=== PATIENT | female | born 1960 | race African-American/Black ===

== ENCOUNTER 2016-12-17 17:41 | Inpatient (IN) | payer MEDICAID, OTHER ==
[2016-12-17] MEDS ORDERED: Sodium Chloride 0.9% 1,000 ML IV ONE (18:20)
[2016-12-17] MEDS ORDERED: Morphine 2 MG/ML Syringe IVPUSH ONE (18:20)
[2016-12-17] MEDS ORDERED: Ondansetron 4 MG/2 ML SDV IVPUSH ONE (18:21)
--- NOTE | 2016-12-17 18:25 | EDM.PDOC ---
ED HPI GENERAL MEDICAL PROBLEM - General Chief Complaint: Flank Pain Stated Complaint: PAIN IN RIGHT BACK AND ABDOMINAL AREAS Time Seen by Provider: 12/17/16 18:22 Source of Information: Reports: Patient History Limitations: Reports: No Limitations - History of Present Illness INITIAL COMMENTS - FREE TEXT/NARRATIVE: History of present illness: [56-year-old female presenting with right-sided flank pain radiating around to her abdomen. Patient indicates this is new she's never had this pain before and feels that this stabbing. Patient denies nausea vomiting or diarrhea.] Review of systems: As per history of present illness and below otherwise all systems reviewed and negative. Past medical history: As per history of present illness and as reviewed below otherwise noncontributory. Surgical history: As per history of present illness and as reviewed below otherwise noncontributory. Social history: No reported history of drug or alcohol abuse. Family history: As per history of present illness and as reviewed below otherwise noncontributory. Physical exam: HEENT: Atraumatic, normocephalic, pupils reactive, negative for conjunctival pallor or scleral icterus, mucous membranes moist, throat clear, neck supple, nontender, trachea midline. Lungs: Clear to auscultation, breath sounds equal bilaterally, chest nontender. Heart: S1S2, regular, negative for clicks, rubs, or JVD. Abdomen: Soft, nondistended, nontender. Negative for masses or hepatosplenomegaly. Negative for costovertebral tenderness. Pelvis: Stable nontender. Genitourinary: Deferred. Rectal: Deferred. Extremities: Atraumatic, negative for cords or calf pain. Neurovascular unremarkable. Neuro: Awake, alert, oriented. Cranial nerves II through XII unremarkable. Cerebellum unremarkable. Motor and sensory unremarkable throughout. Exam nonfocal. Diagnostics: [CBC, CMP] Therapeutics: [IV fluid, morphine, Zofran] Impression: [] Plan: [] Definitive disposition and diagnosis as appropriate pending reevaluation and review of above. right flank Pain Score (Numeric/FACES): 10 - Related Data Allergies Allergy/AdvReac Type Severity Reaction Status Date / Time chloroquine Allergy Unknown Rash Verified 12/17/16 18:15 Penicillins Allergy Fainting Verified 12/17/16 18:15 Home Meds: Home Meds Lisinopril [Prinivil] 10 mg PO DAILY 02/15/14 [History] metFORMIN [Glucophage] 500 mg PO BID 02/15/14 [History] Aspirin 81 mg PO BRK 09/15/15 [History] Metoprolol Succinate [Toprol XL 50mg] 25 mg PO DAILY 09/15/15 [History] Topiramate [Topamax] 50 mg PO 09/15/15 [History] amLODIPine [Norvasc] 2.5 mg PO DAILY 09/15/15 [History] Past Medical History Cardiovascular History: Reports: Hypertension Endocrine/Metabolic History: Reports: Diabetes, Type II Social & Family History - Family History Family Medical History: Unobtainable - Tobacco Use Smoking Status *Q: Never Smoker Second Hand Smoke Exposure: No - Alcohol Use Days Per Week of Alcohol Use: 0 - Recreational Drug Use Recreational Drug Use: No ED ROS GENERAL - Review of Systems Review Of Systems: See Below (See history of present illness) ED EXAM, GENERAL - Physical Exam Exam: See Below (See history of present illness) Course - Vital Signs Last Recorded V/S: Last Vital Signs Temp 36.8 C 12/17/16 19:53 Pulse 84 12/17/16 19:53 Resp 22 H 12/17/16 18:16 BP 135/66 12/17/16 19:53 Pulse Ox 100 12/17/16 18:16 - Orders/Labs/Meds Orders: Active Orders 24 hr Category Date Time Status Abdomen Pelvis wo Cont [CT] Stat Exams 12/17/16 18:57 Taken Gallbladder [Abdomen Ltd] [US] Stat Exams 12/17/16 21:10 Taken LACTATE DEHYDROGENASE,LDH [CHEM] Stat Lab 12/17/16 22:13 Ordered Labs: Laboratory Tests 12/17/16 12/17/16 12/17/16 Range/Units 18:15 18:17 18:30 WBC 8.92 (4.0-11.0) K/uL RBC 4.16 L (4.30-5.90) M/uL Hgb 11.5 L (12.0-16.0) g/dL Hct 34.5 L (36.0-46.0) % MCV 82.9 (80.0-98.0) fL MCH 27.6 (27.0-32.0) pg MCHC 33.3 (31.0-37.0) g/dL RDW Std Deviation 45.8 (28.0-62.0) fl RDW Coeff of Joel 15 (11.0-15.0) % Plt Count 223 (150-400) K/uL MPV 10.90 (7.40-12.00) fL Neut % (Auto) 79.4 (48.0-80.0) % Lymph % (Auto) 11.0 L (16.0-40.0) % Lane % (Auto) 8.3 (0.0-15.0) % Eos % (Auto) 1.1 (0.0-7.0) % Baso % (Auto) 0.2 (0.0-1.5) % Neut # (Auto) 7.1 H (1.4-5.7) K/uL Lymph # (Auto) 1.0 (0.6-2.4) K/uL Lane # (Auto) 0.7 (0.0-0.8) K/uL Eos # (Auto) 0.1 (0.0-0.7) K/uL Baso # (Auto) 0.0 (0.0-0.1) K/uL Nucleated RBC % 0.0 /100WBC Nucleated RBCs # 0 K/uL Sodium (136-146) mmol/L Potassium (3.5-5.1) mmol/L Chloride (98-110) mmol/L Carbon Dioxide (21-31) mmol/L BUN (6.0-23.0) mg/dL Creatinine (0.6-1.5) mg/dL Est Cr Clr Drug Dosing Estimated GFR (MDRD) ml/min Glucose (60-110) mg/dL Calcium (8.8-10.8) mg/dL Total Bilirubin (0.1-1.5) mg/dL AST (5-40) IU/L ALT (8-54) IU/L Alkaline Phosphatase (40-150) Total Protein (6.0-8.0) g/dL Albumin (3.5-5.0) g/dL Globulin (2.0-3.5) g/dL Albumin/Globulin Ratio (1.3-2.8) Urine Color YELLOW Urine Appearance CLEAR Urine pH 6.0 (5.0-8.0) Ur Specific [place] 1.015 (1.001-1.035) Urine Protein NEGATIVE (NEGATIVE) mg/dL Urine Glucose (UA) NEGATIVE (NEGATIVE) mg/dL Urine Ketones NEGATIVE (NEGATIVE) mg/dL Urine Occult Blood SMALL H (NEGATIVE) Urine Nitrite NEGATIVE (NEGATIVE) Urine Bilirubin NEGATIVE (NEGATIVE) Urine Urobilinogen 0.2 (<2.0) EU/dL Ur Leukocyte Esterase NEGATIVE (NEGATIVE) Urine RBC 0-2 (0-2/HPF) Urine WBC 1-3 (0-5/HPF) Ur Epithelial Cells RARE (NONE-FEW) Amorphous Sediment RARE (NEGATIVE) Urine Bacteria RARE (NEGATIVE) Urine HCG, Qual NEGATIVE (NEGATIVE) 12/17/16 Range/Units 18:30 WBC (4.0-11.0) K/uL RBC (4.30-5.90) M/uL Hgb (12.0-16.0) g/dL Hct (36.0-46.0) % MCV (80.0-98.0) fL MCH (27.0-32.0) pg MCHC (31.0-37.0) g/dL RDW Std Deviation (28.0-62.0) fl RDW Coeff of Joel (11.0-15.0) % Plt Count (150-400) K/uL MPV (7.40-12.00) fL Neut % (Auto) (48.0-80.0) % Lymph % (Auto) (16.0-40.0) % Lane % (Auto) (0.0-15.0) % Eos % (Auto) (0.0-7.0) % Baso % (Auto) (0.0-1.5) % Neut # (Auto) (1.4-5.7) K/uL Lymph # (Auto) (0.6-2.4) K/uL Lane # (Auto) (0.0-0.8) K/uL Eos # (Auto) (0.0-0.7) K/uL Baso # (Auto) (0.0-0.1) K/uL Nucleated RBC % /100WBC Nucleated RBCs # K/uL Sodium 136 (136-146) mmol/L Potassium 3.0 L (3.5-5.1) mmol/L Chloride 98 (98-110) mmol/L Carbon Dioxide 25 (21-31) mmol/L BUN 12 (6.0-23.0) mg/dL Creatinine 1.1 (0.6-1.5) mg/dL Est Cr Clr Drug Dosing TNP Estimated GFR (MDRD) > 60.0 ml/min Glucose 128 H (60-110) mg/dL Calcium 9.7 (8.8-10.8) mg/dL Total Bilirubin 0.6 (0.1-1.5) mg/dL AST 29 (5-40) IU/L ALT 27 (8-54) IU/L Alkaline Phosphatase 64 (40-150) Total Protein 6.9 (6.0-8.0) g/dL Albumin 3.7 (3.5-5.0) g/dL Globulin 3.2 (2.0-3.5) g/dL Albumin/Globulin Ratio 1.2 L (1.3-2.8) Urine Color Urine Appearance Urine pH (5.0-8.0) Ur Specific [place] (1.001-1.035) Urine Protein (NEGATIVE) mg/dL Urine Glucose (UA) (NEGATIVE) mg/dL Urine Ketones (NEGATIVE) mg/dL Urine Occult Blood (NEGATIVE) Urine Nitrite (NEGATIVE) Urine Bilirubin (NEGATIVE) Urine Urobilinogen (<2.0) EU/dL Ur Leukocyte Esterase (NEGATIVE) Urine RBC (0-2/HPF) Urine WBC (0-5/HPF) Ur Epithelial Cells (NONE-FEW) Amorphous Sediment (NEGATIVE) Urine Bacteria (NEGATIVE) Urine HCG, Qual (NEGATIVE) Meds: Medications Discontinued Medications Generic Name Dose Route Start Last Admin Trade Name Freq PRN Reason Stop Dose Admin Fentanyl 50 mcg 12/17/16 19:13 12/17/16 19:48 Sublimaze IVPUSH 12/17/16 19:14 50 mcg ONETIME ONE Administration Hydromorphone HCl 2 mg 12/17/16 22:03 Dilaudid IVPUSH 12/17/16 22:04 ONETIME ONE Sodium Chloride 1,000 mls @ 999 mls/hr 12/17/16 18:20 12/17/16 18:42 Normal Saline IV 12/17/16 19:20 999 mls/hr STAT ONE Administration Morphine Sulfate 2 mg 12/17/16 18:20 12/17/16 18:45 Morphine IVPUSH 12/17/16 18:21 2 mg ONETIME ONE Administration Ondansetron HCl 4 mg 12/17/16 18:21 12/17/16 18:42 Zofran IVPUSH 12/17/16 18:22 4 mg ONETIME ONE Administration Prochlorperazine Edisylate 5 mg 12/17/16 22:04 Compazine IVPUSH 12/17/16 22:05 ONETIME ONE Departure - Departure Time of Disposition: 22:15 Disposition: Admitted As Inpatient 68 Condition: good Clinical Impression: Flank pain - Discharge Information Forms: ED Department Discharge - My Orders Last 24 Hours: My Active Orders 12/17/16 18:57 Abdomen Pelvis wo Cont [CT] Stat 12/17/16 21:10 Gallbladder [Abdomen Ltd] [US] Stat 12/17/16 22:13 LACTATE DEHYDROGENASE,LDH [CHEM] Stat - Assessment/Plan Last 24 Hours: My Active Orders 12/17/16 18:57 Abdomen Pelvis wo Cont [CT] Stat 12/17/16 21:10 Gallbladder [Abdomen Ltd] [US] Stat 12/17/16 22:13 LACTATE DEHYDROGENASE,LDH [CHEM] Stat
[2016-12-17 19:11] LABS: CHLORIDE,CL 98 mmol/L (98-110); SODIUM,NA 136 mmol/L (136-146)
[2016-12-17] MEDS ORDERED: fentaNYL 100 MCG/2 ML SDV IVPUSH ONE (19:13)
[2016-12-17] MEDS ORDERED: HYDROmorphone 2 MG/ML Syringe IVPUSH ONE (22:03)
[2016-12-17] MEDS ORDERED: Prochlorperazine 10 MG/2 ML SDV IVPUSH ONE (22:04)
[2016-12-18] MEDS ORDERED: Sodium Chloride 0.9% with KCl 1,000 ML IV SCH (01:15)
[2016-12-18] MEDS ORDERED: Ondansetron 4 MG/2 ML SDV IVPUSH PRN (01:50)
--- NOTE | 2016-12-18 02:03 | PCM.HP ---
H&P History of Present Illness - History of Present Illness Initial Comments - Free Text/Narative: 56 yo female with pmh of DM and HTN who presents with one day history of Right lower quadrant abdominal pain. She denies any nausea, vomiting or fevers. right flank Pain Score (Numeric/FACES): 4 - Related Data Allergies/Adverse Reactions: Allergies Allergy/AdvReac Type Severity Reaction Status Date / Time chloroquine Allergy Unknown Rash Verified 12/17/16 18:15 Penicillins Allergy Fainting Verified 12/17/16 18:15 Home Medications: Home Meds Lisinopril [Prinivil] 10 mg PO DAILY 02/15/14 [History] metFORMIN [Glucophage] 500 mg PO BID 02/15/14 [History] Aspirin 81 mg PO BRK 09/15/15 [History] Metoprolol Succinate [Toprol XL 50mg] 25 mg PO DAILY 09/15/15 [History] Topiramate [Topamax] 50 mg PO 09/15/15 [History] amLODIPine [Norvasc] 2.5 mg PO DAILY 09/15/15 [History] Past Medical History HEENT History: Reports: Impaired Vision 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: Endocrine/Metabolic History: Reports: Diabetes, Type II - Past Surgical History GI Surgical History: Reports: Cholecystectomy, Hernia Repair/Other (ventral) Social & Family History - Family History Family Medical History: Unobtainable Cardiac: Reports: High Cholesterol, Hypertension Endocrine/Metabolic: Reports: Diabetes, type II - Tobacco Use Smoking Status *Q: Never Smoker Second Hand Smoke Exposure: No - Caffeine Use Caffeine Use: Reports: Coffee, Soda, Tea Caffeine Use Comment: 1 cup daily - Alcohol Use Days Per Week of Alcohol Use: 0 - Recreational Drug Use Recreational Drug Use: No H&P Review of Systems - Review of Systems: Review Of Systems: See Below General: Reports: No Symptoms HEENT: Reports: No Symptoms Pulmonary: Reports: No Symptoms Cardiovascular: Reports: No Symptoms Gastrointestinal: Reports: Abdominal Pain Genitourinary: Reports: No Symptoms Musculoskeletal: Reports: No Symptoms Skin: Reports: No Symptoms Psychiatric: Reports: No Symptoms Neurological: Reports: No Symptoms Hematologic/Lymphatic: Reports: No Symptoms Immunologic: Reports: No Symptoms Exam - Exam Exam: See Below - Vital Signs Vital Signs: Last Vital Signs Temp 38.1 C 12/17/16 22:51 Pulse 96 05/24/17 22:51 Resp 26 H 12/17/16 22:51 BP 132/71 12/17/16 22:51 Pulse Ox 85 L 12/17/16 22:51 Weight: 113.398 kg - Exam General: Alert, Oriented, 4 Lungs: Clear to Auscultation, Normal Respiratory Effort Cardiovascular: Regular Rate, Regular Rhythm Abdomen: Tenderness (Right lower quadrant) Extremities: Normal Inspection Skin: Warm, Dry, Intact - Patient Data Lab Results last 24 hrs: Laboratory Results - last 24 hr 12/17/16 Range/Units 23:19 Lactate 0.4 (0.20-2.00) mmol/L Result Diagrams: 12/18/16 05:00 12/18/16 05:00 *Q Meaningful Use (ADM) - VTE *Q VTE Criteria *Q: - Stroke *Q Stroke Criteria *Q: - AMI *Q AMI Criteria *Q: Problem List Initiated/Reviewed/Updated: Yes Orders Last 24hrs: Active Orders 24 hr Category Date Time Status Antiembolic Devices [RC] PER UNIT ROUTINE Care 12/18/16 01:51 Ordered Blood Glucose Check, Bedside [RC] TIDAC Care 12/17/16 23:06 Active Notify Provider Consults [RC] ASDIRECTED Care 12/18/16 01:53 Ordered Oxygen Therapy Adult [Oxygen Therapy] [RC] ASDIRECTED Care 12/17/16 23:06 Active Oxygen Therapy [RC] PRN Care 12/18/16 01:50 Ordered VTE/DVT Education [RC] PER UNIT ROUTINE Care 12/18/16 01:50 Ordered Vital Signs [RC] Q4H Care 12/18/16 01:50 Ordered Consult to Physician [CONS] Routine Cons 12/18/16 01:52 Ordered Nothing per Oral Now Diet [DIET] Diet 12/18/16 Breakfast Ordered CXR [Chest 1V Frontal] [CR] Routine Exams 12/17/16 23:03 Taken BASIC METABOLIC PANEL,BMP [CHEM] Routine Lab 12/18/16 05:00 Ordered CBC WITH AUTO DIFF [HEME] Routine Lab 12/18/16 05:00 Ordered Acetaminophen [Tylenol] Med 12/17/16 23:06 Active 650 mg PO Q4H PRN Insulin Aspart [NovoLOG] Med 12/18/16 07:30 Active See Protocol SUBCUT TIDAC Morphine Med 12/18/16 01:50 Ordered 2 mg IVPUSH Q2H PRN Ondansetron [Zofran] Med 12/18/16 01:50 Ordered 4 mg IVPUSH Q4H PRN Sodium Chloride 0.9% @ 125 MLS/HR (1000ml) Med 12/18/16 02:00 Ordered Sodium Chloride 0.9% [Normal Saline] 1,000 ml IV ASDIRECTED Sodium Chloride 0.9% with KCl 40 mEq @ Enter Rate (1000 Med 12/18/16 01:15 Ordered mL) Sodium Chloride 0.9% with KCl [Normal Saline with 40 mEq KCl] 1,000 ml IV ASDIRECTED Sequential Compression Device [OM.PC] Per Unit Routine Oth 12/18/16 01:51 Ordered Medication Orders Acetaminophen (Tylenol) 650 mg PO Q4H PRN PRN Reason: Pain Potassium Chloride/Sodium Chloride (Normal Saline With 40 Meq Kcl) 1,000 mls @ 150 mls/hr IV ASDIRECTED BERNARDO Stop: 12/18/16 07:54 Last Admin: 12/18/16 01:35 Dose: 150 mls/hr Sodium Chloride (Normal Saline) 1,000 mls @ 125 mls/hr IV ASDIRECTED BERNARDO Insulin Aspart (Novolog) 0 unit SUBCUT TIDAC BERNARDO PRN Reason: Protocol Morphine Sulfate (Morphine) 2 mg IVPUSH Q2H PRN PRN Reason: Pain (severe 7-10) Stop: 12/19/16 01:51 Ondansetron HCl (Zofran) 4 mg IVPUSH Q4H PRN PRN Reason: Nausea Assessment/Plan Comment:: 56 yo female who presents with abdominal pain. I spoke with Dr. Leavitt regarding RLQ pain, and CT scan report of mild prominence of the mid appendix which could be within normal limits for this patient. Patient currently does not have fevers, or leukocytosis. Dr. Leavitt will see patient project builder.
[2016-12-18 06:03] LABS: CHLORIDE,CL 100 mmol/L (98-110); SODIUM,NA 137 mmol/L (136-146)
--- NOTE | 2016-12-18 07:32 | PCM.CONS ---
H&P History of Present Illness - General Date of Service: 12/18/16 Admit Problem/Dx: Right flank pain Source of Information: Patient History Limitations: Reports: No Limitations - History of Present Illness Symptom Onset Date: 12/17/16 Location: Reports: Back, Other (Right flank) Quality: Reports: Ache, Sharp, Stabbing Severity: Moderate Improves with: Reports: Rest, Other (Left lateral decubitus position) Worsens with: Reports: Movement Context: Reports: Sick Contact Associated Symptoms: Reports: Nausea/Vomiting right flank Pain Score (Numeric/FACES): 4 - Related Data Allergies/Adverse Reactions: Allergies Allergy/AdvReac Type Severity Reaction Status Date / Time chloroquine Allergy Unknown Rash Verified 12/17/16 18:15 Penicillins Allergy Fainting Verified 12/17/16 18:15 Home Medications: Home Meds Lisinopril [Prinivil] 10 mg PO DAILY 02/15/14 [History] metFORMIN [Glucophage] 500 mg PO BID 02/15/14 [History] Aspirin 81 mg PO BRK 09/15/15 [History] Metoprolol Succinate [Toprol XL 50mg] 25 mg PO DAILY 09/15/15 [History] Topiramate [Topamax] 50 mg PO 09/15/15 [History] amLODIPine [Norvasc] 2.5 mg PO DAILY 09/15/15 [History] Past Medical History HEENT History: Reports: Impaired Vision 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: 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/Metabolic 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: Reports: Diabetes, Type II - Past Surgical History GI Surgical History: Reports: Cholecystectomy, Hernia Repair/Other (ventral) Social & Family History - Family History Family Medical History: Unobtainable Cardiac: Reports: High Cholesterol, Hypertension Endocrine/Metabolic: Reports: Diabetes, type II - Tobacco Use Smoking Status *Q: Never Smoker Second Hand Smoke Exposure: No - Caffeine Use Caffeine Use: Reports: Coffee, Soda, Tea Caffeine Use Comment: 1 cup daily - Alcohol Use Days Per Week of Alcohol Use: 0 - Recreational Drug Use Recreational Drug Use: No H&P Review of Systems - Review of Systems: Review Of Systems: See Below General: Denies: Fever, Chills, Malaise, Weakness, Decreased Appetite HEENT: Reports: No Symptoms Pulmonary: Denies: Shortness of Breath, Wheezing Cardiovascular: Denies: Chest Pain, Palpitations Gastrointestinal: Reports: Decreased Appetite, Nausea, Vomiting (one small emesis). Denies: Constipation, Diarrhea Genitourinary: Denies: Dysuria, Frequency, Burning, Pain, Urgency, Hematuria Musculoskeletal: Denies: No Symptoms Skin: Denies: Cyanosis, Jaundice Psychiatric: Denies: Confusion, Depression, Anxiety Neurological: Reports: No Symptoms Hematologic/Lymphatic: Reports: No Symptoms Immunologic: Reports: No Symptoms Exam - Exam Exam: See Below - Vital Signs Vital Signs: Last Vital Signs Temp 97.4 F 12/18/16 03:17 Pulse 90 12/18/16 03:17 Resp 20 12/18/16 03:17 BP 136/67 12/18/16 03:17 Pulse Ox 97 12/18/16 03:17 Weight: 250 lb - Exam General: Alert, Oriented, Cooperative, Moderate Distress HEENT: Conjunctiva Clear, EOMI, Pupils Equal, Pupils Reactive. No: Scleral Icterus Neck: Supple, Trachea Midline Lungs: Clear to Auscultation, Normal Respiratory Effort Cardiovascular: Regular Rate, Regular Rhythm, Normal S1, Normal S2. No: Tachycardia Abdomen: Normal Bowel Sounds, Soft. No: Peritoneal Signs, Distention, Guarding , Rigidity, Rebound, McBurney's Sign, Psoas Sign, Rovsing's Sign (Female) Exam: Deferred Rectal (Female) Exam: Deferred Back Exam: Normal Inspection Extremities: Normal Inspection, Normal Pulses Neurological: Cranial Nerves Intact Neuro Extensive - Mental Status: Alert, Oriented x3, Normal Mood/Affect Psychiatric: Alert, Normal Affect, Normal Mood - Patient Data Lab Results last 24 hrs: Laboratory Results - last 24 hr 12/17/16 12/18/16 12/18/16 Range/Units 23:19 05:00 05:00 WBC 6.58 (4.0-11.0) K/uL RBC 4.00 L (4.30-5.90) M/uL Hgb 10.7 L (12.0-16.0) g/dL Hct 33.2 L (36.0-46.0) % MCV 83.0 (80.0-98.0) fL MCH 26.8 L (27.0-32.0) pg MCHC 32.2 (31.0-37.0) g/dL RDW Std Deviation 45.1 (28.0-62.0) fl RDW Coeff of Joel 15 (11.0-15.0) % Plt Count 214 (150-400) K/uL MPV 11.10 (7.40-12.00) fL Neut % (Auto) 81.6 H (48.0-80.0) % Lymph % (Auto) 8.4 L (16.0-40.0) % [place] % (Auto) 9.3 (0.0-15.0) % Eos % (Auto) 0.5 (0.0-7.0) % Baso % (Auto) 0.2 (0.0-1.5) % Neut # (Auto) 5.4 (1.4-5.7) K/uL Lymph # (Auto) 0.6 (0.6-2.4) K/uL [place] # (Auto) 0.6 (0.0-0.8) K/uL Eos # (Auto) 0.0 (0.0-0.7) K/uL Baso # (Auto) 0.0 (0.0-0.1) K/uL Nucleated RBC % 0.0 /100WBC Nucleated RBCs # 0 K/uL Lactate 0.4 (0.20-2.00) mmol/L Sodium 137 (136-146) mmol/L Potassium 3.4 L (3.5-5.1) mmol/L Chloride 100 (98-110) mmol/L Carbon Dioxide 27 (21-31) mmol/L BUN 10 (6.0-23.0) mg/dL Creatinine 1.0 (0.6-1.5) mg/dL Est Cr Clr Drug Dosing 62.54 mL/min Estimated GFR (MDRD) > 60.0 ml/min Glucose 125 H (60-110) mg/dL POC Glucose (60-110) mg/dL Calcium 8.7 L (8.8-10.8) mg/dL 12/18/16 Range/Units 06:41 WBC (4.0-11.0) K/uL RBC (4.30-5.90) M/uL Hgb (12.0-16.0) g/dL Hct (36.0-46.0) % MCV (80.0-98.0) fL MCH (27.0-32.0) pg MCHC (31.0-37.0) g/dL RDW Std Deviation (28.0-62.0) fl RDW Coeff of Joel (11.0-15.0) % Plt Count (150-400) K/uL MPV (7.40-12.00) fL Neut % (Auto) (48.0-80.0) % Lymph % (Auto) (16.0-40.0) % [place] % (Auto) (0.0-15.0) % Eos % (Auto) (0.0-7.0) % Baso % (Auto) (0.0-1.5) % Neut # (Auto) (1.4-5.7) K/uL Lymph # (Auto) (0.6-2.4) K/uL [place] # (Auto) (0.0-0.8) K/uL Eos # (Auto) (0.0-0.7) K/uL Baso # (Auto) (0.0-0.1) K/uL Nucleated RBC % /100WBC Nucleated RBCs # K/uL Lactate (0.20-2.00) mmol/L Sodium (136-146) mmol/L Potassium (3.5-5.1) mmol/L Chloride (98-110) mmol/L Carbon Dioxide (21-31) mmol/L BUN (6.0-23.0) mg/dL Creatinine (0.6-1.5) mg/dL Est Cr Clr Drug Dosing mL/min Estimated GFR (MDRD) ml/min Glucose (60-110) mg/dL POC Glucose 122 H (60-110) mg/dL Calcium (8.8-10.8) mg/dL Result Diagrams: 12/18/16 05:00 12/18/16 05:00 Consult PN Assessment/Plan Procedures: Procedures ASSAY OF BLOOD/URIC ACID (03/26/15) ASSAY OF CK (CPK) (02/15/14) ASSAY OF GONADOTROPIN (FSH) (01/19/14) ASSAY OF IRON (03/26/15) ASSAY OF TROPONIN QUANT (02/15/14) ASSAY THYROID STIM HORMONE (03/26/15) CHEST X-RAY 1 VIEW FRONTAL (02/15/14) COMPLETE CBC W/AUTO DIFF WBC (02/15/14) COMPREHEN METABOLIC PANEL (03/26/15) CREATINE MB FRACTION (02/15/14) ELECTROCARDIOGRAM TRACING (02/15/14) EMERGENCY DEPT VISIT (09/15/15) EMERGENCY DEPT VISIT (02/15/14) GLUCOSE BLOOD TEST (02/15/14) GLYCOSYLATED HEMOGLOBIN TEST (03/26/15) LIPID PANEL (03/26/15) METABOLIC PANEL TOTAL CA (01/19/14) PROTHROMBIN TIME (02/15/14) RBC SED RATE AUTOMATED (03/26/15) ROUTINE VENIPUNCTURE (03/26/15) THER/PROPH/DIAG INJ IV PUSH (02/15/14) THER/PROPH/DIAG INJ SC/IM (02/15/14) THROMBOPLASTIN TIME PARTIAL (02/15/14) US EXAM ABDO BACK WALL CORRIGAN (08/03/14) X-RAY EXAM OF ANKLE (11/04/13) (1) Flank pain SNOMED Code(s): 405961489 Code(s): R10.9 - UNSPECIFIED ABDOMINAL PAIN Current Visit: Yes Problem List Initiated/Reviewed/Updated: Yes Plan: CT shows mild dilatation of the mid appendix with no distal dilatation or inflammatory changes. Patient c/o more of right flank pain than abdominal pain. Abdominal exam is benign--no localizaing RLQ tenderness or rebound. I do not think this is appendicitis.
[2016-12-18] MEDS: Insulin Aspart 100 Units/ML 3 ML Pen SUBCUT SCH ×4 (07:34→17:02)
[2016-12-18] MEDS: Morphine 2 MG/ML Syringe IVPUSH PRN ×5 (07:35→22:48)
[2016-12-18] MEDS: Sodium Chloride 0.9% 1,000 ML IV SCH ×2 (08:30→20:07)
--- NOTE | 2016-12-18 12:04 | PCM.PN ---
- Review of Systems Systems Review Comment:: patient's pain is now more right flank that RLQ abdominal pain. - Patient Data Vitals - most recent: Last Vital Signs Temp 37.3 C 12/18/16 08:00 Pulse 104 H 12/18/16 08:00 Resp 22 H 12/18/16 08:00 BP 135/63 12/18/16 08:00 Pulse Ox 94 L 12/18/16 08:00 Weight - most recent: 113.398 kg I&O - last 24 hours: Intake & Output 12/17/16 12/18/16 12/18/16 22:59 06:59 14:59 Intake Total 200 999 Balance 200 999 Lab Results last 24 hrs: Laboratory Results - last 24 hr 12/17/16 12/18/16 12/18/16 Range/Units 23:19 05:00 05:00 WBC 6.58 (4.0-11.0) K/uL RBC 4.00 L (4.30-5.90) M/uL Hgb 10.7 L (12.0-16.0) g/dL Hct 33.2 L (36.0-46.0) % MCV 83.0 (80.0-98.0) fL MCH 26.8 L (27.0-32.0) pg MCHC 32.2 (31.0-37.0) g/dL RDW Std Deviation 45.1 (28.0-62.0) fl RDW Coeff of Joel 15 (11.0-15.0) % Plt Count 214 (150-400) K/uL MPV 11.10 (7.40-12.00) fL Neut % (Auto) 81.6 H (48.0-80.0) % Lymph % (Auto) 8.4 L (16.0-40.0) % Villalba % (Auto) 9.3 (0.0-15.0) % Eos % (Auto) 0.5 (0.0-7.0) % Baso % (Auto) 0.2 (0.0-1.5) % Neut # (Auto) 5.4 (1.4-5.7) K/uL Lymph # (Auto) 0.6 (0.6-2.4) K/uL Villalba # (Auto) 0.6 (0.0-0.8) K/uL Eos # (Auto) 0.0 (0.0-0.7) K/uL Baso # (Auto) 0.0 (0.0-0.1) K/uL Nucleated RBC % 0.0 /100WBC Nucleated RBCs # 0 K/uL Lactate 0.4 (0.20-2.00) mmol/L Sodium 137 (136-146) mmol/L Potassium 3.4 L (3.5-5.1) mmol/L Chloride 100 (98-110) mmol/L Carbon Dioxide 27 (21-31) mmol/L BUN 10 (6.0-23.0) mg/dL Creatinine 1.0 (0.6-1.5) mg/dL Est Cr Clr Drug Dosing 62.54 mL/min Estimated GFR (MDRD) > 60.0 ml/min Glucose 125 H (60-110) mg/dL POC Glucose (60-110) mg/dL Calcium 8.7 L (8.8-10.8) mg/dL // Range/Units 06:41 WBC (4.0-11.0) K/uL RBC (4.30-5.90) M/uL Hgb (12.0-16.0) g/dL Hct (36.0-46.0) % MCV (80.0-98.0) fL MCH (27.0-32.0) pg MCHC (31.0-37.0) g/dL RDW Std Deviation (28.0-62.0) fl RDW Coeff of Joel (11.0-15.0) % Plt Count (150-400) K/uL MPV (7.40-12.00) fL Neut % (Auto) (48.0-80.0) % Lymph % (Auto) (16.0-40.0) % Villalba % (Auto) (0.0-15.0) % Eos % (Auto) (0.0-7.0) % Baso % (Auto) (0.0-1.5) % Neut # (Auto) (1.4-5.7) K/uL Lymph # (Auto) (0.6-2.4) K/uL Villalba # (Auto) (0.0-0.8) K/uL Eos # (Auto) (0.0-0.7) K/uL Baso # (Auto) (0.0-0.1) K/uL Nucleated RBC % /100WBC Nucleated RBCs # K/uL Lactate (0.20-2.00) mmol/L Sodium (136-146) mmol/L Potassium (3.5-5.1) mmol/L Chloride (98-110) mmol/L Carbon Dioxide (21-31) mmol/L BUN (6.0-23.0) mg/dL Creatinine (0.6-1.5) mg/dL Est Cr Clr Drug Dosing mL/min Estimated GFR (MDRD) ml/min Glucose (60-110) mg/dL POC Glucose 122 H (60-110) mg/dL Calcium (8.8-10.8) mg/dL Med Orders - Current: Current Medications Acetaminophen (Tylenol) 650 mg PO Q4H PRN PRN Reason: Pain Sodium Chloride (Normal Saline) 1,000 mls @ 125 mls/hr IV ASDIRECTED [facility] Last Admin: 12/18/16 08:30 Dose: 125 mls/hr Insulin Aspart (Novolog) 0 unit SUBCUT TIDAC [facility] PRN Reason: Protocol Last Admin: 12/18/16 11:31 Dose: Not Given Morphine Sulfate (Morphine) 2 mg IVPUSH Q2H PRN PRN Reason: Pain (severe 7-10) Stop: 12/19/16 01:51 Last Admin: 12/18/16 11:32 Dose: 2 mg Ondansetron HCl (Zofran) 4 mg IVPUSH Q4H PRN PRN Reason: Nausea Discontinued Medications Fentanyl (Sublimaze) 50 mcg IVPUSH ONETIME ONE Stop: 12/17/16 19:14 Last Admin: 12/17/16 19:48 Dose: 50 mcg Hydromorphone HCl (Dilaudid) 2 mg IVPUSH ONETIME ONE Stop: 12/17/16 22:04 Last Admin: 12/17/16 22:26 Dose: 2 mg Sodium Chloride (Normal Saline) 1,000 mls @ 999 mls/hr IV STAT ONE Stop: 12/17/16 19:20 Last Admin: 12/17/16 18:42 Dose: 999 mls/hr Potassium Chloride/Sodium Chloride (Normal Saline With 40 Meq Kcl) 1,000 mls @ 150 mls/hr IV ASDIRECTED [facility]ARDO Stop: 12/18/16 07:54 Last Admin: 12/18/16 01:35 Dose: 150 mls/hr Morphine Sulfate (Morphine) 2 mg IVPUSH ONETIME ONE Stop: 12/17/16 18:21 Last Admin: 12/17/16 18:45 Dose: 2 mg Ondansetron HCl (Zofran) 4 mg IVPUSH ONETIME ONE Stop: 12/17/16 18:22 Last Admin: 12/17/16 18:42 Dose: 4 mg Prochlorperazine Edisylate (Compazine) 5 mg IVPUSH ONETIME ONE Stop: 12/17/16 22:05 Last Admin: 12/17/16 22:29 Dose: 5 mg - Exam General: alert, oriented Lungs: Clear to auscultation, Normal respiratory effort Cardiovascular: Regular Rate, Regular Rhythm Abdomen: no distension, tenderness (RLQ and extending to right flank). No: rigidity, rebound Extremities: no edema Skin: warm, dry, intact Neurological: no new focal deficit - Problem List Review Problem List Initiated/Reviewed/Updated: Yes - My Orders Last 24 Hours: My Active Orders 12/17/16 23:03 CXR [Chest 1V Frontal] [CR] Routine 12/17/16 23:06 Blood Glucose Check, Bedside [RC] TIDAC Oxygen Therapy Adult [Oxygen Therapy] [RC] ASDIRECTED Acetaminophen [Tylenol] 650 mg PO Q4H PRN 12/18/16 01:50 Oxygen Therapy [RC] PRN VTE/DVT Education [RC] PER UNIT ROUTINE Vital Signs [RC] Q4H Morphine 2 mg IVPUSH Q2H PRN Ondansetron [Zofran] 4 mg IVPUSH Q4H PRN 12/18/16 01:51 Antiembolic Devices [RC] PER UNIT ROUTINE Sequential Compression Device [OM.PC] Per Unit Routine 12/18/16 01:52 Consult to Physician [CONS] Routine 12/18/16 01:53 Notify Provider Consults [RC] ASDIRECTED 12/18/16 02:00 Sodium Chloride 0.9% [Normal Saline] 1,000 ml IV ASDIRECTED 12/18/16 07:30 Insulin Aspart [NovoLOG] See Protocol SUBCUT TIDAC 12/18/16 10:53 Pelvis Non OB Comp [US] Routine 12/18/16 10:58 Notify Provider Consults [RC] ASDIRECTED Consult to Physician [CONS] Routine 12/18/16 Lunch Clear Liquid Diet [DIET] - Plan Plan:: 56 yo female who presents with abdominal and flank pain. Dr. Leavitt has seen patient and does not believe she has appendicitis. I have consulted Dr. Rodarte regarding Ct scan findings of bladder wall thinking and straining of mid ureters. Patient's UA is normal.
--- NOTE | 2016-12-18 14:30 | CT ---
EXAM DATE: 12/17/16 PATIENT'S AGE: 56 Patient: SHASTA HENNING Facility: [place], [place] Site . Site : 1960 Study: CT Abdomen/Pelvis [id number]/24/2017 7:50:10 PM Ordering Physician: Doctor Hooks Final Report: INDICATION: Right flank pain TECHNIQUE: CT abdomen and pelvis without contrast. COMPARISON: None available FINDINGS: Lower chest: Tiny posterior left pleural fluid and apparent trace right pleural fluid. Small pericardial fluid at the base. Liver: Hepatomegaly measuring 21 centimeters craniocaudally. Spleen: Mild splenomegaly measuring 13.8 centimeters in AP dimension. Pancreas: Unremarkable. Gallbladder and bile ducts: Cholecystectomy. Dilated extrahepatic duct up to 1.7 centimeters proximally, and mild central intrahepatic biliary dilatation, greater than expected for age postcholecystectomy state. Adrenal glands: Unremarkable. Kidneys: No hydronephrosis or nephrolithiasis. The distal ureters are not well delineated. Apparent mild stranding adjacent to the mid ureters. A punctate calcification in the right pelvis on image 127 appears posterior to the expected location of the distal right ureter. GI tract: No mechanical bowel obstruction. Mild prominence of the mid appendix measuring 8 millimeters, however the more distal appendix is not significantly distended and this could be within normal limits for this patient. Colonic diverticulosis without gross diverticulitis. Areas of fat attenuation within the colonic lumen could be related to luminal contents, although intraluminal lipomas are not excluded. Vascular structures: Apparent mild stranding adjacent to the aorta and gonadal veins, nonspecific. Lymph nodes: Unremarkable. Miscellaneous: Small pelvic free fluid. No free air. A moderate size ventral hernia containing fat, fluid and edema, with mild stranding in the underlying omental fat suggestive of inflammation or strangulation. Pelvic Organs: An enlarged lobulated, likely leiomyomatous, uterus. Bladder wall thickening. Bones: Degenerative changes in the spine. IMPRESSION: No obstructive uropathy. Bladder wall thickening and stranding adjacent to the mid ureters. Correlate with urinalysis for cystitis/ UTI. An enlarged lobulated, likely myomatous uterus. Stranding along the gonadal veins, unclear if related to the ureters. Recommend sonographic correlation and gynecological evaluation. Apparent mild stranding adjacent to the aorta could be reactive. Vasculitis is difficult to exclude without contrast. If indicated, correlate with postcontrast imaging. Colonic diverticulosis without diverticulitis. Mild prominence of the mid appendix could be within normal limits for this patient. Correlate clinically. A ventral hernia containing fat, fluid and edema, with mild stranding in the underlying omental fat, suggestive of inflammation or strangulation. Trace pleural fluid and small pericardial fluid. Hepatosplenomegaly. Biliary dilatation, greater than expected for a postcholecystectomy state. Consider followup evaluation. Dictated by Beto Pena MD @ 12/17/2016 8:51:16 PM Dictated by: Beto Pena MD @ 12/17/2016 20:51:53 (Electronic Signature) Report Signed by Proxy. LALO
--- NOTE | 2016-12-18 15:27 | US ---
EXAM DATE: 12/17/16 PATIENT'S AGE: 56 Patient: SHASTA HENNING Facility: [place], [place] Site . Site : 1960 Study: US Abdomen -12/17/2016 10:02:48 PM Ordering Physician: Doctor Hooks Final Report: INDICATION: Dilated common bile duct. TECHNIQUE: Ultrasound abdomen limited. Sonographic images of the right upper quadrant were obtained using martinez-scale and color Doppler images. COMPARISON: CT scan abdomen pelvis 12/17/2016 at 7:42 p.m. FINDINGS: Liver: Normal in size and echotexture. No masses. No intrahepatic biliary dilatation. Gallbladder: History of cholecystectomy. Common bile duct: 4-9 mm. Pancreas: Normal. The distal pancreatic body and tail are not visualized. Right kidney: 10.3 cm. Normal echotexture and cortex. No masses, stones, or hydronephrosis. IMPRESSION: Common bile duct is dilated to 9 millimeters. No obvious obstructing calculi. No intrahepatic biliary duct dilatation. History of cholecystectomy Dictated by Darian Cifuentes MD @ 12/17/2016 10:17:30 PM Dictated by: Darian Cifuentes MD @ 12/17/2016 22:17:41 (Electronic Signature) Report Signed by Proxy. LALO
--- NOTE | 2016-12-18 15:34 | CR ---
EXAM DATE: 12/17/16 PATIENT'S AGE: 56 Patient: SHASTA HENNING Facility: [place], [place] Site . Site : 1960 Study: XRay Chest [id number]/24/2017 11:42:24 PM Ordering Physician: Yaniv Iyer Final Report: INDICATIONS: Low O2 saturation. TECHNIQUE: Chest 1 view. COMPARISON: 02/15/2014. FINDINGS: No pneumothorax, pleural effusion or airspace consolidation. Cardiac and mediastinal contours are within normal limits. Upper abdomen and osseous structures show no acute abnormality. IMPRESSION: No acute cardiopulmonary disease. Dictated by Boom Kern MD @ 12/17/2016 11:49:09 PM Dictated by: Boom Kern MD @ 12/17/2016 23:49:20 (Electronic Signature) Report Signed by Proxy. [facility] & CLINICAlison
--- NOTE | 2016-12-18 15:39 | US ---
EXAM DATE: 12/17/16 PATIENT'S AGE: 56 Patient: SHASTA HENNING Facility: [place], [place] Site . Site : 1960 Study: US Abdomen -12/17/2016 10:02:48 PM Ordering Physician: Doctor Hooks Final Report: INDICATION: Dilated common bile duct. TECHNIQUE: Ultrasound abdomen limited. Sonographic images of the right upper quadrant were obtained using martinez-scale and color Doppler images. COMPARISON: CT scan abdomen pelvis 12/17/2016 at 7:42 p.m. FINDINGS: Liver: Normal in size and echotexture. No masses. No intrahepatic biliary dilatation. Gallbladder: History of cholecystectomy. Common bile duct: 4-9 mm. Pancreas: Normal. The distal pancreatic body and tail are not visualized. Right kidney: 10.3 cm. Normal echotexture and cortex. No masses, stones, or hydronephrosis. IMPRESSION: Common bile duct is dilated to 9 millimeters. No obvious obstructing calculi. No intrahepatic biliary duct dilatation. History of cholecystectomy Dictated by Darian Cifuentes MD @ 12/17/2016 10:17:30 PM Dictated by: Darian Cifuentes MD @ 12/17/2016 22:17:41 (Electronic Signature) Report Signed by Proxy. LALO
[2016-12-18] MEDS ORDERED: Ciprofloxacin in D5W 400 MG in Premix Bag 1 BAG IV SCH ×2 (16:15)
[2016-12-18] MEDS ORDERED: Iopamidol 755 MG/ML 500 ML Multipack Bottle IVPUSH STA (16:50)
--- NOTE | 2016-12-18 17:06 | US ---
EXAMINATION: Transabdominal pelvic ultrasound HISTORY: Pain COMPARISON: CT dated 12/17/2016 TECHNIQUE: Grayscale, color Doppler, and spectral Doppler images obtained transabdominally. FINDINGS: The uterus is enlarged and heterogeneous measuring 12.7 x 6 x 7.5 cm. Several masslike are as are noted likely representing fibroids measuring up to 4.5 cm. Endometrial stripe is not well chrissie racterized on the provided images. Both the left and right ovaries are normal in size. Normal color and spectral Doppler flow noted within the left ovary. No significant color flow noted within the ri ght ovary likely secondary to technique. No significant free pelvic fluid. No adnexal masses. IMPRESSION: 1. Multiple fibroids noted within a mildly enlarged uterus.
[2016-12-18] MEDS ORDERED: cefTRIAXone 2 GM in Premix Bag 1 BAG IV SCH (19:00)
[2016-12-18] MEDS: Acetaminophen 325 MG Tab PO PRN (20:08)
[2016-12-19] MEDS: Morphine 2 MG/ML Syringe IVPUSH PRN ×4 (01:35→19:59)
[2016-12-19] MEDS: Acetaminophen 325 MG Tab PO PRN (04:32)
[2016-12-19 04:51] LABS: CHLORIDE,CL 100 mmol/L (98-110); SODIUM,NA 137 mmol/L (136-146)
--- NOTE | 2016-12-19 05:35 | PCM.PN ---
- General Info Date of Service: 12/19/16 Admission Dx/Problem (Free Text): flank pain Functional Status: Denies: pain controlled - Review of Systems General: Reports: Weakness, Malaise, Chills, Night Sweats. Denies: Fever HEENT: Reports: no symptoms Pulmonary: Reports: shortness of breath Cardiovascular: Reports: No Symptoms Gastrointestinal: Reports: Abdominal pain Genitourinary: Reports: no symptoms Musculoskeletal: Reports: hand pain Skin: Reports: diaphoresis Neurological: Reports: No Symptoms Psychiatric: Reports: no symptoms - Patient Data Vitals - most recent: Last Vital Signs Temp 37.3 C 12/19/16 04:00 Pulse 91 12/19/16 04:00 Resp 19 12/19/16 04:00 BP 92/49 L 12/19/16 04:00 Pulse Ox 92 L 12/19/16 04:00 Weight - most recent: 113.398 kg I&O - last 24 hours: Intake & Output 12/18/16 12/18/16 12/19/16 14:59 22:59 06:59 Intake Total 999 1000 Output Total 1500 Balance 999 -500 Lab Results last 24 hrs: Laboratory Results - last 24 hr 12/18/16 12/18/16 12/18/16 Range/Units 05:00 05:00 05:00 WBC 6.58 (4.0-11.0) K/uL RBC 4.00 L (4.30-5.90) M/uL Hgb 10.7 L (12.0-16.0) g/dL Hct 33.2 L (36.0-46.0) % MCV 83.0 (80.0-98.0) fL MCH 26.8 L (27.0-32.0) pg MCHC 32.2 (31.0-37.0) g/dL RDW Std Deviation 45.1 (28.0-62.0) fl RDW Coeff of Joel 15 (11.0-15.0) % Plt Count 214 (150-400) K/uL MPV 11.10 (7.40-12.00) fL Neut % (Auto) 81.6 H (48.0-80.0) % Lymph % (Auto) 8.4 L (16.0-40.0) % Talbot % (Auto) 9.3 (0.0-15.0) % Eos % (Auto) 0.5 (0.0-7.0) % Baso % (Auto) 0.2 (0.0-1.5) % Neut # (Auto) 5.4 (1.4-5.7) K/uL Lymph # (Auto) 0.6 (0.6-2.4) K/uL Talbot # (Auto) 0.6 (0.0-0.8) K/uL Eos # (Auto) 0.0 (0.0-0.7) K/uL Baso # (Auto) 0.0 (0.0-0.1) K/uL Nucleated RBC % 0.0 /100WBC Nucleated RBCs # 0 K/uL ESR 55 H (0-29) mm/hr INR (0.86-1.11) Lactate (0.20-2.00) mmol/L Sodium 137 (136-146) mmol/L Potassium 3.4 L (3.5-5.1) mmol/L Chloride 100 (98-110) mmol/L Carbon Dioxide 27 (21-31) mmol/L BUN 10 (6.0-23.0) mg/dL Creatinine 1.0 (0.6-1.5) mg/dL Est Cr Clr Drug Dosing 62.54 mL/min Estimated GFR (MDRD) > 60.0 ml/min Glucose 125 H (60-110) mg/dL POC Glucose (60-110) mg/dL Hemoglobin A1c (0.0-6.0) % Calcium 8.7 L (8.8-10.8) mg/dL Total Bilirubin (0.1-1.5) mg/dL AST (5-40) IU/L ALT (8-54) IU/L Alkaline Phosphatase (40-150) C-Reactive Protein (0.0-0.5) mg/dL Total Protein (6.0-8.0) g/dL Albumin (3.5-5.0) g/dL Globulin (2.0-3.5) g/dL Albumin/Globulin Ratio (1.3-2.8) 12/18/16 12/18/16 12/18/16 Range/Units 05:00 05:00 06:41 WBC (4.0-11.0) K/uL RBC (4.30-5.90) M/uL Hgb (12.0-16.0) g/dL Hct (36.0-46.0) % MCV (80.0-98.0) fL MCH (27.0-32.0) pg MCHC (31.0-37.0) g/dL RDW Std Deviation (28.0-62.0) fl RDW Coeff of Joel (11.0-15.0) % Plt Count (150-400) K/uL MPV (7.40-12.00) fL Neut % (Auto) (48.0-80.0) % Lymph % (Auto) (16.0-40.0) % Talbot % (Auto) (0.0-15.0) % Eos % (Auto) (0.0-7.0) % Baso % (Auto) (0.0-1.5) % Neut # (Auto) (1.4-5.7) K/uL Lymph # (Auto) (0.6-2.4) K/uL Talbot # (Auto) (0.0-0.8) K/uL Eos # (Auto) (0.0-0.7) K/uL Baso # (Auto) (0.0-0.1) K/uL Nucleated RBC % /100WBC Nucleated RBCs # K/uL ESR (0-29) mm/hr INR (0.86-1.11) Lactate (0.20-2.00) mmol/L Sodium (136-146) mmol/L Potassium (3.5-5.1) mmol/L Chloride (98-110) mmol/L Carbon Dioxide (21-31) mmol/L BUN (6.0-23.0) mg/dL Creatinine (0.6-1.5) mg/dL Est Cr Clr Drug Dosing mL/min Estimated GFR (MDRD) ml/min Glucose (60-110) mg/dL POC Glucose 122 H (60-110) mg/dL Hemoglobin A1c 6.2 H (0.0-6.0) % Calcium (8.8-10.8) mg/dL Total Bilirubin (0.1-1.5) mg/dL AST (5-40) IU/L ALT (8-54) IU/L Alkaline Phosphatase (40-150) C-Reactive Protein 15.70 H (0.0-0.5) mg/dL Total Protein (6.0-8.0) g/dL Albumin (3.5-5.0) g/dL Globulin (2.0-3.5) g/dL Albumin/Globulin Ratio (1.3-2.8) 12/18/16 12/18/16 12/18/16 Range/Units 12:14 14:13 16:53 WBC (4.0-11.0) K/uL RBC (4.30-5.90) M/uL Hgb (12.0-16.0) g/dL Hct (36.0-46.0) % MCV (80.0-98.0) fL MCH (27.0-32.0) pg MCHC (31.0-37.0) g/dL RDW Std Deviation (28.0-62.0) fl RDW Coeff of Joel (11.0-15.0) % Plt Count (150-400) K/uL MPV (7.40-12.00) fL Neut % (Auto) (48.0-80.0) % Lymph % (Auto) (16.0-40.0) % Talbot % (Auto) (0.0-15.0) % Eos % (Auto) (0.0-7.0) % Baso % (Auto) (0.0-1.5) % Neut # (Auto) (1.4-5.7) K/uL Lymph # (Auto) (0.6-2.4) K/uL Talbot # (Auto) (0.0-0.8) K/uL Eos # (Auto) (0.0-0.7) K/uL Baso # (Auto) (0.0-0.1) K/uL Nucleated RBC % /100WBC Nucleated RBCs # K/uL ESR (0-29) mm/hr INR 1.05 (0.86-1.11) Lactate (0.20-2.00) mmol/L Sodium (136-146) mmol/L Potassium (3.5-5.1) mmol/L Chloride (98-110) mmol/L Carbon Dioxide (21-31) mmol/L BUN (6.0-23.0) mg/dL Creatinine (0.6-1.5) mg/dL Est Cr Clr Drug Dosing mL/min Estimated GFR (MDRD) ml/min Glucose (60-110) mg/dL POC Glucose 120 H 129 H (60-110) mg/dL Hemoglobin A1c (0.0-6.0) % Calcium (8.8-10.8) mg/dL Total Bilirubin (0.1-1.5) mg/dL AST (5-40) IU/L ALT (8-54) IU/L Alkaline Phosphatase (40-150) C-Reactive Protein (0.0-0.5) mg/dL Total Protein (6.0-8.0) g/dL Albumin (3.5-5.0) g/dL Globulin (2.0-3.5) g/dL Albumin/Globulin Ratio (1.3-2.8) 12/18/16 12/18/16 12/19/16 Range/Units 17:35 17:35 04:22 WBC 7.36 7.88 (4.0-11.0) K/uL RBC 3.94 L 3.79 L (4.30-5.90) M/uL Hgb 10.7 L 10.1 L (12.0-16.0) g/dL Hct 32.6 L 31.2 L (36.0-46.0) % MCV 82.7 82.3 (80.0-98.0) fL MCH 27.2 26.6 L (27.0-32.0) pg MCHC 32.8 32.4 (31.0-37.0) g/dL RDW Std Deviation 45.4 45.5 (28.0-62.0) fl RDW Coeff of Joel 15 15 (11.0-15.0) % Plt Count 200 202 (150-400) K/uL MPV 10.40 10.30 (7.40-12.00) fL Neut % (Auto) 82.6 H 73.2 (48.0-80.0) % Lymph % (Auto) 10.6 L 14.6 L (16.0-40.0) % Talbot % (Auto) 6.3 11.7 (0.0-15.0) % Eos % (Auto) 0.4 0.4 (0.0-7.0) % Baso % (Auto) 0.1 0.1 (0.0-1.5) % Neut # (Auto) 6.1 H 5.8 H (1.4-5.7) K/uL Lymph # (Auto) 0.8 1.2 (0.6-2.4) K/uL Talbot # (Auto) 0.5 0.9 H (0.0-0.8) K/uL Eos # (Auto) 0.0 0.0 (0.0-0.7) K/uL Baso # (Auto) 0.0 0.0 (0.0-0.1) K/uL Nucleated RBC % 0.0 0.0 /100WBC Nucleated RBCs # 0 0 K/uL ESR (0-29) mm/hr INR (0.86-1.11) Lactate 0.6 (0.20-2.00) mmol/L Sodium (136-146) mmol/L Potassium (3.5-5.1) mmol/L Chloride (98-110) mmol/L Carbon Dioxide (21-31) mmol/L BUN (6.0-23.0) mg/dL Creatinine (0.6-1.5) mg/dL Est Cr Clr Drug Dosing mL/min Estimated GFR (MDRD) ml/min Glucose (60-110) mg/dL POC Glucose (60-110) mg/dL Hemoglobin A1c (0.0-6.0) % Calcium (8.8-10.8) mg/dL Total Bilirubin (0.1-1.5) mg/dL AST (5-40) IU/L ALT (8-54) IU/L Alkaline Phosphatase (40-150) C-Reactive Protein (0.0-0.5) mg/dL Total Protein (6.0-8.0) g/dL Albumin (3.5-5.0) g/dL Globulin (2.0-3.5) g/dL Albumin/Globulin Ratio (1.3-2.8) 12/19/ Range/Units 04:22 WBC (4.0-11.0) K/uL RBC (4.30-5.90) M/uL Hgb (12.0-16.0) g/dL Hct (36.0-46.0) % MCV (80.0-98.0) fL MCH (27.0-32.0) pg MCHC (31.0-37.0) g/dL RDW Std Deviation (28.0-62.0) fl RDW Coeff of Joel (11.0-15.0) % Plt Count (150-400) K/uL MPV (7.40-12.00) fL Neut % (Auto) (48.0-80.0) % Lymph % (Auto) (16.0-40.0) % Talbot % (Auto) (0.0-15.0) % Eos % (Auto) (0.0-7.0) % Baso % (Auto) (0.0-1.5) % Neut # (Auto) (1.4-5.7) K/uL Lymph # (Auto) (0.6-2.4) K/uL Talbot # (Auto) (0.0-0.8) K/uL Eos # (Auto) (0.0-0.7) K/uL Baso # (Auto) (0.0-0.1) K/uL Nucleated RBC % /100WBC Nucleated RBCs # K/uL ESR (0-29) mm/hr INR (0.86-1.11) Lactate (0.20-2.00) mmol/L Sodium 137 (136-146) mmol/L Potassium 3.0 L (3.5-5.1) mmol/L Chloride 100 (98-110) mmol/L Carbon Dioxide 25 (21-31) mmol/L BUN 8 (6.0-23.0) mg/dL Creatinine 1.0 (0.6-1.5) mg/dL Est Cr Clr Drug Dosing 62.54 mL/min Estimated GFR (MDRD) > 60.0 ml/min Glucose 135 H (60-110) mg/dL POC Glucose (60-110) mg/dL Hemoglobin A1c (0.0-6.0) % Calcium 8.2 L (8.8-10.8) mg/dL Total Bilirubin 2.6 H (0.1-1.5) mg/dL AST 54 H (5-40) IU/L ALT 52 (8-54) IU/L Alkaline Phosphatase 192 H (40-150) C-Reactive Protein (0.0-0.5) mg/dL Total Protein 6.1 (6.0-8.0) g/dL Albumin 3.3 L (3.5-5.0) g/dL Globulin 2.8 (2.0-3.5) g/dL Albumin/Globulin Ratio 1.2 L (1.3-2.8) Med Orders - Current: Current Medications Acetaminophen (Tylenol) 650 mg PO Q4H PRN PRN Reason: Pain Last Admin: 12/19/16 04:32 Dose: 650 mg Ceftriaxone Sodium/Dextrose 2 (gm/ Premix) 50 mls @ 100 mls/hr IV Q24H [facility] Last Admin: 12/18/16 20:00 Dose: 100 mls/hr Tobramycin 120 mg/ Sodium (Chloride) 103 mls @ 100 mls/hr IV Q8H [facility] Last Admin: 12/19/16 03:22 Dose: 100 mls/hr Potassium Chloride/Sodium Chloride (Normal Saline With 40 Meq Kcl) 1,000 mls @ 175 mls/hr IV ASDIRECTED [facility] Insulin Aspart (Novolog) 0 unit SUBCUT TIDAC [facility] PRN Reason: Protocol Last Admin: 12/18/16 17:02 Dose: Not Given Morphine Sulfate (Morphine) 2 mg IVPUSH Q2H PRN PRN Reason: Pain Ondansetron HCl (Zofran) 4 mg IVPUSH Q4H PRN PRN Reason: Nausea Discontinued Medications Fentanyl (Sublimaze) 50 mcg IVPUSH ONETIME ONE Stop: 12/17/16 19:14 Last Admin: 12/17/16 19:48 Dose: 50 mcg Hydromorphone HCl (Dilaudid) 2 mg IVPUSH ONETIME ONE Stop: 12/17/16 22:04 Last Admin: 12/17/16 22:26 Dose: 2 mg Sodium Chloride (Normal Saline) 1,000 mls @ 999 mls/hr IV STAT ONE Stop: 12/17/16 19:20 Last Admin: 12/17/16 18:42 Dose: 999 mls/hr Potassium Chloride/Sodium Chloride (Normal Saline With 40 Meq Kcl) 1,000 mls @ 150 mls/hr IV ASDIRECTED [facility] Stop: 12/18/16 07:54 Last Admin: 12/18/16 01:35 Dose: 150 mls/hr Sodium Chloride (Normal Saline) 1,000 mls @ 125 mls/hr IV ASDIRECTED [facility] Last Admin: 12/18/16 20:07 Dose: 125 mls/hr Ciprofloxacin/Dextrose 400 mg/ (Premix) 200 mls @ 200 mls/hr IV Q12H [facility] Last Admin: 12/18/16 16:33 Dose: 200 mls/hr Tobramycin 120 mg/ Sodium (Chloride) 103 mls @ 100 mls/hr IV Q12H [facility] Last Admin: 12/18/16 21:53 Dose: Not Given Ceftriaxone Sodium 2,000 mg/ (Sodium Chloride) 50 mls @ 200 mls/hr IV Q24H [facility] Last Admin: 12/18/16 21:54 Dose: Not Given Iopamidol (Isovue Multipack-370 (76%)) 100 ml IVPUSH ONETIME STA Stop: 12/18/16 16:51 Last Admin: 12/18/16 16:51 Dose: 100 ml Morphine Sulfate (Morphine) 2 mg IVPUSH ONETIME ONE Stop: 12/17/16 18:21 Last Admin: 12/17/16 18:45 Dose: 2 mg Morphine Sulfate (Morphine) 2 mg IVPUSH Q2H PRN PRN Reason: Pain (severe 7-10) Stop: 12/19/16 01:51 Last Admin: 12/19/16 01:35 Dose: 2 mg Ondansetron HCl (Zofran) 4 mg IVPUSH ONETIME ONE Stop: 12/17/16 18:22 Last Admin: 12/17/16 18:42 Dose: 4 mg Prochlorperazine Edisylate (Compazine) 5 mg IVPUSH ONETIME ONE Stop: 12/17/16 22:05 Last Admin: 12/17/16 22:29 Dose: 5 mg - Exam Quality Assessment: supplemental oxygen General: alert, oriented, cooperative, severe distress HEENT: Scleral icterus Neck: supple Lungs: Clear to auscultation, Normal respiratory effort Cardiovascular: Regular Rate, Regular Rhythm Abdomen: bowel sounds present, guarding, tenderness (RLQ, right flank), CVA tenderness (right), organomegaly (hepatomegaly). No: rigidity, rebound Extremities: other (right hand tenderness) Skin: moist Neurological: no new focal deficit - Problem List Review Problem List Initiated/Reviewed/Updated: Yes - My Orders Last 24 Hours: My Active Orders 12/18/16 16:12 Abdomen Pelvis w Cont [CT] Routine 12/18/16 17:41 Blood Culture x2 Reflex Set [OM.PC] Stat 12/18/16 18:21 CULTURE BLOOD [BC] Stat 12/18/16 18:28 CULTURE BLOOD [BC] Stat 12/18/16 19:00 cefTRIAXone [Rocephin in Dextrose,Iso-Osm 2 GM/50 ML] 2 gm Premix Bag 1 bag IV Q24H 12/18/16 19:30 CHLAMYDIA TRACHOMATIS/GC AMPLF Routine 12/18/16 20:00 Tobramycin [Nebcin] 120 mg Sodium Chloride 0.9% [Normal Saline] 100 ml IV Q8H 12/18/16 20:07 Code Status [Resuscitation Status] Routine 12/19/16 05:21 HEPATITIS PANEL, ACUTE [REF] Routine IRON/TIBC [CHEM] Routine LACTIC ACID,WHOLE BLOOD [BG] Routine MAGNESIUM [CHEM] Routine SMOOTH MUSCLE ANTIBODIES [REF] Routine TSH [CHEM] Routine 12/19/16 05:30 Sodium Chloride 0.9% with KCl [Normal Saline with 40 mEq KCl] 1,000 ml IV ASDIRECTED - Plan Plan:: 1. Bacteremia -patient had intermittent fever yesterday -blood culture positive, gm+ cocci in pairs and chains -bp 92/49, HR 91, T 37.3 -patient transferred to ICU -insert Black, strict I&O's -IVF @ 175ml/hr -DC Ceftriaxone and Tobramycin -started Meropenem and Vancomycin -TTE ordered -CT Abd/Pelvis wo contrast: Liver: Hepatomegaly measuring 21 centimeters craniocaudally. Mild splenomegaly measuring 13.8 centimeters in AP dimension. Pancreas Unremarkable. Cholecystectomy. Dilated extrahepatic duct up to 1.7 centimeters proximally, and mild central intrahepatic biliary dilatation, greater than expected for age postcholecystectomy state. No hydronephrosis or nephrolithiasis. Apparent mild stranding adjacent to the mid ureters. A punctate calcification in the right pelvis on image 127 appears posterior to the expected location of the distal right ureter. No mechanical bowel obstruction. Mild prominence of the mid appendix measuring 8 millimeters, however the more distal appendix is not significantly distended and this could be within normal limits for this patient. Colonic diverticulosis without gross diverticulitis. Areas of fat attenuation within the colonic lumen could be related to luminal contents, although intraluminal lipomas are not excluded. Small pelvic free fluid but no free air. A moderate size ventral hernia containing fat, fluid and edema, with mild stranding in the underlying omental fat suggestive of inflammation or strangulation. An enlarged lobulated, likely leiomyomatous, uterus. Bladder wall thickening. -CT abd/pelvis with contrast: No hydronephrosis. No obstructing uroliths. -RUQ US: Common bile duct is dilated to 9 millimeters. No obvious obstructing calculi. No intrahepatic biliary duct dilatation. History of cholecystectomy -Pelvic US: multiple fibroids. unable to estimate lining due to image quality 2. Right Flank Pain -severe pain in right flank radiating down to RLQ, severe tenderness in right flank and RLQ, severe right CVA tenderness, no pain or tenderness in other quadrants, negative ame's, negative rebound, mild guarding -flank pain began 2 days prior to onset, patient denies any previous episodes -patient denies current/past dysuria, burning, hematuria, vaginal discharge, dyspareunia -patient claims to have 1 sexual partner for past 14 years. Her last was 21 years ago. Since then she has been having unprotected sexual intercourse but did not get . She continued to have periods until 6 months ago when they stopped abruptly. Suspicion for possible PID. -discussed case with Dr. Leavitt, Surgery, he does not believe it is appendicitis, this is backed up by imaging -discussed case with Dr. Alonso, Urology, he does not believe this is urolithiasis or pyelonephritis, this is backe up by imaging, recommends continuing treating infection for now -discussed case with Dr. Navarro, [facility], he recommends continuing broad specturm antibiotics and repeating CT abd/pelis with contrast if no improvement -we will continue with current management. Morphine for pain control. repeat labs in evening and tomorrow. repeat UA today. repeat imaging if no improvement. 3. Hepatomegaly -contradicting reports on imaging -at admission LDH and Alk Phos were elevated but AST, ALT, BR, PT/INR were normal -overnight patient developed elevated BR with mild increase AST -ESR 55, CRP 17 -patient from [facility], was last there 1 year ago, does not use alcohol -History of Cholecystectomy. -Imaging shows large liver. Dilated extrahepatic duct up to 1.7 centimeters proximally, and mild central intrahepatic biliary dilatation, greater than expected for age postcholecystectomy state -may be unrelated to current state of patient, possible underlying autoimmune state -labs ordered to evaluate for possible autoimmune disease, hepatitis, hemochromatosis. Most labs are sent out and with long weekend coming we will likely not have results until late next week. 4. Multiple Fibroids of the Uterus -likely benign and unrelated -patient will need Endometrial Biopsy at some point
[2016-12-19] MEDS: Sodium Chloride 0.9% with KCl 1,000 ML IV SCH ×2 (05:54→09:51)
[2016-12-19] MEDS: Insulin Aspart 100 Units/ML 3 ML Pen SUBCUT SCH ×3 (06:49→18:48)
[2016-12-19] MEDS ORDERED: Meropenem 2 GM in Sodium Chloride 0.9% 100 ML IV SCH (08:00)
[2016-12-19] MEDS ORDERED: Vancomycin 1.75 GM in Sodium Chloride 0.9% 500 ML IV SCH (08:30)
[2016-12-19] MEDS: Meropenem 2 GM in Sodium Chloride 0.9% 100 ML IV SCH ×2 (08:35→15:57)
[2016-12-19] MEDS: Vancomycin 1.75 GM in Sodium Chloride 0.9% 500 ML IV SCH ×2 (09:41→20:43)
[2016-12-19] MEDS: Menthol/Methyl Salicylate 29 GM Tube TOP PRN (09:41)
[2016-12-19] MEDS ORDERED: Magnesium Sulfate/Water 4 GM in Premix Bag 1 BAG IV ONE (10:39)
--- NOTE | 2016-12-19 12:57 | CT ---
EXAM DATE: 12/19/16 PATIENT'S AGE: 56 Patient: SHASTA HENNING Facility: [place], [place] Site . Site : [id number] Study: CT Abdomen/Pelvis [id number]/25/2017 6:27:16 PM Ordering Physician: Yaniv Iyer Final Report: INDICATION: RT FLANK PAIN WITH FEVER TECHNIQUE: CT scan of the abdomen and pelvis with intravenous contrast administered. Comparison : CT scan of the abdomen pelvis dated 17 Dec 2016. FINDINGS: The lung bases are unremarkable. No focal abnormalities identified in the visualized portions of the liver, spleen, pancreas, adrenal glands, and kidneys. No hydronephrosis. No obstructing uroliths. Nondistended urinary bladder. Fibroids in the uterus. Colonic diverticulosis with no evidence of diverticulitis. The remainder of the GI tract is incompletely distended but shows no gross abnormalities. The stomach and GE junction are not well assessed. Normal appendix. No retroperitoneal, pelvic sidewall, or mesenteric adenopathy. Trace amount of free fluid in the pelvis. Umbilical hernia which contains fat with edema around the herniated fat. IMPRESSION: 1. No hydronephrosis. No obstructing uroliths. 2. Normal appendix. 3. Umbilical hernia which contains fat with edema around the herniated fat. Dictated by Chema Faust MD @ 12/18/2016 6:48:25 PM Dictated by: Chema Faust MD @ 12/18/2016 18:48:35 (Electronic Signature) Report Signed by Proxy. LALO
[2016-12-19] MEDS: Sodium Chloride 0.9% 1,000 ML IV SCH (15:56)
[2016-12-19 17:33] LABS: CHLORIDE,CL 105 mmol/L (98-110); SODIUM,NA 140 mmol/L (136-146)
[2016-12-19] MEDS: oxyCODONE 5 MG Tab PO SCH (20:43)
[2016-12-20] MEDS: Meropenem 2 GM in Sodium Chloride 0.9% 100 ML IV SCH ×3 (00:33→15:31)
[2016-12-20] MEDS: oxyCODONE 5 MG Tab PO SCH ×6 (02:05→23:45)
[2016-12-20] MEDS: Sodium Chloride 0.9% 1,000 ML IV SCH ×2 (03:00→18:23)
[2016-12-20 05:17] LABS: CHLORIDE,CL 104 mmol/L (98-110); SODIUM,NA 139 mmol/L (136-146)
[2016-12-20] MEDS ORDERED: Potassium Chloride 10% 20 MEQ/15 ML Soln 30 ML UD Cup PO ONE (05:54)
[2016-12-20] MEDS ORDERED: Magnesium Sulfate/Water 2 GM in Premix Bag 1 BAG IV ONE (05:56)
[2016-12-20] MEDS: Insulin Aspart 100 Units/ML 3 ML Pen SUBCUT SCH ×3 (07:27→17:04)
[2016-12-20] MEDS: Vancomycin 1.75 GM in Sodium Chloride 0.9% 500 ML IV SCH ×2 (08:30→23:40)
[2016-12-20 09:48] LABS: HIV12 AG/AB 4TH GEN W/REFLEX 0.1 (<1.0)
--- NOTE | 2016-12-20 10:23 | PCM.PN ---
Addendum entered and electronically signed by Jorge Bullock MD 12/20/16 21:48: Contacted ID at [facility] and informed him of the unexplained flank pain, conflicting liver signs and right hand swelling and pain. He suggested to look for possible necrotizing fasciitis of right abdominal wall. I examined the patient and visually i am not able to appreciate any discoloration. The patient is quite obese and her entire body is warm therefore palpation does not reveal much difference either. Rather than waiting for tomorrow for the CT scan we will obtain it now. If any signs of cellulitis or fascisitis we will transfer patient immediately by flight. Addendum entered and electronically signed by Jorge Bullock MD 12/20/16 19:11: 1. Venous and Arterial US of RUE was done for right hand swelling & pain but no abnormalities seen. Patients tenderness is located along the ulnar aspect of the wrist. She is unable to extend her wrist or perform ulnar/radial deviation. She is able to flex wrist but significant restriction of motion. I suspect this pain is from her lying on her right arm and the bp cuff on her right arm as she does state that the pain worsens when the bp cuff checks pressure. 2. Patient does respond better to the Dilaudid vs the Morphine therefore i will continue with the current pain regimen and increase the dose of Dilaudid from 1 mg to 2mg 3. Discussed case with EICU, they were concerned of patients increased RR and overnight hypoxia. CXR was ordered that showed slightly smaller lung volume but no acute changes. Her RR seems to be more elevated while seeping but better when awake. We will continue to monitor. 4. Pelvic exam was performed today. There was odorless white colored discharge with no other significant significant pain or tenderness. Vaginal cultures were obtained. 5. Continue all other management. Repeat CT abd/Pelvis with contrast tomorrow. Repeat CBC/CMP/Mg/ESR/CRP in AM. EICU agrees with plan. Original Note: - General Info Date of Service: 12/20/16 Admission Dx/Problem (Free Text): flank pain Subjective Update: Patient still complaining of severe flank pain. Pain is better controlled with PO Oxycodone rather than Morphine. Since yesterday sh has been complaining of right hand and arm swelling and pain. Both swelling an pain are worst today than yesterday. - Review of Systems General: Reports: Chills, Night Sweats HEENT: Reports: no symptoms Pulmonary: Reports: shortness of breath Cardiovascular: Reports: No Symptoms Gastrointestinal: Reports: Abdominal pain. Denies: Nausea, Vomiting Genitourinary: Reports: no symptoms, flank pain Musculoskeletal: Reports: hand pain Skin: Reports: diaphoresis Neurological: Reports: No Symptoms Psychiatric: Reports: no symptoms - Patient Data Vitals - most recent: Last Vital Signs Temp 37.1 C 12/20/16 07:00 Pulse 90 12/19/16 18:00 Resp 30 H 12/20/16 10:00 BP 123/60 12/20/16 10:00 Pulse Ox 92 L 12/20/16 10:00 Weight - most recent: 128.4 kg I&O - last 24 hours: Intake & Output 12/19/16 12/20/16 12/20/16 22:59 06:59 14:59 Intake Total 500 2600 150 Output Total 1900 Balance 500 700 150 Lab Results last 24 hrs: Laboratory Results - last 24 hr 12/19/16 12/19/16 12/19/16 Range/Units 06:15 10:59 12:08 WBC (4.0-11.0) K/uL RBC (4.30-5.90) M/uL Hgb (12.0-16.0) g/dL Hct (36.0-46.0) % MCV (80.0-98.0) fL MCH (27.0-32.0) pg MCHC (31.0-37.0) g/dL RDW Std Deviation (28.0-62.0) fl RDW Coeff of Joel (11.0-15.0) % Plt Count (150-400) K/uL MPV (7.40-12.00) fL Neut % (Auto) (48.0-80.0) % Lymph % (Auto) (16.0-40.0) % S[place]ent % (Auto) (0.0-15.0) % Eos % (Auto) (0.0-7.0) % Baso % (Auto) (0.0-1.5) % Neut # (Auto) (1.4-5.7) K/uL Lymph # (Auto) (0.6-2.4) K/uL Sargent # (Auto) (0.0-0.8) K/uL Eos # (Auto) (0.0-0.7) K/uL Baso # (Auto) (0.0-0.1) K/uL Add Manual Diff Neutrophils % (Manual) (48.0-80.0) % Band Neutrophils % % Lymphocytes % (Manual) (16.0-40.0) % Monocytes % (Manual) (0.0-15.0) % Basophils % (Manual) (0.0-1.5) % Nucleated RBC % /100WBC Absolute Seg Neuts Band Neutrophils # Lymphocytes # (Manual) Monocytes # (Manual) Basophils # (Manual) Nucleated RBCs # K/uL Reactive Lymphocytes Hypochromasia ESR (0-29) mm/hr INR 1.06 (0.86-1.11) Lactate (0.20-2.00) mmol/L Sodium (136-146) mmol/L Potassium (3.5-5.1) mmol/L Chloride (98-110) mmol/L Carbon Dioxide (21-31) mmol/L BUN (6.0-23.0) mg/dL Creatinine (0.6-1.5) mg/dL Est Cr Clr Drug Dosing mL/min Estimated GFR (MDRD) ml/min Glucose (60-110) mg/dL POC Glucose 151 H (60-110) mg/dL Uric Acid (2.1-6.2) mg/dL Calcium (8.8-10.8) mg/dL Magnesium (1.5-2.3) mEq/L Ferritin 141 (11-307) ng/mL Total Bilirubin (0.1-1.5) mg/dL AST (5-40) IU/L ALT (8-54) IU/L Alkaline Phosphatase (40-150) Creatine Kinase (9-236) IU/L C-Reactive Protein (0.0-0.5) mg/dL Total Protein (6.0-8.0) g/dL Albumin (3.5-5.0) g/dL Globulin (2.0-3.5) g/dL Albumin/Globulin Ratio (1.3-2.8) Urine Color Urine Appearance Urine pH (5.0-8.0) Ur Specific [place] (1.001-1.035) Urine Protein (NEGATIVE) mg/dL Urine Glucose (UA) (NEGATIVE) mg/dL Urine Ketones (NEGATIVE) mg/dL Urine Occult Blood (NEGATIVE) Urine Nitrite (NEGATIVE) Urine Bilirubin (NEGATIVE) Urine Ictotest Urine Urobilinogen (<2.0) EU/dL Ur Leukocyte Esterase (NEGATIVE) Urine RBC (0-2/HPF) Urine WBC (0-5/HPF) Ur Epithelial Cells (NONE-FEW) Urine Bacteria (NEGATIVE) Urine Mucus (NONE-MOD) HIV 1&2 Ag/Ab, 4th Gen (<1.0) 12/19/16 12/19/16 12/19/16 Range/Units 14:25 16:24 16:24 WBC 5.68 (4.0-11.0) K/uL RBC 3.62 L (4.30-5.90) M/uL Hgb 9.7 L (12.0-16.0) g/dL Hct 29.8 L (36.0-46.0) % MCV 82.3 (80.0-98.0) fL MCH 26.8 L (27.0-32.0) pg MCHC 32.6 (31.0-37.0) g/dL RDW Std Deviation 45.4 (28.0-62.0) fl RDW Coeff of Joel 15 (11.0-15.0) % Plt Count 176 (150-400) K/uL MPV 10.70 (7.40-12.00) fL Neut % (Auto) (48.0-80.0) % Lymph % (Auto) (16.0-40.0) % Sargent % (Auto) (0.0-15.0) % Eos % (Auto) (0.0-7.0) % Baso % (Auto) (0.0-1.5) % Neut # (Auto) (1.4-5.7) K/uL Lymph # (Auto) (0.6-2.4) K/uL Sargent # (Auto) (0.0-0.8) K/uL Eos # (Auto) (0.0-0.7) K/uL Baso # (Auto) (0.0-0.1) K/uL Add Manual Diff YES Neutrophils % (Manual) 48 (48.0-80.0) % Band Neutrophils % 21 % Lymphocytes % (Manual) 19 (16.0-40.0) % Monocytes % (Manual) 11 (0.0-15.0) % Basophils % (Manual) 1 (0.0-1.5) % Nucleated RBC % 0.0 /100WBC Absolute Seg Neuts 2.7 Band Neutrophils # 1.2 Lymphocytes # (Manual) 1.1 Monocytes # (Manual) 0.6 Basophils # (Manual) 0 Nucleated RBCs # 0 K/uL Reactive Lymphocytes FEW Hypochromasia 1+ SLIGHT ESR (0-29) mm/hr INR (0.86-1.11) Lactate (0.20-2.00) mmol/L Sodium 140 (136-146) mmol/L Potassium 3.5 (3.5-5.1) mmol/L Chloride 105 (98-110) mmol/L Carbon Dioxide 25 (21-31) mmol/L BUN 7 (6.0-23.0) mg/dL Creatinine 0.8 (0.6-1.5) mg/dL Est Cr Clr Drug Dosing 78.18 mL/min Estimated GFR (MDRD) > 60.0 ml/min Glucose 117 H (60-110) mg/dL POC Glucose (60-110) mg/dL Uric Acid (2.1-6.2) mg/dL Calcium 8.1 L (8.8-10.8) mg/dL Magnesium (1.5-2.3) mEq/L Ferritin (11-307) ng/mL Total Bilirubin 2.3 H (0.1-1.5) mg/dL AST 39 (5-40) IU/L ALT 43 (8-54) IU/L Alkaline Phosphatase 178 H (40-150) Creatine Kinase (9-236) IU/L C-Reactive Protein (0.0-0.5) mg/dL Total Protein 6.1 (6.0-8.0) g/dL Albumin 3.0 L (3.5-5.0) g/dL Globulin 3.1 (2.0-3.5) g/dL Albumin/Globulin Ratio 1.0 L (1.3-2.8) Urine Color YELLOW Urine Appearance SLT CLOUDY Urine pH 5.5 (5.0-8.0) Ur Specific [place] 1.020 (1.001-1.035) Urine Protein TRACE (NEGATIVE) mg/dL Urine Glucose (UA) NEGATIVE (NEGATIVE) mg/dL Urine Ketones NEGATIVE (NEGATIVE) mg/dL Urine Occult Blood MODERATE (NEGATIVE) Urine Nitrite NEGATIVE (NEGATIVE) Urine Bilirubin SMALL H (NEGATIVE) Urine Ictotest NEGATIVE Urine Urobilinogen 1.0 (<2.0) EU/dL Ur Leukocyte Esterase SMALL (NEGATIVE) Urine RBC 1-2 (0-2/HPF) Urine WBC 2-4 (0-5/HPF) Ur Epithelial Cells FEW (NONE-FEW) Urine Bacteria FEW (NEGATIVE) Urine Mucus LIGHT (NONE-MOD) HIV 1&2 Ag/Ab, 4th Gen (<1.0) 12/19/16 12/20/16 12/20/16 Range/Units 18:32 04:45 04:48 WBC 6.63 (4.0-11.0) K/uL RBC 3.50 L (4.30-5.90) M/uL Hgb 9.2 L (12.0-16.0) g/dL Hct 28.6 L (36.0-46.0) % MCV 81.7 (80.0-98.0) fL MCH 26.3 L (27.0-32.0) pg MCHC 32.2 (31.0-37.0) g/dL RDW Std Deviation 44.8 (28.0-62.0) fl RDW Coeff of Joel 15 (11.0-15.0) % Plt Count 183 (150-400) K/uL MPV 9.50 (7.40-12.00) fL Neut % (Auto) 57.4 (48.0-80.0) % Lymph % (Auto) 25.2 (16.0-40.0) % Sargent % (Auto) 14.8 (0.0-15.0) % Eos % (Auto) 2.3 (0.0-7.0) % Baso % (Auto) 0.3 (0.0-1.5) % Neut # (Auto) 3.8 (1.4-5.7) K/uL Lymph # (Auto) 1.7 (0.6-2.4) K/uL Sargent # (Auto) 1.0 H (0.0-0.8) K/uL Eos # (Auto) 0.2 (0.0-0.7) K/uL Baso # (Auto) 0.0 (0.0-0.1) K/uL Add Manual Diff Neutrophils % (Manual) (48.0-80.0) % Band Neutrophils % % Lymphocytes % (Manual) (16.0-40.0) % Monocytes % (Manual) (0.0-15.0) % Basophils % (Manual) (0.0-1.5) % Nucleated RBC % 0.0 /100WBC Absolute Seg Neuts Band Neutrophils # Lymphocytes # (Manual) Monocytes # (Manual) Basophils # (Manual) Nucleated RBCs # 0 K/uL Reactive Lymphocytes Hypochromasia ESR 81 H (0-29) mm/hr INR (0.86-1.11) Lactate (0.20-2.00) mmol/L Sodium (136-146) mmol/L Potassium (3.5-5.1) mmol/L Chloride (98-110) mmol/L Carbon Dioxide (21-31) mmol/L BUN (6.0-23.0) mg/dL Creatinine (0.6-1.5) mg/dL Est Cr Clr Drug Dosing mL/min Estimated GFR (MDRD) ml/min Glucose (60-110) mg/dL POC Glucose 102 (60-110) mg/dL Uric Acid (2.1-6.2) mg/dL Calcium (8.8-10.8) mg/dL Magnesium (1.5-2.3) mEq/L Ferritin (11-307) ng/mL Total Bilirubin (0.1-1.5) mg/dL AST (5-40) IU/L ALT (8-54) IU/L Alkaline Phosphatase (40-150) Creatine Kinase 80 (9-236) IU/L C-Reactive Protein (0.0-0.5) mg/dL Total Protein (6.0-8.0) g/dL Albumin (3.5-5.0) g/dL Globulin (2.0-3.5) g/dL Albumin/Globulin Ratio (1.3-2.8) Urine Color Urine Appearance Urine pH (5.0-8.0) Ur Specific [place] (1.001-1.035) Urine Protein (NEGATIVE) mg/dL Urine Glucose (UA) (NEGATIVE) mg/dL Urine Ketones (NEGATIVE) mg/dL Urine Occult Blood (NEGATIVE) Urine Nitrite (NEGATIVE) Urine Bilirubin (NEGATIVE) Urine Ictotest Urine Urobilinogen (<2.0) EU/dL Ur Leukocyte Esterase (NEGATIVE) Urine RBC (0-2/HPF) Urine WBC (0-5/HPF) Ur Epithelial Cells (NONE-FEW) Urine Bacteria (NEGATIVE) Urine Mucus (NONE-MOD) HIV 1&2 Ag/Ab, 4th Gen (<1.0) 12/20/16 12/20/16 12/20/16 Range/Units 04:48 04:48 04:48 WBC (4.0-11.0) K/uL RBC (4.30-5.90) M/uL Hgb (12.0-16.0) g/dL Hct (36.0-46.0) % MCV (80.0-98.0) fL MCH (27.0-32.0) pg MCHC (31.0-37.0) g/dL RDW Std Deviation (28.0-62.0) fl RDW Coeff of Joel (11.0-15.0) % Plt Count (150-400) K/uL MPV (7.40-12.00) fL Neut % (Auto) (48.0-80.0) % Lymph % (Auto) (16.0-40.0) % [place] % (Auto) (0.0-15.0) % Eos % (Auto) (0.0-7.0) % Baso % (Auto) (0.0-1.5) % Neut # (Auto) (1.4-5.7) K/uL Lymph # (Auto) (0.6-2.4) K/uL S[place]ent # (Auto) (0.0-0.8) K/uL Eos # (Auto) (0.0-0.7) K/uL Baso # (Auto) (0.0-0.1) K/uL Add Manual Diff Neutrophils % (Manual) (48.0-80.0) % Band Neutrophils % % Lymphocytes % (Manual) (16.0-40.0) % Monocytes % (Manual) (0.0-15.0) % Basophils % (Manual) (0.0-1.5) % Nucleated RBC % /100WBC Absolute Seg Neuts Band Neutrophils # Lymphocytes # (Manual) Monocytes # (Manual) Basophils # (Manual) Nucleated RBCs # K/uL Reactive Lymphocytes Hypochromasia ESR (0-29) mm/hr INR (0.86-1.11) Lactate 0.6 (0.20-2.00) mmol/L Sodium 139 (136-146) mmol/L Potassium 3.2 L (3.5-5.1) mmol/L Chloride 104 (98-110) mmol/L Carbon Dioxide 26 (21-31) mmol/L BUN 7 (6.0-23.0) mg/dL Creatinine 0.8 (0.6-1.5) mg/dL Est Cr Clr Drug Dosing 77.97 mL/min Estimated GFR (MDRD) > 60.0 ml/min Glucose 114 H (60-110) mg/dL POC Glucose (60-110) mg/dL Uric Acid 4.4 (2.1-6.2) mg/dL Calcium 7.8 L (8.8-10.8) mg/dL Magnesium 1.7 (1.5-2.3) mEq/L Ferritin (11-307) ng/mL Total Bilirubin 2.5 H (0.1-1.5) mg/dL AST 65 H (5-40) IU/L ALT 47 (8-54) IU/L Alkaline Phosphatase 191 H (40-150) Creatine Kinase (9-236) IU/L C-Reactive Protein 15.38 H (0.0-0.5) mg/dL Total Protein 5.9 L (6.0-8.0) g/dL Albumin 2.9 L (3.5-5.0) g/dL Globulin 3.0 (2.0-3.5) g/dL Albumin/Globulin Ratio 1.0 L (1.3-2.8) Urine Color Urine Appearance Urine pH (5.0-8.0) Ur Specific [place] (1.001-1.035) Urine Protein (NEGATIVE) mg/dL Urine Glucose (UA) (NEGATIVE) mg/dL Urine Ketones (NEGATIVE) mg/dL Urine Occult Blood (NEGATIVE) Urine Nitrite (NEGATIVE) Urine Bilirubin (NEGATIVE) Urine Ictotest Urine Urobilinogen (<2.0) EU/dL Ur Leukocyte Esterase (NEGATIVE) Urine RBC (0-2/HPF) Urine WBC (0-5/HPF) Ur Epithelial Cells (NONE-FEW) Urine Bacteria (NEGATIVE) Urine Mucus (NONE-MOD) HIV 1&2 Ag/Ab, 4th Gen 0.1 (<1.0) 12/20/16 Range/Units 06:32 WBC (4.0-11.0) K/uL RBC (4.30-5.90) M/uL Hgb (12.0-16.0) g/dL Hct (36.0-46.0) % MCV (80.0-98.0) fL MCH (27.0-32.0) pg MCHC (31.0-37.0) g/dL RDW Std Deviation (28.0-62.0) fl RDW Coeff of Joel (11.0-15.0) % Plt Count (150-400) K/uL MPV (7.40-12.00) fL Neut % (Auto) (48.0-80.0) % Lymph % (Auto) (16.0-40.0) % [place] % (Auto) (0.0-15.0) % Eos % (Auto) (0.0-7.0) % Baso % (Auto) (0.0-1.5) % Neut # (Auto) (1.4-5.7) K/uL Lymph # (Auto) (0.6-2.4) K/uL [place]ent # (Auto) (0.0-0.8) K/uL Eos # (Auto) (0.0-0.7) K/uL Baso # (Auto) (0.0-0.1) K/uL Add Manual Diff Neutrophils % (Manual) (48.0-80.0) % Band Neutrophils % % Lymphocytes % (Manual) (16.0-40.0) % Monocytes % (Manual) (0.0-15.0) % Basophils % (Manual) (0.0-1.5) % Nucleated RBC % /100WBC Absolute Seg Neuts Band Neutrophils # Lymphocytes # (Manual) Monocytes # (Manual) Basophils # (Manual) Nucleated RBCs # K/uL Reactive Lymphocytes Hypochromasia ESR (0-29) mm/hr INR (0.86-1.11) Lactate (0.20-2.00) mmol/L Sodium (136-146) mmol/L Potassium (3.5-5.1) mmol/L Chloride (98-110) mmol/L Carbon Dioxide (21-31) mmol/L BUN (6.0-23.0) mg/dL Creatinine (0.6-1.5) mg/dL Est Cr Clr Drug Dosing mL/min Estimated GFR (MDRD) ml/min Glucose (60-110) mg/dL POC Glucose 123 H (60-110) mg/dL Uric Acid (2.1-6.2) mg/dL Calcium (8.8-10.8) mg/dL Magnesium (1.5-2.3) mEq/L Ferritin (11-307) ng/mL Total Bilirubin (0.1-1.5) mg/dL AST (5-40) IU/L ALT (8-54) IU/L Alkaline Phosphatase (40-150) Creatine Kinase (9-236) IU/L C-Reactive Protein (0.0-0.5) mg/dL Total Protein (6.0-8.0) g/dL Albumin (3.5-5.0) g/dL Globulin (2.0-3.5) g/dL Albumin/Globulin Ratio (1.3-2.8) Urine Color Urine Appearance Urine pH (5.0-8.0) Ur Specific [place] (1.001-1.035) Urine Protein (NEGATIVE) mg/dL Urine Glucose (UA) (NEGATIVE) mg/dL Urine Ketones (NEGATIVE) mg/dL Urine Occult Blood (NEGATIVE) Urine Nitrite (NEGATIVE) Urine Bilirubin (NEGATIVE) Urine Ictotest Urine Urobilinogen (<2.0) EU/dL Ur Leukocyte Esterase (NEGATIVE) Urine RBC (0-2/HPF) Urine WBC (0-5/HPF) Ur Epithelial Cells (NONE-FEW) Urine Bacteria (NEGATIVE) Urine Mucus (NONE-MOD) HIV 1&2 Ag/Ab, 4th Gen (<1.0) Med Orders - Current: Current Medications Acetaminophen (Tylenol) 650 mg PO Q4H PRN PRN Reason: Pain Last Admin: 12/19/16 04:32 Dose: 650 mg Meropenem 2 gm/ Sodium (Chloride) 100 mls @ 100 mls/hr IV Q8H [facility] Last Admin: 12/20/16 07:36 Dose: 100 mls/hr Vancomycin HCl 1.75 gm/ Sodium (Chloride) 500 mls @ 250 mls/hr IV Q12H [facility] Last Admin: 12/20/16 08:30 Dose: 250 mls/hr Sodium Chloride (Normal Saline) 1,000 mls @ 75 mls/hr IV ASDIRECTED [facility] Last Infusion: 12/20/16 06:00 Dose: 75 mls/hr Insulin Aspart (Novolog) 0 unit SUBCUT TIDAC BERNARDO PRN Reason: Protocol Last Admin: 12/20/16 07:27 Dose: Not Given Methyl Salicylate (Analgesic Howell) 1 gm TOP ASDIRECTED PRN PRN Reason: arm pain Last Admin: 12/19/16 09:41 Dose: 1 gm Morphine Sulfate (Morphine) 2 mg IVPUSH Q2H PRN PRN Reason: Pain Last Admin: 12/19/16 19:59 Dose: 2 mg Ondansetron HCl (Zofran) 4 mg IVPUSH Q4H PRN PRN Reason: Nausea Oxycodone HCl (Oxycodone) 10 mg PO Q6H [facility] Last Admin: 12/20/16 08:16 Dose: 10 mg Vancomycin HCl (Pharmacy To Dose - Vancomycin) 1 dose .XX ASDIRECTED [facility] Discontinued Medications Fentanyl (Sublimaze) 50 mcg IVPUSH ONETIME ONE Stop: 12/17/16 19:14 Last Admin: 12/17/16 19:48 Dose: 50 mcg Hydromorphone HCl (Dilaudid) 2 mg IVPUSH ONETIME ONE Stop: 12/17/16 22:04 Last Admin: 12/17/16 22:26 Dose: 2 mg Sodium Chloride (Normal Saline) 1,000 mls @ 999 mls/hr IV STAT ONE Stop: 12/17/16 19:20 Last Admin: 12/17/16 18:42 Dose: 999 mls/hr Potassium Chloride/Sodium Chloride (Normal Saline With 40 Meq Kcl) 1,000 mls @ 150 mls/hr IV ASDIRECTED [facility] Stop: 12/18/16 07:54 Last Admin: 12/18/16 01:35 Dose: 150 mls/hr Sodium Chloride (Normal Saline) 1,000 mls @ 125 mls/hr IV ASDIRECTED [facility] Last Admin: 12/18/16 20:07 Dose: 125 mls/hr Ciprofloxacin/Dextrose 400 mg/ (Premix) 200 mls @ 200 mls/hr IV Q12H [facility] Last Admin: 12/18/16 16:33 Dose: 200 mls/hr Tobramycin 120 mg/ Sodium (Chloride) 103 mls @ 100 mls/hr IV Q12H [facility] Last Admin: 12/18/16 21:53 Dose: Not Given Ceftriaxone Sodium 2,000 mg/ (Sodium Chloride) 50 mls @ 200 mls/hr IV Q24H [facility] Last Admin: 12/18/16 21:54 Dose: Not Given Ceftriaxone Sodium/Dextrose 2 (gm/ Premix) 50 mls @ 100 mls/hr IV Q24H [facility] Last Admin: 12/18/16 20:00 Dose: 100 mls/hr Tobramycin 120 mg/ Sodium (Chloride) 103 mls @ 100 mls/hr IV Q8H [facility] Last Admin: 12/19/16 03:22 Dose: 100 mls/hr Potassium Chloride/Sodium Chloride (Normal Saline With 40 Meq Kcl) 1,000 mls @ 175 mls/hr IV ASDIRECTED [facility] Last Admin: 12/19/16 09:51 Dose: 175 mls/hr Meropenem 2 gm/ Sodium (Chloride) 100 mls @ 100 mls/hr IV Q8H [facility] Last Admin: 12/19/16 08:14 Dose: Not Given Vancomycin HCl 1.75 gm/ Sodium (Chloride) 500 mls @ 250 mls/hr IV Q12H [facility] Magnesium Sulfate 4 gm/ Premix 100 mls @ 50 mls/hr IV ONETIME ONE Stop: 12/19/16 12:38 Last Admin: 12/19/16 11:21 Dose: 50 mls/hr Magnesium Sulfate 2 gm/ Premix 50 mls @ 50 mls/hr IV ONETIME ONE Stop: 12/20/16 06:55 Last Admin: 12/20/16 06:27 Dose: 50 mls/hr Iopamidol (Isovue Multipack-370 (76%)) 100 ml IVPUSH ONETIME STA Stop: 12/18/16 16:51 Last Admin: 12/18/16 16:51 Dose: 100 ml Morphine Sulfate (Morphine) 2 mg IVPUSH ONETIME ONE Stop: 12/17/16 18:21 Last Admin: 12/17/16 18:45 Dose: 2 mg Morphine Sulfate (Morphine) 2 mg IVPUSH Q2H PRN PRN Reason: Pain (severe 7-10) Stop: 12/19/16 01:51 Last Admin: 12/19/16 01:35 Dose: 2 mg Ondansetron HCl (Zofran) 4 mg IVPUSH ONETIME ONE Stop: 12/17/16 18:22 Last Admin: 12/17/16 18:42 Dose: 4 mg Potassium Chloride (Potassium Chloride) 60 meq PO ONETIME ONE Stop: 12/20/16 05:55 Last Admin: 12/20/16 06:27 Dose: 60 meq Prochlorperazine Edisylate (Compazine) 5 mg IVPUSH ONETIME ONE Stop: 12/17/16 22:05 Last Admin: 12/17/16 22:29 Dose: 5 mg - Exam General: alert, oriented, cooperative, moderate distress HEENT: Pupils equal, Pupils reactive, Scleral icterus Neck: supple Lungs: Clear to auscultation, Normal respiratory effort, Decreased breath sounds Cardiovascular: Regular Rate, Regular Rhythm Abdomen: bowel sounds present, guarding, tenderness, CVA tenderness. No: rigidity, distension Extremities: no tenderness/swelling, other (Tight hand tender and swollenm extenes up to right elbow) Skin: moist Neurological: no new focal deficit - Problem List Review Problem List Initiated/Reviewed/Updated: Yes - My Orders Last 24 Hours: My Active Orders 12/19/16 09:20 Menthol/Methyl Salicylate [Analgesic Howell] 1 gm TOP ASDIRECTED PRN 12/19/16 09:30 Vancomycin 1.75 gm Sodium Chloride 0.9% [Normal Saline] 500 ml IV Q12H 12/19/16 10:36 Echo Comp wo Cont [US] Routine 12/19/16 20:00 oxyCODONE 10 mg PO Q6H 12/20/16 06:26 VL Duplex Upr Ext Art Comp [US] Routine 12/21/16 05:11 C-REACTIVE PROTEIN [CHEM] AM CBC WITH AUTO DIFF [HEME] AM COMPREHENSIVE METABOLIC PN,CMP [CHEM] AM LACTIC ACID,WHOLE BLOOD [BG] AM MAGNESIUM [CHEM] AM SEDIMENTATION RATE AUTO [HEME] AM 12/22/16 05:11 C-REACTIVE PROTEIN [CHEM] AM CBC WITH AUTO DIFF [HEME] AM COMPREHENSIVE METABOLIC PN,CMP [CHEM] AM LACTIC ACID,WHOLE BLOOD [BG] AM MAGNESIUM [CHEM] AM SEDIMENTATION RATE AUTO [HEME] AM 12/23/16 05:11 C-REACTIVE PROTEIN [CHEM] AM CBC WITH AUTO DIFF [HEME] AM COMPREHENSIVE METABOLIC PN,CMP [CHEM] AM LACTIC ACID,WHOLE BLOOD [BG] AM MAGNESIUM [CHEM] AM SEDIMENTATION RATE AUTO [HEME] AM 12/24/16 05:11 C-REACTIVE PROTEIN [CHEM] AM CBC WITH AUTO DIFF [HEME] AM COMPREHENSIVE METABOLIC PN,CMP [CHEM] AM LACTIC ACID,WHOLE BLOOD [BG] AM MAGNESIUM [CHEM] AM SEDIMENTATION RATE AUTO [HEME] AM - Plan Plan:: 1. Bacteremia, Gm+ Cocci Pairs/chains -T 37.1, RR 31, BP 111/58, HR 70 -on Meropem & Vancomycin -echo done yesterday -WBC Count stable, Lactace stable, CRP not improving, ESR worsening -Total BR not improving, ALK Phos Worsening, AST worsening -ordered HIV today which was negative -repeat CBC, CMP, Mg, ESR, CRP in AM -we will continue with current antibiotics, f/u blood cultures, repeat CT if no improvement by tomorrow consider transfer if inconclusive 2. Right Flank Pain -discussed case with Dr. Leavitt, Surgery, he does not believe it is appendicitis, this is backed up by imaging -discussed case with Dr. Alonso, Urology, he does not believe this is urolithiasis or pyelonephritis, this is backe up by imaging, recommends continuing treating infection for now -discussed case with Dr. Navarro, OB-Adjunct Professor, he recommends continuing broad specturm antibiotics and repeating CT abd/pelis with contrast if no improvement -repeat with contrast if no improvement by tomorrow -increase Oxycodone 10 mg from q6h to q4h, starting at 1200 -sDC Morphine, start Dilautid 1 mg IV q4 PRN at 1400 3. Acute Right Hand Swelling -Venous Doppler US of RUE 4. Hepatomegaly -contradicting reports on imaging -at admission LDH and Alk Phos were elevated but AST, ALT, BR, PT/INR were normal -overnight patient developed elevated BR with mild increase AST -ESR 55, CRP 17 -patient from [place], was last there 1 year ago, does not use alcohol -History of Cholecystectomy. -Imaging shows large liver. Dilated extrahepatic duct up to 1.7 centimeters proximally, and mild central intrahepatic biliary dilatation, greater than expected for age postcholecystectomy state -may be unrelated to current state of patient, possible underlying autoimmune state -labs ordered to evaluate for possible autoimmune disease, hepatitis. Most labs are sent out and with long weekend coming we will likely not have re 5. Multiple Fibroids of the Uterus -likely benign and unrelated -patient will need Endometrial Biopsy at some point
[2016-12-20] MEDS: Morphine 2 MG/ML Syringe IVPUSH PRN (10:34)
[2016-12-20] MEDS ORDERED: HYDROmorphone 1 MG/ML Syringe IVPUSH PRN ×2 (14:00→18:42)
[2016-12-20] MEDS: Menthol/Methyl Salicylate 29 GM Tube TOP PRN (15:26)
[2016-12-20] MEDS ORDERED: Enoxaparin 40 MG/0.4 ML Syringe SUBCUT SCH (20:00)
[2016-12-20] MEDS ORDERED: Iopamidol 755 MG/ML 500 ML Multipack Bottle IVPUSH STA (22:57)
--- NOTE | 2016-12-21 01:00 | PCM.DCSUM1 ---
Discharge Summary - Hospital Course Free Text/Narrative:: 12/17: Patient presents to ED with right flank pain. Vitals stable. No white count. Lactate normal. LDH 240. All other liver enzymes normal. UA negative. CT Abdomen without contrast: No obstructive uropathy, bladder wall thickening, Unexplained Pelvic Stranding, Fibroid Uterus, Hepatosplenomegaly, Biliary Dilation greater than expected for post-cholecystectomy state. A ventral hernia containing fat, fluid and edema, with mild stranding in the underlying omental fat, suggestive of inflammation or strangulation. Abdominal US was done which revealed normal liver size and echotexture, CBD dilated to 9 mm, no obvious obstructing calculi, no intrahepatic biliary duct dilatation & history of cholecystectomy. 12/18: No improvement in pain, tenderness or CVA tenderness. Consulted general surgery who informed us that it is not likely appendicitis. Still no white count. Lactate normal. Blood cultures drawn. CRP 15. ESR 55. Patient developed temporary fever for 2-3 hours ranging from 101-104. Started prophylactic Ciprofloxacin IV and Ceftriaxone IV. CT with contrast ruled out appendicitis, pyelonephritis. CT with contrast also suggested no focal abnormalities in liver which conflicts earlier CT scan. Discussed case with Urology who recommended switching antibiotics to Tobramycin IV . Patient allergic to PCN. Several blood tests including acute hepatitis panel and antibodies ordered for possible autoimmune process however majority are send outs and will not be back until next week. 12/19: No improvement in pain. Blood Cultures show gram positive bacteria in groups and chains. Patient developed hypotension that responded to IVF. No fever or white count. CRP 17.9, Alk Phos 192 (previously 64), Total BR 2.6 (0.6) , AST 54 (29), ALT 52 (27), Iron 14, TIBC 238, Iron Sat 5.88, Ferritin 141, TSH 0.41, FT4 normal. Antibiotics switched to Meropenem and Vancomycin. Patient developed Right hand pain and swelling. 12/20: Minimal improvement with flank pain however pain medication was increased. Blood cultures suggest Beta hemolytic Group B Strep. Right hand pain and swelling worsened, possible cellulitis vs clot. Venous and Arterial Doppler US of RUE negative for clot. Still no fever or while count. CRP 15.3. ESR 81. Creatine Kinase 80. ALT 47. AST 65. Alk Phos 191. Total BR 2.5. Pelvic exam done which showed odorless white discharge without any significant pain or tenderness. Vaginal cultures were obtained and sent. Patient was given first dose of Lovenox 40 mg SC at 1999 for DVT prophylaxis due to lack of movement. Contacted Dr. Ribeiro who suggested possible Necrotizing Fasciitis. Re-examined abdomen but no discoloration or increased heat appreciated. Repeated CT Abdomen/ Pelvis without contrast which showed: Bilateral body wall edema, small focus of gas in the right lateral abdominal wall is nonspecific, this may be related to infection, however, there are no CT findings to highly suggest necrotizing fasciitis. No drainable superficial soft tissue fluid collection. New mild right hydronephrosis without definite cause which could possibly be related to mass effect from suspected fibroid uterus. 12/21 00:00: Contacted [facility] to discuss transfer. Spoke with Dr. Bernard who accepted the patient. CBC was checked before discharge and no findings suggestive of acute bleed. Patient was hemodynamically stable with BP 165/85 and HR 80. She will be transferred via ambulance. She will be admitted directly to the floor. She was given Dilaudid 2 mg IV for pain control just prior to transfer. We appreciate the help and acceptance of patient from Dr. Ribeiro and Dr. Beranrd. - Discharge Data Discharge Date: 12/21/16 Discharge Disposition: DC/Tfer to Acute Hospital 02 Condition: Stable - Discharge Plan Home Medications: Home Meds metFORMIN [Glucophage] 500 mg PO BID 02/15/14 [History] Ca/D3/Mag Ox/Zinc/Scrap Carrier/Akira/Bor [Calcium 600-D3 Plus Caplet] 1 tab PO DAILY 12/20 [History] Hydrochlorothiazide 25 mg PO DAILY 12/20/16 [History] Ibuprofen 200 mg PO Q6H PRN 12/20/16 [History] Forms: ED Department Discharge Referrals: PCP,None [Primary Care Provider] - - Discharge Summary/Plan Comment DC Time >30 min.: Yes Discharge Summary/Plan Comment: Patient transfer to [facility] via ambulance. Receiving physician is Dr. Nancy Apodaca. She will be admitted directly to the floor. - Patient Data Vitals - Most Recent: Last Vital Signs Temp 36.7 C 12/21/16 00:00 Pulse 90 12/19/16 18:00 Resp 16 12/21/16 00:00 BP 165/85 H 12/21/16 00:00 Pulse Ox 97 12/21/16 00:00 Weight - Most Recent: 128.4 kg I&O - Last 24 hours: Intake & Output 12/20/16 12/20/16 12/21/16 14:59 22:59 06:59 Intake Total 1770 2480 50 Output Total 1000 1300 Balance 770 1180 50 Lab Results - Last 24 hrs: Laboratory Results - last 24 hr 12/19/16 12/20/16 12/20/16 Range/Units 06:15 04:45 04:48 WBC 6.63 (4.0-11.0) K/uL RBC 3.50 L (4.30-5.90) M/uL Hgb 9.2 L (12.0-16.0) g/dL Hct 28.6 L (36.0-46.0) % MCV 81.7 (80.0-98.0) fL MCH 26.3 L (27.0-32.0) pg MCHC 32.2 (31.0-37.0) g/dL RDW Std Deviation 44.8 (28.0-62.0) fl RDW Coeff of Joel 15 (11.0-15.0) % Plt Count 183 (150-400) K/uL MPV 9.50 (7.40-12.00) fL Neut % (Auto) 57.4 (48.0-80.0) % Lymph % (Auto) 25.2 (16.0-40.0) % Love % (Auto) 14.8 (0.0-15.0) % Eos % (Auto) 2.3 (0.0-7.0) % Baso % (Auto) 0.3 (0.0-1.5) % Neut # (Auto) 3.8 (1.4-5.7) K/uL Lymph # (Auto) 1.7 (0.6-2.4) K/uL Love # (Auto) 1.0 H (0.0-0.8) K/uL Eos # (Auto) 0.2 (0.0-0.7) K/uL Baso # (Auto) 0.0 (0.0-0.1) K/uL Nucleated RBC % 0.0 /100WBC Nucleated RBCs # 0 K/uL ESR 81 H (0-29) mm/hr Lactate (0.20-2.00) mmol/L Sodium (136-146) mmol/L Potassium (3.5-5.1) mmol/L Chloride (98-110) mmol/L Carbon Dioxide (21-31) mmol/L BUN (6.0-23.0) mg/dL Creatinine (0.6-1.5) mg/dL Est Cr Clr Drug Dosing mL/min Estimated GFR (MDRD) ml/min Glucose (60-110) mg/dL POC Glucose (60-110) mg/dL Uric Acid (2.1-6.2) mg/dL Calcium (8.8-10.8) mg/dL Magnesium (1.5-2.3) mEq/L Ferritin 141 (11-307) ng/mL Total Bilirubin (0.1-1.5) mg/dL AST (5-40) IU/L ALT (8-54) IU/L Alkaline Phosphatase (40-150) Creatine Kinase 80 (9-236) IU/L C-Reactive Protein (0.0-0.5) mg/dL Total Protein (6.0-8.0) g/dL Albumin (3.5-5.0) g/dL Globulin (2.0-3.5) g/dL Albumin/Globulin Ratio (1.3-2.8) Urine Color Urine Appearance Urine pH (5.0-8.0) Ur Specific Gore (1.001-1.035) Urine Protein (NEGATIVE) mg/dL Urine Glucose (UA) (NEGATIVE) mg/dL Urine Ketones (NEGATIVE) mg/dL Urine Occult Blood (NEGATIVE) Urine Nitrite (NEGATIVE) Urine Bilirubin (NEGATIVE) Urine Ictotest Urine Urobilinogen (<2.0) EU/dL Ur Leukocyte Esterase (NEGATIVE) Urine RBC (0-2/HPF) Urine WBC (0-5/HPF) Ur Epithelial Cells (NONE-FEW) Urine Bacteria (NEGATIVE) Urine Mucus (NONE-MOD) Vancomycin Trough (5-15) ug/mL HIV 1&2 Ag/Ab, 4th Gen (<1.0) 12/20/16 12/20/16 12/20/16 Range/Units 04:48 04:48 04:48 WBC (4.0-11.0) K/uL RBC (4.30-5.90) M/uL Hgb (12.0-16.0) g/dL Hct (36.0-46.0) % MCV (80.0-98.0) fL MCH (27.0-32.0) pg MCHC (31.0-37.0) g/dL RDW Std Deviation (28.0-62.0) fl RDW Coeff of Joel (11.0-15.0) % Plt Count (150-400) K/uL MPV (7.40-12.00) fL Neut % (Auto) (48.0-80.0) % Lymph % (Auto) (16.0-40.0) % Love % (Auto) (0.0-15.0) % Eos % (Auto) (0.0-7.0) % Baso % (Auto) (0.0-1.5) % Neut # (Auto) (1.4-5.7) K/uL Lymph # (Auto) (0.6-2.4) K/uL Love # (Auto) (0.0-0.8) K/uL Eos # (Auto) (0.0-0.7) K/uL Baso # (Auto) (0.0-0.1) K/uL Nucleated RBC % /100WBC Nucleated RBCs # K/uL ESR (0-29) mm/hr Lactate 0.6 (0.20-2.00) mmol/L Sodium 139 (136-146) mmol/L Potassium 3.2 L (3.5-5.1) mmol/L Chloride 104 (98-110) mmol/L Carbon Dioxide 26 (21-31) mmol/L BUN 7 (6.0-23.0) mg/dL Creatinine 0.8 (0.6-1.5) mg/dL Est Cr Clr Drug Dosing 77.97 mL/min Estimated GFR (MDRD) > 60.0 ml/min Glucose 114 H (60-110) mg/dL POC Glucose (60-110) mg/dL Uric Acid 4.4 (2.1-6.2) mg/dL Calcium 7.8 L (8.8-10.8) mg/dL Magnesium 1.7 (1.5-2.3) mEq/L Ferritin (11-307) ng/mL Total Bilirubin 2.5 H (0.1-1.5) mg/dL AST 65 H (5-40) IU/L ALT 47 (8-54) IU/L Alkaline Phosphatase 191 H (40-150) Creatine Kinase (9-236) IU/L C-Reactive Protein 15.38 H (0.0-0.5) mg/dL Total Protein 5.9 L (6.0-8.0) g/dL Albumin 2.9 L (3.5-5.0) g/dL Globulin 3.0 (2.0-3.5) g/dL Albumin/Globulin Ratio 1.0 L (1.3-2.8) Urine Color Urine Appearance Urine pH (5.0-8.0) Ur Specific Gore (1.001-1.035) Urine Protein (NEGATIVE) mg/dL Urine Glucose (UA) (NEGATIVE) mg/dL Urine Ketones (NEGATIVE) mg/dL Urine Occult Blood (NEGATIVE) Urine Nitrite (NEGATIVE) Urine Bilirubin (NEGATIVE) Urine Ictotest Urine Urobilinogen (<2.0) EU/dL Ur Leukocyte Esterase (NEGATIVE) Urine RBC (0-2/HPF) Urine WBC (0-5/HPF) Ur Epithelial Cells (NONE-FEW) Urine Bacteria (NEGATIVE) Urine Mucus (NONE-MOD) Vancomycin Trough (5-15) ug/mL HIV 1&2 Ag/Ab, 4th Gen 0.1 (<1.0) 12/20/16 12/20/16 12/20/16 Range/Units 06:32 11:25 16:53 WBC (4.0-11.0) K/uL RBC (4.30-5.90) M/uL Hgb (12.0-16.0) g/dL Hct (36.0-46.0) % MCV (80.0-98.0) fL MCH (27.0-32.0) pg MCHC (31.0-37.0) g/dL RDW Std Deviation (28.0-62.0) fl RDW Coeff of Joel (11.0-15.0) % Plt Count (150-400) K/uL MPV (7.40-12.00) fL Neut % (Auto) (48.0-80.0) % Lymph % (Auto) (16.0-40.0) % Love % (Auto) (0.0-15.0) % Eos % (Auto) (0.0-7.0) % Baso % (Auto) (0.0-1.5) % Neut # (Auto) (1.4-5.7) K/uL Lymph # (Auto) (0.6-2.4) K/uL Love # (Auto) (0.0-0.8) K/uL Eos # (Auto) (0.0-0.7) K/uL Baso # (Auto) (0.0-0.1) K/uL Nucleated RBC % /100WBC Nucleated RBCs # K/uL ESR (0-29) mm/hr Lactate (0.20-2.00) mmol/L Sodium (136-146) mmol/L Potassium (3.5-5.1) mmol/L Chloride (98-110) mmol/L Carbon Dioxide (21-31) mmol/L BUN (6.0-23.0) mg/dL Creatinine (0.6-1.5) mg/dL Est Cr Clr Drug Dosing mL/min Estimated GFR (MDRD) ml/min Glucose (60-110) mg/dL POC Glucose 123 H 119 H 120 H (60-110) mg/dL Uric Acid (2.1-6.2) mg/dL Calcium (8.8-10.8) mg/dL Magnesium (1.5-2.3) mEq/L Ferritin (11-307) ng/mL Total Bilirubin (0.1-1.5) mg/dL AST (5-40) IU/L ALT (8-54) IU/L Alkaline Phosphatase (40-150) Creatine Kinase (9-236) IU/L C-Reactive Protein (0.0-0.5) mg/dL Total Protein (6.0-8.0) g/dL Albumin (3.5-5.0) g/dL Globulin (2.0-3.5) g/dL Albumin/Globulin Ratio (1.3-2.8) Urine Color Urine Appearance Urine pH (5.0-8.0) Ur Specific Gore (1.001-1.035) Urine Protein (NEGATIVE) mg/dL Urine Glucose (UA) (NEGATIVE) mg/dL Urine Ketones (NEGATIVE) mg/dL Urine Occult Blood (NEGATIVE) Urine Nitrite (NEGATIVE) Urine Bilirubin (NEGATIVE) Urine Ictotest Urine Urobilinogen (<2.0) EU/dL Ur Leukocyte Esterase (NEGATIVE) Urine RBC (0-2/HPF) Urine WBC (0-5/HPF) Ur Epithelial Cells (NONE-FEW) Urine Bacteria (NEGATIVE) Urine Mucus (NONE-MOD) Vancomycin Trough (5-15) ug/mL HIV 1&2 Ag/Ab, 4th Gen (<1.0) 12/20/16 12/20/16 12/21/16 Range/Units 21:05 21:07 00:25 WBC 8.07 (4.0-11.0) K/uL RBC 3.71 L (4.30-5.90) M/uL Hgb 9.9 L (12.0-16.0) g/dL Hct 29.7 L (36.0-46.0) % MCV 80.1 (80.0-98.0) fL MCH 26.7 L (27.0-32.0) pg MCHC 33.3 (31.0-37.0) g/dL RDW Std Deviation 43.4 (28.0-62.0) fl RDW Coeff of Joel 15 (11.0-15.0) % Plt Count 227 (150-400) K/uL MPV 10.30 (7.40-12.00) fL Neut % (Auto) 61.8 (48.0-80.0) % Lymph % (Auto) 25.2 (16.0-40.0) % Love % (Auto) 10.8 (0.0-15.0) % Eos % (Auto) 2.0 (0.0-7.0) % Baso % (Auto) 0.2 (0.0-1.5) % Neut # (Auto) 5.0 (1.4-5.7) K/uL Lymph # (Auto) 2.0 (0.6-2.4) K/uL Love # (Auto) 0.9 H (0.0-0.8) K/uL Eos # (Auto) 0.2 (0.0-0.7) K/uL Baso # (Auto) 0.0 (0.0-0.1) K/uL Nucleated RBC % 0.0 /100WBC Nucleated RBCs # 0 K/uL ESR (0-29) mm/hr Lactate (0.20-2.00) mmol/L Sodium (136-146) mmol/L Potassium (3.5-5.1) mmol/L Chloride (98-110) mmol/L Carbon Dioxide (21-31) mmol/L BUN (6.0-23.0) mg/dL Creatinine (0.6-1.5) mg/dL Est Cr Clr Drug Dosing mL/min Estimated GFR (MDRD) ml/min Glucose (60-110) mg/dL POC Glucose (60-110) mg/dL Uric Acid (2.1-6.2) mg/dL Calcium (8.8-10.8) mg/dL Magnesium (1.5-2.3) mEq/L Ferritin (11-307) ng/mL Total Bilirubin (0.1-1.5) mg/dL AST (5-40) IU/L ALT (8-54) IU/L Alkaline Phosphatase (40-150) Creatine Kinase (9-236) IU/L C-Reactive Protein (0.0-0.5) mg/dL Total Protein (6.0-8.0) g/dL Albumin (3.5-5.0) g/dL Globulin (2.0-3.5) g/dL Albumin/Globulin Ratio (1.3-2.8) Urine Color YELLOW Urine Appearance CLEAR Urine pH 6.0 (5.0-8.0) Ur Specific Gore 1.015 (1.001-1.035) Urine Protein TRACE (NEGATIVE) mg/dL Urine Glucose (UA) NEGATIVE (NEGATIVE) mg/dL Urine Ketones NEGATIVE (NEGATIVE) mg/dL Urine Occult Blood LARGE H (NEGATIVE) Urine Nitrite NEGATIVE (NEGATIVE) Urine Bilirubin SMALL H (NEGATIVE) Urine Ictotest POSITIVE Urine Urobilinogen 4.0 H (<2.0) EU/dL Ur Leukocyte Esterase NEGATIVE (NEGATIVE) Urine RBC 30-40 (0-2/HPF) Urine WBC 1-2 (0-5/HPF) Ur Epithelial Cells OCCASIONAL (NONE-FEW) Urine Bacteria FEW (NEGATIVE) Urine Mucus LIGHT (NONE-MOD) Vancomycin Trough 13.2 (5-15) ug/mL HIV 1&2 Ag/Ab, 4th Gen (<1.0) Med Orders - Current: Current Medications Acetaminophen (Tylenol) 650 mg PO Q4H PRN PRN Reason: Pain Last Admin: 12/19/16 04:32 Dose: 650 mg Hydromorphone HCl (Dilaudid) 2 mg IVPUSH Q4H PRN PRN Reason: Abdominal Pain Meropenem 2 gm/ Sodium (Chloride) 100 mls @ 100 mls/hr IV Q8H [facility] Last Admin: 12/20/16 15:31 Dose: 100 mls/hr Vancomycin HCl 1.75 gm/ Sodium (Chloride) 500 mls @ 250 mls/hr IV Q12H [facility] Last Admin: 12/20/16 23:40 Dose: 250 mls/hr Sodium Chloride (Normal Saline) 1,000 mls @ 75 mls/hr IV ASDIRECTED [facility] Last Admin: 12/20/16 18:23 Dose: 75 mls/hr Aztreonam 2 gm/ Sodium (Chloride) 50 mls @ 100 mls/hr IV Q8HR [facility] Last Admin: 12/20/16 23:04 Dose: 100 mls/hr Insulin Aspart (Novolog) 0 unit SUBCUT TIDAC [facility] PRN Reason: Protocol Last Admin: 12/20/16 17:04 Dose: Not Given Methyl Salicylate (Analgesic Jewell) 1 gm TOP ASDIRECTED PRN PRN Reason: arm pain Last Admin: 12/20/16 15:26 Dose: 1 applic Ondansetron HCl (Zofran) 4 mg IVPUSH Q4H PRN PRN Reason: Nausea Oxycodone HCl (Oxycodone) 10 mg PO Q4H [facility] Last Admin: 12/20/16 23:45 Dose: 10 mg Vancomycin HCl (Pharmacy To Dose - Vancomycin) 1 dose .XX ASDIRECTED [facility] Discontinued Medications Enoxaparin Sodium (Lovenox) 40 mg SUBCUT Q24H [facility] Last Admin: 12/20/16 20:03 Dose: 40 mg Fentanyl (Sublimaze) 50 mcg IVPUSH ONETIME ONE Stop: 12/17/16 19:14 Last Admin: 12/17/16 19:48 Dose: 50 mcg Hydromorphone HCl (Dilaudid) 2 mg IVPUSH ONETIME ONE Stop: 12/17/16 22:04 Last Admin: 12/17/16 22:26 Dose: 2 mg Hydromorphone HCl (Dilaudid) 1 mg IVPUSH Q4H PRN PRN Reason: Abdominal Pain Last Admin: 12/20/16 15:22 Dose: 1 mg Sodium Chloride (Normal Saline) 1,000 mls @ 999 mls/hr IV STAT ONE Stop: 12/17/16 19:20 Last Admin: 12/17/16 18:42 Dose: 999 mls/hr Potassium Chloride/Sodium Chloride (Normal Saline With 40 Meq Kcl) 1,000 mls @ 150 mls/hr IV ASDIRECTED [facility] Stop: 12/18/16 07:54 Last Admin: 12/18/16 01:35 Dose: 150 mls/hr Sodium Chloride (Normal Saline) 1,000 mls @ 125 mls/hr IV ASDIRECTED [facility] Last Admin: 12/18/16 20:07 Dose: 125 mls/hr Ciprofloxacin/Dextrose 400 mg/ (Premix) 200 mls @ 200 mls/hr IV Q12H [facility] Last Admin: 12/18/16 16:33 Dose: 200 mls/hr Tobramycin 120 mg/ Sodium (Chloride) 103 mls @ 100 mls/hr IV Q12H [facility] Last Admin: 12/18/16 21:53 Dose: Not Given Ceftriaxone Sodium 2,000 mg/ (Sodium Chloride) 50 mls @ 200 mls/hr IV Q24H [facility] Last Admin: 12/18/16 21:54 Dose: Not Given Ceftriaxone Sodium/Dextrose 2 (gm/ Premix) 50 mls @ 100 mls/hr IV Q24H [facility] Last Admin: 12/18/16 20:00 Dose: 100 mls/hr Tobramycin 120 mg/ Sodium (Chloride) 103 mls @ 100 mls/hr IV Q8H [facility] Last Admin: 12/19/16 03:22 Dose: 100 mls/hr Potassium Chloride/Sodium Chloride (Normal Saline With 40 Meq Kcl) 1,000 mls @ 175 mls/hr IV ASDIRECTED [facility] Last Admin: 12/19/16 09:51 Dose: 175 mls/hr Meropenem 2 gm/ Sodium (Chloride) 100 mls @ 100 mls/hr IV Q8H [facility] Last Admin: 12/19/16 08:14 Dose: Not Given Vancomycin HCl 1.75 gm/ Sodium (Chloride) 500 mls @ 250 mls/hr IV Q12H [facility] Magnesium Sulfate 4 gm/ Premix 100 mls @ 50 mls/hr IV ONETIME ONE Stop: 12/19/16 12:38 Last Admin: 12/19/16 11:21 Dose: 50 mls/hr Magnesium Sulfate 2 gm/ Premix 50 mls @ 50 mls/hr IV ONETIME ONE Stop: 12/20/16 06:55 Last Admin: 12/20/16 06:27 Dose: 50 mls/hr Iopamidol (Isovue Multipack-370 (76%)) 100 ml IVPUSH ONETIME STA Stop: 12/18/16 16:51 Last Admin: 12/18/16 16:51 Dose: 100 ml Iopamidol (Isovue Multipack-370 (76%)) 100 ml IVPUSH ONETIME STA Stop: 12/20/16 22:58 Last Admin: 12/20/16 22:58 Dose: 100 ml Morphine Sulfate (Morphine) 2 mg IVPUSH ONETIME ONE Stop: 12/17/16 18:21 Last Admin: 12/17/16 18:45 Dose: 2 mg Morphine Sulfate (Morphine) 2 mg IVPUSH Q2H PRN PRN Reason: Pain (severe 7-10) Stop: 12/19/16 01:51 Last Admin: 12/19/16 01:35 Dose: 2 mg Morphine Sulfate (Morphine) 2 mg IVPUSH Q2H PRN PRN Reason: Pain Last Admin: 12/20/16 10:34 Dose: 2 mg Ondansetron HCl (Zofran) 4 mg IVPUSH ONETIME ONE Stop: 12/17/16 18:22 Last Admin: 12/17/16 18:42 Dose: 4 mg Oxycodone HCl (Oxycodone) 10 mg PO Q6H [facility] Last Admin: 12/20/16 08:16 Dose: 10 mg Potassium Chloride (Potassium Chloride) 60 meq PO ONETIME ONE Stop: 12/20/16 05:55 Last Admin: 12/20/16 06:27 Dose: 60 meq Prochlorperazine Edisylate (Compazine) 5 mg IVPUSH ONETIME ONE Stop: 12/17/16 22:05 Last Admin: 12/17/16 22:29 Dose: 5 mg *Q Meaningful Use (DIS) - VTE *Q VTE Criteria *Q: - Stroke *Q Stroke Criteria *Q: - AMI *Q AMI Criteria *Q:
[2016-12-21 01:10] VITALS: BP 168/85
[2016-12-21] MEDS: Meropenem 2 GM in Sodium Chloride 0.9% 100 ML IV SCH (01:43)
--- NOTE | 2016-12-23 11:08 | CR ---
EXAM DATE: 12/19/16 PATIENT'S AGE: 56 Patient: SHASTA HENNING Facility: [place], [place] Site . Site : 1960 Study: XRay Chest [id number] 12:40:47 PM Ordering Physician: Yaniv Iyer Final Report: HISTORY: Hypoxia. Findings: Single AP view of the chest is provided. Comparison is made to previous study dated 12/17/2016. The lung volumes are slightly diminished but the lungs are grossly clear and there is no evidence for pleural effusion or pneumothorax. Cardiac silhouette size is not reliably judged given AP technique and slight degree of rotation. Impression: Slightly diminished lung volumes with clear lungs. Dictated by Prince Thakur MD @ Dec 20 2016 12:49PM (Electronic Signature) Report Signed by Proxy. [facility]
--- NOTE | 2016-12-23 11:09 | US ---
EXAM DATE: 12/19/16 PATIENT'S AGE: 56 Patient: SHASTA HENNING Facility: [place], [place] Site . Site : 1960 Study: US Extremity Right [id number]/27/2017 1:23:04 PM Ordering Physician: Yaniv Iyer Final Report: HISTORY: Right arm pain and swelling. Technique: Grayscale and color and spectral Doppler ultrasound of the right upper extremity deep veins. Comparison: None. Findings: Right: Internal jugular vein is patent with normal phasicity. Subclavian and axillary veins are patent with normal phasicity. Brachial vein is patent and compressible with normal phasicity. Basilic and cephalic veins are patent and compressible. Ulnar and radial veins are patent and compressible. Impression: No right upper extremity DVT. Dictated by Junior Chaves MD @ Dec 20 2016 1:35PM (Electronic Signature) Report Signed by Proxy. [facility]
--- NOTE | 2016-12-23 11:11 | US ---
EXAM DATE: 12/19/16 PATIENT'S AGE: 56 Patient: SHASTA HENNING Facility: [place], [place] Site . Site : 1960 Study: US Extremity Right [id number]/27/2017 1:33:17 PM Ordering Physician: Yaniv Iyer Final Report: Indication: Right hand pain and swelling. Findings: Right axillary artery patent with normal color and spectral Doppler appearance. Brisk systolic upstroke. The brachial artery patent with normal caliber and normal color and spectral Doppler appearance. Ulnar and radial artery are patent with normal color and spectral Doppler appearance. Right subclavian artery patent and normal color and spectral Doppler appearance. Peak systolic velocity proximal right axilla measures 105 cm/sec. No stenosis by velocity criteria. Impression: Patent arterial vessels of the right upper extremity with normal color and spectral Doppler appearance. No stenosis. Dictated by Vince Huston MD @ Dec 20 2016 2:43PM (Electronic Signature) Report Signed by Proxy. [facility]
--- NOTE | 2016-12-23 11:51 | CT ---
EXAM DATE: 12/19/16 PATIENT'S AGE: 56 Patient: SHASTA HENNING Facility: [place], [place] Site . Site : 1960 Study: CT Abdomen/Pelvis [id number]/27/[id number] 10:55:22 PM Ordering Physician: Yaniv Iyer Final Report: INDICATION: Cellulitis. Necrotizing fasciitis right abdominal wall. Right flank pain. TECHNIQUE: CT abdomen and pelvis acquired with 100 mL of Isovue 370 IV contrast. COMPARISON: 12/18/2016. FINDINGS: Bibasilar atelectasis. New small bilateral pleural effusions. . Abdomen: . No focal liver lesion. Mild intra and extrahepatic biliary ductal dilatation is unchanged. Prior cholecystectomy. The spleen, pancreas and bilateral adrenal glands are within normal limits. There is new mild right hydronephrosis without definite cause. The bilateral kidneys are otherwise unremarkable. . Colonic diverticulosis without evidence of acute diverticulitis. No bowel obstruction. No free intraperitoneal gas. No pathologic abdominal lymphadenopathy. Fat containing umbilical hernia is similar in appearance. . There is diffuse body wall edema. Small focus of gas is present in the right subcutaneous tissues of the abdominal wall, for example as seen on axial image 116 of series 201. This is nonspecific. No discreet superficial soft tissue fluid collection. . . Pelvis: . Black catheter appears appropriately positioned. Fibroid uterus suspected. Bilateral adnexal regions as imaged are unremarkable. Rectum as imaged is unremarkable. Small amount of pelvic free fluid is present. No pelvic lymphadenopathy. . . Bone windows: Degenerative changes of the spine. IMPRESSION: New mild right hydronephrosis without definite cause. This could possibly be related to mass effect from suspected fibroid uterus. However, additional etiologies are not excluded. Black catheter appears appropriately positioned. Colonic diverticulosis without evidence of acute diverticulitis. Bilateral body wall edema. Small focus of gas in the right lateral abdominal wall is nonspecific. This may be related to infection, however, there are no CT findings to highly suggest necrotizing fasciitis. No drainable superficial soft tissue fluid collection. Mild intra and extra hepatic biliary ductal dilatation is unchanged. Prior cholecystectomy. New small bilateral pleural effusions with bibasilar atelectasis. Dictated by Boom Kern MD @ 12/20/2016 11:39:08 PM Dictated by: Boom Kern MD @ 12/20/2016 23:39:48 (Electronic Signature) Report Signed by Proxy. MTDD
--- NOTE | 2016-12-25 15:58 | ECHO ---
EXAM DATE: 12/19/16 PATIENT'S AGE: 56 The echocardiogram report can be seen in this patient's EMR (Electronic Medical Record) in the Reports section. LALO
== END 2016-12-21 01:35 | DRG 872 ==
LOC: MW.ED 17:41 → MW.MS 22:21 → OBSVTOIN 12-19 05:33 → MW.ICU 12-19 05:45
PROVIDERS: ADMIT Internal Medicine; ATTEND Internal Medicine
DX: R78.81 Bacteremia (principal); B95.1 Streptococcus, group B, as the cause of diseases classified elsewhere; R10.31 Right lower quadrant pain; M79.89 Other specified soft tissue disorders; D25.9 Leiomyoma of uterus, unspecified; R16.2 Hepatomegaly with splenomegaly, not elsewhere classified; K43.9 Ventral hernia without obstruction or gangrene; I10 Essential (primary) hypertension; E11.9 Type 2 diabetes mellitus without complications; Z88.0 Allergy status to penicillin; Z88.8 Allergy status to other drugs, medicaments and biological substances; Z79.899 Other long term (current) drug therapy; Z79.82 Long term (current) use of aspirin
CPT/HCPCS: 36415; 71010; 71010-26; 74176; 74176-26; 74177; 74177-26; 76705; 76705-26; 76856; 76856-26; 80048; 80053; 80074; 80202; 81001; 81025; 82150; 82390; 82550; 82728; 82962; 83036; 83516; 83550; 83605; 83615; 83690; 83735; 84439; 84443; 84550; 85025; 85610; 85652; 86140; 86255; 87040; 87070; 87086; 87186; 87389; 87491; 87591; 93306; 93930; 93930-26; 93971-26-RT; 93971-RT; 96361; 96365; 96366; 96367; 96374; 96375; 96376; 99285; 99285-25; A9270-GY; G0378; J0696; J0744; J0780; J1170; J1650; J2185; J2270; J2405; J3010; J3260; J3370; J3475; J3480; J7030; J7040; J7050; Q9967

== ENCOUNTER 2017-01-23 18:20 | Emergency (ER) | payer MEDICAID ==
--- NOTE | 2017-01-23 18:25 | EDM.PDOC ---
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 She has history of stable hypertension and diabetes she denies any medical problems or concerns at this time Review of systems: As per history of present illness and below otherwise all systems reviewed and negative. Past medical history: As per history of present illness and as reviewed below otherwise noncontributory. Surgical history: As per history of present illness and as reviewed below otherwise noncontributory. Social history: No reported history of drug or alcohol abuse. Family history: As per history of present illness and as reviewed below otherwise noncontributory. Physical exam: HEENT: Atraumatic, normocephalic, pupils reactive, negative for conjunctival pallor or scleral icterus, mucous membranes moist, throat clear, neck supple, nontender, trachea midline. Lungs: Clear to auscultation, breath sounds equal bilaterally, chest nontender. Heart: S1S2, regular, negative for clicks, rubs, or JVD. Abdomen: Soft, nondistended, nontender. Negative for masses or hepatosplenomegaly. Negative for costovertebral tenderness. Pelvis: Stable nontender. Genitourinary: Deferred. Rectal: Deferred. Extremities: Atraumatic, negative for cords or calf pain. Neurovascular unremarkable. Neuro: Awake, alert, oriented. Cranial nerves II through XII unremarkable. Cerebellum unremarkable. Motor and sensory unremarkable throughout. Exam nonfocal. Diagnostics: None Therapeutics: None Impression: #1 medical screening exam #2 history diabetes #3 history of hypertension Definitive disposition and diagnosis as appropriate pending reevaluation and review of above. - Related Data Allergies Allergy/AdvReac Type Severity Reaction Status Date / Time chloroquine Allergy Unknown Rash Verified 12/17/16 18:15 Penicillins Allergy Fainting Verified 12/17/16 18:15 Home Meds: Home Meds metFORMIN [Glucophage] 500 mg PO BID 02/15/14 [History] Ca/D3/Mag Ox/Zinc/Consulting Engineer/Akira/Bor [Calcium 600-D3 Plus Caplet] 1 tab PO DAILY 12/20 [History] Hydrochlorothiazide 25 mg PO DAILY 12/20/16 [History] Ibuprofen 200 mg PO Q6H PRN 12/20/16 [History] Past Medical History HEENT History: Reports: Impaired Vision Cardiovascular History: Reports: Hypertension DISABILITY ATTORNEY History: Reports: Endocrine/Metabolic History: Reports: Diabetes, Type II - Past Surgical History GI Surgical History: Reports: Cholecystectomy, Hernia Repair/Other (ventral) Social & Family History - Family History Family Medical History: Unobtainable Cardiac: Reports: High Cholesterol, Hypertension Endocrine/Metabolic: Reports: Diabetes, type II - Tobacco Use Smoking Status *Q: Never Smoker Second Hand Smoke Exposure: No - Caffeine Use Caffeine Use: Reports: Coffee, Soda, Tea Caffeine Use Comment: 1 cup daily - Alcohol Use Days Per Week of Alcohol Use: 0 - Recreational Drug Use Recreational Drug Use: No ED ROS GENERAL - Review of Systems Review Of Systems: ROS reveals no pertinent complaints other than HPI. ED EXAM, GENERAL - Physical Exam Exam: See Below (See dictation) Departure - Departure Time of Disposition: 18:24 Disposition: Home, Self-Care 01 Condition: Good Clinical Impression: Encounter for medical screening examination - Discharge Information Additional Instructions: The following information is given to patients seen in the emergency department who are being discharged to home. This information is to outline your options for follow-up care. We provide all patients seen in our emergency department with a follow-up referral. The need for follow-up, as well as the timing and circumstances, are variable depending upon the specifics of your emergency department visit. If you don't have a primary care physician on staff, we will provide you with a referral. We always advise you to contact your personal physician following an emergency department visit to inform them of the circumstance of the visit and for follow-up with them and/or the need for any referrals to a consulting specialist. The emergency department will also refer you to a specialist when appropriate. This referral assures that you have the opportunity for followup care with a specialist. All of these measure are taken in an effort to provide you with optimal care, which includes your followup. Under all circumstances we always encourage you to contact your private physician who remains a resource for coordinating your care. When calling for followup care, please make the office aware that this follow-up is from your recent emergency room visit. If for any reason you are refused follow-up, please contact the [facility] emergency department at and asked to speak to the emergency department charge nurse. Follow-up medical doctor 1-2 days return as needed as discussed
== END 2017-01-23 18:52 | disposition home or self-care (01) ==
LOC: MW.ED 18:20
CPT/HCPCS: 99282; 99283

== ENCOUNTER 2018-02-05 14:45 | Inpatient (IN) | payer MEDICAID, OTHER ==
--- NOTE | 2018-02-05 14:57 | EDM.PDOC ---
<Jack Merida Z - Last Filed: 02/05/18 18:40> ED HPI GENERAL MEDICAL PROBLEM - General Chief Complaint: Gastrointestinal Problem Stated Complaint: UNK ISSUES Time Seen by Provider: 02/05/18 15:05 Source of Information: Reports: Patient History Limitations: Reports: No Limitations - History of Present Illness INITIAL COMMENTS - FREE TEXT/NARRATIVE: 57 year old female presenting with an acute history of bright red blood pre rectum when going to the bathroom. Patient states she had a total of three episodes today. She states she also had mid epigastric, LLQ, and flank pain that was also associated with the bleeds. She states this is the first time she has seen blood per rectum and has never had issues prior to today. She denies any vaginal bleeding. She denies any other symptoms including fevers, chills, N/ V/D/C. Her past medical history includes DM type2, HTN, and elevated lipids. She does have an hernia repair in the past, and at present has no complaints of any pain in the. Umbilical region where the hernia was. Left Abdominal Pain Score (Numeric/FACES): 8 - Related Data Allergies Allergy/AdvReac Type Severity Reaction Status Date / Time chloroquine Allergy Unknown Rash Verified 02/05/18 15:01 Penicillins Allergy Fainting Verified 02/05/18 15:01 Home Meds: Home Meds metFORMIN [Glucophage] 1,000 mg PO BID 02/15/14 [History] Ca/D3/Mag Ox/Zinc/Senior Principal Process Engineer/Akira/Bor [Calcium 600-D3 Plus Caplet] 1 tab PO DAILY 12/20 [History] Hydrochlorothiazide 12.5 mg PO DAILY 12/20/16 [History] Ibuprofen 200 mg PO Q6H PRN 12/20/16 [History] Lisinopril 20 mg PO DAILY 02/05/18 [History] Past Medical History HEENT History: Reports: Impaired Vision Cardiovascular History: Reports: Hypertension INGREDIENT SPECIALIST History: Reports: Psychiatric History: Reports: Anxiety Endocrine/Metabolic History: Reports: Diabetes, Type II - Past Surgical History GI Surgical History: Reports: Cholecystectomy, Hernia Repair/Other Social & Family History - Family History Family Medical History: Unobtainable Cardiac: Reports: High Cholesterol, Hypertension Endocrine/Metabolic: Reports: Diabetes, type II - Caffeine Use Caffeine Use: Reports: None Caffeine Use Comment: 1 cup daily ED ROS GENERAL - Review of Systems Review Of Systems: See Below ED EXAM, GI/ABD - Physical Exam Exam: See Below Exam Limited By: No Limitations General Appearance: Alert, No Apparent Distress Eyes: Bilateral: Normal Appearance, EOMI Ears: Normal External Exam Nose: Normal Inspection, Normal Mucosa Throat/Mouth: Normal Inspection, Normal Lips, Normal Teeth, Normal Gums, Normal Oropharynx, Normal Voice Head: Atraumatic, Normocephalic Neck: Normal Inspection, Supple, Non-Tender Respiratory/Chest: No Respiratory Distress, Lungs Clear, Normal Breath Sounds Cardiovascular: Normal Peripheral Pulses, Regular Rate, Rhythm GI/Abdominal Exam: Tender, Other (Pain on palpation of Mid Epigastric area and LLQ pain and Flank pain, palpitations the periumbilical region did not elicit any pain and did not show any major defect for herniation ) Rectal (Female) Exam: Normal Rectal Tone, Heme + Stool, Other (No mass or hemorrhoid felt on examination. ) Extremities: Normal Inspection, Normal Range of Motion, Non-Tender, No Pedal Edema Neurological: Alert, Oriented, CN II-XII Intact Psychiatric: Normal Affect, Normal Mood Skin Exam: Warm, Dry, Intact, Normal Color Lymphatic: No Adenopathy Course - Vital Signs Last Recorded V/S: Last Vital Signs Temp 36.1 C 02/05/18 17:03 Pulse 67 02/05/18 18:25 Resp 16 02/05/18 18:25 BP 123/59 L 02/05/18 18:25 Pulse Ox 96 02/05/18 18:25 - Orders/Labs/Meds Orders: Active Orders 24 hr Category Date Time Status Patient Status [ADT] Stat ADT 02/05/18 18:38 Active Fecal Occult Blood Collection [RC] ASDIRECTED Care 02/05/18 15:24 Active Notify Provider Consults [RC] ASDIRECTED Care 02/05/18 18:30 Active Consult to Physician [CONS] Stat Cons 02/05/18 18:30 Active Abdomen Pelvis w Cont [CT] Stat Exams 02/05/18 15:29 Taken CULTURE STOOL + CAMPY+SHIGATOX [RM] Stat Lab 02/05/18 17:15 Ordered UA W/MICROSCOPIC [URIN] Stat Lab 02/05/18 17:15 Ordered Sodium Chloride 0.9% [Saline Flush] Med 02/05/18 15:08 Active 10 ml FLUSH ASDIRECTED PRN Medication Orders Sodium Chloride (Saline Flush) 10 ml FLUSH ASDIRECTED PRN PRN Reason: Keep Vein Open Labs: Laboratory Tests 02/05/18 02/05/18 02/05/18 Range/Units 15:35 15:35 15:35 WBC 5.73 (4.0-11.0) K/uL RBC 4.80 (4.30-5.90) M/uL Hgb 13.0 (12.0-16.0) g/dL Hct 39.6 (36.0-46.0) % MCV 82.5 (80.0-98.0) fL MCH 27.1 (27.0-32.0) pg MCHC 32.8 (31.0-37.0) g/dL RDW Std Deviation 44.4 (28.0-62.0) fl RDW Coeff of Joel 15 (11.0-15.0) % Plt Count 240 (150-400) K/uL MPV 11.20 (7.40-12.00) fL Neut % (Auto) 38.5 L (48.0-80.0) % Lymph % (Auto) 31.4 (16.0-40.0) % Phillips % (Auto) 7.3 (0.0-15.0) % Eos % (Auto) 22.5 H (0.0-7.0) % Baso % (Auto) 0.3 (0.0-1.5) % Neut # (Auto) 2.2 (1.4-5.7) K/uL Lymph # (Auto) 1.8 (0.6-2.4) K/uL Phillips # (Auto) 0.4 (0.0-0.8) K/uL Eos # (Auto) 1.3 H (0.0-0.7) K/uL Baso # (Auto) 0.0 (0.0-0.1) K/uL Nucleated RBC % 0.0 /100WBC Nucleated RBCs # 0 K/uL ESR (0-29) mm/hr INR 1.02 Sodium 142 (136-145) mmol/L Potassium 3.7 (3.5-5.1) mmol/L Chloride 104 (98-107) mmol/L Carbon Dioxide 30.7 (21.0-32.0) mmol/L BUN 18 (7.0-18.0) mg/dL Creatinine 1.2 H (0.6-1.0) mg/dL Est Cr Clr Drug Dosing 49.59 mL/min Estimated GFR (MDRD) 56.5 ml/min Glucose 89 (74-106) mg/dL Calcium 9.5 (8.5-10.1) mg/dL Total Bilirubin 0.9 (0.2-1.0) mg/dL AST 22 (15-37) IU/L ALT 25 (14-63) IU/L Alkaline Phosphatase 63 (46-116) U/L C-Reactive Protein (0.00-0.90) mg/dL Total Protein 7.7 (6.4-8.2) g/dL Albumin 4.0 (3.4-5.0) g/dL Globulin 3.7 H (2.0-3.5) g/dL Albumin/Globulin Ratio 1.1 L (1.3-2.8) Amylase (25-115) U/L Lipase (73-393) U/L Urine Color Urine Appearance Urine pH (5.0-8.0) Ur Specific [place] (1.001-1.035) Urine Protein (NEGATIVE) mg/dL Urine Glucose (UA) (NEGATIVE) mg/dL Urine Ketones (NEGATIVE) mg/dL Urine Occult Blood (NEGATIVE) Urine Nitrite (NEGATIVE) Urine Bilirubin (NEGATIVE) Urine Urobilinogen (<2.0) EU/dL Ur Leukocyte Esterase (NEGATIVE) Urine RBC (0-2/HPF) Urine WBC (0-5/HPF) Ur Epithelial Cells (NONE-FEW) Urine Bacteria (NEGATIVE) H. pylori IgG Antibody (NEG) Blood Type Antibody Screen 02/05/18 02/05/18 02/05/18 Range/Units 15:35 15:35 15:35 WBC (4.0-11.0) K/uL RBC (4.30-5.90) M/uL Hgb (12.0-16.0) g/dL Hct (36.0-46.0) % MCV (80.0-98.0) fL MCH (27.0-32.0) pg MCHC (31.0-37.0) g/dL RDW Std Deviation (28.0-62.0) fl RDW Coeff of Joel (11.0-15.0) % Plt Count (150-400) K/uL MPV (7.40-12.00) fL Neut % (Auto) (48.0-80.0) % Lymph % (Auto) (16.0-40.0) % Phillips % (Auto) (0.0-15.0) % Eos % (Auto) (0.0-7.0) % Baso % (Auto) (0.0-1.5) % Neut # (Auto) (1.4-5.7) K/uL Lymph # (Auto) (0.6-2.4) K/uL Phillips # (Auto) (0.0-0.8) K/uL Eos # (Auto) (0.0-0.7) K/uL Baso # (Auto) (0.0-0.1) K/uL Nucleated RBC % /100WBC Nucleated RBCs # K/uL ESR 4 (0-29) mm/hr INR Sodium (136-145) mmol/L Potassium (3.5-5.1) mmol/L Chloride (98-107) mmol/L Carbon Dioxide (21.0-32.0) mmol/L BUN (7.0-18.0) mg/dL Creatinine (0.6-1.0) mg/dL Est Cr Clr Drug Dosing mL/min Estimated GFR (MDRD) ml/min Glucose (74-106) mg/dL Calcium (8.5-10.1) mg/dL Total Bilirubin (0.2-1.0) mg/dL AST (15-37) IU/L ALT (14-63) IU/L Alkaline Phosphatase (46-116) U/L C-Reactive Protein <0.20 (0.00-0.90) mg/dL Total Protein (6.4-8.2) g/dL Albumin (3.4-5.0) g/dL Globulin (2.0-3.5) g/dL Albumin/Globulin Ratio (1.3-2.8) Amylase 51 (25-115) U/L Lipase 94 (73-393) U/L Urine Color Urine Appearance Urine pH (5.0-8.0) Ur Specific [place] (1.001-1.035) Urine Protein (NEGATIVE) mg/dL Urine Glucose (UA) (NEGATIVE) mg/dL Urine Ketones (NEGATIVE) mg/dL Urine Occult Blood (NEGATIVE) Urine Nitrite (NEGATIVE) Urine Bilirubin (NEGATIVE) Urine Urobilinogen (<2.0) EU/dL Ur Leukocyte Esterase (NEGATIVE) Urine RBC (0-2/HPF) Urine WBC (0-5/HPF) Ur Epithelial Cells (NONE-FEW) Urine Bacteria (NEGATIVE) H. pylori IgG Antibody (NEG) Blood Type O POSITIVE Antibody Screen NEGATIVE 02/05/18 02/05/18 Range/Units 15:35 17:15 WBC (4.0-11.0) K/uL RBC (4.30-5.90) M/uL Hgb (12.0-16.0) g/dL Hct (36.0-46.0) % MCV (80.0-98.0) fL MCH (27.0-32.0) pg MCHC (31.0-37.0) g/dL RDW Std Deviation (28.0-62.0) fl RDW Coeff of Joel (11.0-15.0) % Plt Count (150-400) K/uL MPV (7.40-12.00) fL Neut % (Auto) (48.0-80.0) % Lymph % (Auto) (16.0-40.0) % Phillips % (Auto) (0.0-15.0) % Eos % (Auto) (0.0-7.0) % Baso % (Auto) (0.0-1.5) % Neut # (Auto) (1.4-5.7) K/uL Lymph # (Auto) (0.6-2.4) K/uL Phillips # (Auto) (0.0-0.8) K/uL Eos # (Auto) (0.0-0.7) K/uL Baso # (Auto) (0.0-0.1) K/uL Nucleated RBC % /100WBC Nucleated RBCs # K/uL ESR (0-29) mm/hr INR Sodium (136-145) mmol/L Potassium (3.5-5.1) mmol/L Chloride (98-107) mmol/L Carbon Dioxide (21.0-32.0) mmol/L BUN (7.0-18.0) mg/dL Creatinine (0.6-1.0) mg/dL Est Cr Clr Drug Dosing mL/min Estimated GFR (MDRD) ml/min Glucose (74-106) mg/dL Calcium (8.5-10.1) mg/dL Total Bilirubin (0.2-1.0) mg/dL AST (15-37) IU/L ALT (14-63) IU/L Alkaline Phosphatase (46-116) U/L C-Reactive Protein (0.00-0.90) mg/dL Total Protein (6.4-8.2) g/dL Albumin (3.4-5.0) g/dL Globulin (2.0-3.5) g/dL Albumin/Globulin Ratio (1.3-2.8) Amylase (25-115) U/L Lipase (73-393) U/L Urine Color YELLOW Urine Appearance CLEAR Urine pH 6.0 (5.0-8.0) Ur Specific [place] 1.010 (1.001-1.035) Urine Protein NEGATIVE (NEGATIVE) mg/dL Urine Glucose (UA) NEGATIVE (NEGATIVE) mg/dL Urine Ketones TRACE H (NEGATIVE) mg/dL Urine Occult Blood TRACE-INTACT (NEGATIVE) Urine Nitrite NEGATIVE (NEGATIVE) Urine Bilirubin NEGATIVE (NEGATIVE) Urine Urobilinogen 0.2 (<2.0) EU/dL Ur Leukocyte Esterase NEGATIVE (NEGATIVE) Urine RBC 0-2 (0-2/HPF) Urine WBC 0-2 (0-5/HPF) Ur Epithelial Cells MODERATE (NONE-FEW) Urine Bacteria RARE (NEGATIVE) H. pylori IgG Antibody NEGATIVE (NEG) Blood Type Antibody Screen Meds: Medications Generic Name Dose Route Start Last Admin Trade Name Freq PRN Reason Stop Dose Admin Sodium Chloride 10 ml 02/05/18 15:08 Saline Flush FLUSH ASDIRECTED PRN Keep Vein Open Discontinued Medications Generic Name Dose Route Start Last Admin Trade Name Freq PRN Reason Stop Dose Admin Sodium Chloride 1,000 mls @ 999 mls/hr 02/05/18 15:07 02/05/18 15:45 Normal Saline IV 02/05/18 16:07 999 mls/hr STAT ONE Administration Iopamidol 80 ml 02/05/18 17:27 02/05/18 17:28 Isovue Multipack-370 (76%) IVPUSH 02/05/18 17:28 80 ml ONETIME STA Administration Departure - Departure Time of Disposition: 18:45 Disposition: Admitted As Inpatient 68 Condition: Fair Clinical Impression: Abdominal pain, Blood per rectum - Discharge Information Referrals: Nahed Grubbs, SHOP CLERK [Primary Care Provider] - Forms: ED Department Discharge - Problem List & Annotations (1) Blood per rectum SNOMED Code(s): 66664496 Code(s): K62.5 - HEMORRHAGE OF ANUS AND RECTUM Status: Acute Current Visit: Yes - Problem List Review Problem List Initiated/Reviewed/Updated: Yes - My Orders Last 24 Hours: My Active Orders 02/05/18 18:30 Notify Provider Consults [RC] ASDIRECTED Consult to Physician [CONS] Stat 02/05/18 18:38 Patient Status [ADT] Stat - Assessment/Plan Last 24 Hours: My Active Orders 02/05/18 18:30 Notify Provider Consults [RC] ASDIRECTED Consult to Physician [CONS] Stat 02/05/18 18:38 Patient Status [ADT] Stat Assessment:: 57-year-old female presenting with acute abdominal pain within the midepigastric and left lower quadrant region and bright red blood per rectum w/ stable vital signs and nontoxic. Etiologies to consider include diverticulitis, colitis, internal hemorrhoids, IBS, or H. pylori. Plan: For the acute abdominal pain/bright red blood per rectum shall attain labs including CBC, CMP, ESR/CRP, H. pylori, urine analysis, lipase and amylase. Shall also be obtaining a CT abdomen and pelvis with contrast. Patient shall be given IV normal saline. Update: Patient's hemoglobin is stable, all of her labs including urinalysis all were within normal limits, the abdominal CT however did indicate diverticulosis of the colon, no definitive acute inflammation, no source of bleeding identified. There was a period of umbilical hernia that did appear to be somewhat indurated- appearing fat and defect. Area was reexamined and there was no point tenderness on palpation of the periumbilical region where the hernia was appreciated on imaging. Patient had a 300 mL of mariano blood in bowel movement, however she was hemodynamically stable throughout the entire ER stay, have spoken with both the hospitalist service as well as general surgery, an official consult for general surgery has been placed, Dr. CASTELLANOS General surgery has accepted the patient along with Dr. Purvis for inpatient stay for further evaluation. <Doris Sheppard - Last Filed: 02/05/18 18:51> ED HPI GENERAL MEDICAL PROBLEM - History of Present Illness INITIAL COMMENTS - FREE TEXT/NARRATIVE: This is Dr. Sheppard dictating an addendum note as I am the supervising physician on this case. I agree with history as above and on my physical exam she has more left upper and left lower quadrant discomfort without rebound or guarding. She is nontoxic appearing interactive and talkative and vital signs have been reviewed. In light of her acute presentation and her history I would proceed to do lab tests as ordered as well as a CT scan of the abdomen and pelvis to rule out diverticulitis colitis or another treatable problem. Pending those testing results we will decide and disposition. We will likely be referring her to general surgery clinic for colonoscopy. At this point we'll manage symptomatically and reevaluate. 1720: Patient went in the bathroom to try to give us a urine sample and passed 300 mL of blood and clots without any stool present. She is not lightheaded or dizzy and has no new complaints. We are currently awaiting her CT scan findings. Case was discussed with Dr. Purvis who accepts the patient for admission and would like surgery consult. A formal consult was made to Dr. Castellanos; the case was discussed with him on the telephone and an order was placed for him to see and evaluate the patient and give recommendations. Dr. Purvis is currently in the ED seeing the patient and she is hemodynamically stable. He would like inpatient admission Impression: GI bleed likely lower Course - Orders/Labs/Meds Labs: Laboratory Tests 02/05/18 02/05/18 02/05/18 Range/Units 15:35 15:35 15:35 WBC 5.73 (4.0-11.0) K/uL RBC 4.80 (4.30-5.90) M/uL Hgb 13.0 (12.0-16.0) g/dL Hct 39.6 (36.0-46.0) % MCV 82.5 (80.0-98.0) fL MCH 27.1 (27.0-32.0) pg MCHC 32.8 (31.0-37.0) g/dL RDW Std Deviation 44.4 (28.0-62.0) fl RDW Coeff of Joel 15 (11.0-15.0) % Plt Count 240 (150-400) K/uL MPV 11.20 (7.40-12.00) fL Neut % (Auto) 38.5 L (48.0-80.0) % Lymph % (Auto) 31.4 (16.0-40.0) % Phillips % (Auto) 7.3 (0.0-15.0) % Eos % (Auto) 22.5 H (0.0-7.0) % Baso % (Auto) 0.3 (0.0-1.5) % Neut # (Auto) 2.2 (1.4-5.7) K/uL Lymph # (Auto) 1.8 (0.6-2.4) K/uL Phillips # (Auto) 0.4 (0.0-0.8) K/uL Eos # (Auto) 1.3 H (0.0-0.7) K/uL Baso # (Auto) 0.0 (0.0-0.1) K/uL Nucleated RBC % 0.0 /100WBC Nucleated RBCs # 0 K/uL ESR (0-29) mm/hr INR 1.02 Sodium 142 (136-145) mmol/L Potassium 3.7 (3.5-5.1) mmol/L Chloride 104 (98-107) mmol/L Carbon Dioxide 30.7 (21.0-32.0) mmol/L BUN 18 (7.0-18.0) mg/dL Creatinine 1.2 H (0.6-1.0) mg/dL Est Cr Clr Drug Dosing 49.59 mL/min Estimated GFR (MDRD) 56.5 ml/min Glucose 89 (74-106) mg/dL Calcium 9.5 (8.5-10.1) mg/dL Total Bilirubin 0.9 (0.2-1.0) mg/dL AST 22 (15-37) IU/L ALT 25 (14-63) IU/L Alkaline Phosphatase 63 (46-116) U/L C-Reactive Protein (0.00-0.90) mg/dL Total Protein 7.7 (6.4-8.2) g/dL Albumin 4.0 (3.4-5.0) g/dL Globulin 3.7 H (2.0-3.5) g/dL Albumin/Globulin Ratio 1.1 L (1.3-2.8) Amylase (25-115) U/L Lipase (73-393) U/L Urine Color Urine Appearance Urine pH (5.0-8.0) Ur Specific [place] (1.001-1.035) Urine Protein (NEGATIVE) mg/dL Urine Glucose (UA) (NEGATIVE) mg/dL Urine Ketones (NEGATIVE) mg/dL Urine Occult Blood (NEGATIVE) Urine Nitrite (NEGATIVE) Urine Bilirubin (NEGATIVE) Urine Urobilinogen (<2.0) EU/dL Ur Leukocyte Esterase (NEGATIVE) Urine RBC (0-2/HPF) Urine WBC (0-5/HPF) Ur Epithelial Cells (NONE-FEW) Urine Bacteria (NEGATIVE) H. pylori IgG Antibody (NEG) Blood Type Antibody Screen 02/05/18 02/05/18 02/05/18 Range/Units 15:35 15:35 15:35 WBC (4.0-11.0) K/uL RBC (4.30-5.90) M/uL Hgb (12.0-16.0) g/dL Hct (36.0-46.0) % MCV (80.0-98.0) fL MCH (27.0-32.0) pg MCHC (31.0-37.0) g/dL RDW Std Deviation (28.0-62.0) fl RDW Coeff of Joel (11.0-15.0) % Plt Count (150-400) K/uL MPV (7.40-12.00) fL Neut % (Auto) (48.0-80.0) % Lymph % (Auto) (16.0-40.0) % Phillips % (Auto) (0.0-15.0) % Eos % (Auto) (0.0-7.0) % Baso % (Auto) (0.0-1.5) % Neut # (Auto) (1.4-5.7) K/uL Lymph # (Auto) (0.6-2.4) K/uL Phillips # (Auto) (0.0-0.8) K/uL Eos # (Auto) (0.0-0.7) K/uL Baso # (Auto) (0.0-0.1) K/uL Nucleated RBC % /100WBC Nucleated RBCs # K/uL ESR 4 (0-29) mm/hr INR Sodium (136-145) mmol/L Potassium (3.5-5.1) mmol/L Chloride (98-107) mmol/L Carbon Dioxide (21.0-32.0) mmol/L BUN (7.0-18.0) mg/dL Creatinine (0.6-1.0) mg/dL Est Cr Clr Drug Dosing mL/min Estimated GFR (MDRD) ml/min Glucose (74-106) mg/dL Calcium (8.5-10.1) mg/dL Total Bilirubin (0.2-1.0) mg/dL AST (15-37) IU/L ALT (14-63) IU/L Alkaline Phosphatase (46-116) U/L C-Reactive Protein <0.20 (0.00-0.90) mg/dL Total Protein (6.4-8.2) g/dL Albumin (3.4-5.0) g/dL Globulin (2.0-3.5) g/dL Albumin/Globulin Ratio (1.3-2.8) Amylase 51 (25-115) U/L Lipase 94 (73-393) U/L Urine Color Urine Appearance Urine pH (5.0-8.0) Ur Specific [place] (1.001-1.035) Urine Protein (NEGATIVE) mg/dL Urine Glucose (UA) (NEGATIVE) mg/dL Urine Ketones (NEGATIVE) mg/dL Urine Occult Blood (NEGATIVE) Urine Nitrite (NEGATIVE) Urine Bilirubin (NEGATIVE) Urine Urobilinogen (<2.0) EU/dL Ur Leukocyte Esterase (NEGATIVE) Urine RBC (0-2/HPF) Urine WBC (0-5/HPF) Ur Epithelial Cells (NONE-FEW) Urine Bacteria (NEGATIVE) H. pylori IgG Antibody (NEG) Blood Type O POSITIVE Antibody Screen NEGATIVE 02/05/18 02/05/18 Range/Units 15:35 17:15 WBC (4.0-11.0) K/uL RBC (4.30-5.90) M/uL Hgb (12.0-16.0) g/dL Hct (36.0-46.0) % MCV (80.0-98.0) fL MCH (27.0-32.0) pg MCHC (31.0-37.0) g/dL RDW Std Deviation (28.0-62.0) fl RDW Coeff of Joel (11.0-15.0) % Plt Count (150-400) K/uL MPV (7.40-12.00) fL Neut % (Auto) (48.0-80.0) % Lymph % (Auto) (16.0-40.0) % Phillips % (Auto) (0.0-15.0) % Eos % (Auto) (0.0-7.0) % Baso % (Auto) (0.0-1.5) % Neut # (Auto) (1.4-5.7) K/uL Lymph # (Auto) (0.6-2.4) K/uL Phillips # (Auto) (0.0-0.8) K/uL Eos # (Auto) (0.0-0.7) K/uL Baso # (Auto) (0.0-0.1) K/uL Nucleated RBC % /100WBC Nucleated RBCs # K/uL ESR (0-29) mm/hr INR Sodium (136-145) mmol/L Potassium (3.5-5.1) mmol/L Chloride (98-107) mmol/L Carbon Dioxide (21.0-32.0) mmol/L BUN (7.0-18.0) mg/dL Creatinine (0.6-1.0) mg/dL Est Cr Clr Drug Dosing mL/min Estimated GFR (MDRD) ml/min Glucose (74-106) mg/dL Calcium (8.5-10.1) mg/dL Total Bilirubin (0.2-1.0) mg/dL AST (15-37) IU/L ALT (14-63) IU/L Alkaline Phosphatase (46-116) U/L C-Reactive Protein (0.00-0.90) mg/dL Total Protein (6.4-8.2) g/dL Albumin (3.4-5.0) g/dL Globulin (2.0-3.5) g/dL Albumin/Globulin Ratio (1.3-2.8) Amylase (25-115) U/L Lipase (73-393) U/L Urine Color YELLOW Urine Appearance CLEAR Urine pH 6.0 (5.0-8.0) Ur Specific [place] 1.010 (1.001-1.035) Urine Protein NEGATIVE (NEGATIVE) mg/dL Urine Glucose (UA) NEGATIVE (NEGATIVE) mg/dL Urine Ketones TRACE H (NEGATIVE) mg/dL Urine Occult Blood TRACE-INTACT (NEGATIVE) Urine Nitrite NEGATIVE (NEGATIVE) Urine Bilirubin NEGATIVE (NEGATIVE) Urine Urobilinogen 0.2 (<2.0) EU/dL Ur Leukocyte Esterase NEGATIVE (NEGATIVE) Urine RBC 0-2 (0-2/HPF) Urine WBC 0-2 (0-5/HPF) Ur Epithelial Cells MODERATE (NONE-FEW) Urine Bacteria RARE (NEGATIVE) H. pylori IgG Antibody NEGATIVE (NEG) Blood Type Antibody Screen
[2018-02-05] MEDS ORDERED: Sodium Chloride 0.9% 1,000 ML IV ONE (15:07)
[2018-02-05] MEDS ORDERED: Sodium Chloride 0.9% 10 ML Syringe FLUSH PRN (15:08)
[2018-02-05] MEDS ORDERED: Iopamidol 755 MG/ML 500 ML Multipack Bottle IVPUSH STA (17:27)
--- NOTE | 2018-02-05 21:39 | PCM.HP ---
H&P History of Present Illness - General Date of Service: 02/06/18 Admit Problem/Dx: Admission Diagnosis/Problem Admission Diagnosis/Problem Gastrointestinal hemorrhage - History of Present Illness Initial Comments - Free Text/Narative: 57 yo female who presents with one day history of bright red blood per rectum. The blood fills up the toilet bowel. She denies any abdominal pain, fevers, nausea or vomiting. Patient denies having a problem like this before. CT scan of abdomen obtain in ED reports diverticulosis but no inflammation. Left Abdominal Pain Score (Numeric/FACES): 0 - Related Data Allergies/Adverse Reactions: Allergies Allergy/AdvReac Type Severity Reaction Status Date / Time chloroquine Allergy Unknown Rash Verified 02/05/18 15:01 Penicillins Allergy Fainting Verified 02/05/18 15:01 Home Medications: Home Meds metFORMIN [Glucophage] 1,000 mg PO BID 02/15/14 [History] Ca/D3/Mag Ox/Zinc/Administration Assistant/Akira/Bor [Calcium 600-D3 Plus Caplet] 1 tab PO DAILY 12/20 [History] Hydrochlorothiazide 12.5 mg PO DAILY 12/20/16 [History] Ibuprofen 200 mg PO Q6H PRN 12/20/16 [History] Lisinopril 20 mg PO DAILY 02/05/18 [History] Past Medical History HEENT History: Reports: Impaired Vision Cardiovascular History: Reports: Hypertension 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: Psychiatric History: Reports: Anxiety Endocrine/Metabolic History: Reports: Diabetes, Type II - Infectious Disease History Infectious Disease History: Reports: None - Past Surgical History GI Surgical History: Reports: Cholecystectomy, Hernia Repair/Other Social & Family History - Family History Family Medical History: Unobtainable Cardiac: Reports: High Cholesterol, Hypertension Endocrine/Metabolic: Reports: Diabetes, type II - Tobacco Use Smoking Status *Q: Never Smoker - Caffeine Use Caffeine Use: Reports: None Caffeine Use Comment: 1 cup daily - Recreational Drug Use Recreational Drug Use: No H&P Review of Systems - Review of Systems: Review Of Systems: ROS reveals no pertinent complaints other than HPI. Exam - Exam Exam: See Below - Vital Signs Vital Signs: Last Vital Signs Temp 36.3 C 02/05/18 19:45 Pulse 80 02/05/18 19:45 Resp 18 02/05/18 19:45 BP 137/85 02/05/18 19:45 Pulse Ox 97 02/05/18 19:45 Weight: 119.975 kg - Exam General: Alert, Oriented HEENT: Mucosa Moist & [place] Neck: Supple Lungs: Clear to Auscultation, Normal Respiratory Effort Cardiovascular: Regular Rate, Regular Rhythm GI/Abdominal Exam: Normal Bowel Sounds, Soft, Non-Tender, No Organomegaly Extremities: Non-Tender, No Pedal Edema Skin: Warm, Dry, Intact Neurological: No: Focal Deficit - Patient Data Lab Results Last 24 hrs: Laboratory Results - last 24 hr 02/05/18 02/05/18 02/05/18 Range/Units 15:35 15:35 15:35 WBC 5.73 (4.0-11.0) K/uL RBC 4.80 (4.30-5.90) M/uL Hgb 13.0 (12.0-16.0) g/dL Hct 39.6 (36.0-46.0) % MCV 82.5 (80.0-98.0) fL MCH 27.1 (27.0-32.0) pg MCHC 32.8 (31.0-37.0) g/dL RDW Std Deviation 44.4 (28.0-62.0) fl RDW Coeff of Joel 15 (11.0-15.0) % Plt Count 240 (150-400) K/uL MPV 11.20 (7.40-12.00) fL Neut % (Auto) 38.5 L (48.0-80.0) % Lymph % (Auto) 31.4 (16.0-40.0) % [place] % (Auto) 7.3 (0.0-15.0) % Eos % (Auto) 22.5 H (0.0-7.0) % Baso % (Auto) 0.3 (0.0-1.5) % Neut # (Auto) 2.2 (1.4-5.7) K/uL Lymph # (Auto) 1.8 (0.6-2.4) K/uL [place] # (Auto) 0.4 (0.0-0.8) K/uL Eos # (Auto) 1.3 H (0.0-0.7) K/uL Baso # (Auto) 0.0 (0.0-0.1) K/uL Nucleated RBC % 0.0 /100WBC Nucleated RBCs # 0 K/uL ESR (0-29) mm/hr INR 1.02 Sodium 142 (136-145) mmol/L Potassium 3.7 (3.5-5.1) mmol/L Chloride 104 (98-107) mmol/L Carbon Dioxide 30.7 (21.0-32.0) mmol/L BUN 18 (7.0-18.0) mg/dL Creatinine 1.2 H (0.6-1.0) mg/dL Est Cr Clr Drug Dosing 49.59 mL/min Estimated GFR (MDRD) 56.5 ml/min Glucose 89 (74-106) mg/dL Calcium 9.5 (8.5-10.1) mg/dL Total Bilirubin 0.9 (0.2-1.0) mg/dL AST 22 (15-37) IU/L ALT 25 (14-63) IU/L Alkaline Phosphatase 63 (46-116) U/L C-Reactive Protein (0.00-0.90) mg/dL Total Protein 7.7 (6.4-8.2) g/dL Albumin 4.0 (3.4-5.0) g/dL Globulin 3.7 H (2.0-3.5) g/dL Albumin/Globulin Ratio 1.1 L (1.3-2.8) Amylase (25-115) U/L Lipase (73-393) U/L Urine Color Urine Appearance Urine pH (5.0-8.0) Ur Specific Standard (1.001-1.035) Urine Protein (NEGATIVE) mg/dL Urine Glucose (UA) (NEGATIVE) mg/dL Urine Ketones (NEGATIVE) mg/dL Urine Occult Blood (NEGATIVE) Urine Nitrite (NEGATIVE) Urine Bilirubin (NEGATIVE) Urine Urobilinogen (<2.0) EU/dL Ur Leukocyte Esterase (NEGATIVE) Urine RBC (0-2/HPF) Urine WBC (0-5/HPF) Ur Epithelial Cells (NONE-FEW) Urine Bacteria (NEGATIVE) H. pylori IgG Antibody (NEG) Blood Type Antibody Screen 02/05/18 02/05/18 02/05/18 Range/Units 15:35 15:35 15:35 WBC (4.0-11.0) K/uL RBC (4.30-5.90) M/uL Hgb (12.0-16.0) g/dL Hct (36.0-46.0) % MCV (80.0-98.0) fL MCH (27.0-32.0) pg MCHC (31.0-37.0) g/dL RDW Std Deviation (28.0-62.0) fl RDW Coeff of Joel (11.0-15.0) % Plt Count (150-400) K/uL MPV (7.40-12.00) fL Neut % (Auto) (48.0-80.0) % Lymph % (Auto) (16.0-40.0) % [place] % (Auto) (0.0-15.0) % Eos % (Auto) (0.0-7.0) % Baso % (Auto) (0.0-1.5) % Neut # (Auto) (1.4-5.7) K/uL Lymph # (Auto) (0.6-2.4) K/uL [place] # (Auto) (0.0-0.8) K/uL Eos # (Auto) (0.0-0.7) K/uL Baso # (Auto) (0.0-0.1) K/uL Nucleated RBC % /100WBC Nucleated RBCs # K/uL ESR 4 (0-29) mm/hr INR Sodium (136-145) mmol/L Potassium (3.5-5.1) mmol/L Chloride (98-107) mmol/L Carbon Dioxide (21.0-32.0) mmol/L BUN (7.0-18.0) mg/dL Creatinine (0.6-1.0) mg/dL Est Cr Clr Drug Dosing mL/min Estimated GFR (MDRD) ml/min Glucose (74-106) mg/dL Calcium (8.5-10.1) mg/dL Total Bilirubin (0.2-1.0) mg/dL AST (15-37) IU/L ALT (14-63) IU/L Alkaline Phosphatase (46-116) U/L C-Reactive Protein <0.20 (0.00-0.90) mg/dL Total Protein (6.4-8.2) g/dL Albumin (3.4-5.0) g/dL Globulin (2.0-3.5) g/dL Albumin/Globulin Ratio (1.3-2.8) Amylase 51 (25-115) U/L Lipase 94 (73-393) U/L Urine Color Urine Appearance Urine pH (5.0-8.0) Ur Specific Standard (1.001-1.035) Urine Protein (NEGATIVE) mg/dL Urine Glucose (UA) (NEGATIVE) mg/dL Urine Ketones (NEGATIVE) mg/dL Urine Occult Blood (NEGATIVE) Urine Nitrite (NEGATIVE) Urine Bilirubin (NEGATIVE) Urine Urobilinogen (<2.0) EU/dL Ur Leukocyte Esterase (NEGATIVE) Urine RBC (0-2/HPF) Urine WBC (0-5/HPF) Ur Epithelial Cells (NONE-FEW) Urine Bacteria (NEGATIVE) H. pylori IgG Antibody (NEG) Blood Type O POSITIVE Antibody Screen NEGATIVE 02/05/18 02/05/18 Range/Units 15:35 17:15 WBC (4.0-11.0) K/uL RBC (4.30-5.90) M/uL Hgb (12.0-16.0) g/dL Hct (36.0-46.0) % MCV (80.0-98.0) fL MCH (27.0-32.0) pg MCHC (31.0-37.0) g/dL RDW Std Deviation (28.0-62.0) fl RDW Coeff of Joel (11.0-15.0) % Plt Count (150-400) K/uL MPV (7.40-12.00) fL Neut % (Auto) (48.0-80.0) % Lymph % (Auto) (16.0-40.0) % [place] % (Auto) (0.0-15.0) % Eos % (Auto) (0.0-7.0) % Baso % (Auto) (0.0-1.5) % Neut # (Auto) (1.4-5.7) K/uL Lymph # (Auto) (0.6-2.4) K/uL [place] # (Auto) (0.0-0.8) K/uL Eos # (Auto) (0.0-0.7) K/uL Baso # (Auto) (0.0-0.1) K/uL Nucleated RBC % /100WBC Nucleated RBCs # K/uL ESR (0-29) mm/hr INR Sodium (136-145) mmol/L Potassium (3.5-5.1) mmol/L Chloride (98-107) mmol/L Carbon Dioxide (21.0-32.0) mmol/L BUN (7.0-18.0) mg/dL Creatinine (0.6-1.0) mg/dL Est Cr Clr Drug Dosing mL/min Estimated GFR (MDRD) ml/min Glucose (74-106) mg/dL Calcium (8.5-10.1) mg/dL Total Bilirubin (0.2-1.0) mg/dL AST (15-37) IU/L ALT (14-63) IU/L Alkaline Phosphatase (46-116) U/L C-Reactive Protein (0.00-0.90) mg/dL Total Protein (6.4-8.2) g/dL Albumin (3.4-5.0) g/dL Globulin (2.0-3.5) g/dL Albumin/Globulin Ratio (1.3-2.8) Amylase (25-115) U/L Lipase (73-393) U/L Urine Color YELLOW Urine Appearance CLEAR Urine pH 6.0 (5.0-8.0) Ur Specific Standard 1.010 (1.001-1.035) Urine Protein NEGATIVE (NEGATIVE) mg/dL Urine Glucose (UA) NEGATIVE (NEGATIVE) mg/dL Urine Ketones TRACE H (NEGATIVE) mg/dL Urine Occult Blood TRACE-INTACT (NEGATIVE) Urine Nitrite NEGATIVE (NEGATIVE) Urine Bilirubin NEGATIVE (NEGATIVE) Urine Urobilinogen 0.2 (<2.0) EU/dL Ur Leukocyte Esterase NEGATIVE (NEGATIVE) Urine RBC 0-2 (0-2/HPF) Urine WBC 0-2 (0-5/HPF) Ur Epithelial Cells MODERATE (NONE-FEW) Urine Bacteria RARE (NEGATIVE) H. pylori IgG Antibody NEGATIVE (NEG) Blood Type Antibody Screen Result Diagrams: 02/06/18 06:16 02/06/18 06:16 Dax Results Last 24 hrs: Microbiology 02/05/18 17:15 Campylobacter Antigen Assay - Final Stool / Feces NEGATIVE CAMPYLOBACTER AG Problem List Initiated/Reviewed/Updated: Yes Orders Last 24hrs: Active Orders 24 hr Category Date Time Status Patient Status [ADT] Stat ADT 02/05/18 18:38 Active Fecal Occult Blood Collection [RC] ASDIRECTED Care 02/05/18 15:24 Active Notify Provider Consults [RC] ASDIRECTED Care 02/05/18 18:30 Active Oxygen Therapy [RC] PRN Care 02/05/18 21:35 Ordered Up ad [place] [RC] ASDIRECTED Care 02/05/18 21:35 Ordered VTE/DVT Education [RC] PER UNIT ROUTINE Care 02/05/18 21:35 Ordered Vital Signs [RC] Q4H Care 02/05/18 21:35 Ordered Consult to Physician [CONS] Stat Cons 02/05/18 18:30 Active Nothing per Oral Now Diet [DIET] Diet 02/05/18 Breakfast Ordered Abdomen Pelvis w Cont [CT] Stat Exams 02/05/18 15:29 Taken CBC W/O DIFF,HEMOGRAM [HEME] Q6H Lab 02/06/18 23:00 Ordered CBC W/O DIFF,HEMOGRAM [HEME] Q6H Lab 02/07/18 05:00 Ordered COMPREHENSIVE METABOLIC PN,CMP [CHEM] AM Lab 02/06/18 05:11 Ordered CULTURE STOOL + CAMPY+SHIGATOX [RM] Stat Lab 02/05/18 17:15 Ordered UA W/MICROSCOPIC [URIN] Stat Lab 02/05/18 17:15 Ordered Pantoprazole [ProTONIX IV] Med 02/05/18 21:45 Ordered 40 mg IVPUSH Q12H Sodium Chloride 0.9% [Saline Flush] Med 02/05/18 15:08 Active 10 ml FLUSH ASDIRECTED PRN Sequential Compression Device [OM.PC] Per Unit Routine Oth 02/05/18 21:35 Ordered Resuscitation Status Routine Resus Stat 02/05/18 21:35 Ordered Medication Orders Pantoprazole Sodium (Protonix Iv) 40 mg IVPUSH Q12H BERNARDO Sodium Chloride (Saline Flush) 10 ml FLUSH ASDIRECTED PRN PRN Reason: Keep Vein Open Assessment/Plan Comment:: 57 yo female admitted for lower GI bleed. We will rescucitate with IV fluids and trend Hgb. Dr. Castellanos has been consulted.
[2018-02-05] MEDS ORDERED: Lactated Ringers 1,000 ML IV SCH (22:00)
[2018-02-05] MEDS: Pantoprazole 40 MG Vial IVPUSH SCH (22:08)
--- NOTE | 2018-02-05 23:13 | PCM.SN ---
- Free Text/Narrative Note: acute BRBPR, 5X already per pt, repeat h/h dropped 2 gm, so far, pt continued to be asymptomatic, hemodynamically stable, abd nontender; gib protocol, 2 large bore iv access, 18 g or above; strict i/o, npo except ice chips; ivf LR 125; h/h q 12; levaquin and flagyl, protonix; will follow with you [id number]
[2018-02-06] MEDS: Levofloxacin/Dextrose 5%-Water 750 MG in Premix Bag 1 BAG IV SCH (02:32)
--- NOTE | 2018-02-06 03:59 | CONS ---
DATE OF CONSULTATION: 02/05/2018 DATE OF : 1960 PRIMARY CARE PHYSICIAN: Nahed Grubbs, JOSE R Consult was called. The patient is seen shortly after. CONSULTING QUESTION: DICTATION ENDS HERE. ANJU / MARGARITA /[id number]
[2018-02-06] MEDS: metroNIDAZOLE/Normal Saline 500 MG in Premix Bag 1 BAG IV SCH ×3 (05:20→21:00)
--- NOTE | 2018-02-06 05:48 | CONS ---
DATE OF CONSULTATION: 02/05/2018 DATE OF : 1960 PRIMARY CARE PHYSICIAN: Nahed Grubbs, CLOTH FINISHING RANGE OPERATOR Consult was called. The patient is seen shortly after. CONSULTING QUESTION: GI bleeding. HISTORY OF PRESENT ILLNESS: The patient is a 57-year-old lady seen in the emergency room about 10 hours ago for acute onset of bright red blood per rectum, and the patient remarked does also have blood clot too. The patient sought help in the emergency room and now admitted for further management. The patient denied prior episode, denied short of breath, denied chest pain, denied abdominal pain, denied headache, and denied syncope. Currently, the patient is hungry. The patient denied prior colonoscopy. PAST MEDICAL HISTORY: Significant for diabetic and hypertension. Denied NE and CVA. PAST SURGICAL HISTORY: Normal vaginal delivery x7 and umbilical hernia repair, do not know whether has a mesh. ALLERGIES: Refer to nursing note for details. MEDICATIONS: Refer to nursing note for details. FAMILY HISTORY: Noncontributory. PHYSICAL EXAMINATION: GENERAL: A very pleasant, nice lady, younger than stated age, in no acute distress, and smiled to the doctor, chatting with the doctor, and absolutely denied any symptom. HEENT: Normocephalic and atraumatic. Sclerae are anicteric. LUNGS: Clear to auscultation. HEART: Regular rate and rhythm. ABDOMEN: Soft and nondistended. No pulsating tenderness in the midline abdominal structure and absolutely nontender. Regular bowel sounds in all 4 quadrants. Large vertical scar around the umbilicus. No hernia appreciated. LABORATORY VALUES: Upon consultation at 3:00 admission is 13 and just repeated about now is 11. INR is 1.0. IMPRESSION AND PLAN: Risky bleeding, likely diverticulitis bleeding. We will start GI bleeding protocol, 2 large-bore IV access 18-gauge and above, and transfuse to above 10. Avoid coagulopathic medication. Strict in and out, and monitor urine output. Keep the patient n.p.o. as you are doing, put on Protonix, and also start Levaquin and Flagyl to treat her diverticulitis. A long discussion with the patient and family member over 30 minutes that the patient's GI bleeding needs to be identified or localized to see which side, where the bleeding source. In that case, the patient will have either segmental colectomy or disease localized , and if we do not localize, the patient will end up with a subtotal, and the patient is against that. 80% of the time diverticulitis bleeding self limited and resolved. If not resolved, the patient will be transfused to keep the H and H above 10. If the bleeding is seen to be active, the patient will eventually may benefit to be transferred to tertiary care center to have arteriogram to localize the bleeding and possible embolize stop the bleeding by imaging. All has been discussed with the patient. The patient concurred to proceed with the plan. We will follow the patient with you. ANJU AVILA /[id number] LALO
[2018-02-06] MEDS: Dextrose 5%-0.45% NaCl 1,000 ML IV SCH ×2 (08:56→19:12)
[2018-02-06] MEDS: Pantoprazole 40 MG Vial IVPUSH SCH ×2 (08:56→20:45)
--- NOTE | 2018-02-06 09:18 | PCM.PN ---
- General Info Date of Service: 02/06/18 - Review of Systems Systems Review Comment:: one bloody bowel movement this morning, appears to have slowed down - Patient Data Vitals - Most Recent: Last Vital Signs Temp 36.1 C 02/06/18 05:00 Pulse 75 02/06/18 05:00 Resp 18 02/06/18 05:00 BP 108/57 L 02/06/18 05:00 Pulse Ox 94 L 02/06/18 05:00 Weight - Most Recent: 119.522 kg I&O - Last 24 Hours: Intake & Output 02/05/18 02/06/18 02/06/18 22:59 06:59 14:59 Intake Total 1050 Output Total 300 600 Balance -300 450 Lab Results Last 24 Hours: Laboratory Results - last 24 hr 02/05/18 02/05/18 02/05/18 Range/Units 15:35 15:35 15:35 WBC 5.73 (4.0-11.0) K/uL RBC 4.80 (4.30-5.90) M/uL Hgb 13.0 (12.0-16.0) g/dL Hct 39.6 (36.0-46.0) % MCV 82.5 (80.0-98.0) fL MCH 27.1 (27.0-32.0) pg MCHC 32.8 (31.0-37.0) g/dL RDW Std Deviation 44.4 (28.0-62.0) fl RDW Coeff of Joel 15 (11.0-15.0) % Plt Count 240 (150-400) K/uL MPV 11.20 (7.40-12.00) fL Neut % (Auto) 38.5 L (48.0-80.0) % Lymph % (Auto) 31.4 (16.0-40.0) % [place] % (Auto) 7.3 (0.0-15.0) % Eos % (Auto) 22.5 H (0.0-7.0) % Baso % (Auto) 0.3 (0.0-1.5) % Neut # (Auto) 2.2 (1.4-5.7) K/uL Lymph # (Auto) 1.8 (0.6-2.4) K/uL [place] # (Auto) 0.4 (0.0-0.8) K/uL Eos # (Auto) 1.3 H (0.0-0.7) K/uL Baso # (Auto) 0.0 (0.0-0.1) K/uL Nucleated RBC % 0.0 /100WBC Nucleated RBCs # 0 K/uL ESR (0-29) mm/hr INR 1.02 Sodium 142 (136-145) mmol/L Potassium 3.7 (3.5-5.1) mmol/L Chloride 104 (98-107) mmol/L Carbon Dioxide 30.7 (21.0-32.0) mmol/L BUN 18 (7.0-18.0) mg/dL Creatinine 1.2 H (0.6-1.0) mg/dL Est Cr Clr Drug Dosing 49.59 mL/min Estimated GFR (MDRD) 56.5 ml/min Glucose 89 (74-106) mg/dL POC Glucose (60-110) mg/dL Calcium 9.5 (8.5-10.1) mg/dL Total Bilirubin 0.9 (0.2-1.0) mg/dL AST 22 (15-37) IU/L ALT 25 (14-63) IU/L Alkaline Phosphatase 63 (46-116) U/L C-Reactive Protein (0.00-0.90) mg/dL Total Protein 7.7 (6.4-8.2) g/dL Albumin 4.0 (3.4-5.0) g/dL Globulin 3.7 H (2.0-3.5) g/dL Albumin/Globulin Ratio 1.1 L (1.3-2.8) Amylase (25-115) U/L Lipase (73-393) U/L Urine Color Urine Appearance Urine pH (5.0-8.0) Ur Specific [place] (1.001-1.035) Urine Protein (NEGATIVE) mg/dL Urine Glucose (UA) (NEGATIVE) mg/dL Urine Ketones (NEGATIVE) mg/dL Urine Occult Blood (NEGATIVE) Urine Nitrite (NEGATIVE) Urine Bilirubin (NEGATIVE) Urine Urobilinogen (<2.0) EU/dL Ur Leukocyte Esterase (NEGATIVE) Urine RBC (0-2/HPF) Urine WBC (0-5/HPF) Ur Epithelial Cells (NONE-FEW) Urine Bacteria (NEGATIVE) H. pylori IgG Antibody (NEG) Blood Type Antibody Screen Crossmatch 02/05/18 02/05/18 02/05/18 Range/Units 15:35 15:35 15:35 WBC (4.0-11.0) K/uL RBC (4.30-5.90) M/uL Hgb (12.0-16.0) g/dL Hct (36.0-46.0) % MCV (80.0-98.0) fL MCH (27.0-32.0) pg MCHC (31.0-37.0) g/dL RDW Std Deviation (28.0-62.0) fl RDW Coeff of Joel (11.0-15.0) % Plt Count (150-400) K/uL MPV (7.40-12.00) fL Neut % (Auto) (48.0-80.0) % Lymph % (Auto) (16.0-40.0) % [place] % (Auto) (0.0-15.0) % Eos % (Auto) (0.0-7.0) % Baso % (Auto) (0.0-1.5) % Neut # (Auto) (1.4-5.7) K/uL Lymph # (Auto) (0.6-2.4) K/uL [place] # (Auto) (0.0-0.8) K/uL Eos # (Auto) (0.0-0.7) K/uL Baso # (Auto) (0.0-0.1) K/uL Nucleated RBC % /100WBC Nucleated RBCs # K/uL ESR 4 (0-29) mm/hr INR Sodium (136-145) mmol/L Potassium (3.5-5.1) mmol/L Chloride (98-107) mmol/L Carbon Dioxide (21.0-32.0) mmol/L BUN (7.0-18.0) mg/dL Creatinine (0.6-1.0) mg/dL Est Cr Clr Drug Dosing mL/min Estimated GFR (MDRD) ml/min Glucose (74-106) mg/dL POC Glucose (60-110) mg/dL Calcium (8.5-10.1) mg/dL Total Bilirubin (0.2-1.0) mg/dL AST (15-37) IU/L ALT (14-63) IU/L Alkaline Phosphatase (46-116) U/L C-Reactive Protein <0.20 (0.00-0.90) mg/dL Total Protein (6.4-8.2) g/dL Albumin (3.4-5.0) g/dL Globulin (2.0-3.5) g/dL Albumin/Globulin Ratio (1.3-2.8) Amylase 51 (25-115) U/L Lipase 94 (73-393) U/L Urine Color Urine Appearance Urine pH (5.0-8.0) Ur Specific [place] (1.001-1.035) Urine Protein (NEGATIVE) mg/dL Urine Glucose (UA) (NEGATIVE) mg/dL Urine Ketones (NEGATIVE) mg/dL Urine Occult Blood (NEGATIVE) Urine Nitrite (NEGATIVE) Urine Bilirubin (NEGATIVE) Urine Urobilinogen (<2.0) EU/dL Ur Leukocyte Esterase (NEGATIVE) Urine RBC (0-2/HPF) Urine WBC (0-5/HPF) Ur Epithelial Cells (NONE-FEW) Urine Bacteria (NEGATIVE) H. pylori IgG Antibody (NEG) Blood Type O POSITIVE Antibody Screen NEGATIVE Crossmatch See Detail 02/05/18 02/05/18 02/05/18 Range/Units 15:35 17:15 21:52 WBC (4.0-11.0) K/uL RBC (4.30-5.90) M/uL Hgb 11.2 L (12.0-16.0) g/dL Hct 33.5 L (36.0-46.0) % MCV (80.0-98.0) fL MCH (27.0-32.0) pg MCHC (31.0-37.0) g/dL RDW Std Deviation (28.0-62.0) fl RDW Coeff of Joel (11.0-15.0) % Plt Count (150-400) K/uL MPV (7.40-12.00) fL Neut % (Auto) (48.0-80.0) % Lymph % (Auto) (16.0-40.0) % [place] % (Auto) (0.0-15.0) % Eos % (Auto) (0.0-7.0) % Baso % (Auto) (0.0-1.5) % Neut # (Auto) (1.4-5.7) K/uL Lymph # (Auto) (0.6-2.4) K/uL [place] # (Auto) (0.0-0.8) K/uL Eos # (Auto) (0.0-0.7) K/uL Baso # (Auto) (0.0-0.1) K/uL Nucleated RBC % /100WBC Nucleated RBCs # K/uL ESR (0-29) mm/hr INR Sodium (136-145) mmol/L Potassium (3.5-5.1) mmol/L Chloride (98-107) mmol/L Carbon Dioxide (21.0-32.0) mmol/L BUN (7.0-18.0) mg/dL Creatinine (0.6-1.0) mg/dL Est Cr Clr Drug Dosing mL/min Estimated GFR (MDRD) ml/min Glucose (74-106) mg/dL POC Glucose (60-110) mg/dL Calcium (8.5-10.1) mg/dL Total Bilirubin (0.2-1.0) mg/dL AST (15-37) IU/L ALT (14-63) IU/L Alkaline Phosphatase (46-116) U/L C-Reactive Protein (0.00-0.90) mg/dL Total Protein (6.4-8.2) g/dL Albumin (3.4-5.0) g/dL Globulin (2.0-3.5) g/dL Albumin/Globulin Ratio (1.3-2.8) Amylase (25-115) U/L Lipase (73-393) U/L Urine Color YELLOW Urine Appearance CLEAR Urine pH 6.0 (5.0-8.0) Ur Specific [place] 1.010 (1.001-1.035) Urine Protein NEGATIVE (NEGATIVE) mg/dL Urine Glucose (UA) NEGATIVE (NEGATIVE) mg/dL Urine Ketones TRACE H (NEGATIVE) mg/dL Urine Occult Blood TRACE-INTACT (NEGATIVE) Urine Nitrite NEGATIVE (NEGATIVE) Urine Bilirubin NEGATIVE (NEGATIVE) Urine Urobilinogen 0.2 (<2.0) EU/dL Ur Leukocyte Esterase NEGATIVE (NEGATIVE) Urine RBC 0-2 (0-2/HPF) Urine WBC 0-2 (0-5/HPF) Ur Epithelial Cells MODERATE (NONE-FEW) Urine Bacteria RARE (NEGATIVE) H. pylori IgG Antibody NEGATIVE (NEG) Blood Type Antibody Screen Crossmatch 02/06/18 02/06/18 02/06/18 Range/Units 06:16 06:16 07:21 WBC (4.0-11.0) K/uL RBC (4.30-5.90) M/uL Hgb 10.6 L (12.0-16.0) g/dL Hct 33.0 L (36.0-46.0) % MCV (80.0-98.0) fL MCH (27.0-32.0) pg MCHC (31.0-37.0) g/dL RDW Std Deviation (28.0-62.0) fl RDW Coeff of Joel (11.0-15.0) % Plt Count (150-400) K/uL MPV (7.40-12.00) fL Neut % (Auto) (48.0-80.0) % Lymph % (Auto) (16.0-40.0) % [place] % (Auto) (0.0-15.0) % Eos % (Auto) (0.0-7.0) % Baso % (Auto) (0.0-1.5) % Neut # (Auto) (1.4-5.7) K/uL Lymph # (Auto) (0.6-2.4) K/uL [place] # (Auto) (0.0-0.8) K/uL Eos # (Auto) (0.0-0.7) K/uL Baso # (Auto) (0.0-0.1) K/uL Nucleated RBC % /100WBC Nucleated RBCs # K/uL ESR (0-29) mm/hr INR Sodium 143 (136-145) mmol/L Potassium 3.8 (3.5-5.1) mmol/L Chloride 107 (98-107) mmol/L Carbon Dioxide 29.6 (21.0-32.0) mmol/L BUN 15 (7.0-18.0) mg/dL Creatinine 1.2 H (0.6-1.0) mg/dL Est Cr Clr Drug Dosing 51.51 mL/min Estimated GFR (MDRD) 56.5 ml/min Glucose 94 (74-106) mg/dL POC Glucose 88 (60-110) mg/dL Calcium 8.6 (8.5-10.1) mg/dL Total Bilirubin 1.0 (0.2-1.0) mg/dL AST 16 (15-37) IU/L ALT 21 (14-63) IU/L Alkaline Phosphatase 50 (46-116) U/L C-Reactive Protein (0.00-0.90) mg/dL Total Protein 6.3 L (6.4-8.2) g/dL Albumin 3.1 L (3.4-5.0) g/dL Globulin 3.2 (2.0-3.5) g/dL Albumin/Globulin Ratio 1.0 L (1.3-2.8) Amylase (25-115) U/L Lipase (73-393) U/L Urine Color Urine Appearance Urine pH (5.0-8.0) Ur Specific [place] (1.001-1.035) Urine Protein (NEGATIVE) mg/dL Urine Glucose (UA) (NEGATIVE) mg/dL Urine Ketones (NEGATIVE) mg/dL Urine Occult Blood (NEGATIVE) Urine Nitrite (NEGATIVE) Urine Bilirubin (NEGATIVE) Urine Urobilinogen (<2.0) EU/dL Ur Leukocyte Esterase (NEGATIVE) Urine RBC (0-2/HPF) Urine WBC (0-5/HPF) Ur Epithelial Cells (NONE-FEW) Urine Bacteria (NEGATIVE) H. pylori IgG Antibody (NEG) Blood Type Antibody Screen Crossmatch Dax Results Last 24 Hours: Microbiology 02/05/18 17:15 Campylobacter Antigen Assay - Final Stool / Feces NEGATIVE [facility] Med Orders - Current: Current Medications Levofloxacin/Dextrose 750 mg/ (Premix) 150 mls @ 100 mls/hr IV Q24H [facility] Last Admin: 02/06/18 02:32 Dose: 100 mls/hr Metronidazole 500 mg/ Premix 100 mls @ 100 mls/hr IV TID [facility] Last Admin: 02/06/18 05:20 Dose: 100 mls/hr Dextrose/Sodium Chloride (Dextrose 5%-1/2 Ns) 1,000 mls @ 125 mls/hr IV ASDIRECTED [facility] Last Admin: 02/06/18 08:56 Dose: 125 mls/hr Pantoprazole Sodium (Protonix Iv) 40 mg IVPUSH Q12H [facility] Last Admin: 02/06/18 08:56 Dose: 40 mg Sodium Chloride (Saline Flush) 10 ml FLUSH ASDIRECTED PRN PRN Reason: Keep Vein Open Discontinued Medications Sodium Chloride (Normal Saline) 1,000 mls @ 999 mls/hr IV STAT ONE Stop: 02/05/18 16:07 Last Admin: 02/05/18 15:45 Dose: 999 mls/hr Lactated Ringer's (Ringers, Lactated) 1,000 mls @ 125 mls/hr IV ASDIRECTED [facility] Last Admin: 02/05/18 22:09 Dose: 125 mls/hr Iopamidol (Isovue Multipack-370 (76%)) 80 ml IVPUSH ONETIME STA Stop: 02/05/18 17:28 Last Admin: 02/05/18 17:28 Dose: 80 ml - Exam General: Alert, Oriented Neck: Supple Lungs: Clear to Auscultation, Normal Respiratory Effort Cardiovascular: Regular Rate, Regular Rhythm GI/Abdominal Exam: Normal Bowel Sounds, Soft, Non-Tender Extremities: Normal Inspection, Normal Range of Motion, Non-Tender Skin: Warm, Dry, Intact Neurological: No New Focal Deficit - Problem List Review Problem List Initiated/Reviewed/Updated: Yes - My Orders Last 24 Hours: My Active Orders 02/05/18 21:35 Up ad [place] [RC] ASDIRECTED VTE/DVT Education [RC] PER UNIT ROUTINE Vital Signs [RC] Q4H Sequential Compression Device [OM.PC] Per Unit Routine Resuscitation Status Routine 02/05/18 21:45 Pantoprazole [ProTONIX IV] 40 mg IVPUSH Q12H 02/06/18 06:00 Accu Check [Blood Glucose Check, Bedside] [RC] Q6H 02/06/18 09:00 Dextrose 5%-0.45% NaCl [Dextrose 5%-1/2 NS] 1,000 ml IV ASDIRECTED 02/06/18 17:00 CBC WITH AUTO DIFF [HEME] Routine 02/07/18 05:00 CBC W/O DIFF,HEMOGRAM [HEME] Q6H - Plan Plan:: 57 yo female admitted for lower GI bleed. Hgb is 10.6. We will continue IV fluids, Dr. Castellanos has been consulted.
--- NOTE | 2018-02-06 12:24 | PCM.SURGPN ---
- General Info Date of Service: 02/06/18 POD#: 1 Functional Status: Reports: Pain Controlled (large bloody BM 3 am in the morning ; h/h dropped 13 > 11 > 10.6; no hemodynamic instability, hungry, wants to eat) - Patient Data Vitals - Most Recent: Last Vital Signs Temp 98.2 F 02/06/18 09:00 Pulse 76 02/06/18 09:00 Resp 16 02/06/18 09:00 BP 137/62 02/06/18 09:00 Pulse Ox 97 02/06/18 09:00 Weight - Most Recent: 264 lb 8 oz I&O - Last 24 Hours: Intake & Output 02/05/18 02/06/18 02/06/18 22:59 06:59 14:59 Intake Total 1050 Output Total 300 600 Balance -300 450 Lab Results Last 24 Hrs: Laboratory Results - last 24 hr 02/05/18 02/05/18 02/05/18 Range/Units 15:35 15:35 15:35 WBC 5.73 (4.0-11.0) K/uL RBC 4.80 (4.30-5.90) M/uL Hgb 13.0 (12.0-16.0) g/dL Hct 39.6 (36.0-46.0) % MCV 82.5 (80.0-98.0) fL MCH 27.1 (27.0-32.0) pg MCHC 32.8 (31.0-37.0) g/dL RDW Std Deviation 44.4 (28.0-62.0) fl RDW Coeff of Joel 15 (11.0-15.0) % Plt Count 240 (150-400) K/uL MPV 11.20 (7.40-12.00) fL Neut % (Auto) 38.5 L (48.0-80.0) % Lymph % (Auto) 31.4 (16.0-40.0) % [place] % (Auto) 7.3 (0.0-15.0) % Eos % (Auto) 22.5 H (0.0-7.0) % Baso % (Auto) 0.3 (0.0-1.5) % Neut # (Auto) 2.2 (1.4-5.7) K/uL Lymph # (Auto) 1.8 (0.6-2.4) K/uL [place] # (Auto) 0.4 (0.0-0.8) K/uL Eos # (Auto) 1.3 H (0.0-0.7) K/uL Baso # (Auto) 0.0 (0.0-0.1) K/uL Nucleated RBC % 0.0 /100WBC Nucleated RBCs # 0 K/uL ESR (0-29) mm/hr INR 1.02 Sodium 142 (136-145) mmol/L Potassium 3.7 (3.5-5.1) mmol/L Chloride 104 (98-107) mmol/L Carbon Dioxide 30.7 (21.0-32.0) mmol/L BUN 18 (7.0-18.0) mg/dL Creatinine 1.2 H (0.6-1.0) mg/dL Est Cr Clr Drug Dosing 49.59 mL/min Estimated GFR (MDRD) 56.5 ml/min Glucose 89 (74-106) mg/dL POC Glucose (60-110) mg/dL Calcium 9.5 (8.5-10.1) mg/dL Total Bilirubin 0.9 (0.2-1.0) mg/dL AST 22 (15-37) IU/L ALT 25 (14-63) IU/L Alkaline Phosphatase 63 (46-116) U/L C-Reactive Protein (0.00-0.90) mg/dL Total Protein 7.7 (6.4-8.2) g/dL Albumin 4.0 (3.4-5.0) g/dL Globulin 3.7 H (2.0-3.5) g/dL Albumin/Globulin Ratio 1.1 L (1.3-2.8) Amylase (25-115) U/L Lipase (73-393) U/L Urine Color Urine Appearance Urine pH (5.0-8.0) Ur Specific [place] (1.001-1.035) Urine Protein (NEGATIVE) mg/dL Urine Glucose (UA) (NEGATIVE) mg/dL Urine Ketones (NEGATIVE) mg/dL Urine Occult Blood (NEGATIVE) Urine Nitrite (NEGATIVE) Urine Bilirubin (NEGATIVE) Urine Urobilinogen (<2.0) EU/dL Ur Leukocyte Esterase (NEGATIVE) Urine RBC (0-2/HPF) Urine WBC (0-5/HPF) Ur Epithelial Cells (NONE-FEW) Urine Bacteria (NEGATIVE) H. pylori IgG Antibody (NEG) Blood Type Antibody Screen Crossmatch 02/05/18 02/05/18 02/05/18 Range/Units 15:35 15:35 15:35 WBC (4.0-11.0) K/uL RBC (4.30-5.90) M/uL Hgb (12.0-16.0) g/dL Hct (36.0-46.0) % MCV (80.0-98.0) fL MCH (27.0-32.0) pg MCHC (31.0-37.0) g/dL RDW Std Deviation (28.0-62.0) fl RDW Coeff of Joel (11.0-15.0) % Plt Count (150-400) K/uL MPV (7.40-12.00) fL Neut % (Auto) (48.0-80.0) % Lymph % (Auto) (16.0-40.0) % Am[place] % (Auto) (0.0-15.0) % Eos % (Auto) (0.0-7.0) % Baso % (Auto) (0.0-1.5) % Neut # (Auto) (1.4-5.7) K/uL Lymph # (Auto) (0.6-2.4) K/uL Amite # (Auto) (0.0-0.8) K/uL Eos # (Auto) (0.0-0.7) K/uL Baso # (Auto) (0.0-0.1) K/uL Nucleated RBC % /100WBC Nucleated RBCs # K/uL ESR 4 (0-29) mm/hr INR Sodium (136-145) mmol/L Potassium (3.5-5.1) mmol/L Chloride (98-107) mmol/L Carbon Dioxide (21.0-32.0) mmol/L BUN (7.0-18.0) mg/dL Creatinine (0.6-1.0) mg/dL Est Cr Clr Drug Dosing mL/min Estimated GFR (MDRD) ml/min Glucose (74-106) mg/dL POC Glucose (60-110) mg/dL Calcium (8.5-10.1) mg/dL Total Bilirubin (0.2-1.0) mg/dL AST (15-37) IU/L ALT (14-63) IU/L Alkaline Phosphatase (46-116) U/L C-Reactive Protein <0.20 (0.00-0.90) mg/dL Total Protein (6.4-8.2) g/dL Albumin (3.4-5.0) g/dL Globulin (2.0-3.5) g/dL Albumin/Globulin Ratio (1.3-2.8) Amylase 51 (25-115) U/L Lipase 94 (73-393) U/L Urine Color Urine Appearance Urine pH (5.0-8.0) Ur Specific [place] (1.001-1.035) Urine Protein (NEGATIVE) mg/dL Urine Glucose (UA) (NEGATIVE) mg/dL Urine Ketones (NEGATIVE) mg/dL Urine Occult Blood (NEGATIVE) Urine Nitrite (NEGATIVE) Urine Bilirubin (NEGATIVE) Urine Urobilinogen (<2.0) EU/dL Ur Leukocyte Esterase (NEGATIVE) Urine RBC (0-2/HPF) Urine WBC (0-5/HPF) Ur Epithelial Cells (NONE-FEW) Urine Bacteria (NEGATIVE) H. pylori IgG Antibody (NEG) Blood Type O POSITIVE Antibody Screen NEGATIVE Crossmatch See Detail 02/05/18 02/05/18 02/05/18 Range/Units 15:35 17:15 21:52 WBC (4.0-11.0) K/uL RBC (4.30-5.90) M/uL Hgb 11.2 L (12.0-16.0) g/dL Hct 33.5 L (36.0-46.0) % MCV (80.0-98.0) fL MCH (27.0-32.0) pg MCHC (31.0-37.0) g/dL RDW Std Deviation (28.0-62.0) fl RDW Coeff of Joel (11.0-15.0) % Plt Count (150-400) K/uL MPV (7.40-12.00) fL Neut % (Auto) (48.0-80.0) % Lymph % (Auto) (16.0-40.0) % Am[place] % (Auto) (0.0-15.0) % Eos % (Auto) (0.0-7.0) % Baso % (Auto) (0.0-1.5) % Neut # (Auto) (1.4-5.7) K/uL Lymph # (Auto) (0.6-2.4) K/uL Am[place] # (Auto) (0.0-0.8) K/uL Eos # (Auto) (0.0-0.7) K/uL Baso # (Auto) (0.0-0.1) K/uL Nucleated RBC % /100WBC Nucleated RBCs # K/uL ESR (0-29) mm/hr INR Sodium (136-145) mmol/L Potassium (3.5-5.1) mmol/L Chloride (98-107) mmol/L Carbon Dioxide (21.0-32.0) mmol/L BUN (7.0-18.0) mg/dL Creatinine (0.6-1.0) mg/dL Est Cr Clr Drug Dosing mL/min Estimated GFR (MDRD) ml/min Glucose (74-106) mg/dL POC Glucose (60-110) mg/dL Calcium (8.5-10.1) mg/dL Total Bilirubin (0.2-1.0) mg/dL AST (15-37) IU/L ALT (14-63) IU/L Alkaline Phosphatase (46-116) U/L C-Reactive Protein (0.00-0.90) mg/dL Total Protein (6.4-8.2) g/dL Albumin (3.4-5.0) g/dL Globulin (2.0-3.5) g/dL Albumin/Globulin Ratio (1.3-2.8) Amylase (25-115) U/L Lipase (73-393) U/L Urine Color YELLOW Urine Appearance CLEAR Urine pH 6.0 (5.0-8.0) Ur Specific [place] 1.010 (1.001-1.035) Urine Protein NEGATIVE (NEGATIVE) mg/dL Urine Glucose (UA) NEGATIVE (NEGATIVE) mg/dL Urine Ketones TRACE H (NEGATIVE) mg/dL Urine Occult Blood TRACE-INTACT (NEGATIVE) Urine Nitrite NEGATIVE (NEGATIVE) Urine Bilirubin NEGATIVE (NEGATIVE) Urine Urobilinogen 0.2 (<2.0) EU/dL Ur Leukocyte Esterase NEGATIVE (NEGATIVE) Urine RBC 0-2 (0-2/HPF) Urine WBC 0-2 (0-5/HPF) Ur Epithelial Cells MODERATE (NONE-FEW) Urine Bacteria RARE (NEGATIVE) H. pylori IgG Antibody NEGATIVE (NEG) Blood Type Antibody Screen Crossmatch 02/06/18 02/06/18 02/06/18 Range/Units 06:16 06:16 07:21 WBC (4.0-11.0) K/uL RBC (4.30-5.90) M/uL Hgb 10.6 L (12.0-16.0) g/dL Hct 33.0 L (36.0-46.0) % MCV (80.0-98.0) fL MCH (27.0-32.0) pg MCHC (31.0-37.0) g/dL RDW Std Deviation (28.0-62.0) fl RDW Coeff of Joel (11.0-15.0) % Plt Count (150-400) K/uL MPV (7.40-12.00) fL Neut % (Auto) (48.0-80.0) % Lymph % (Auto) (16.0-40.0) % [place] % (Auto) (0.0-15.0) % Eos % (Auto) (0.0-7.0) % Baso % (Auto) (0.0-1.5) % Neut # (Auto) (1.4-5.7) K/uL Lymph # (Auto) (0.6-2.4) K/uL [place] # (Auto) (0.0-0.8) K/uL Eos # (Auto) (0.0-0.7) K/uL Baso # (Auto) (0.0-0.1) K/uL Nucleated RBC % /100WBC Nucleated RBCs # K/uL ESR (0-29) mm/hr INR Sodium 143 (136-145) mmol/L Potassium 3.8 (3.5-5.1) mmol/L Chloride 107 (98-107) mmol/L Carbon Dioxide 29.6 (21.0-32.0) mmol/L BUN 15 (7.0-18.0) mg/dL Creatinine 1.2 H (0.6-1.0) mg/dL Est Cr Clr Drug Dosing 51.51 mL/min Estimated GFR (MDRD) 56.5 ml/min Glucose 94 (74-106) mg/dL POC Glucose 88 (60-110) mg/dL Calcium 8.6 (8.5-10.1) mg/dL Total Bilirubin 1.0 (0.2-1.0) mg/dL AST 16 (15-37) IU/L ALT 21 (14-63) IU/L Alkaline Phosphatase 50 (46-116) U/L C-Reactive Protein (0.00-0.90) mg/dL Total Protein 6.3 L (6.4-8.2) g/dL Albumin 3.1 L (3.4-5.0) g/dL Globulin 3.2 (2.0-3.5) g/dL Albumin/Globulin Ratio 1.0 L (1.3-2.8) Amylase (25-115) U/L Lipase (73-393) U/L Urine Color Urine Appearance Urine pH (5.0-8.0) Ur Specific [place] (1.001-1.035) Urine Protein (NEGATIVE) mg/dL Urine Glucose (UA) (NEGATIVE) mg/dL Urine Ketones (NEGATIVE) mg/dL Urine Occult Blood (NEGATIVE) Urine Nitrite (NEGATIVE) Urine Bilirubin (NEGATIVE) Urine Urobilinogen (<2.0) EU/dL Ur Leukocyte Esterase (NEGATIVE) Urine RBC (0-2/HPF) Urine WBC (0-5/HPF) Ur Epithelial Cells (NONE-FEW) Urine Bacteria (NEGATIVE) H. pylori IgG Antibody (NEG) Blood Type Antibody Screen Crossmatch Dax Results Last 24 Hrs: Microbiology 02/05/18 17:15 Campylobacter Antigen Assay - Final Stool / Feces NEGATIVE CAMPYLOBACTER AG - Final NEGATIVE FOR SHIGA TOXIN 1 - Final NEGATIVE FOR SHIGA TOXIN 2 Med Orders - Current: Current Medications Levofloxacin/Dextrose 750 mg/ (Premix) 150 mls @ 100 mls/hr IV Q24H [facility] Last Admin: 02/06/18 02:32 Dose: 100 mls/hr Metronidazole 500 mg/ Premix 100 mls @ 100 mls/hr IV TID [facility] Last Admin: 02/06/18 05:20 Dose: 100 mls/hr Dextrose/Sodium Chloride (Dextrose 5%-1/2 Ns) 1,000 mls @ 125 mls/hr IV ASDIRECTED [facility] Last Admin: 02/06/18 08:56 Dose: 125 mls/hr Pantoprazole Sodium (Protonix Iv) 40 mg IVPUSH Q12H [facility] Last Admin: 02/06/18 08:56 Dose: 40 mg Sodium Chloride (Saline Flush) 10 ml FLUSH ASDIRECTED PRN PRN Reason: Keep Vein Open Discontinued Medications Sodium Chloride (Normal Saline) 1,000 mls @ 999 mls/hr IV STAT ONE Stop: 02/05/18 16:07 Last Admin: 02/05/18 15:45 Dose: 999 mls/hr Lactated Ringer's (Ringers, Lactated) 1,000 mls @ 125 mls/hr IV ASDIRECTED [facility] Last Admin: 02/05/18 22:09 Dose: 125 mls/hr Iopamidol (Isovue Multipack-370 (76%)) 80 ml IVPUSH ONETIME STA Stop: 02/05/18 17:28 Last Admin: 02/05/18 17:28 Dose: 80 ml - Exam General: Alert, Oriented Cardiovascular: Regular Rate, Regular Rhythm GI/Abdominal Exam: Normal Bowel Sounds, Soft, Non-Tender, No Organomegaly, No Distention Skin: Warm, Dry - Problem List Review Problem List Initiated/Reviewed/Updated: Yes - My Orders Last 24 Hours: Active Orders 24 hr Category Date Time Status Patient Status [ADT] Stat ADT 02/05/18 18:38 Active Accu Check [Blood Glucose Check, Bedside] [RC] Q6H Care 02/06/18 06:00 Active Daily Weight [Height and Weight] [RC] DAILY Care 02/05/18 21:43 Active Intake and Output Strict [RC] Q12H Care 02/06/18 04:00 Active Notify Provider Consults [RC] ASDIRECTED Care 02/05/18 18:30 Active Up ad [place] [RC] ASDIRECTED Care 02/05/18 21:35 Active VTE/DVT Education [RC] PER UNIT ROUTINE Care 02/05/18 21:35 Active Vital Signs [RC] Q4H Care 02/05/18 21:35 Active Consult to Physician [CONS] Stat Cons 02/05/18 18:30 Active Abdomen Pelvis w Cont [CT] Stat Exams 02/05/18 15:29 Taken CBC W/O DIFF,HEMOGRAM [HEME] Q6H Lab 02/07/18 05:00 Ordered CULTURE STOOL + CAMPY+SHIGATOX [RM] Stat Lab 02/05/18 17:15 Ordered HEMOGLOBIN/HEMATOCRIT,HH [HEME] Q8H Lab 02/06/18 13:41 Ordered HEMOGLOBIN/HEMATOCRIT,HH [HEME] Q8H Lab 02/06/18 21:41 Ordered HEMOGLOBIN/HEMATOCRIT,HH [HEME] Q8H Lab 02/07/18 05:41 Ordered HEMOGLOBIN/HEMATOCRIT,HH [HEME] Q8H Lab 02/07/18 13:41 Ordered HEMOGLOBIN/HEMATOCRIT,HH [HEME] Q8H Lab 02/07/18 21:41 Ordered RED BLOOD CELLS LP [BBK] Routine Lab 02/05/18 15:35 Results TYPE AND SCREEN [BBK] Stat Lab 02/05/18 15:35 Results UA W/MICROSCOPIC [URIN] Stat Lab 02/05/18 17:15 Ordered Dextrose 5%-0.45% NaCl [Dextrose 5%-1/2 NS] 1,000 ml Med 02/06/18 09:00 Active IV ASDIRECTED Levofloxacin/Dextrose 5%-Water [Levaquin in D5W 750 MG/ Med 02/06/18 02:30 Active 150 ML] 750 mg Premix Bag 1 bag IV Q24H Pantoprazole [ProTONIX IV] Med 02/05/18 21:45 Active 40 mg IVPUSH Q12H Sodium Chloride 0.9% [Saline Flush] Med 02/05/18 15:08 Active 10 ml FLUSH ASDIRECTED PRN metroNIDAZOLE/Normal Saline [Flagyl 500 MG in NS 100 ML Med 02/06/18 06:00 Active ] 500 mg Premix Bag 1 bag IV TID Sequential Compression Device [OM.PC] Per Unit Routine Oth 02/05/18 21:35 Ordered Resuscitation Status Routine Resus Stat 02/05/18 21:35 Ordered Medication Orders Levofloxacin/Dextrose 750 mg/ (Premix) 150 mls @ 100 mls/hr IV Q24H [facility] Last Admin: 02/06/18 02:32 Dose: 100 mls/hr Metronidazole 500 mg/ Premix 100 mls @ 100 mls/hr IV TID [facility] Last Admin: 02/06/18 05:20 Dose: 100 mls/hr Dextrose/Sodium Chloride (Dextrose 5%-1/2 Ns) 1,000 mls @ 125 mls/hr IV ASDIRECTED [facility] Last Admin: 02/06/18 08:56 Dose: 125 mls/hr Pantoprazole Sodium (Protonix Iv) 40 mg IVPUSH Q12H [facility] Last Admin: 02/06/18 08:56 Dose: 40 mg Admin: 02/05/18 22:08 Dose: 40 mg Sodium Chloride (Saline Flush) 10 ml FLUSH ASDIRECTED PRN PRN Reason: Keep Vein Open - Assessment Assessment (Free Text/Narrative):: likely diverticulitis bleeding, usually brisk and usually self limited; bloody BM slowed down, on abx; continue monitor h/h q12, transfuse to above 10; possible start po diet tomorrow noon; clinically doing better. - Plan Plan (Free Text/Narrative):: likely diverticulitis bleeding, usually brisk and usually self limited; bloody BM slowed down, on abx; continue monitor h/h q12, transfuse to above 10; possible start po diet tomorrow noon; clinically doing better.
[2018-02-07] MEDS: Levofloxacin/Dextrose 5%-Water 750 MG in Premix Bag 1 BAG IV SCH (01:31)
[2018-02-07] MEDS: Dextrose 5%-0.45% NaCl 1,000 ML IV SCH ×2 (04:52→17:19)
[2018-02-07] MEDS: metroNIDAZOLE/Normal Saline 500 MG in Premix Bag 1 BAG IV SCH ×3 (05:00→21:07)
--- NOTE | 2018-02-07 09:29 | PCM.PN ---
- General Info Date of Service: 02/07/18 - Review of Systems Systems Review Comment:: no bloody stools today - Patient Data Vitals - Most Recent: Last Vital Signs Temp 35.9 C 02/07/18 05:00 Pulse 79 02/07/18 05:00 Resp 20 02/07/18 05:00 BP 128/79 02/07/18 05:00 Pulse Ox 96 02/07/18 05:00 Weight - Most Recent: 120.04 kg I&O - Last 24 Hours: Intake & Output 02/06/18 02/07/18 02/07/18 22:59 06:59 14:59 Intake Total 1204 757 Output Total 750 560 Balance 454 197 Lab Results Last 24 Hours: Laboratory Results - last 24 hr 02/06/18 02/06/18 02/06/18 Range/Units 12:50 16:30 18:47 WBC (4.0-11.0) K/uL RBC (4.30-5.90) M/uL Hgb 10.3 L (12.0-16.0) g/dL Hct 31.4 L (36.0-46.0) % MCV (80.0-98.0) fL MCH (27.0-32.0) pg MCHC (31.0-37.0) g/dL RDW Std Deviation (28.0-62.0) fl RDW Coeff of Joel (11.0-15.0) % Plt Count (150-400) K/uL MPV (7.40-12.00) fL Nucleated RBC % /100WBC Nucleated RBCs # K/uL POC Glucose 91 107 (60-110) mg/dL 02/07/18 02/07/18 02/07/18 Range/Units 01:21 06:07 06:22 WBC 4.09 (4.0-11.0) K/uL RBC 3.50 L (4.30-5.90) M/uL Hgb 9.4 L (12.0-16.0) g/dL Hct 28.8 L (36.0-46.0) % MCV 82.3 (80.0-98.0) fL MCH 26.9 L (27.0-32.0) pg MCHC 32.6 (31.0-37.0) g/dL RDW Std Deviation 44.0 (28.0-62.0) fl RDW Coeff of Joel 15 (11.0-15.0) % Plt Count 189 (150-400) K/uL MPV 10.40 (7.40-12.00) fL Nucleated RBC % 0.0 /100WBC Nucleated RBCs # 0 K/uL POC Glucose 114 H 109 (60-110) mg/dL Dax Results Last 24 Hours: Microbiology 02/05/18 17:15 Stool Culture - Final Stool / Feces NO SALMONELLA, SHIGELLA,OR E.COLI O157 ISOLATED Campylobacter Antigen Assay - Final NEGATIVE CAMPYLOBACTER AG - Final NEGATIVE FOR SHIGA TOXIN 1 - Final NEGATIVE FOR SHIGA TOXIN 2 Med Orders - Current: Current Medications Levofloxacin/Dextrose 750 mg/ (Premix) 150 mls @ 100 mls/hr IV Q24H COUNT [facility]CLUD[facility] Last Admin: 02/07/18 01:31 Dose: 100 mls/hr Metronidazole 500 mg/ Premix 100 mls @ 100 mls/hr IV TID COUNT INCLUDES THE [facility] Last Admin: 02/07/18 05:00 Dose: 100 mls/hr Dextrose/Sodium Chloride (Dextrose 5%-1/2 Ns) 1,000 mls @ 125 mls/hr IV ASDIRECTED COUNT [facility]CLUD[facility] Last Admin: 02/07/18 04:52 Dose: 125 mls/hr Pantoprazole Sodium (Protonix Iv) 40 mg IVPUSH Q12H COUNT [facility]CLUD[facility] Last Admin: 02/06/18 20:45 Dose: 40 mg Sodium Chloride (Saline Flush) 10 ml FLUSH ASDIRECTED PRN PRN Reason: Keep Vein Open Discontinued Medications Sodium Chloride (Normal Saline) 1,000 mls @ 999 mls/hr IV STAT ONE Stop: 02/05/18 16:07 Last Admin: 02/05/18 15:45 Dose: 999 mls/hr Lactated Ringer's (Ringers, Lactated) 1,000 mls @ 125 mls/hr IV ASDIRECTED COUNT [facility]CLUDES [facility] Last Admin: 02/05/18 22:09 Dose: 125 mls/hr Iopamidol (Isovue Multipack-370 (76%)) 80 ml IVPUSH ONETIME STA Stop: 02/05/18 17:28 Last Admin: 02/05/18 17:28 Dose: 80 ml - Exam General: Alert, Oriented Lungs: Clear to Auscultation, Normal Respiratory Effort Cardiovascular: Regular Rate, Tachycardia GI/Abdominal Exam: Normal Bowel Sounds, Soft, Non-Tender Extremities: Non-Tender Skin: Warm, Dry, Intact - Problem List Review Problem List Initiated/Reviewed/Updated: Yes - My Orders Last 24 Hours: My Active Orders 02/06/18 09:00 Dextrose 5%-0.45% NaCl [Dextrose 5%-1/2 NS] 1,000 ml IV ASDIRECTED - Plan Plan:: 57 yo female admitted for lower GI bleed. Hgb 9.4 today. Will start clear liquid diet. Dr. Castellanos has been consulted regarding colonoscopy.
[2018-02-07] MEDS: Pantoprazole 40 MG Vial IVPUSH SCH ×2 (10:12→21:06)
--- NOTE | 2018-02-07 12:49 | PCM.SURGPN ---
- General Info Date of Service: 02/07/18 Functional Status: Reports: Pain Controlled (h/h 9.4; one small smear BM, bloody , no clot; denied any abd symptoms, dwight clear liquid) - Review of Systems Gastrointestinal: Reports: No Symptoms - Patient Data Vitals - Most Recent: Last Vital Signs Temp 96.0 F 02/07/18 12:00 Pulse 85 02/07/18 12:00 Resp 22 H 02/07/18 12:00 BP 123/50 L 02/07/18 12:00 Pulse Ox 99 02/07/18 12:00 Weight - Most Recent: 264 lb 10.286 oz I&O - Last 24 Hours: Intake & Output 02/06/18 02/07/18 02/07/18 22:59 06:59 14:59 Intake Total 1204 757 Output Total 750 560 Balance 454 197 Lab Results Last 24 Hrs: Laboratory Results - last 24 hr 02/06/18 02/06/18 02/06/18 Range/Units 12:50 16:30 18:47 WBC (4.0-11.0) K/uL RBC (4.30-5.90) M/uL Hgb 10.3 L (12.0-16.0) g/dL Hct 31.4 L (36.0-46.0) % MCV (80.0-98.0) fL MCH (27.0-32.0) pg MCHC (31.0-37.0) g/dL RDW Std Deviation (28.0-62.0) fl RDW Coeff of Joel (11.0-15.0) % Plt Count (150-400) K/uL MPV (7.40-12.00) fL Nucleated RBC % /100WBC Nucleated RBCs # K/uL POC Glucose 91 107 (60-110) mg/dL 02/07/18 02/07/18 02/07/18 Range/Units 01:21 06:07 06:22 WBC 4.09 (4.0-11.0) K/uL RBC 3.50 L (4.30-5.90) M/uL Hgb 9.4 L (12.0-16.0) g/dL Hct 28.8 L (36.0-46.0) % MCV 82.3 (80.0-98.0) fL MCH 26.9 L (27.0-32.0) pg MCHC 32.6 (31.0-37.0) g/dL RDW Std Deviation 44.0 (28.0-62.0) fl RDW Coeff of Joel 15 (11.0-15.0) % Plt Count 189 (150-400) K/uL MPV 10.40 (7.40-12.00) fL Nucleated RBC % 0.0 /100WBC Nucleated RBCs # 0 K/uL POC Glucose 114 H 109 (60-110) mg/dL 02/07/18 Range/Units 11:49 WBC (4.0-11.0) K/uL RBC (4.30-5.90) M/uL Hgb (12.0-16.0) g/dL Hct (36.0-46.0) % MCV (80.0-98.0) fL MCH (27.0-32.0) pg MCHC (31.0-37.0) g/dL RDW Std Deviation (28.0-62.0) fl RDW Coeff of Joel (11.0-15.0) % Plt Count (150-400) K/uL MPV (7.40-12.00) fL Nucleated RBC % /100WBC Nucleated RBCs # K/uL POC Glucose 117 H (60-110) mg/dL Dax Results Last 24 Hrs: Microbiology 02/05/18 17:15 Stool Culture - Final Stool / Feces NO SALMONELLA, SHIGELLA,OR E.COLI O157 ISOLATED Campylobacter Antigen Assay - Final NEGATIVE CAMPYLOBACTER AG - Final NEGATIVE FOR SHIGA TOXIN 1 - Final NEGATIVE FOR SHIGA TOXIN 2 Med Orders - Current: Current Medications Levofloxacin/Dextrose 750 mg/ (Premix) 150 mls @ 100 mls/hr IV Q24H [facility] Last Admin: 02/07/18 01:31 Dose: 100 mls/hr Metronidazole 500 mg/ Premix 100 mls @ 100 mls/hr IV TID [facility] Last Admin: 02/07/18 05:00 Dose: 100 mls/hr Dextrose/Sodium Chloride (Dextrose 5%-1/2 Ns) 1,000 mls @ 125 mls/hr IV ASDIRECTED [facility] Last Admin: 02/07/18 04:52 Dose: 125 mls/hr Pantoprazole Sodium (Protonix Iv) 40 mg IVPUSH Q12H [facility] Last Admin: 02/07/18 10:12 Dose: 40 mg Sodium Chloride (Saline Flush) 10 ml FLUSH ASDIRECTED PRN PRN Reason: Keep Vein Open Discontinued Medications Sodium Chloride (Normal Saline) 1,000 mls @ 999 mls/hr IV STAT ONE Stop: 02/05/18 16:07 Last Admin: 02/05/18 15:45 Dose: 999 mls/hr Lactated Ringer's (Ringers, Lactated) 1,000 mls @ 125 mls/hr IV ASDIRECTED [facility] Last Admin: 02/05/18 22:09 Dose: 125 mls/hr Iopamidol (Isovue Multipack-370 (76%)) 80 ml IVPUSH ONETIME STA Stop: 02/05/18 17:28 Last Admin: 02/05/18 17:28 Dose: 80 ml - Exam Lungs: Clear to Auscultation GI/Abdominal Exam: Normal Bowel Sounds, Soft, Non-Tender - Problem List Review Problem List Initiated/Reviewed/Updated: Yes - My Orders Last 24 Hours: Active Orders 24 hr Category Date Time Status Clear Liquid Diet [DIET] Diet 02/07/18 Lunch Active HEMOGLOBIN/HEMATOCRIT,HH [HEME] Q12H Lab 02/07/18 18:00 Ordered Medication Orders Levofloxacin/Dextrose 750 mg/ (Premix) 150 mls @ 100 mls/hr IV Q24H [facility] Last Admin: 02/07/18 01:31 Dose: 100 mls/hr Infusion: 02/06/18 04:02 Dose: 100 mls/hr Admin: 02/06/18 02:32 Dose: 100 mls/hr Metronidazole 500 mg/ Premix 100 mls @ 100 mls/hr IV TID [facility] Last Admin: 02/07/18 05:00 Dose: 100 mls/hr Infusion: 02/06/18 22:00 Dose: 100 mls/hr Admin: 02/06/18 21:00 Dose: 100 mls/hr Infusion: 02/06/18 15:15 Dose: 100 mls/hr Admin: 02/06/18 14:15 Dose: 100 mls/hr Infusion: 02/06/18 06:20 Dose: 100 mls/hr Admin: 02/06/18 05:20 Dose: 100 mls/hr Dextrose/Sodium Chloride (Dextrose 5%-1/2 Ns) 1,000 mls @ 125 mls/hr IV ASDIRECTED [facility] Last Admin: 02/07/18 04:52 Dose: 125 mls/hr Infusion: 02/07/18 03:12 Dose: 125 mls/hr Admin: 02/06/18 19:12 Dose: 125 mls/hr Infusion: 02/06/18 16:56 Dose: 125 mls/hr Admin: 02/06/18 08:56 Dose: 125 mls/hr Pantoprazole Sodium (Protonix Iv) 40 mg IVPUSH Q12H [facility] Last Admin: 02/07/18 10:12 Dose: 40 mg Admin: 02/06/18 20:45 Dose: 40 mg Admin: 02/06/18 08:56 Dose: 40 mg Admin: 02/05/18 22:08 Dose: 40 mg Sodium Chloride (Saline Flush) 10 ml FLUSH ASDIRECTED PRN PRN Reason: Keep Vein Open - Assessment Assessment (Free Text/Narrative):: one small smear after 36 hr; h/h dropped 1 gm, maybe dilutional, no heamodynamic instablity; continue h/h q12/ivf 125/clear liquid diet, still at risk for emergency surgery, albeit unlikely; ok to start on iron pills; likely adv diet tomorrow morning; home on Thu/? - Plan Plan (Free Text/Narrative):: one small smear after 36 hr; h/h dropped 1 gm, maybe dilutional, no heamodynamic instablity; continue h/h q12/ivf 125/clear liquid diet, still at risk for emergency surgery, albeit unlikely; ok to start on iron pills; likely adv diet tomorrow morning; home on Thu/?
[2018-02-08] MEDS: Levofloxacin/Dextrose 5%-Water 750 MG in Premix Bag 1 BAG IV SCH (01:31)
[2018-02-08] MEDS: metroNIDAZOLE/Normal Saline 500 MG in Premix Bag 1 BAG IV SCH ×3 (05:11→22:09)
[2018-02-08] MEDS: Pantoprazole 40 MG Vial IVPUSH SCH ×2 (09:05→22:08)
--- NOTE | 2018-02-08 09:05 | PCM.PN ---
- General Info Date of Service: 02/08/18 Admission Dx/Problem (Free Text): Admission Diagnosis/Problem Admission Diagnosis/Problem Gastrointestinal hemorrhage Subjective Update: Sitting up on edge of bed this morning. Reports she is feeling much better. Scant smear of bloody BM this morning. No abdominal pain. Tolerating CL diet. No chest pain or SOB. No lightheadedness or dizziness. Functional Status: Reports: Pain Controlled, Tolerating Diet, Ambulating, Urinating - Review of Systems General: Reports: No Symptoms. Denies: Fever, Weakness, Fatigue HEENT: Reports: No Symptoms. Denies: Headaches, Sore Throat, Visual Changes Pulmonary: Reports: No Symptoms. Denies: Shortness of Breath Cardiovascular: Reports: No Symptoms. Denies: Chest Pain Gastrointestinal: Reports: Hematochezia (scant amount this am.). Denies: Abdominal Pain, Nausea, Vomiting Genitourinary: Reports: No Symptoms. Denies: Dysuria, Frequency, Burning Skin: Reports: No Symptoms Neurological: Reports: No Symptoms Psychiatric: Reports: No Symptoms - Patient Data Vitals - Most Recent: Last Vital Signs Temp 97.5 F 02/08/18 07:43 Pulse 65 02/08/18 07:43 Resp 18 02/08/18 07:43 BP 102/65 02/08/18 07:43 Pulse Ox 98 02/08/18 07:43 Weight - Most Recent: 120.1 kg I&O - Last 24 Hours: Intake & Output 02/07/18 02/08/18 02/08/18 22:59 06:59 14:59 Intake Total 3093 1650 Output Total 1000 2700 Balance 2093 -1050 Lab Results Last 24 Hours: Laboratory Results - last 24 hr 02/07/18 02/07/18 02/07/18 Range/Units 11:49 16:48 18:10 Hgb 9.8 L (12.0-16.0) g/dL Hct 29.4 L (36.0-46.0) % POC Glucose 117 H 107 (60-110) mg/dL 02/07/18 02/08/18 02/08/18 Range/Units 21:13 05:50 06:08 Hgb 9.4 L (12.0-16.0) g/dL Hct 29.2 L (36.0-46.0) % POC Glucose 84 83 (60-110) mg/dL Dax Results Last 24 Hours: Microbiology 02/05/18 17:15 Stool Culture - Final Stool / Feces NO SALMONELLA, SHIGELLA,OR E.COLI O157 ISOLATED Campylobacter Antigen Assay - Final NEGATIVE CAMPYLOBACTER AG - Final NEGATIVE FOR SHIGA TOXIN 1 - Final NEGATIVE FOR SHIGA TOXIN 2 Med Orders - Current: Current Medications Levofloxacin/Dextrose 750 mg/ (Premix) 150 mls @ 100 mls/hr IV Q24H [facility] Last Admin: 02/08/18 01:31 Dose: 100 mls/hr Metronidazole 500 mg/ Premix 100 mls @ 100 mls/hr IV TID [facility] Last Admin: 02/08/18 05:11 Dose: 100 mls/hr Pantoprazole Sodium (Protonix Iv) 40 mg IVPUSH Q12H [facility] Last Admin: 02/07/18 21:06 Dose: 40 mg Sodium Chloride (Saline Flush) 10 ml FLUSH ASDIRECTED PRN PRN Reason: Keep Vein Open Discontinued Medications Sodium Chloride (Normal Saline) 1,000 mls @ 999 mls/hr IV STAT ONE Stop: 02/05/18 16:07 Last Admin: 02/05/18 15:45 Dose: 999 mls/hr Lactated Ringer's (Ringers, Lactated) 1,000 mls @ 125 mls/hr IV ASDIRECTED [facility] Last Admin: 02/05/18 22:09 Dose: 125 mls/hr Dextrose/Sodium Chloride (Dextrose 5%-1/2 Ns) 1,000 mls @ 125 mls/hr IV ASDIRECTED [facility] Last Admin: 02/07/18 17:19 Dose: 125 mls/hr Iopamidol (Isovue Multipack-370 (76%)) 80 ml IVPUSH ONETIME ST[facility] Stop: 02/05/18 17:28 Last Admin: 02/05/18 17:28 Dose: 80 ml - Exam General: Alert, Oriented, Cooperative, No Acute Distress Neck: Supple Lungs: Clear to Auscultation, Normal Respiratory Effort Cardiovascular: Regular Rate, Regular Rhythm, No Murmurs GI/Abdominal Exam: Normal Bowel Sounds, Soft, Non-Tender Extremities: Normal Inspection, Normal Range of Motion, Non-Tender Neurological: No New Focal Deficit Psy/Mental Status: Alert, Normal Affect, Normal Mood - Problem List & Annotations (1) Blood per rectum SNOMED Code(s): 79049688 Code(s): K62.5 - HEMORRHAGE OF ANUS AND RECTUM Status: Acute Current Visit: Yes (2) Diabetes mellitus SNOMED Code(s): 02914417 Code(s): E11.9 - TYPE 2 DIABETES MELLITUS WITHOUT COMPLICATIONS Status: Chronic Current Visit: No (3) HTN, Essential hypertension SNOMED Code(s): 63736026 Code(s): I10 - ESSENTIAL (PRIMARY) HYPERTENSION Status: Chronic Current Visit: No - Problem List Review Problem List Initiated/Reviewed/Updated: Yes - Plan Plan:: 57 yo female admitted for lower GI bleed. 1. Lower GI bleeding: Hgb 9.4 today. Advance to full liquid diet today. Treating with Flagyl and Levaquin for suspected Diverticular bleeding per Dr. Castellanos. Awaiting his recommendation for possible DC home. Will start PO iron. VS stable. 2. HTN: Holding Lisinopril. BP 110-120 SBP. 3. DM Type 2: Controlled, BS 80-100s. Holding Metformin VTE prohylaxis: SCDs only due to GI bleed Dispo: 1-2 days pending recommendations from Dr Castellanos.
[2018-02-08] MEDS: Ferrous Sulfate 325 MG Tab PO SCH ×2 (12:09→17:52)
--- NOTE | 2018-02-08 12:40 | PCM.SURGPN ---
- General Info Date of Service: 02/08/18 Functional Status: Reports: Pain Controlled - Review of Systems General: Reports: No Symptoms Gastrointestinal: Reports: No Symptoms (dwight po; another small smear this morning , dark, not bright red blood) - Patient Data Vitals - Most Recent: Last Vital Signs Temp 96.7 F 02/08/18 11:56 Pulse 79 02/08/18 11:56 Resp 18 02/08/18 11:56 BP 104/72 02/08/18 11:56 Pulse Ox 99 02/08/18 11:56 Weight - Most Recent: 264 lb 12.403 oz I&O - Last 24 Hours: Intake & Output 02/07/18 02/08/18 02/08/18 22:59 06:59 14:59 Intake Total 3093 1650 Output Total 1000 2700 Balance 2093 -1050 Lab Results Last 24 Hrs: Laboratory Results - last 24 hr 02/07/18 02/07/18 02/07/18 Range/Units 16:48 18:10 21:13 Hgb 9.8 L (12.0-16.0) g/dL Hct 29.4 L (36.0-46.0) % POC Glucose 107 84 (60-110) mg/dL 02/08/18 02/08/18 02/08/18 Range/Units 05:50 06:08 11:36 Hgb 9.4 L (12.0-16.0) g/dL Hct 29.2 L (36.0-46.0) % POC Glucose 83 93 (60-110) mg/dL Med Orders - Current: Current Medications Ferrous Sulfate (Ferrous Sulfate) 325 mg PO TIDMEALS [facility] Last Admin: 02/08/18 12:09 Dose: 325 mg Levofloxacin/Dextrose 750 mg/ (Premix) 150 mls @ 100 mls/hr IV Q24H [facility] Last Admin: 02/08/18 01:31 Dose: 100 mls/hr Metronidazole 500 mg/ Premix 100 mls @ 100 mls/hr IV TID [facility] Last Admin: 02/08/18 05:11 Dose: 100 mls/hr Pantoprazole Sodium (Protonix Iv) 40 mg IVPUSH Q12H [facility] Last Admin: 02/08/18 09:05 Dose: 40 mg Sodium Chloride (Saline Flush) 10 ml FLUSH ASDIRECTED PRN PRN Reason: Keep Vein Open Discontinued Medications Sodium Chloride (Normal Saline) 1,000 mls @ 999 mls/hr IV STAT ONE Stop: 02/05/18 16:07 Last Admin: 02/05/18 15:45 Dose: 999 mls/hr Lactated Ringer's (Ringers, Lactated) 1,000 mls @ 125 mls/hr IV ASDIRECTED [facility] Last Admin: 02/05/18 22:09 Dose: 125 mls/hr Dextrose/Sodium Chloride (Dextrose 5%-1/2 Ns) 1,000 mls @ 125 mls/hr IV ASDIRECTED [facility] Last Admin: 02/07/18 17:19 Dose: 125 mls/hr Iopamidol (Isovue Multipack-370 (76%)) 80 ml IVPUSH ONETIME STA Stop: 02/05/18 17:28 Last Admin: 02/05/18 17:28 Dose: 80 ml - Exam General: Alert, Oriented GI/Abdominal Exam: Normal Bowel Sounds, Soft, Non-Tender - Problem List Review Problem List Initiated/Reviewed/Updated: Yes - My Orders Last 24 Hours: Active Orders 24 hr Category Date Time Status Regular Diet [DIET] Diet 02/08/18 Breakfast Active Ferrous Sulfate Med 02/08/18 12:00 Active 325 mg PO TIDMEALS Medication Orders Ferrous Sulfate (Ferrous Sulfate) 325 mg PO TIDMEALS [facility] Last Admin: 02/08/18 12:09 Dose: 325 mg Levofloxacin/Dextrose 750 mg/ (Premix) 150 mls @ 100 mls/hr IV Q24H [facility] Last Admin: 02/08/18 01:31 Dose: 100 mls/hr Infusion: 02/07/18 03:01 Dose: 100 mls/hr Admin: 02/07/18 01:31 Dose: 100 mls/hr Infusion: 02/06/18 04:02 Dose: 100 mls/hr Admin: 02/06/18 02:32 Dose: 100 mls/hr Metronidazole 500 mg/ Premix 100 mls @ 100 mls/hr IV TID [facility] Last Admin: 02/08/18 05:11 Dose: 100 mls/hr Infusion: 02/07/18 22:07 Dose: 100 mls/hr Admin: 02/07/18 21:07 Dose: 100 mls/hr Infusion: 02/07/18 14:56 Dose: 100 mls/hr Admin: 02/07/18 13:56 Dose: 100 mls/hr Infusion: 02/07/18 06:00 Dose: 100 mls/hr Admin: 02/07/18 05:00 Dose: 100 mls/hr Infusion: 02/06/18 22:00 Dose: 100 mls/hr Admin: 02/06/18 21:00 Dose: 100 mls/hr Infusion: 02/06/18 15:15 Dose: 100 mls/hr Admin: 02/06/18 14:15 Dose: 100 mls/hr Infusion: 02/06/18 06:20 Dose: 100 mls/hr Admin: 02/06/18 05:20 Dose: 100 mls/hr Pantoprazole Sodium (Protonix Iv) 40 mg IVPUSH Q12H [facility] Last Admin: 02/08/18 09:05 Dose: 40 mg Admin: 02/07/18 21:06 Dose: 40 mg Admin: 02/07/18 10:12 Dose: 40 mg Admin: 02/06/18 20:45 Dose: 40 mg Admin: 02/06/18 08:56 Dose: 40 mg Admin: 02/05/18 22:08 Dose: 40 mg Sodium Chloride (Saline Flush) 10 ml FLUSH ASDIRECTED PRN PRN Reason: Keep Vein Open - Assessment Assessment (Free Text/Narrative):: h/h no change; abd exam nontender; start on reg diet; likely dwight, will dc in morning; colonoscopy in 2 - 3 wks - Plan Plan (Free Text/Narrative):: h/h no change; abd exam nontender; start on reg diet; likely dwight, will dc in morning; colonoscopy in 2 - 3 wks
--- NOTE | 2018-02-08 13:54 | CT ---
EXAM DATE: 02/05/18 PATIENT'S AGE: 57 Patient: SHASTA HENNING Facility: [place], [place] Site . Site : [id number] Study: CT Abdomen/Pelvis [id number]/13/2018 5:18:59 PM Ordering Physician: Magnolia Sherman Final Report: INDICATION: Left lower quadrant pain. Blood per rectum. TECHNIQUE: CT abdomen and pelvis acquired with 80 mL Isovue 370 IV contrast. COMPARISON: None FINDINGS: Lower chest: Unremarkable. Liver: Unremarkable. Spleen: Unremarkable. Pancreas: Unremarkable. Gallbladder and bile ducts: Cholecystectomy. Mild post cholecystectomy ductal dilatation, particularly through the renu hepatis. Kidneys: Unremarkable. Adrenal glands: Unremarkable. GI tract: Multiple diverticula of the colon. No acute inflammation. Intraluminal or intramural lipoma near the splenic flexure. No significant mass. No dilatation of small bowel. Appendix is normal. Vascular structures: Negative. No sign of aneurysm. Lymph nodes: Unremarkable. Miscellaneous: Paraumbilical hernia with strandy fat in the defect which could be omentum. No free air or significant free fluid. Pelvic Organs: Lobular mildly enlarged uterus suggest myomatous change. No evidence of adnexal mass. Bones: Unremarkable for age. IMPRESSION: Diverticulosis of the colon. No definite acute inflammation. No source for bleeding identified. Intraluminal or intramural lipoma noted transverse colon near the splenic flexure. Periumbilical hernia with somewhat indurated appearing fat in the defect. Query herniated omentum. Physical exam correlation for point tenderness recommended. Prior cholecystectomy. Myomatous uterus. Please note that all CT scans at this facility use dose modulation, iterative reconstruction, and/or weight-based dosing when appropriate to reduce radiation dose to as low as reasonably achievable. Dictated by Vince Huston MD @ Feb 05 2018 5:34PM (Electronic Signature) Report Signed by Proxy. LALO
[2018-02-09] MEDS: Levofloxacin/Dextrose 5%-Water 750 MG in Premix Bag 1 BAG IV SCH (01:58)
[2018-02-09] MEDS: metroNIDAZOLE/Normal Saline 500 MG in Premix Bag 1 BAG IV SCH (05:01)
[2018-02-09] MEDS: Ferrous Sulfate 325 MG Tab PO SCH ×3 (07:53→17:54)
--- NOTE | 2018-02-09 09:08 | PCM.PN ---
- General Info Date of Service: 02/09/18 Admission Dx/Problem (Free Text): Admission Diagnosis/Problem Admission Diagnosis/Problem Gastrointestinal hemorrhage Subjective Update: Feeling better today, had a black dark stool last night, small amount. No chest pain, no dyspnea. No concerns today, really hoping to go home. No abdominal pain , tolerating diet well. Functional Status: Reports: Pain Controlled, Tolerating Diet, Ambulating, Urinating - Review of Systems General: Reports: No Symptoms. Denies: Fever, Weakness, Fatigue HEENT: Reports: No Symptoms. Denies: Headaches, Sore Throat, Visual Changes Pulmonary: Reports: No Symptoms. Denies: Shortness of Breath Cardiovascular: Reports: No Symptoms. Denies: Chest Pain Gastrointestinal: Reports: Melena (last evening.). Denies: Abdominal Pain, Nausea, Vomiting Genitourinary: Reports: No Symptoms. Denies: Dysuria, Frequency, Burning Musculoskeletal: Reports: No Symptoms Skin: Reports: No Symptoms Neurological: Reports: No Symptoms Psychiatric: Reports: No Symptoms - Patient Data Vitals - Most Recent: Last Vital Signs Temp 97.7 F 02/09/18 08:00 Pulse 74 02/09/18 08:00 Resp 18 02/09/18 08:00 BP 123/79 02/09/18 08:00 Pulse Ox 100 02/09/18 08:00 Weight - Most Recent: 120.06 kg I&O - Last 24 Hours: Intake & Output 02/08/18 02/09/18 02/09/18 22:59 06:59 14:59 Intake Total 380 1200 Output Total 2300 1100 Balance -1920 100 Lab Results Last 24 Hours: Laboratory Results - last 24 hr 02/05/18 02/08/18 02/08/18 Range/Units 15:35 11:36 16:44 Hgb (12.0-16.0) g/dL Hct (36.0-46.0) % POC Glucose 93 101 (60-110) mg/dL Crossmatch See Detail 02/09/18 Range/Units 05:08 Hgb 9.0 L (12.0-16.0) g/dL Hct 28.0 L (36.0-46.0) % POC Glucose (60-110) mg/dL Crossmatch Med Orders - Current: Current Medications Ferrous Sulfate (Ferrous Sulfate) 325 mg PO TIDMEALS [facility] Last Admin: 02/09/18 07:53 Dose: 325 mg Levofloxacin/Dextrose 750 mg/ (Premix) 150 mls @ 100 mls/hr IV Q24H [facility] Last Admin: 02/09/18 01:58 Dose: 100 mls/hr Metronidazole 500 mg/ Premix 100 mls @ 100 mls/hr IV TID [facility] Last Admin: 02/09/18 05:01 Dose: 100 mls/hr Pantoprazole Sodium (Protonix Iv) 40 mg IVPUSH Q12H [facility] Last Admin: 02/08/18 22:08 Dose: 40 mg Sodium Chloride (Saline Flush) 10 ml FLUSH ASDIRECTED PRN PRN Reason: Keep Vein Open Discontinued Medications Sodium Chloride (Normal Saline) 1,000 mls @ 999 mls/hr IV STAT ONE Stop: 02/05/18 16:07 Last Admin: 02/05/18 15:45 Dose: 999 mls/hr Lactated Ringer's (Ringers, Lactated) 1,000 mls @ 125 mls/hr IV ASDIRECTED [facility] Last Admin: 02/05/18 22:09 Dose: 125 mls/hr Dextrose/Sodium Chloride (Dextrose 5%-1/2 Ns) 1,000 mls @ 125 mls/hr IV ASDIRECTED [facility] Last Admin: 02/07/18 17:19 Dose: 125 mls/hr Iopamidol (Isovue Multipack-370 (76%)) 80 ml IVPUSH ONETIME [facility] Stop: 02/05/18 17:28 Last Admin: 02/05/18 17:28 Dose: 80 ml - Exam General: Alert, Oriented, Cooperative, No Acute Distress HEENT: Pupils Equal Neck: Supple Lungs: Clear to Auscultation, Normal Respiratory Effort Cardiovascular: Regular Rate, Regular Rhythm GI/Abdominal Exam: Normal Bowel Sounds, Soft, Non-Tender Extremities: Normal Inspection, Normal Range of Motion, Non-Tender Neurological: No New Focal Deficit Psy/Mental Status: Alert, Normal Affect, Normal Mood - Problem List & Annotations (1) Blood per rectum SNOMED Code(s): 48219267 Code(s): K62.5 - HEMORRHAGE OF ANUS AND RECTUM Status: Acute Current Visit: Yes (2) Diabetes mellitus SNOMED Code(s): 56851243 Code(s): E11.9 - TYPE 2 DIABETES MELLITUS WITHOUT COMPLICATIONS Status: Chronic Current Visit: No (3) HTN, Essential hypertension SNOMED Code(s): 03924838 Code(s): I10 - ESSENTIAL (PRIMARY) HYPERTENSION Status: Chronic Current Visit: No - Problem List Review Problem List Initiated/Reviewed/Updated: Yes - My Orders Last 24 Hours: My Active Orders 02/08/18 12:00 Ferrous Sulfate 325 mg PO TIDMEALS - Plan Plan:: 57 yo female admitted for lower GI bleed. 1. Lower GI bleeding: Hgb 9.0 down nearly 1 point over a day. Will monitor today. Continue Low fiber diet. Switch Flagyl and Levaquin to PO today. Continue PO Iron . VS stable. 2. HTN: Holding Lisinopril. BP 110-120 SBP. 3. DM Type 2: Controlled, BS 80-100s. Holding Metformin VTE prophylaxis: SCDs only due to GI bleed Dispo: 1-2 days pending recommendations from Dr Castellanos.
[2018-02-09] MEDS: Pantoprazole 40 MG Vial IVPUSH SCH ×2 (09:24→20:57)
--- NOTE | 2018-02-09 09:59 | PCM.SURGPN ---
- General Info Date of Service: 02/09/18 - Review of Systems General: Reports: No Symptoms Pulmonary: Reports: No Symptoms (BM dark, not yellow, and h/h trended down a bit 9.4 to 9.0; felt good, dwight po) - Patient Data Vitals - Most Recent: Last Vital Signs Temp 97.7 F 02/09/18 08:00 Pulse 74 02/09/18 08:00 Resp 18 02/09/18 08:00 BP 123/79 02/09/18 08:00 Pulse Ox 100 02/09/18 08:00 Weight - Most Recent: 264 lb 11 oz I&O - Last 24 Hours: Intake & Output 02/08/18 02/09/18 02/09/18 22:59 06:59 14:59 Intake Total 380 1200 Output Total 2300 1100 Balance -1920 100 Lab Results Last 24 Hrs: Laboratory Results - last 24 hr 02/05/18 02/08/18 02/08/18 Range/Units 15:35 11:36 16:44 Hgb (12.0-16.0) g/dL Hct (36.0-46.0) % POC Glucose 93 101 (60-110) mg/dL Crossmatch See Detail 02/09/18 Range/Units 05:08 Hgb 9.0 L (12.0-16.0) g/dL Hct 28.0 L (36.0-46.0) % POC Glucose (60-110) mg/dL Crossmatch Med Orders - Current: Current Medications Ferrous Sulfate (Ferrous Sulfate) 325 mg PO TIDMEALS [facility] Last Admin: 02/09/18 07:53 Dose: 325 mg Levofloxacin/Dextrose 750 mg/ (Premix) 150 mls @ 100 mls/hr IV Q24H [facility] Last Admin: 02/09/18 01:58 Dose: 100 mls/hr Metronidazole 500 mg/ Premix 100 mls @ 100 mls/hr IV TID [facility] Last Admin: 02/09/18 05:01 Dose: 100 mls/hr Pantoprazole Sodium (Protonix Iv) 40 mg IVPUSH Q12H [facility] Last Admin: 02/09/18 09:24 Dose: 40 mg Sodium Chloride (Saline Flush) 10 ml FLUSH ASDIRECTED PRN PRN Reason: Keep Vein Open Discontinued Medications Sodium Chloride (Normal Saline) 1,000 mls @ 999 mls/hr IV STAT ONE Stop: 02/05/18 16:07 Last Admin: 02/05/18 15:45 Dose: 999 mls/hr Lactated Ringer's (Ringers, Lactated) 1,000 mls @ 125 mls/hr IV ASDIRECTED [facility] Last Admin: 02/05/18 22:09 Dose: 125 mls/hr Dextrose/Sodium Chloride (Dextrose 5%-1/2 Ns) 1,000 mls @ 125 mls/hr IV ASDIRECTED [facility] Last Admin: 02/07/18 17:19 Dose: 125 mls/hr Iopamidol (Isovue Multipack-370 (76%)) 80 ml IVPUSH ONETIME [facility] Stop: 02/05/18 17:28 Last Admin: 02/05/18 17:28 Dose: 80 ml - Exam General: Alert, Oriented GI/Abdominal Exam: Soft, Non-Tender, No Distention - Problem List Review Problem List Initiated/Reviewed/Updated: Yes - My Orders Last 24 Hours: Active Orders 24 hr Category Date Time Status [employer] [employer] Diet [DIET] Diet 02/09/18 Lunch Active Low Fiber Diet [DIET] Diet 02/09/18 Lunch Active Ferrous Sulfate Med 02/08/18 12:00 Active 325 mg PO TIDMEALS Medication Orders Ferrous Sulfate (Ferrous Sulfate) 325 mg PO TIDMEALS [facility] Last Admin: 02/09/18 07:53 Dose: 325 mg Admin: 02/08/18 17:52 Dose: 325 mg Admin: 02/08/18 12:09 Dose: 325 mg Levofloxacin/Dextrose 750 mg/ (Premix) 150 mls @ 100 mls/hr IV Q24H [facility] Last Admin: 02/09/18 01:58 Dose: 100 mls/hr Infusion: 02/08/18 03:01 Dose: 100 mls/hr Admin: 02/08/18 01:31 Dose: 100 mls/hr Infusion: 02/07/18 03:01 Dose: 100 mls/hr Admin: 02/07/18 01:31 Dose: 100 mls/hr Infusion: 02/06/18 04:02 Dose: 100 mls/hr Admin: 02/06/18 02:32 Dose: 100 mls/hr Metronidazole 500 mg/ Premix 100 mls @ 100 mls/hr IV TID [facility] Last Admin: 02/09/18 05:01 Dose: 100 mls/hr Infusion: 02/08/18 23:09 Dose: 100 mls/hr Admin: 02/08/18 22:09 Dose: 100 mls/hr Infusion: 02/08/18 14:47 Dose: 100 mls/hr Admin: 02/08/18 13:47 Dose: 100 mls/hr Infusion: 02/08/18 06:11 Dose: 100 mls/hr Admin: 02/08/18 05:11 Dose: 100 mls/hr Infusion: 02/07/18 22:07 Dose: 100 mls/hr Admin: 02/07/18 21:07 Dose: 100 mls/hr Infusion: 02/07/18 14:56 Dose: 100 mls/hr Admin: 02/07/18 13:56 Dose: 100 mls/hr Infusion: 02/07/18 06:00 Dose: 100 mls/hr Admin: 02/07/18 05:00 Dose: 100 mls/hr Infusion: 02/06/18 22:00 Dose: 100 mls/hr Admin: 02/06/18 21:00 Dose: 100 mls/hr Infusion: 02/06/18 15:15 Dose: 100 mls/hr Admin: 02/06/18 14:15 Dose: 100 mls/hr Infusion: 02/06/18 06:20 Dose: 100 mls/hr Admin: 02/06/18 05:20 Dose: 100 mls/hr Pantoprazole Sodium (Protonix Iv) 40 mg IVPUSH Q12H [facility] Last Admin: 02/09/18 09:24 Dose: 40 mg Admin: 02/08/18 22:08 Dose: 40 mg Admin: 02/08/18 09:05 Dose: 40 mg Admin: 02/07/18 21:06 Dose: 40 mg Admin: 02/07/18 10:12 Dose: 40 mg Admin: 02/06/18 20:45 Dose: 40 mg Admin: 02/06/18 08:56 Dose: 40 mg Admin: 02/05/18 22:08 Dose: 40 mg Sodium Chloride (Saline Flush) 10 ml FLUSH ASDIRECTED PRN PRN Reason: Keep Vein Open - Assessment Assessment (Free Text/Narrative):: resolving gib, h/h trended down a bit from 9.4 to 9.0; and bm still not brown; keep an eye on h/h, q24, recheck in the morning - Plan Plan (Free Text/Narrative):: resolving gib, h/h trended down a bit from 9.4 to 9.0; and bm still not brown; keep an eye on h/h, q24, recheck in the morning
[2018-02-09] MEDS: metroNIDAZOLE 250 MG Tab PO SCH ×2 (12:12→17:54)
[2018-02-09] MEDS: Sodium Chloride 0.9% 1,000 ML IV SCH (16:07)
[2018-02-10] MEDS ORDERED: Levofloxacin 250 MG Tab PO SCH (00:01)
[2018-02-10] MEDS: metroNIDAZOLE 250 MG Tab PO SCH ×2 (01:16→09:33)
[2018-02-10] MEDS: Sodium Chloride 0.9% 1,000 ML IV SCH (02:07)
[2018-02-10] MEDS ORDERED: Potassium Chloride 20 MEQ Tab.ER PO ONE (08:12)
[2018-02-10 08:20] VITALS: BP 120/70
[2018-02-10] MEDS: Ferrous Sulfate 325 MG Tab PO SCH ×2 (08:32→12:15)
--- NOTE | 2018-02-10 08:54 | PCM.DCSUM1 ---
Discharge Summary - Hospital Course Brief History: 57 yo female who presents with one day history of bright red blood per rectum. The blood fills up the toilet bowel. She denies any abdominal pain, fevers, nausea or vomiting. Patient denies having a problem like this before. CT scan of abdomen obtain in ED reports diverticulosis but no inflammation. - Discharge Data Discharge Date: 02/10/18 Discharge Disposition: Home, Self-Care 01 Condition: Stable - Discharge Diagnosis/Problem(s) (1) Blood per rectum SNOMED Code(s): 92537743 ICD Code: K62.5 - HEMORRHAGE OF ANUS AND RECTUM Status: Acute Current Visit: Yes (2) Diabetes mellitus SNOMED Code(s): 08256897 ICD Code: E11.9 - TYPE 2 DIABETES MELLITUS WITHOUT COMPLICATIONS Status: Chronic Current Visit: No (3) HTN, Essential hypertension SNOMED Code(s): 54335891 ICD Code: I10 - ESSENTIAL (PRIMARY) HYPERTENSION Status: Chronic Current Visit: No - Patient Summary/Data Consults: Consultations 02/05/18 18:30 Consult to Physician [CONS] Stat - Patient Instructions Diet: GI Soft/Low Residue/Low Fiber Activity: As Tolerated, No Strenuous Activities Showering/Bathing: May Shower Notify Provider of: Increased Pain, Nausea and/or Vomiting - Discharge Plan *PRESCRIPTION DRUG MONITORING PROGRAM REVIEWED*: Not Applicable *COPY OF PRESCRIPTION DRUG MONITORING REPORT IN PATIENT JANE: Not Applicable Prescriptions/Med Rec: Ferrous Sulfate 325 mg PO TIDMEALS #90 tablet Levofloxacin [Levaquin] 750 mg PO DAILY #6 tablet metroNIDAZOLE [Flagyl] 500 mg PO Q8H #18 tab Home Medications: Home Meds metFORMIN [Glucophage] 1,000 mg PO BID 02/15/14 [History] Ca/D3/Mag Ox/Zinc/Tobacco Prevention Health Educator/Akira/Bor [Calcium 600-D3 Plus Caplet] 1 tab PO DAILY 12/20 [History] Hydrochlorothiazide 12.5 mg PO DAILY 12/20/16 [History] Lisinopril 20 mg PO DAILY 02/05/18 [History] Ferrous Sulfate 325 mg PO TIDMEALS #90 tablet 02/10/18 [Rx] Levofloxacin [Levaquin] 750 mg PO DAILY #6 tablet 02/10/18 [Rx] metroNIDAZOLE [Flagyl] 500 mg PO Q8H #18 tab 02/10/18 [Rx] Patient Handouts: Iron tablets, capsules, extended-release tablets, Gastrointestinal Bleeding, [id number], Levofloxacin tablets, Ethinyl Estradiol ; Norethindrone; Ferrous fumarate chewable tablets, Metronidazole tablets or capsules Referrals: Nahed Grubbs NP [Primary Care Provider] - 02/15/18 9:15 am Rubén Castellanos MD [Physician] - 03/01/18 11:00 am (follow up in 1-2 weeks ) - Discharge Summary/Plan Comment DC Time >30 min.: No Discharge Summary/Plan Comment: Discharge Diagnoses: Lower GI bleeding Anemia Hx Diverticulosis Ysabel was admitted and treated with Protonix, bowel rest for lower GI bleeding. Dr Castellanos consulted regarding this and suspected diverticular bleeding, started Levaquin and Flagyl. BMS steadily decreased and Hgb remained stable, today 9.2 without the need for blood transfusion. She remains stable. She was started on Iron PO TID and was encouraged to keep low fiber diet. She will be seen as outpatient with Dr Castellanos for colonscopy. She will have antibiotics for 6 more days, 10 day total course of levaquin and Flagyl. She is to monitor stools and if they return bloody, she should seek medical treatment. She is to follow up with PCP in [address] Castellanos in 2 weeks for setting up colonscopy. - General Info Date of Service: 02/10/18 Admission Dx/Problem (Free Text: Admission Diagnosis/Problem Admission Diagnosis/Problem Gastrointestinal hemorrhage Subjective Update: Feeling good this morning, no chest pain or SOB. No lightheadedness or dizziness. No abdominal pain. Tolerating diet well. No BMs since the night prior. Functional Status: Reports: Pain Controlled, Tolerating Diet, Ambulating, Urinating - Review of Systems General: Reports: No Symptoms. Denies: Fever, Weakness, Fatigue Pulmonary: Reports: No Symptoms. Denies: Shortness of Breath Cardiovascular: Reports: No Symptoms. Denies: Chest Pain Gastrointestinal: Reports: No Symptoms. Denies: Abdominal Pain, Nausea Genitourinary: Reports: No Symptoms. Denies: Dysuria, Frequency, Burning Musculoskeletal: Reports: No Symptoms Skin: Reports: No Symptoms Neurological: Reports: No Symptoms Psychiatric: Reports: No Symptoms - Patient Data Vitals - Most Recent: Last Vital Signs Temp 98 F 02/10/18 08:00 Pulse 72 02/10/18 08:00 Resp 16 02/10/18 08:00 BP 120/70 02/10/18 08:00 Pulse Ox 100 02/10/18 08:00 Weight - Most Recent: 120.837 kg I&O - Last 24 hours: Intake & Output 02/09/18 02/10/18 02/10/18 22:59 06:59 14:59 Intake Total 960 2073 Output Total 600 1300 Balance 360 773 Lab Results - Last 24 hrs: Laboratory Results - last 24 hr 02/09/18 02/10/18 02/10/18 Range/Units 15:04 05:50 05:50 Hgb 9.2 L (12.0-16.0) g/dL Hct 28.2 L (36.0-46.0) % Sodium 142 141 (136-145) mmol/L Potassium 3.7 3.4 L (3.5-5.1) mmol/L Chloride 106 106 (98-107) mmol/L Carbon Dioxide 29.9 29.2 (21.0-32.0) mmol/L BUN 14 14 (7.0-18.0) mg/dL Creatinine 1.4 H 1.2 H (0.6-1.0) mg/dL Est Cr Clr Drug Dosing 44.04 51.37 mL/min Estimated GFR (MDRD) 47.3 56.5 ml/min Glucose 109 H 107 H (74-106) mg/dL Calcium 8.7 8.5 (8.5-10.1) mg/dL Total Bilirubin 0.3 (0.2-1.0) mg/dL AST 20 (15-37) IU/L ALT 22 (14-63) IU/L Alkaline Phosphatase 48 (46-116) U/L Total Protein 6.3 L (6.4-8.2) g/dL Albumin 3.2 L (3.4-5.0) g/dL Globulin 3.1 (2.0-3.5) g/dL Albumin/Globulin Ratio 1.0 L (1.3-2.8) Med Orders - Current: Current Medications Ferrous Sulfate (Ferrous Sulfate) 325 mg PO TIDMEALS [facility] Last Admin: 02/10/18 08:32 Dose: 325 mg Sodium Chloride (Normal Saline) 1,000 mls @ 100 mls/hr IV ASDIRECTED [facility] Last Admin: 02/10/18 02:07 Dose: 100 mls/hr Levofloxacin (Levaquin) 750 mg PO Q24H [facility] Last Admin: 02/09/18 23:47 Dose: 750 mg Metronidazole (Metronidazole) 500 mg PO Q8H [facility] Last Admin: 02/10/18 01:16 Dose: 500 mg Pantoprazole Sodium (Protonix Iv) 40 mg IVPUSH Q12H [facility] Last Admin: 02/09/18 20:57 Dose: 40 mg Sodium Chloride (Saline Flush) 10 ml FLUSH ASDIRECTED PRN PRN Reason: Keep Vein Open Discontinued Medications Sodium Chloride (Normal Saline) 1,000 mls @ 999 mls/hr IV STAT ONE Stop: 02/05/18 16:07 Last Admin: 02/05/18 15:45 Dose: 999 mls/hr Lactated Ringer's (Ringers, Lactated) 1,000 mls @ 125 mls/hr IV ASDIRECTED [facility] Last Admin: 02/05/18 22:09 Dose: 125 mls/hr Levofloxacin/Dextrose 750 mg/ (Premix) 150 mls @ 100 mls/hr IV Q24H [facility] Last Admin: 02/09/18 01:58 Dose: 100 mls/hr Metronidazole 500 mg/ Premix 100 mls @ 100 mls/hr IV TID [facility] Last Admin: 02/09/18 05:01 Dose: 100 mls/hr Dextrose/Sodium Chloride (Dextrose 5%-1/2 Ns) 1,000 mls @ 125 mls/hr IV ASDIRECTED [facility] Last Admin: 02/07/18 17:19 Dose: 125 mls/hr Iopamidol (Isovue Multipack-370 (76%)) 80 ml IVPUSH ONETIME STA Stop: 02/05/18 17:28 Last Admin: 02/05/18 17:28 Dose: 80 ml Potassium Chloride (Klor-Con M20) 40 meq PO ONETIME ONE Stop: 02/10/18 08:13 Last Admin: 02/10/18 08:32 Dose: 40 meq - Exam General: Reports: Alert, Oriented, Cooperative, No Acute Distress Neck: Reports: Supple Lungs: Reports: Clear to Auscultation, Normal Respiratory Effort Cardiovascular: Reports: Regular Rate, Regular Rhythm GI/Abdominal Exam: Normal Bowel Sounds, Soft, Non-Tender Extremities: Normal Inspection, Normal Range of Motion, Non-Tender Neurological: Reports: No New Focal Deficit Psy/Mental Status: Reports: Alert, Normal Affect, Normal Mood
[2018-02-10] MEDS: Pantoprazole 40 MG Vial IVPUSH SCH (09:33)
--- NOTE | 2018-02-10 12:24 | PCM.SURGPN ---
- General Info Date of Service: 02/10/18 Functional Status: Reports: Pain Controlled - Review of Systems Pulmonary: Reports: No Symptoms (no more bloody bm) - Patient Data Vitals - Most Recent: Last Vital Signs Temp 98 F 02/10/18 08:00 Pulse 72 02/10/18 08:00 Resp 16 02/10/18 08:00 BP 120/70 02/10/18 08:00 Pulse Ox 100 02/10/18 08:00 Weight - Most Recent: 266 lb 6.4 oz I&O - Last 24 Hours: Intake & Output 02/09/18 02/10/18 02/10/18 22:59 06:59 14:59 Intake Total 960 2073 Output Total 600 1300 Balance 360 773 Lab Results Last 24 Hrs: Laboratory Results - last 24 hr 02/09/18 02/10/18 02/10/18 Range/Units 15:04 05:50 05:50 Hgb 9.2 L (12.0-16.0) g/dL Hct 28.2 L (36.0-46.0) % Sodium 142 141 (136-145) mmol/L Potassium 3.7 3.4 L (3.5-5.1) mmol/L Chloride 106 106 (98-107) mmol/L Carbon Dioxide 29.9 29.2 (21.0-32.0) mmol/L BUN 14 14 (7.0-18.0) mg/dL Creatinine 1.4 H 1.2 H (0.6-1.0) mg/dL Est Cr Clr Drug Dosing 44.04 51.37 mL/min Estimated GFR (MDRD) 47.3 56.5 ml/min Glucose 109 H 107 H (74-106) mg/dL Calcium 8.7 8.5 (8.5-10.1) mg/dL Total Bilirubin 0.3 (0.2-1.0) mg/dL AST 20 (15-37) IU/L ALT 22 (14-63) IU/L Alkaline Phosphatase 48 (46-116) U/L Total Protein 6.3 L (6.4-8.2) g/dL Albumin 3.2 L (3.4-5.0) g/dL Globulin 3.1 (2.0-3.5) g/dL Albumin/Globulin Ratio 1.0 L (1.3-2.8) Med Orders - Current: Current Medications Ferrous Sulfate (Ferrous Sulfate) 325 mg PO TIDMEALS [facility] Last Admin: 02/10/18 12:15 Dose: 325 mg Sodium Chloride (Normal Saline) 1,000 mls @ 100 mls/hr IV ASDIRECTED [facility] Last Admin: 02/10/18 02:07 Dose: 100 mls/hr Levofloxacin (Levaquin) 750 mg PO Q24H [facility] Last Admin: 02/09/18 23:47 Dose: 750 mg Metronidazole (Metronidazole) 500 mg PO Q8H [facility] Last Admin: 02/10/18 09:33 Dose: 500 mg Pantoprazole Sodium (Protonix Iv) 40 mg IVPUSH Q12H [facility] Last Admin: 02/10/18 09:33 Dose: 40 mg Sodium Chloride (Saline Flush) 10 ml FLUSH ASDIRECTED PRN PRN Reason: Keep Vein Open Discontinued Medications Sodium Chloride (Normal Saline) 1,000 mls @ 999 mls/hr IV STAT ONE Stop: 02/05/18 16:07 Last Admin: 02/05/18 15:45 Dose: 999 mls/hr Lactated Ringer's (Ringers, Lactated) 1,000 mls @ 125 mls/hr IV ASDIRECTED [facility] Last Admin: 02/05/18 22:09 Dose: 125 mls/hr Levofloxacin/Dextrose 750 mg/ (Premix) 150 mls @ 100 mls/hr IV Q24H [facility] Last Admin: 02/09/18 01:58 Dose: 100 mls/hr Metronidazole 500 mg/ Premix 100 mls @ 100 mls/hr IV TID [facility] Last Admin: 02/09/18 05:01 Dose: 100 mls/hr Dextrose/Sodium Chloride (Dextrose 5%-1/2 Ns) 1,000 mls @ 125 mls/hr IV ASDIRECTED [facility] Last Admin: 02/07/18 17:19 Dose: 125 mls/hr Iopamidol (Isovue Multipack-370 (76%)) 80 ml IVPUSH ONETIME STA Stop: 02/05/18 17:28 Last Admin: 02/05/18 17:28 Dose: 80 ml Potassium Chloride (Klor-Con M20) 40 meq PO ONETIME ONE Stop: 02/10/18 08:13 Last Admin: 02/10/18 08:32 Dose: 40 meq - Exam General: Alert, Oriented Neck: Supple GI/Abdominal Exam: Soft, Non-Tender - Problem List Review Problem List Initiated/Reviewed/Updated: Yes - My Orders Last 24 Hours: Active Orders 24 hr Category Date Time Status Ready for Discharge [RC] PER UNIT ROUTINE Care 02/10/18 08:54 Active Sodium Chloride 0.9% [Normal Saline] 1,000 ml Med 02/09/18 16:00 Active IV ASDIRECTED levoFLOXacin [Levaquin] Med 02/10/18 00:01 Active 750 mg PO Q24H Medication Orders Ferrous Sulfate (Ferrous Sulfate) 325 mg PO TIDMEALS [facility] Last Admin: 02/10/18 12:15 Dose: 325 mg Admin: 02/10/18 08:32 Dose: 325 mg Admin: 02/09/18 17:54 Dose: 325 mg Admin: 02/09/18 12:09 Dose: 325 mg Admin: 02/09/18 07:53 Dose: 325 mg Admin: 02/08/18 17:52 Dose: 325 mg Admin: 02/08/18 12:09 Dose: 325 mg Sodium Chloride (Normal Saline) 1,000 mls @ 100 mls/hr IV ASDIRECTED [facility] Last Admin: 02/10/18 02:07 Dose: 100 mls/hr Infusion: 02/10/18 02:07 Dose: 100 mls/hr Admin: 02/09/18 16:07 Dose: 100 mls/hr Levofloxacin (Levaquin) 750 mg PO Q24H [facility] Last Admin: 02/09/18 23:47 Dose: 750 mg Metronidazole (Metronidazole) 500 mg PO Q8H [facility] Last Admin: 02/10/18 09:33 Dose: 500 mg Admin: 02/10/18 01:16 Dose: 500 mg Admin: 02/09/18 17:54 Dose: 500 mg Admin: 02/09/18 12:12 Dose: 500 mg Pantoprazole Sodium (Protonix Iv) 40 mg IVPUSH Q12H [facility] Last Admin: 02/10/18 09:33 Dose: 40 mg Admin: 02/09/18 20:57 Dose: 40 mg Admin: 02/09/18 09:24 Dose: 40 mg Admin: 02/08/18 22:08 Dose: 40 mg Admin: 02/08/18 09:05 Dose: 40 mg Admin: 02/07/18 21:06 Dose: 40 mg Admin: 02/07/18 10:12 Dose: 40 mg Admin: 02/06/18 20:45 Dose: 40 mg Admin: 02/06/18 08:56 Dose: 40 mg Admin: 02/05/18 22:08 Dose: 40 mg Sodium Chloride (Saline Flush) 10 ml FLUSH ASDIRECTED PRN PRN Reason: Keep Vein Open - Assessment Assessment (Free Text/Narrative):: home; fu w me 2 wk for colonoscopy scheduling; thanks for the consult - Plan Plan (Free Text/Narrative):: home; fu w me 2 wk for colonoscopy scheduling; thanks for the consult
== END 2018-02-10 12:59 | disposition home or self-care (01) | DRG 379 ==
LOC: MW.ED 14:45 → MW.MS 18:38
PROVIDERS: ADMIT Internal Medicine; ATTEND Internal Medicine
DX: K62.5 Hemorrhage of anus and rectum (principal); K57.30 Diverticulosis of large intestine without perforation or abscess without bleeding; E11.9 Type 2 diabetes mellitus without complications; I10 Essential (primary) hypertension; F41.9 Anxiety disorder, unspecified; Z88.0 Allergy status to penicillin; Z88.8 Allergy status to other drugs, medicaments and biological substances; Z79.899 Other long term (current) drug therapy
CPT/HCPCS: 36415; 74177; 74177-26; 80048; 80053; 81001; 82150; 82962; 83690; 85014; 85018; 85025; 85027; 85610; 85652; 86140; 86677; 86850; 86900; 86901; 86920; 86921; 86922; 87046; 87899; 96360; 96361; 99283; 99284-25; A9270-GY; C9113; J1956; J3490; J7040; J7042; J7120; Q9967

== ENCOUNTER 2018-03-19 07:58 | Day surgery (SDC) | payer OTHER ==
[~2018-03-19 07:58] MED LIST: Lactated Ringers 1,000 ML IV SCH
[2018-03-19] MEDS ORDERED: Lidocaine 2% 5 ML SDV ONE (08:19)
[2018-03-19] MEDS ORDERED: Propofol 200 MG/20 ML SDV ONE ×2 (08:19→09:58)
[2018-03-19] MEDS ORDERED: fentaNYL 100 MCG/2 ML SDV ONE (08:19)
[2018-03-19] MEDS ORDERED: Midazolam 1 MG/ML 2 ML SDV ONE (08:20)
--- NOTE | 2018-03-19 09:11 | PCM.PREANE ---
Preanesthetic Assessment - Anesthesia/Transfusion/Family Hx Anesthesia History: Prior Anesthesia Without Reaction Transfusion History: No Prior Transfusion(s) - Review of Systems General: No Symptoms Pulmonary: No Symptoms Cardiovascular: No Symptoms Gastrointestinal: No Symptoms Neurological: No Symptoms Other: Reports: None - Physical Assessment NPO Status Date: 03/18/18 NPO Status Time: 22:00 Height: 5 ft 7 in Weight: 118.841 kg ASA Class: 2 Mental Status: Alert & Oriented x3 Airway Class: Mallampati = 2 Dentition: Reports: Normal Dentition Thyro-Mental Finger Breadths: 3 Mouth Opening Finger Breadths: 3 ROM/Head Extension: Full Lungs: Clear to Auscultation, Normal Respiratory Effort Cardiovascular: Regular Rate, Regular Rhythm - Allergies Allergies/Adverse Reactions: Allergies Allergy/AdvReac Type Severity Reaction Status Date / Time chloroquine Allergy Unknown Rash Verified 03/16/18 11:05 Penicillins Allergy Fainting Verified 03/16/18 11:05 - Anesthesia Plan Free Text/Narrative:: Chest pain work up was essentially negative from what the patient tells me on exam. She is not a good historian regarding her health history. Previous EKG and ECHO were reviewed. - Acknowledgements Anesthesia Type Planned: MAC Pt an Appropriate Candidate for the Planned Anesthesia: Yes Alternatives and Risks of Anesthesia Discussed w Pt/Guardian: Yes Pt/Guardian Understands and Agrees with Anesthesia Plan: Yes PreAnesthesia Questionnaire HEENT History: Reports: Other (See Below) Other HEENT History: uses reading glasses Cardiovascular History: Reports: Hypertension Respiratory History: Reports: None Gastrointestinal History: Reports: GERD, GI Bleed Genitourinary History: Reports: None [employer] History: Reports: Musculoskeletal History: Reports: None Neurological History: Reports: None Psychiatric History: Reports: Anxiety Endocrine/Metabolic History: Reports: Diabetes, Type II, Obesity/BMI 30+ Hematologic History: Reports: Anemia Immunologic History: Reports: None Oncologic (Cancer) History: Reports: None Dermatologic History: Reports: None - Infectious Disease History Infectious Disease History: Reports: None - Past Surgical History GI Surgical History: Reports: Hernia, Inguinal - SUBSTANCE USE Smoking Status *Q: Never Smoker Recreational Drug Use History: No - HOME MEDS Home Medications: Home Meds Hydrochlorothiazide 25 mg PO DAILY 12/20/16 [History] Lisinopril 10 mg PO DAILY 02/05/18 [History] Ferrous Sulfate 325 mg PO DAILY 03/16/18 [History] Vitamin B Complex [B Complex] 1 tab PO DAILY 03/16/18 [History] metFORMIN [Glucophage] 500 mg PO BIDMEALS 03/16/18 [History] - CURRENT (IN HOUSE) MEDS Current Meds: Current Medications Lactated Ringer's (Ringers, Lactated) 1,000 mls @ 125 mls/hr IV ASDIRECTED [facility] Discontinued Medications Fentanyl (Sublimaze) Confirm Administered Dose 100 mcg .ROUTE .STK-MED ONE Stop: 03/19/18 08:20 Lidocaine (Xylocaine-Mpf 2%) Confirm Administered Dose 10 ml .ROUTE .STK-MED ONE Stop: 03/19/18 08:20 Midazolam HCl (Versed 1 Mg/Ml) Confirm Administered Dose 2 mg .ROUTE .STK-MED ONE Stop: 03/19/18 08:21 Propofol (Diprivan 20 Ml) Confirm Administered Dose 400 mg .ROUTE .STK-MED ONE Stop: 03/19/18 08:20
--- NOTE | 2018-03-19 10:19 | PCM.OPNOTE ---
- General Post-Op/Procedure Note Date of Surgery/Procedure: 03/19/18 Operative Procedure(s): egd w bx. colonoscopy w bx Findings: see dict [id number] Pre Op Diagnosis: diverticulitis and anemia Post-Op Diagnosis: Same Anesthesia Technique: Moderate Sedation Primary Surgeon: Rubén Castellanos Complications: None Condition: Good
--- NOTE | 2018-03-19 11:28 | PCM48HPAN ---
Post Anesthesia Note - EVALUATION WITHIN 48HRS OF ANESTHETIC Vital Signs in Normal Range: Yes Patient Participated in Evaluation: Yes Respiratory Function Stable: Yes Airway Patent: Yes Cardiovascular Function Stable: Yes Hydration Status Stable: Yes Pain Control Satisfactory: Yes Nausea and Vomiting Control Satisfactory: Yes Mental Status Recovered: Yes Resp Rate: 19 - COMMENTS/OBSERVATIONS Free Text/Narrative:: no anesthesia problems
[2018-03-19 13:59] VITALS: BP 124/68
--- NOTE | 2018-03-20 01:14 | OR ---
SURGEON: Rubén Castellanos MD DATE OF PROCEDURE: 03/19/2018 PREOPERATIVE DIAGNOSES: Diverticulitis and rectal bleeding. POSTOPERATIVE DIAGNOSES: Esophagogastroduodenoscopy diagnosis: Gastroesophageal reflux disease. Colonoscopy diagnosis: Diverticulosis. PROCEDURE PERFORMED: EGD with biopsy and colonoscopy with biopsy. PROCEDURE IN DETAIL: EGD: The patient was taken to the endoscopy room, and with the [employer], Diprivan was administered. A well-lubricated EGD scope was gently inserted through the oropharynx, down the esophagus, passing through the gastroesophageal junction, into the stomach. The mucosa was examined upon the passage. Any etiology will be noted. Once in the stomach, we continued to advance to the distal antrum, passed through the pylorus into the second portion of the duodenum. Again, the mucosa was examined for any abnormality and etiology. The scope was then retrieved back to the stomach and then retroflexed to look at the fundus of the stomach. If a biopsy was indicated, we will biopsy the antrum, body, and gastroesophageal junction. The air will be sucked out while the scope is retrieved to reduce the patient's discomfort. The patient tolerated the procedure well. There were no intraoperative complications. Dr. Castellanos was present through the whole procedure. Prior to surgery, a time-out had been called, the patient identified, procedure identified and antibiotic administered. Colonoscopy procedure: The patient was taken to the endoscopy room. A time out was called, patient identified, and procedure identified. Diprivan was then administrated. Patient went from awake to sleep, hearing doctor talking or door closing is normal. Perineum inspection and digital examination were then performed. A well- lubricated colonoscope was gently inserted through the rectum, advanced past the rectosigmoid junction, the descending colon, splenic flexure, transverse colon, hepatic flexure, ascending colon, arrived to the cecum. Cecum was identified as dictated in the finding. Then the scope was carefully withdrawn while attention was paid to the mucosal surface for any abnormality. Air will be sucked out during the scope withdrawal. At the rectum, retroflexed to examine any rectal diseases, fistula or hemorrhoids. During mucosal examination, biopsy performed. Patient tolerated the procedure well. There were no intraoperative complications, and Dr. Castellanos was present throughout the whole procedure. FINDINGS: EGD findings: 1. The patient is easily sedated with [employer] and Diprivan. The patient is soundly snoring. 2. Oropharynx and proximal esophagus are free of disease and distal esophagus at distance at 38 shows mild salmon-color change consistent with mild GERD. Stomach rugae is normal in appearance. Large amount of bile. No food particle, blood, ulcer observed, and antrum is a little bit inflamed. Duodenum was grossly normal. Scope retrieved back to the stomach. Retroflexed look at the fundus of stomach, there is no hiatal hernia. Biopsy done at antrum, body, GE junction at 40 and sucked out the air while scope coming out. Colonoscopy findings: 1. The patient is easily sedated with [employer] and Diprivan. The patient is soundly snoring. 2. Bowel prep was average to a little below average. Large amount of liquid stool, opaque, and compromised study. This is a compromised study because of bowel prep. Colon is rather straight forward. Cecum indicated by ileocecal fold, one-to-one indentation, light emittance, and appendiceal orifice is not observed, and mucosa was examined while scope pulling out with constant irrigation, and the patient has diverticulosis at the left colon and transverse colon, very mild couple of them. No signs or symptoms of diverticulitis. 3. There is a 2 cm mass more currently is like an invagination of the diverticula into the colon and if you push it, it is kind of dimple. Because of the dimpling, it is not concerned whether this is invagination or a colon polyp. Two biopsy done prior, need to be monitored for the same thing in 6 months of colonoscopy. Again, there was no polyp picture, but it is kind of invagination into the colon. Distance 90 when the scope go in and distance 70 when the scope come out, like on the splenic fracture. Then, there is normal observable abnormality and the patient has some mild internal hemorrhoids. No external hemorrhoids. The patient would benefit from a repeat colonoscopy in 6 months from today because of the questionable polyp or invagination. We were not able to find out the lower limit of the diverticula. Again, there is diverticula, but there are no signs or symptoms of diverticulitis. ANJU / MARGARITA /[id number] LALO
== END 2018-03-19 12:00 | disposition home or self-care (01) ==
LOC: MW.SDS 07:58
PROVIDERS: ATTEND Surgery
DX: D64.9 Anemia, unspecified (principal); K29.50 Unspecified chronic gastritis without bleeding; K20.9 Esophagitis, unspecified; K63.9 Disease of intestine, unspecified; K21.9 Gastro-esophageal reflux disease without esophagitis; K57.30 Diverticulosis of large intestine without perforation or abscess without bleeding; K64.8 Other hemorrhoids; I10 Essential (primary) hypertension; E11.9 Type 2 diabetes mellitus without complications; E66.01 Morbid (severe) obesity due to excess calories; Z68.41 Body mass index [BMI] 40.0-44.9, adult; F41.9 Anxiety disorder, unspecified; Z79.84 Long term (current) use of oral hypoglycemic drugs; Z79.899 Other long term (current) drug therapy; Z88.8 Allergy status to other drugs, medicaments and biological substances
CPT/HCPCS: 43239; 45380; J2250; J2704; J3010; J7120; 00813

== ENCOUNTER 2020-08-13 11:14 | Inpatient (IN) | payer OTHER ==
[2020-08-13] MEDS ORDERED: Sodium Chloride 0.9% 10 ML Syringe FLUSH PRN (11:23)
[2020-08-13] MEDS ORDERED: Sodium Chloride 0.9% 1,000 ML IV ONE (11:30)
[2020-08-13] MEDS: Sodium Chloride 0.9% 2.5 ML Syringe FLUSH PRN (11:30)
--- NOTE | 2020-08-13 11:43 | EDM.PDOC ---
ED HPI GENERAL MEDICAL PROBLEM - General Chief Complaint: Respiratory Problem Stated Complaint: DIZZY PAIN Time Seen by Provider: 08/13/20 11:22 Source of Information: Reports: Patient History Limitations: Reports: No Limitations - History of Present Illness INITIAL COMMENTS - FREE TEXT/NARRATIVE: 60-year-old female history of HTN, DM, HLD, malaria presents with worsening dyspnea for 3 days, dizziness. She also notes chest pain localized to the substernal that is constant for 3 days. She admits to dry cough, chills, generalized malaise, diffuse myalgia, diarrhea. She was tested negative for Covid on Thursday. She denies fever, nausea. She also notes left lower quadrant and left flank pain for 1 week. She denies dysuria or hematuria. She is from [facility], last travel 10 years ago. ROS: A 10-point review of systems, other than pertinent positives and negatives as stated per HPI, is otherwise negative Past medical history: No additional pertinent history Past Surgical history: No additional pertinent history Social history: No additional pertinent history Family history: No additional pertinent history PHYSICAL EXAM General: AOx4, GCS = 15, obese, mild distress HEENT: dry mucous membrane Neck: supple, no meningismus, no Kernig or Brudzinski Cardiac: S1S2 RRR Respiratory: CTAB, no crackles or rales, no wheezing Abdomen: Soft, LLQ ttp, left CVAT, no rebound or guarding, nondistended, no pulsatile mass. Back: nontender Musculoskeletal: NVI distally, no deformity Neuro: No focal deficits. - Related Data Allergies Allergy/AdvReac Type Severity Reaction Status Date / Time chloroquine Allergy Unknown Rash Verified 08/13/20 11:22 Penicillins Allergy Fainting Verified 08/13/20 11:22 Home Meds: Home Meds Hydrochlorothiazide 25 mg PO DAILY 12/20/16 [History] Lisinopril 10 mg PO DAILY 02/05/18 [History] Ferrous Sulfate 325 mg PO DAILY 03/16/18 [History] Vitamin B Complex [B Complex] 1 tab PO DAILY 03/16/18 [History] metFORMIN [Glucophage] 500 mg PO BIDMEALS 03/16/18 [History] Past Medical History HEENT History: Reports: Other (See Below) Other HEENT History: uses reading glasses Cardiovascular History: Reports: High Cholesterol, Hypertension Respiratory History: Reports: None Gastrointestinal History: Reports: GERD, GI Bleed Genitourinary History: Reports: None [employer] History: Reports: Musculoskeletal History: Reports: None Neurological History: Reports: None Psychiatric History: Reports: Anxiety Endocrine/Metabolic History: Reports: Diabetes, Type II, Obesity/BMI 30+ Hematologic History: Reports: Anemia Immunologic History: Reports: None Oncologic (Cancer) History: Reports: None Dermatologic History: Reports: None - Infectious Disease History Infectious Disease History: Reports: None - Past Surgical History GI Surgical History: Reports: Hernia, Inguinal Social & Family History - Family History Family Medical History: Unobtainable Cardiac: Reports: High Cholesterol, Hypertension Endocrine/Metabolic: Reports: Diabetes, type II - Tobacco Use Tobacco Use Status *Q: Never Tobacco User - Caffeine Use Caffeine Use: Reports: None Caffeine Use Comment: 1 cup daily - Recreational Drug Use Recreational Drug Use: No ED ROS GENERAL - Review of Systems Review Of Systems: See Below (see dictation) ED EXAM, GENERAL - Physical Exam Exam: See Below (see dictation) #1 Interpretation EKG Interpretation Comments: 75 bpm, NSR, normal QRS interval, no STEMI. EKG and rhythm strip interpreted by me at 1119 Course - Vital Signs Last Recorded V/S: Last Vital Signs Temp 98.1 F 08/13/20 11:22 Pulse 51 L 08/13/20 13:23 Resp 20 08/13/20 13:23 BP 97/53 L 08/13/20 13:23 Pulse Ox 98 08/13/20 13:23 - Orders/Labs/Meds Orders: Active Orders 24 hr Category Date Time Status Patient Status [ADT] Routine ADT 08/13/20 14:00 Ordered Cardiac Monitoring [RC] . DIRECTED Care 08/13/20 11:23 Active EKG Documentation Completion [RC] STAT Care 08/13/20 11:25 Active Pulse Oximetry [RC] ASDIRECTED Care 08/13/20 11:23 Active CULTURE BLOOD [BC] Stat Lab 08/13/20 11:25 Received CULTURE BLOOD [BC] Stat Lab 08/13/20 11:55 Received PROCALCITONIN [REF] Stat Lab 08/13/20 11:25 Received UA W/CHANTELLE RFLX IF INDICATED [URIN] Stat Lab 08/13/20 11:24 Ordered Azithromycin [Zithromax] 500 mg Med 08/13/20 13:00 Active Sodium Chloride 0.9% [Normal Saline (AdvBag)] 250 ml IV ONETIME Sodium Chloride 0.9% [Saline Flush] Med 08/13/20 11:23 Active 10 ml FLUSH ASDIRECTED PRN Sodium Chloride 0.9% [Saline Flush] Med 08/13/20 11:23 Active 2.5 ml FLUSH ASDIRECTED PRN Blood Culture x2 Reflex Set [OM.PC] Stat Oth 08/13/20 11:24 Ordered Isolation [COMM] Routine Oth 08/13/20 11:26 Active Saline Lock Insert [OM.PC] Stat Oth 08/13/20 11:23 Ordered Medication Orders Azithromycin 500 mg/ Sodium (Chloride) 250 mls @ 250 mls/hr IV ONETIME BERNARDO Sodium Chloride (Saline Flush) 10 ml FLUSH ASDIRECTED PRN PRN Reason: Keep Vein Open Last Admin: 08/13/20 11:30 Dose: 10 ml Documented by: ADITI Sodium Chloride (Saline Flush) 2.5 ml FLUSH ASDIRECTED PRN PRN Reason: Keep Vein Open Last Admin: 08/13/20 11:30 Dose: 2.5 ml Documented by: ADITI Labs: Laboratory Tests 08/13/20 08/13/20 08/13/20 Range/Units 11:23 11:25 11:25 WBC 4.47 (4.0-11.0) K/uL RBC 5.00 (4.30-5.90) M/uL Hgb 13.6 (12.0-16.0) g/dL Hct 42.0 (36.0-46.0) % MCV 84.0 (80.0-98.0) fL MCH 27.2 (27.0-32.0) pg MCHC 32.4 (31.0-37.0) g/dL RDW Std Deviation 43.7 (28.0-62.0) fl RDW Coeff of Joel 14 (11.0-15.0) % Plt Count 232 (150-400) K/uL MPV 10.40 (7.40-12.00) fL Neut % (Auto) 59.6 (48.0-80.0) % Lymph % (Auto) 28.2 (16.0-40.0) % Nolan % (Auto) 11.6 (0.0-15.0) % Eos % (Auto) 0.2 (0.0-7.0) % Baso % (Auto) 0.4 (0.0-1.5) % Neut # (Auto) 2.7 (1.4-5.7) K/uL Lymph # (Auto) 1.3 (0.6-2.4) K/uL Nolan # (Auto) 0.5 (0.0-0.8) K/uL Eos # (Auto) 0.0 (0.0-0.7) K/uL Baso # (Auto) 0.0 (0.0-0.1) K/uL Nucleated RBC % 0.0 /100WBC Nucleated RBCs # 0 K/uL ESR (0-29) mm/hr INR APTT (18.6-31.3) SEC D-Dimer, Quantitative (0.0-0.50) mg/L FEU ABG pH (7.35-7.45) ABG pCO2 (35-45) mmHG ABG pO2 (75-100) mmHG ABG HCO3 (22-26) mEq/L ABG Total CO2 ABG Base Excess (-2.0-2.0) Lactate 0.8 (0.20-2.00) mmol/L Sodium (136-145) mmol/L Potassium (3.5-5.1) mmol/L Chloride (98-107) mmol/L Carbon Dioxide (21.0-32.0) mmol/L BUN (7.0-18.0) mg/dL Creatinine (0.6-1.0) mg/dL Est Cr Clr Drug Dosing mL/min Estimated GFR (MDRD) ml/min Glucose (74-106) mg/dL Calcium (8.5-10.1) mg/dL Phosphorus (2.6-4.7) mg/dL Magnesium (1.8-2.4) mg/dL Ferritin (8-252) ng/mL Total Bilirubin (0.2-1.0) mg/dL AST (15-37) IU/L ALT (14-63) IU/L Alkaline Phosphatase (46-116) U/L Lactate Dehydrogenase (81-234) U/L Troponin I (0.000-0.056) ng/mL C-Reactive Protein (0.00-0.90) mg/dL B-Natriuretic Peptide (<100) PG/ML Total Protein (6.4-8.2) g/dL Albumin (3.4-5.0) g/dL Globulin (2.6-4.0) g/dL Albumin/Globulin Ratio (0.9-1.6) Lipase (73-393) U/L Influenza Type A RNA NEGATIVE (NEGATIVE) Influenza Type B RNA NEGATIVE (NEGATIVE) SARS-CoV-2 RNA (JAYLA) POSITIVE H (NEGATIVE) 08/13/20 08/13/20 08/13/20 Range/Units 11:25 11:25 11:25 WBC (4.0-11.0) K/uL RBC (4.30-5.90) M/uL Hgb (12.0-16.0) g/dL Hct (36.0-46.0) % MCV (80.0-98.0) fL MCH (27.0-32.0) pg MCHC (31.0-37.0) g/dL RDW Std Deviation (28.0-62.0) fl RDW Coeff of Joel (11.0-15.0) % Plt Count (150-400) K/uL MPV (7.40-12.00) fL Neut % (Auto) (48.0-80.0) % Lymph % (Auto) (16.0-40.0) % Nolan % (Auto) (0.0-15.0) % Eos % (Auto) (0.0-7.0) % Baso % (Auto) (0.0-1.5) % Neut # (Auto) (1.4-5.7) K/uL Lymph # (Auto) (0.6-2.4) K/uL Nolan # (Auto) (0.0-0.8) K/uL Eos # (Auto) (0.0-0.7) K/uL Baso # (Auto) (0.0-0.1) K/uL Nucleated RBC % /100WBC Nucleated RBCs # K/uL ESR 45 H (0-29) mm/hr INR 0.94 APTT 27.0 (18.6-31.3) SEC D-Dimer, Quantitative 0.79 H (0.0-0.50) mg/L FEU ABG pH (7.35-7.45) ABG pCO2 (35-45) mmHG ABG pO2 (75-100) mmHG ABG HCO3 (22-26) mEq/L ABG Total CO2 ABG Base Excess (-2.0-2.0) Lactate (0.20-2.00) mmol/L Sodium 136 (136-145) mmol/L Potassium 4.2 (3.5-5.1) mmol/L Chloride 100 (98-107) mmol/L Carbon Dioxide 26.8 (21.0-32.0) mmol/L BUN 23 H (7.0-18.0) mg/dL Creatinine 1.9 H (0.6-1.0) mg/dL Est Cr Clr Drug Dosing 31.38 mL/min Estimated GFR (MDRD) 32.9 ml/min Glucose 106 (74-106) mg/dL Calcium 9.1 (8.5-10.1) mg/dL Phosphorus 2.9 (2.6-4.7) mg/dL Magnesium 2.4 (1.8-2.4) mg/dL Ferritin (8-252) ng/mL Total Bilirubin 0.5 (0.2-1.0) mg/dL AST 40 H (15-37) IU/L ALT 29 (14-63) IU/L Alkaline Phosphatase 54 (46-116) U/L Lactate Dehydrogenase 409 H (81-234) U/L Troponin I < 0.050 (0.000-0.056) ng/mL C-Reactive Protein 5.80 H (0.00-0.90) mg/dL B-Natriuretic Peptide (<100) PG/ML Total Protein 7.8 (6.4-8.2) g/dL Albumin 3.2 L (3.4-5.0) g/dL Globulin 4.6 H (2.6-4.0) g/dL Albumin/Globulin Ratio 0.7 L (0.9-1.6) Lipase 142 (73-393) U/L Influenza Type A RNA (NEGATIVE) Influenza Type B RNA (NEGATIVE) SARS-CoV-2 RNA (JAYLA) (NEGATIVE) 08/13/20 08/13/20 08/13/20 Range/Units 11:25 11:25 12:53 WBC (4.0-11.0) K/uL RBC (4.30-5.90) M/uL Hgb (12.0-16.0) g/dL Hct (36.0-46.0) % MCV (80.0-98.0) fL MCH (27.0-32.0) pg MCHC (31.0-37.0) g/dL RDW Std Deviation (28.0-62.0) fl RDW Coeff of Joel (11.0-15.0) % Plt Count (150-400) K/uL MPV (7.40-12.00) fL Neut % (Auto) (48.0-80.0) % Lymph % (Auto) (16.0-40.0) % Nolan % (Auto) (0.0-15.0) % Eos % (Auto) (0.0-7.0) % Baso % (Auto) (0.0-1.5) % Neut # (Auto) (1.4-5.7) K/uL Lymph # (Auto) (0.6-2.4) K/uL Nolan # (Auto) (0.0-0.8) K/uL Eos # (Auto) (0.0-0.7) K/uL Baso # (Auto) (0.0-0.1) K/uL Nucleated RBC % /100WBC Nucleated RBCs # K/uL ESR (0-29) mm/hr INR APTT (18.6-31.3) SEC D-Dimer, Quantitative (0.0-0.50) mg/L FEU ABG pH 7.420 (7.35-7.45) ABG pCO2 38 (35-45) mmHG ABG pO2 79 (75-100) mmHG ABG HCO3 25 (22-26) mEq/L ABG Total CO2 22.3 ABG Base Excess 0.3 (-2.0-2.0) Lactate (0.20-2.00) mmol/L Sodium (136-145) mmol/L Potassium (3.5-5.1) mmol/L Chloride (98-107) mmol/L Carbon Dioxide (21.0-32.0) mmol/L BUN (7.0-18.0) mg/dL Creatinine (0.6-1.0) mg/dL Est Cr Clr Drug Dosing mL/min Estimated GFR (MDRD) ml/min Glucose (74-106) mg/dL Calcium (8.5-10.1) mg/dL Phosphorus (2.6-4.7) mg/dL Magnesium (1.8-2.4) mg/dL Ferritin 605 H (8-252) ng/mL Total Bilirubin (0.2-1.0) mg/dL AST (15-37) IU/L ALT (14-63) IU/L Alkaline Phosphatase (46-116) U/L Lactate Dehydrogenase (81-234) U/L Troponin I (0.000-0.056) ng/mL C-Reactive Protein (0.00-0.90) mg/dL B-Natriuretic Peptide 6 (<100) PG/ML Total Protein (6.4-8.2) g/dL Albumin (3.4-5.0) g/dL Globulin (2.6-4.0) g/dL Albumin/Globulin Ratio (0.9-1.6) Lipase (73-393) U/L Influenza Type A RNA (NEGATIVE) Influenza Type B RNA (NEGATIVE) SARS-CoV-2 RNA (JAYLA) (NEGATIVE) Meds: Medications Generic Name Dose Route Start Last Admin Trade Name Freq PRN Reason Stop Dose Admin Azithromycin 500 mg/ Sodium 250 mls @ 250 mls/hr 08/13/20 13:00 Chloride IV ONETIME BERNARDO Sodium Chloride 10 ml 08/13/20 11:23 08/13/20 11:30 Saline Flush FLUSH 10 ml ASDIRECTED PRN Administration Keep Vein Open Sodium Chloride 2.5 ml 08/13/20 11:23 08/13/20 11:30 Saline Flush FLUSH 2.5 ml ASDIRECTED PRN Administration Keep Vein Open Discontinued Medications Generic Name Dose Route Start Last Admin Trade Name Freq PRN Reason Stop Dose Admin Dexamethasone 6 mg 08/13/20 13:00 08/13/20 13:20 Decadron IVPUSH 08/13/20 13:01 6 mg ONETIME ONE Administration Sodium Chloride 1,000 mls @ 999 mls/hr 08/13/20 11:30 08/13/20 11:31 Normal Saline IV 08/13/20 12:30 999 mls/hr .Bolus ONE Administration Ceftriaxone Sodium/Dextrose 1 50 mls @ 100 mls/hr 08/13/20 13:00 08/13/20 13:20 gm/ Premix IV 08/13/20 13:29 100 mls/hr ONETIME ONE Administration - Re-Assessments/Exams Free Text/Narrative Re-Assessment/Exam: 08/13/20 1402: Case discussed with Dr. Barajas, who agrees to admit patient. The hospitalist's documentation supersedes all other documentation on this patient with regard to any conflicts or discrepancies from this point forward. Any emergency conditions have been treated to the ability of the ED prior to admission. MEDICAL DECISION MAKING: I reviewed the patients past medical records, lab and radiographic findings. I discussed the case with the patient. My differential diagnosis included: Covid, pneumonia, CHF, ACS. Patient's creatinine today = 1.9, increased from her baseline of 1.1 on 03/01/2018. Her symptoms were worrisome for Covid. She was tested positive for Covid here today despite testing -1-week ago. CT chest demonstrated diffuse bilateral interstitial groundglass opacity consistent with Covid pneumonia, she was covered with Rocephin, azithromycin, dexamethasone 6 mg since she was hypoxic. CRITCAL CARE: The high probability of sudden, clinically significant deterioration in the patient's condition required the highest level of my preparedness to intervene urgently. The services I provided to this patient were to treat and/or prevent clinically significant deterioration. Services included the following: chart data review, reviewing nursing notes and/or old charts, documentation time, quality consultant collaboration regarding findings and treatment options, medication orders and management, direct patient care, vital sign assessments and ordering, interpreting and reviewing diagnostic studies/lab tests. Aggregate critical care time includes only time during which I was engaged in work directly related to the patient's care, as described above, whether at the bedside or elsewhere in the Emergency Department. It did not include time spent performing other reported procedures or the services of residents, students, nurses or physician assistants. Frequent interventions and/or frequent repeat evaluations were required as well as counseling and coordination of care regarding prognosis, treatments, and discussions with patient, staff and consultants. Critical Care (excluding other procedures): 40 minutes Departure - Departure Time of Disposition: 12:23 Disposition: Admitted As Inpatient 68 Condition: Good Clinical Impression: Hypoxemia, ANGELIA (acute kidney injury), COVID-19, Pneumonia, Diverticulosis - Discharge Information *PRESCRIPTION DRUG MONITORING PROGRAM REVIEWED*: Not Applicable *COPY OF PRESCRIPTION DRUG MONITORING REPORT IN PATIENT JANE: Not Applicable Instructions: Shortness of Breath, Adult, [id number], Hypoxemia, Diverticulosis, COVID-19, Acute Kidney Injury, Adult, Community-Acquired Pneumonia, Adult, [id number], Prevent the Spread of COVID-19 if You Are Sick - CDC Forms: ED Department Discharge Sepsis Event Note (ED) - Evaluation Sepsis Screening Result: No Definite Risk - Focused Exam Vital Signs: Vital Signs Temp Pulse Resp BP Pulse Ox 08/13/20 13:23 51 L 20 97/53 L 98 08/13/20 12:30 61 20 102/59 L 100 08/13/20 12:18 67 20 92/56 L 96 08/13/20 11:44 60 20 95/60 97 08/13/20 11:27 81 20 93/66 98 08/13/20 11:22 98.1 F 76 20 98/72 86 L - My Orders Last 24 Hours: My Active Orders 08/13/20 11:23 Cardiac Monitoring [RC] . DIRECTED Pulse Oximetry [RC] ASDIRECTED Sodium Chloride 0.9% [Saline Flush] 10 ml FLUSH ASDIRECTED PRN Sodium Chloride 0.9% [Saline Flush] 2.5 ml FLUSH ASDIRECTED PRN Saline Lock Insert [OM.PC] Stat 08/13/20 11:24 UA W/CHANTELLE RFLX IF INDICATED [URIN] Stat Blood Culture x2 Reflex Set [OM.PC] Stat 08/13/20 11:25 EKG Documentation Completion [RC] STAT CULTURE BLOOD [BC] Stat PROCALCITONIN [REF] Stat 08/13/20 11:26 Isolation [COMM] Routine 08/13/20 11:55 CULTURE BLOOD [BC] Stat 08/13/20 13:00 Azithromycin [Zithromax] 500 mg Sodium Chloride 0.9% [Normal Saline (AdvBag)] 250 ml IV ONETIME 08/13/20 14:00 Patient Status [ADT] Routine - Assessment/Plan Last 24 Hours: My Active Orders 08/13/20 11:23 Cardiac Monitoring [RC] . DIRECTED Pulse Oximetry [RC] ASDIRECTED Sodium Chloride 0.9% [Saline Flush] 10 ml FLUSH ASDIRECTED PRN Sodium Chloride 0.9% [Saline Flush] 2.5 ml FLUSH ASDIRECTED PRN Saline Lock Insert [OM.PC] Stat 08/13/20 11:24 UA W/CHANTELLE RFLX IF INDICATED [URIN] Stat Blood Culture x2 Reflex Set [OM.PC] Stat 08/13/20 11:25 EKG Documentation Completion [RC] STAT CULTURE BLOOD [BC] Stat PROCALCITONIN [REF] Stat 08/13/20 11:26 Isolation [COMM] Routine 08/13/20 11:55 CULTURE BLOOD [BC] Stat 08/13/20 13:00 Azithromycin [Zithromax] 500 mg Sodium Chloride 0.9% [Normal Saline (AdvBag)] 250 ml IV ONETIME 08/13/20 14:00 Patient Status [ADT] Routine
[2020-08-13 12:11] LABS: BLOOD UREA NITROGEN,BUN 23 mg/dL (7.0-18.0); CARBON DIOXIDE,CO2 26.8 mmol/L (21.0-32.0); CHLORIDE,CL 100 mmol/L (98-107); GLUCOSE RANDOM 106 mg/dL (74-106); LIPASE 142 U/L (73-393); POTASSIUM,K 4.2 mmol/L (3.5-5.1); SODIUM,NA 136 mmol/L (136-145)
--- NOTE | 2020-08-13 12:18 | CR ---
Indication: Chest pain Technique: Chest 1 view Comparison: December 20, 2016 Findings/Impression: Cardiac size appears enlarged, likely due to lung low lung volumes. No focal infiltrate, effusion, or pneumothorax. No acute osseous abnormality. Dictated by Ying Diamond MD @ Aug 13 2020 12:17PM Signed by Dr. Ying Diamond @ Aug 13 2020 12:18PM
[2020-08-13 12:29] LABS: CORONAVIRUS COVID-19 NAA POSITIVE (NEGATIVE); INFLUENZA A NAA NEGATIVE (NEGATIVE); INFLUENZA B NAA NEGATIVE (NEGATIVE)
--- NOTE | 2020-08-13 12:45 | CT ---
INDICATION: Dyspnea, abdominal pain TECHNIQUE: CT abdomen and pelvis without contrast. COMPARISON: None FINDINGS: Lower chest: Scattered atelectasis at both lung bases. Liver: Unremarkable. Spleen: Unremarkable. Pancreas: Unremarkable. Gallbladder and bile ducts: S/p cholecystectomy. Adrenal glands: Unremarkable. Kidneys: Unremarkable. No kidney or ureteral stones and no hydronephrosis. GI tract: Colonic diverticulosis. Appendix is normal. Vascular structures: Unremarkable. Lymph nodes: Unremarkable. Miscellaneous: Small fat containing infraumbilical abdominal wall hernia. No free air or significant free fluid. Pelvic Organs: Enlarged, lobular uterus. Bones: Unremarkable for age. IMPRESSION: No acute intra-abdominal process. Colonic diverticulosis. Small fat containing infraumbilical abdominal wall hernia. Enlarged, lobular uterus, likely due to fibroid disease. Status post cholecystectomy. Please note that all CT scans at this facility use dose modulation, iterative reconstruction, and/or weight-based dosing when appropriate to reduce radiation dose to as low as reasonably achievable. Dictated by Ying Diamond MD @ Aug 13 2020 12:38PM Signed by Dr. Ying Diamond @ Aug 13 2020 12:44PM
--- NOTE | 2020-08-13 12:54 | CT ---
INDICATION: Dyspnea COMPARISON: None TECHNIQUE: : CT examination of the chest was performed without contrast. Thin axial sections were obtained from above the apices of the lungs to the lung bases. Please note that all CT scans at this facility use dose modulation, iterative reconstruction, and/or weight-based dosing when appropriate to reduce radiation dose to as low as reasonably achievable. FINDINGS: : HEART and MEDIASTINUM: The heart size is top normal. There are atherosclerotic vascular calcifications. Small pericardial effusion. Prominent but nonenlarged mediastinal lymph nodes likely reactive. LUNGS: Moderate patchy multifocal ground-glass opacification primarily in a peripheral and basilar distribution. This is likely inflammatory. COVID pneumonia should be considered though other inflammatory processes seeds are possible PLEURAL SPACES: There is no pleural effusion, pneumothorax or pleural based mass. VISUALIZED UPPER ABDOMEN: The limited visualized upper abdominal structures appear normal. OSSEOUS STRUCTURES: Age-appropriate appearance. No acute fracture or destructive process. TUBES and LINES: None. IMPRESSION: 1. Moderate patchy multifocal ground-glass opacification in a pattern most suggestive of viral pneumonia. 2. Top-normal size heart. Mildly prominent lymph nodes likely reactive. Trace pericardial effusion. No significant pleural fluid. Please note that all CT scans at this facility use dose modulation, iterative reconstruction, and/or weight-based dosing when appropriate to reduce radiation dose to as low as reasonably achievable. Dictated by Timbo Barry MD @ Aug 13 2020 12:46PM Signed by Dr. Timbo Barry @ Aug 13 2020 12:52PM
[2020-08-13] MEDS ORDERED: Azithromycin 500 MG in Sodium Chloride 0.9% 250 ML IV SCH (13:00)
[2020-08-13] MEDS ORDERED: Dexamethasone 10 MG/ML SDV IVPUSH ONE (13:00)
[2020-08-13] MEDS ORDERED: cefTRIAXone 1 GM in Premix Bag 1 BAG IV ONE (13:00)
--- NOTE | 2020-08-13 14:46 | PCM.HP.2 ---
<Lamar Bedoya - Last Filed: 08/13/20 16:22> H&P History of Present Illness - General Date of Service: 08/13/20 Admit Problem/Dx: Admission Diagnosis/Problem Admission Diagnosis/Problem Pneumonia Source of Information: Patient - History of Present Illness Initial Comments - Free Text/Narative: Patient is a 60-year-old female with significant past medical history of hypertension, hyper lipidemia, type 2 diabetes and a history of malaria presenting with shortness of breath at rest for 3 days along with the dizziness. Endorsed substernal chest discomfort, persistent for 3 days. Current symptoms include nonproductive cough malaise myalgias and diarrhea. Patient was seen at another facility and was tested for Covid on Thursday and was negative. Patient also has left lower quadrant pain for 1 week. ED course: Chest x-ray: Enlarged cardiac silhouette but no overt focal infiltrate effusion or pneumothorax Chest CT: Moderate patchy multifocal groundglass opacifications suggestive of viral pneumonia. Trace pericardial effusion without pleural fluid Abdominal pelvis CT: Colonic diverticulosis. Status post cholecystectomy. Small infraumbilical abdominal wall hernia Received 500 mg of azithromycin +1 g of ceftriaxone. 6 mg of dexamethasone. 1 L normal saline bolus. Bedside: Endorsed SOB at rest and exertion. Mentions myalgia and cough as well. +diarrhea. No CP at this time - Related Data Allergies/Adverse Reactions: Allergies Allergy/AdvReac Type Severity Reaction Status Date / Time chloroquine Allergy Unknown Rash Verified 08/13/20 11:22 Penicillins Allergy Fainting Verified 08/13/20 11:22 Home Medications: Home Meds Ferrous Sulfate 325 mg PO DAILY 03/16/18 [History] Vitamin B Complex [B Complex] 1 tab PO DAILY 03/16/18 [History] metFORMIN [Glucophage] 1,000 mg PO BIDMEALS 03/16/18 [History] Exenatide Microspheres [Bydureon Bcise] 2 mg SUBCUT WEEKLY 08/13/20 [History] Lisinopril/Hydrochlorothiazide [Lisinopril-Hctz 20-12.5 mg Tab] 1 tab PO DAILY 08/13/20 [History] Metoprolol Succinate 50 mg PO DAILY 08/13/20 [History] Rosuvastatin Calcium 20 mg PO BEDTIME 08/13/20 [History] buPROPion HCL [Bupropion Xl] 150 mg PO DAILY 08/13/20 [History] Past Medical History HEENT History: Reports: Other (See Below) Other HEENT History: uses reading glasses Cardiovascular History: Reports: High Cholesterol, Hypertension Respiratory History: Reports: None Gastrointestinal History: Reports: GERD, GI Bleed Genitourinary History: Reports: None 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: Musculoskeletal History: Reports: None Neurological History: Reports: None Psychiatric History: Reports: Anxiety Endocrine/Metabolic History: Reports: Diabetes, Type II, Obesity/BMI 30+ Hematologic History: Reports: Anemia Immunologic History: Reports: None Oncologic (Cancer) History: Reports: None Dermatologic History: Reports: None - Infectious Disease History Infectious Disease History: Reports: None - Past Surgical History GI Surgical History: Reports: Hernia, Inguinal Social & Family History - Family History Family Medical History: Unobtainable Cardiac: Reports: High Cholesterol, Hypertension Endocrine/Metabolic: Reports: Diabetes, type II - Tobacco Use Tobacco Use Status *Q: Never Tobacco User - Caffeine Use Caffeine Use: Reports: None Caffeine Use Comment: 1 cup daily - Recreational Drug Use Recreational Drug Use: No H&P Review of Systems - Review of Systems: Review Of Systems: See Below General: Reports: Malaise, Fatigue. Denies: Fever HEENT: Reports: No Symptoms Pulmonary: Reports: Shortness of Breath, Cough. Denies: Wheezing, Pleuritic Chest Pain, Sputum Cardiovascular: Reports: Dyspnea on Exertion Gastrointestinal: Reports: Diarrhea Genitourinary: Reports: No Symptoms Musculoskeletal: Reports: No Symptoms Skin: Reports: No Symptoms Psychiatric: Reports: No Symptoms Neurological: Denies: Headache Exam - Exam Exam: See Below - Vital Signs Vital Signs: Last Vital Signs Temp 98.1 F 08/13/20 11:22 Pulse 51 L 08/13/20 13:23 Resp 20 08/13/20 13:23 BP 97/53 L 08/13/20 13:23 Pulse Ox 98 08/13/20 13:23 Weight: 90.718 kg - Exam Quality Assessment: Supplemental Oxygen General: Alert, Oriented, Cooperative HEENT: EOMI Neck: Supple, Trachea Midline Lungs: Other (Tight BS/ shortened I/S ; no wheeze, rales or rhonchi ) Cardiovascular: Regular Rate, Regular Rhythm GI/Abdominal Exam: Soft, Non-Tender Extremities: Normal Inspection Skin: Warm Neuro Extensive - Mental Status: Alert, Oriented x3 Psychiatric: Alert - Patient Data Lab Results Last 24 hrs: Laboratory Results - last 24 hr 08/13/20 08/13/20 08/13/20 Range/Units 11:23 11:25 11:25 WBC 4.47 (4.0-11.0) K/uL RBC 5.00 (4.30-5.90) M/uL Hgb 13.6 (12.0-16.0) g/dL Hct 42.0 (36.0-46.0) % MCV 84.0 (80.0-98.0) fL MCH 27.2 (27.0-32.0) pg MCHC 32.4 (31.0-37.0) g/dL RDW Std Deviation 43.7 (28.0-62.0) fl RDW Coeff of Joel 14 (11.0-15.0) % Plt Count 232 (150-400) K/uL MPV 10.40 (7.40-12.00) fL Neut % (Auto) 59.6 (48.0-80.0) % Lymph % (Auto) 28.2 (16.0-40.0) % Rabun % (Auto) 11.6 (0.0-15.0) % Eos % (Auto) 0.2 (0.0-7.0) % Baso % (Auto) 0.4 (0.0-1.5) % Neut # (Auto) 2.7 (1.4-5.7) K/uL Lymph # (Auto) 1.3 (0.6-2.4) K/uL Rabun # (Auto) 0.5 (0.0-0.8) K/uL Eos # (Auto) 0.0 (0.0-0.7) K/uL Baso # (Auto) 0.0 (0.0-0.1) K/uL Nucleated RBC % 0.0 /100WBC Nucleated RBCs # 0 K/uL ESR (0-29) mm/hr INR APTT (18.6-31.3) SEC D-Dimer, Quantitative (0.0-0.50) mg/L FEU ABG pH (7.35-7.45) ABG pCO2 (35-45) mmHG ABG pO2 (75-100) mmHG ABG HCO3 (22-26) mEq/L ABG Total CO2 ABG Base Excess (-2.0-2.0) Lactate 0.8 (0.20-2.00) mmol/L Sodium (136-145) mmol/L Potassium (3.5-5.1) mmol/L Chloride (98-107) mmol/L Carbon Dioxide (21.0-32.0) mmol/L BUN (7.0-18.0) mg/dL Creatinine (0.6-1.0) mg/dL Est Cr Clr Drug Dosing mL/min Estimated GFR (MDRD) ml/min Glucose (74-106) mg/dL Calcium (8.5-10.1) mg/dL Phosphorus (2.6-4.7) mg/dL Magnesium (1.8-2.4) mg/dL Ferritin (8-252) ng/mL Total Bilirubin (0.2-1.0) mg/dL AST (15-37) IU/L ALT (14-63) IU/L Alkaline Phosphatase (46-116) U/L Lactate Dehydrogenase (81-234) U/L Troponin I (0.000-0.056) ng/mL C-Reactive Protein (0.00-0.90) mg/dL B-Natriuretic Peptide (<100) PG/ML Total Protein (6.4-8.2) g/dL Albumin (3.4-5.0) g/dL Globulin (2.6-4.0) g/dL Albumin/Globulin Ratio (0.9-1.6) Lipase (73-393) U/L Influenza Type A RNA NEGATIVE (NEGATIVE) Influenza Type B RNA NEGATIVE (NEGATIVE) SARS-CoV-2 RNA (JAYLA) POSITIVE H (NEGATIVE) 08/13/20 08/13/20 08/13/20 Range/Units 11:25 11:25 11:25 WBC (4.0-11.0) K/uL RBC (4.30-5.90) M/uL Hgb (12.0-16.0) g/dL Hct (36.0-46.0) % MCV (80.0-98.0) fL MCH (27.0-32.0) pg MCHC (31.0-37.0) g/dL RDW Std Deviation (28.0-62.0) fl RDW Coeff of Joel (11.0-15.0) % Plt Count (150-400) K/uL MPV (7.40-12.00) fL Neut % (Auto) (48.0-80.0) % Lymph % (Auto) (16.0-40.0) % Rabun % (Auto) (0.0-15.0) % Eos % (Auto) (0.0-7.0) % Baso % (Auto) (0.0-1.5) % Neut # (Auto) (1.4-5.7) K/uL Lymph # (Auto) (0.6-2.4) K/uL Rabun # (Auto) (0.0-0.8) K/uL Eos # (Auto) (0.0-0.7) K/uL Baso # (Auto) (0.0-0.1) K/uL Nucleated RBC % /100WBC Nucleated RBCs # K/uL ESR 45 H (0-29) mm/hr INR 0.94 APTT 27.0 (18.6-31.3) SEC D-Dimer, Quantitative 0.79 H (0.0-0.50) mg/L FEU ABG pH (7.35-7.45) ABG pCO2 (35-45) mmHG ABG pO2 (75-100) mmHG ABG HCO3 (22-26) mEq/L ABG Total CO2 ABG Base Excess (-2.0-2.0) Lactate (0.20-2.00) mmol/L Sodium 136 (136-145) mmol/L Potassium 4.2 (3.5-5.1) mmol/L Chloride 100 (98-107) mmol/L Carbon Dioxide 26.8 (21.0-32.0) mmol/L BUN 23 H (7.0-18.0) mg/dL Creatinine 1.9 H (0.6-1.0) mg/dL Est Cr Clr Drug Dosing 31.38 mL/min Estimated GFR (MDRD) 32.9 ml/min Glucose 106 (74-106) mg/dL Calcium 9.1 (8.5-10.1) mg/dL Phosphorus 2.9 (2.6-4.7) mg/dL Magnesium 2.4 (1.8-2.4) mg/dL Ferritin (8-252) ng/mL Total Bilirubin 0.5 (0.2-1.0) mg/dL AST 40 H (15-37) IU/L ALT 29 (14-63) IU/L Alkaline Phosphatase 54 (46-116) U/L Lactate Dehydrogenase 409 H (81-234) U/L Troponin I < 0.050 (0.000-0.056) ng/mL C-Reactive Protein 5.80 H (0.00-0.90) mg/dL B-Natriuretic Peptide (<100) PG/ML Total Protein 7.8 (6.4-8.2) g/dL Albumin 3.2 L (3.4-5.0) g/dL Globulin 4.6 H (2.6-4.0) g/dL Albumin/Globulin Ratio 0.7 L (0.9-1.6) Lipase 142 (73-393) U/L Influenza Type A RNA (NEGATIVE) Influenza Type B RNA (NEGATIVE) SARS-CoV-2 RNA (JAYLA) (NEGATIVE) 08/13/20 08/13/20 08/13/20 Range/Units 11:25 11:25 12:53 WBC (4.0-11.0) K/uL RBC (4.30-5.90) M/uL Hgb (12.0-16.0) g/dL Hct (36.0-46.0) % MCV (80.0-98.0) fL MCH (27.0-32.0) pg MCHC (31.0-37.0) g/dL RDW Std Deviation (28.0-62.0) fl RDW Coeff of Joel (11.0-15.0) % Plt Count (150-400) K/uL MPV (7.40-12.00) fL Neut % (Auto) (48.0-80.0) % Lymph % (Auto) (16.0-40.0) % Rabun % (Auto) (0.0-15.0) % Eos % (Auto) (0.0-7.0) % Baso % (Auto) (0.0-1.5) % Neut # (Auto) (1.4-5.7) K/uL Lymph # (Auto) (0.6-2.4) K/uL Rabun # (Auto) (0.0-0.8) K/uL Eos # (Auto) (0.0-0.7) K/uL Baso # (Auto) (0.0-0.1) K/uL Nucleated RBC % /100WBC Nucleated RBCs # K/uL ESR (0-29) mm/hr INR APTT (18.6-31.3) SEC D-Dimer, Quantitative (0.0-0.50) mg/L FEU ABG pH 7.420 (7.35-7.45) ABG pCO2 38 (35-45) mmHG ABG pO2 79 (75-100) mmHG ABG HCO3 25 (22-26) mEq/L ABG Total CO2 22.3 ABG Base Excess 0.3 (-2.0-2.0) Lactate (0.20-2.00) mmol/L Sodium (136-145) mmol/L Potassium (3.5-5.1) mmol/L Chloride (98-107) mmol/L Carbon Dioxide (21.0-32.0) mmol/L BUN (7.0-18.0) mg/dL Creatinine (0.6-1.0) mg/dL Est Cr Clr Drug Dosing mL/min Estimated GFR (MDRD) ml/min Glucose (74-106) mg/dL Calcium (8.5-10.1) mg/dL Phosphorus (2.6-4.7) mg/dL Magnesium (1.8-2.4) mg/dL Ferritin 605 H (8-252) ng/mL Total Bilirubin (0.2-1.0) mg/dL AST (15-37) IU/L ALT (14-63) IU/L Alkaline Phosphatase (46-116) U/L Lactate Dehydrogenase (81-234) U/L Troponin I (0.000-0.056) ng/mL C-Reactive Protein (0.00-0.90) mg/dL B-Natriuretic Peptide 6 (<100) PG/ML Total Protein (6.4-8.2) g/dL Albumin (3.4-5.0) g/dL Globulin (2.6-4.0) g/dL Albumin/Globulin Ratio (0.9-1.6) Lipase (73-393) U/L Influenza Type A RNA (NEGATIVE) Influenza Type B RNA (NEGATIVE) SARS-CoV-2 RNA (JAYLA) (NEGATIVE) Result Diagrams: 08/13/20 11:25 08/13/20 11:25 Sepsis Event Note - Evaluation Sepsis Screening Result: No Definite Risk - Focused Exam Vital Signs: Vital Signs Temp Pulse Resp BP Pulse Ox 08/13/20 13:23 51 L 20 97/53 L 98 08/13/20 12:30 61 20 102/59 L 100 08/13/20 12:18 67 20 92/56 L 96 08/13/20 11:44 60 20 95/60 97 08/13/20 11:27 81 20 93/66 98 08/13/20 11:22 98.1 F 76 20 98/72 86 L Problem List Initiated/Reviewed/Updated: Yes Orders Last 24hrs: Active Orders 24 hr Category Date Time Status Patient Status [ADT] Routine ADT 08/13/20 14:00 Active Cardiac Monitoring [RC] . DIRECTED Care 08/13/20 11:23 Active EKG Documentation Completion [RC] STAT Care 08/13/20 11:25 Active Pulse Oximetry [RC] ASDIRECTED Care 08/13/20 11:23 Active CULTURE BLOOD [BC] Stat Lab 08/13/20 11:25 Received CULTURE BLOOD [BC] Stat Lab 08/13/20 11:55 Received PROCALCITONIN [REF] Stat Lab 08/13/20 11:25 Received UA W/CHANTELLE RFLX IF INDICATED [URIN] Stat Lab 08/13/20 11:24 Ordered Azithromycin [Zithromax] 500 mg Med 08/13/20 13:00 Active Sodium Chloride 0.9% [Normal Saline (AdvBag)] 250 ml IV ONETIME Sodium Chloride 0.9% [Saline Flush] Med 08/13/20 11:23 Active 10 ml FLUSH ASDIRECTED PRN Sodium Chloride 0.9% [Saline Flush] Med 08/13/20 11:23 Active 2.5 ml FLUSH ASDIRECTED PRN Blood Culture x2 Reflex Set [OM.PC] Stat Oth 08/13/20 11:24 Ordered Isolation [COMM] Routine Oth 08/13/20 11:26 Active Saline Lock Insert [OM.PC] Stat Oth 08/13/20 11:23 Ordered Medication Orders Azithromycin 500 mg/ Sodium (Chloride) 250 mls @ 250 mls/hr IV ONETIME BERNARDO Last Admin: 08/13/20 14:05 Dose: 250 mls/hr Documented by: ADITI Sodium Chloride (Saline Flush) 10 ml FLUSH ASDIRECTED PRN PRN Reason: Keep Vein Open Last Admin: 08/13/20 11:30 Dose: 10 ml Documented by: ADITI Sodium Chloride (Saline Flush) 2.5 ml FLUSH ASDIRECTED PRN PRN Reason: Keep Vein Open Last Admin: 08/13/20 11:30 Dose: 2.5 ml Documented by: ADITI Assessment/Plan Comment:: Assessment: 1. Acute hypoxic respiratory failure secondary to viral pneumonia/Covid positive 2. Acute kidney injury 3. Elevated D-dimer secondary to above 4. Past medical history hypertension, hyperlipidemia, type 2 diabetes Plan Admit patient inpatient. Full code. Vitals per routine. I's and O's per routine. Maintain oxygen saturation greater than 90%. Diabetic diet. DVT prophylaxis:40 mg of Lovenox twice daily. GI prophylaxis; omeprazole 40 daily Activity up ad alfa. 1. Hypoxic respiratory failure secondary to Covid: Maintain O2 saturations greater than 92%. We will initiate convalescent plasma, remdesivir and dexamethasone 6 mg daily x 10 days. We will hold off on antibiotics for now unless warranted; procalcitonin ordered results pending. 2. ANGELIA; baseline creatinine 1.4; received 1 L normal saline in the ED; recheck BMP in a.m.. Elevated D-dimer; in light of ANGELIA plus COVID will consider CTA if patient is clinically not improving; continue with 40 mg twice daily Lovenox. 3. Past medical history; continue home medication except Metformin, start sliding scale insulin; low-dose. <Parris Barajas - Last Filed: 08/14/20 10:34> H&P History of Present Illness - General Admit Problem/Dx: Admission Diagnosis/Problem Admission Diagnosis/Problem Pneumonia Exam - Vital Signs Vital Signs: Last Vital Signs Temp 36.5 C 08/14/20 08:13 Pulse 67 08/14/20 08:50 Resp 20 08/14/20 08:13 BP 103/57 L 08/14/20 08:50 Pulse Ox 94 L 08/14/20 08:13 - Patient Data Lab Results Last 24 hrs: Laboratory Results - last 24 hr 08/13/20 08/13/20 08/13/20 Range/Units 11:23 11:25 11:25 WBC 4.47 (4.0-11.0) K/uL RBC 5.00 (4.30-5.90) M/uL Hgb 13.6 (12.0-16.0) g/dL Hct 42.0 (36.0-46.0) % MCV 84.0 (80.0-98.0) fL MCH 27.2 (27.0-32.0) pg MCHC 32.4 (31.0-37.0) g/dL RDW Std Deviation 43.7 (28.0-62.0) fl RDW Coeff of Joel 14 (11.0-15.0) % Plt Count 232 (150-400) K/uL MPV 10.40 (7.40-12.00) fL Neut % (Auto) 59.6 (48.0-80.0) % Lymph % (Auto) 28.2 (16.0-40.0) % Rabun % (Auto) 11.6 (0.0-15.0) % Eos % (Auto) 0.2 (0.0-7.0) % Baso % (Auto) 0.4 (0.0-1.5) % Neut # (Auto) 2.7 (1.4-5.7) K/uL Lymph # (Auto) 1.3 (0.6-2.4) K/uL Rabun # (Auto) 0.5 (0.0-0.8) K/uL Eos # (Auto) 0.0 (0.0-0.7) K/uL Baso # (Auto) 0.0 (0.0-0.1) K/uL Nucleated RBC % 0.0 /100WBC Nucleated RBCs # 0 K/uL ESR (0-29) mm/hr INR APTT (18.6-31.3) SEC D-Dimer, Quantitative (0.0-0.50) mg/L FEU ABG pH (7.35-7.45) ABG pCO2 (35-45) mmHG ABG pO2 (75-100) mmHG ABG HCO3 (22-26) mEq/L ABG Total CO2 ABG Base Excess (-2.0-2.0) Lactate 0.8 (0.20-2.00) mmol/L Sodium (136-145) mmol/L Potassium (3.5-5.1) mmol/L Chloride (98-107) mmol/L Carbon Dioxide (21.0-32.0) mmol/L BUN (7.0-18.0) mg/dL Creatinine (0.6-1.0) mg/dL Est Cr Clr Drug Dosing mL/min Estimated GFR (MDRD) ml/min Glucose (74-106) mg/dL POC Glucose (60-110) mg/dL Calcium (8.5-10.1) mg/dL Phosphorus (2.6-4.7) mg/dL Magnesium (1.8-2.4) mg/dL Ferritin (8-252) ng/mL Total Bilirubin (0.2-1.0) mg/dL AST (15-37) IU/L ALT (14-63) IU/L Alkaline Phosphatase (46-116) U/L Lactate Dehydrogenase (81-234) U/L Troponin I (0.000-0.056) ng/mL C-Reactive Protein (0.00-0.90) mg/dL B-Natriuretic Peptide (<100) PG/ML Total Protein (6.4-8.2) g/dL Albumin (3.4-5.0) g/dL Globulin (2.6-4.0) g/dL Albumin/Globulin Ratio (0.9-1.6) Lipase (73-393) U/L Procalcitonin ng/mL Urine Color Urine Appearance Urine pH (5.0-8.0) Ur Specific Sterling (1.001-1.035) Urine Protein (NEGATIVE) mg/dL Urine Glucose (UA) (NEGATIVE) mg/dL Urine Ketones (NEGATIVE) mg/dL Urine Occult Blood (NEGATIVE) Urine Nitrite (NEGATIVE) Urine Bilirubin (NEGATIVE) Urine Urobilinogen (<2.0) EU/dL Ur Leukocyte Esterase (NEGATIVE) Influenza Type A RNA NEGATIVE (NEGATIVE) Influenza Type B RNA NEGATIVE (NEGATIVE) SARS-CoV-2 RNA (JAYLA) POSITIVE H (NEGATIVE) Blood Type Antibody Screen 08/13/20 08/13/20 08/13/20 Range/Units 11:25 11:25 11:25 WBC (4.0-11.0) K/uL RBC (4.30-5.90) M/uL Hgb (12.0-16.0) g/dL Hct (36.0-46.0) % MCV (80.0-98.0) fL MCH (27.0-32.0) pg MCHC (31.0-37.0) g/dL RDW Std Deviation (28.0-62.0) fl RDW Coeff of Joel (11.0-15.0) % Plt Count (150-400) K/uL MPV (7.40-12.00) fL Neut % (Auto) (48.0-80.0) % Lymph % (Auto) (16.0-40.0) % Rabun % (Auto) (0.0-15.0) % Eos % (Auto) (0.0-7.0) % Baso % (Auto) (0.0-1.5) % Neut # (Auto) (1.4-5.7) K/uL Lymph # (Auto) (0.6-2.4) K/uL Rabun # (Auto) (0.0-0.8) K/uL Eos # (Auto) (0.0-0.7) K/uL Baso # (Auto) (0.0-0.1) K/uL Nucleated RBC % /100WBC Nucleated RBCs # K/uL ESR 45 H (0-29) mm/hr INR APTT (18.6-31.3) SEC D-Dimer, Quantitative (0.0-0.50) mg/L FEU ABG pH (7.35-7.45) ABG pCO2 (35-45) mmHG ABG pO2 (75-100) mmHG ABG HCO3 (22-26) mEq/L ABG Total CO2 ABG Base Excess (-2.0-2.0) Lactate (0.20-2.00) mmol/L Sodium 136 (136-145) mmol/L Potassium 4.2 (3.5-5.1) mmol/L Chloride 100 (98-107) mmol/L Carbon Dioxide 26.8 (21.0-32.0) mmol/L BUN 23 H (7.0-18.0) mg/dL Creatinine 1.9 H (0.6-1.0) mg/dL Est Cr Clr Drug Dosing 31.38 mL/min Estimated GFR (MDRD) 32.9 ml/min Glucose 106 (74-106) mg/dL POC Glucose (60-110) mg/dL Calcium 9.1 (8.5-10.1) mg/dL Phosphorus 2.9 (2.6-4.7) mg/dL Magnesium 2.4 (1.8-2.4) mg/dL Ferritin (8-252) ng/mL Total Bilirubin 0.5 (0.2-1.0) mg/dL AST 40 H (15-37) IU/L ALT 29 (14-63) IU/L Alkaline Phosphatase 54 (46-116) U/L Lactate Dehydrogenase 409 H (81-234) U/L Troponin I < 0.050 (0.000-0.056) ng/mL C-Reactive Protein 5.80 H (0.00-0.90) mg/dL B-Natriuretic Peptide (<100) PG/ML Total Protein 7.8 (6.4-8.2) g/dL Albumin 3.2 L (3.4-5.0) g/dL Globulin 4.6 H (2.6-4.0) g/dL Albumin/Globulin Ratio 0.7 L (0.9-1.6) Lipase 142 (73-393) U/L Procalcitonin 0.08 ng/mL Urine Color Urine Appearance Urine pH (5.0-8.0) Ur Specific Sterling (1.001-1.035) Urine Protein (NEGATIVE) mg/dL Urine Glucose (UA) (NEGATIVE) mg/dL Urine Ketones (NEGATIVE) mg/dL Urine Occult Blood (NEGATIVE) Urine Nitrite (NEGATIVE) Urine Bilirubin (NEGATIVE) Urine Urobilinogen (<2.0) EU/dL Ur Leukocyte Esterase (NEGATIVE) Influenza Type A RNA (NEGATIVE) Influenza Type B RNA (NEGATIVE) SARS-CoV-2 RNA (JAYLA) (NEGATIVE) Blood Type Antibody Screen 08/13/20 08/13/20 08/13/20 Range/Units 11:25 11:25 11:25 WBC (4.0-11.0) K/uL RBC (4.30-5.90) M/uL Hgb (12.0-16.0) g/dL Hct (36.0-46.0) % MCV (80.0-98.0) fL MCH (27.0-32.0) pg MCHC (31.0-37.0) g/dL RDW Std Deviation (28.0-62.0) fl RDW Coeff of Joel (11.0-15.0) % Plt Count (150-400) K/uL MPV (7.40-12.00) fL Neut % (Auto) (48.0-80.0) % Lymph % (Auto) (16.0-40.0) % Rabun % (Auto) (0.0-15.0) % Eos % (Auto) (0.0-7.0) % Baso % (Auto) (0.0-1.5) % Neut # (Auto) (1.4-5.7) K/uL Lymph # (Auto) (0.6-2.4) K/uL Rabun # (Auto) (0.0-0.8) K/uL Eos # (Auto) (0.0-0.7) K/uL Baso # (Auto) (0.0-0.1) K/uL Nucleated RBC % /100WBC Nucleated RBCs # K/uL ESR (0-29) mm/hr INR 0.94 APTT 27.0 (18.6-31.3) SEC D-Dimer, Quantitative 0.79 H (0.0-0.50) mg/L FEU ABG pH (7.35-7.45) ABG pCO2 (35-45) mmHG ABG pO2 (75-100) mmHG ABG HCO3 (22-26) mEq/L ABG Total CO2 ABG Base Excess (-2.0-2.0) Lactate (0.20-2.00) mmol/L Sodium (136-145) mmol/L Potassium (3.5-5.1) mmol/L Chloride (98-107) mmol/L Carbon Dioxide (21.0-32.0) mmol/L BUN (7.0-18.0) mg/dL Creatinine (0.6-1.0) mg/dL Est Cr Clr Drug Dosing mL/min Estimated GFR (MDRD) ml/min Glucose (74-106) mg/dL POC Glucose (60-110) mg/dL Calcium (8.5-10.1) mg/dL Phosphorus (2.6-4.7) mg/dL Magnesium (1.8-2.4) mg/dL Ferritin 605 H (8-252) ng/mL Total Bilirubin (0.2-1.0) mg/dL AST (15-37) IU/L ALT (14-63) IU/L Alkaline Phosphatase (46-116) U/L Lactate Dehydrogenase (81-234) U/L Troponin I (0.000-0.056) ng/mL C-Reactive Protein (0.00-0.90) mg/dL B-Natriuretic Peptide 6 (<100) PG/ML Total Protein (6.4-8.2) g/dL Albumin (3.4-5.0) g/dL Globulin (2.6-4.0) g/dL Albumin/Globulin Ratio (0.9-1.6) Lipase (73-393) U/L Procalcitonin ng/mL Urine Color Urine Appearance Urine pH (5.0-8.0) Ur Specific Sterling (1.001-1.035) Urine Protein (NEGATIVE) mg/dL Urine Glucose (UA) (NEGATIVE) mg/dL Urine Ketones (NEGATIVE) mg/dL Urine Occult Blood (NEGATIVE) Urine Nitrite (NEGATIVE) Urine Bilirubin (NEGATIVE) Urine Urobilinogen (<2.0) EU/dL Ur Leukocyte Esterase (NEGATIVE) Influenza Type A RNA (NEGATIVE) Influenza Type B RNA (NEGATIVE) SARS-CoV-2 RNA (JAYLA) (NEGATIVE) Blood Type Antibody Screen 08/13/20 08/13/20 08/13/20 Range/Units 12:53 16:00 16:49 WBC (4.0-11.0) K/uL RBC (4.30-5.90) M/uL Hgb (12.0-16.0) g/dL Hct (36.0-46.0) % MCV (80.0-98.0) fL MCH (27.0-32.0) pg MCHC (31.0-37.0) g/dL RDW Std Deviation (28.0-62.0) fl RDW Coeff of Joel (11.0-15.0) % Plt Count (150-400) K/uL MPV (7.40-12.00) fL Neut % (Auto) (48.0-80.0) % Lymph % (Auto) (16.0-40.0) % Rabun % (Auto) (0.0-15.0) % Eos % (Auto) (0.0-7.0) % Baso % (Auto) (0.0-1.5) % Neut # (Auto) (1.4-5.7) K/uL Lymph # (Auto) (0.6-2.4) K/uL Rabun # (Auto) (0.0-0.8) K/uL Eos # (Auto) (0.0-0.7) K/uL Baso # (Auto) (0.0-0.1) K/uL Nucleated RBC % /100WBC Nucleated RBCs # K/uL ESR (0-29) mm/hr INR APTT (18.6-31.3) SEC D-Dimer, Quantitative (0.0-0.50) mg/L FEU ABG pH 7.420 (7.35-7.45) ABG pCO2 38 (35-45) mmHG ABG pO2 79 (75-100) mmHG ABG HCO3 25 (22-26) mEq/L ABG Total CO2 22.3 ABG Base Excess 0.3 (-2.0-2.0) Lactate (0.20-2.00) mmol/L Sodium (136-145) mmol/L Potassium (3.5-5.1) mmol/L Chloride (98-107) mmol/L Carbon Dioxide (21.0-32.0) mmol/L BUN (7.0-18.0) mg/dL Creatinine (0.6-1.0) mg/dL Est Cr Clr Drug Dosing mL/min Estimated GFR (MDRD) ml/min Glucose (74-106) mg/dL POC Glucose (60-110) mg/dL Calcium (8.5-10.1) mg/dL Phosphorus (2.6-4.7) mg/dL Magnesium (1.8-2.4) mg/dL Ferritin (8-252) ng/mL Total Bilirubin (0.2-1.0) mg/dL AST (15-37) IU/L ALT (14-63) IU/L Alkaline Phosphatase (46-116) U/L Lactate Dehydrogenase (81-234) U/L Troponin I (0.000-0.056) ng/mL C-Reactive Protein (0.00-0.90) mg/dL B-Natriuretic Peptide (<100) PG/ML Total Protein (6.4-8.2) g/dL Albumin (3.4-5.0) g/dL Globulin (2.6-4.0) g/dL Albumin/Globulin Ratio (0.9-1.6) Lipase (73-393) U/L Procalcitonin ng/mL Urine Color YELLOW Urine Appearance CLEAR Urine pH 5.5 (5.0-8.0) Ur Specific Sterling 1.015 (1.001-1.035) Urine Protein NEGATIVE (NEGATIVE) mg/dL Urine Glucose (UA) NEGATIVE (NEGATIVE) mg/dL Urine Ketones NEGATIVE (NEGATIVE) mg/dL Urine Occult Blood NEGATIVE (NEGATIVE) Urine Nitrite NEGATIVE (NEGATIVE) Urine Bilirubin NEGATIVE (NEGATIVE) Urine Urobilinogen 0.2 (<2.0) EU/dL Ur Leukocyte Esterase NEGATIVE (NEGATIVE) Influenza Type A RNA (NEGATIVE) Influenza Type B RNA (NEGATIVE) SARS-CoV-2 RNA (JAYLA) (NEGATIVE) Blood Type O POSITIVE Antibody Screen NEGATIVE 08/13/20 08/14/20 08/14/20 Range/Units 17:47 05:52 05:52 WBC 3.33 L (4.0-11.0) K/uL RBC 4.55 (4.30-5.90) M/uL Hgb 12.2 (12.0-16.0) g/dL Hct 38.6 (36.0-46.0) % MCV 84.8 (80.0-98.0) fL MCH 26.8 L (27.0-32.0) pg MCHC 31.6 (31.0-37.0) g/dL RDW Std Deviation 44.4 (28.0-62.0) fl RDW Coeff of Joel 14 (11.0-15.0) % Plt Count 237 (150-400) K/uL MPV 10.00 (7.40-12.00) fL Neut % (Auto) 50.8 (48.0-80.0) % Lymph % (Auto) 34.5 (16.0-40.0) % Rabun % (Auto) 14.1 (0.0-15.0) % Eos % (Auto) 0.3 (0.0-7.0) % Baso % (Auto) 0.3 (0.0-1.5) % Neut # (Auto) 1.7 (1.4-5.7) K/uL Lymph # (Auto) 1.2 (0.6-2.4) K/uL Rabun # (Auto) 0.5 (0.0-0.8) K/uL Eos # (Auto) 0.0 (0.0-0.7) K/uL Baso # (Auto) 0.0 (0.0-0.1) K/uL Nucleated RBC % 0.0 /100WBC Nucleated RBCs # 0 K/uL ESR (0-29) mm/hr INR APTT (18.6-31.3) SEC D-Dimer, Quantitative (0.0-0.50) mg/L FEU ABG pH (7.35-7.45) ABG pCO2 (35-45) mmHG ABG pO2 (75-100) mmHG ABG HCO3 (22-26) mEq/L ABG Total CO2 ABG Base Excess (-2.0-2.0) Lactate (0.20-2.00) mmol/L Sodium 140 (136-145) mmol/L Potassium 4.5 (3.5-5.1) mmol/L Chloride 106 (98-107) mmol/L Carbon Dioxide 26.2 (21.0-32.0) mmol/L BUN 25 H (7.0-18.0) mg/dL Creatinine 1.3 H (0.6-1.0) mg/dL Est Cr Clr Drug Dosing 45.87 mL/min Estimated GFR (MDRD) 51.0 ml/min Glucose 94 (74-106) mg/dL POC Glucose 97 (60-110) mg/dL Calcium 8.5 (8.5-10.1) mg/dL Phosphorus (2.6-4.7) mg/dL Magnesium (1.8-2.4) mg/dL Ferritin (8-252) ng/mL Total Bilirubin 0.3 (0.2-1.0) mg/dL AST 29 (15-37) IU/L ALT 24 (14-63) IU/L Alkaline Phosphatase 46 (46-116) U/L Lactate Dehydrogenase (81-234) U/L Troponin I (0.000-0.056) ng/mL C-Reactive Protein (0.00-0.90) mg/dL B-Natriuretic Peptide (<100) PG/ML Total Protein 6.8 (6.4-8.2) g/dL Albumin 2.7 L (3.4-5.0) g/dL Globulin 4.1 H (2.6-4.0) g/dL Albumin/Globulin Ratio 0.7 L (0.9-1.6) Lipase (73-393) U/L Procalcitonin ng/mL Urine Color Urine Appearance Urine pH (5.0-8.0) Ur Specific Sterling (1.001-1.035) Urine Protein (NEGATIVE) mg/dL Urine Glucose (UA) (NEGATIVE) mg/dL Urine Ketones (NEGATIVE) mg/dL Urine Occult Blood (NEGATIVE) Urine Nitrite (NEGATIVE) Urine Bilirubin (NEGATIVE) Urine Urobilinogen (<2.0) EU/dL Ur Leukocyte Esterase (NEGATIVE) Influenza Type A RNA (NEGATIVE) Influenza Type B RNA (NEGATIVE) SARS-CoV-2 RNA (JAYLA) (NEGATIVE) Blood Type Antibody Screen 08/14/20 Range/Units 05:55 WBC (4.0-11.0) K/uL RBC (4.30-5.90) M/uL Hgb (12.0-16.0) g/dL Hct (36.0-46.0) % MCV (80.0-98.0) fL MCH (27.0-32.0) pg MCHC (31.0-37.0) g/dL RDW Std Deviation (28.0-62.0) fl RDW Coeff of Joel (11.0-15.0) % Plt Count (150-400) K/uL MPV (7.40-12.00) fL Neut % (Auto) (48.0-80.0) % Lymph % (Auto) (16.0-40.0) % Rabun % (Auto) (0.0-15.0) % Eos % (Auto) (0.0-7.0) % Baso % (Auto) (0.0-1.5) % Neut # (Auto) (1.4-5.7) K/uL Lymph # (Auto) (0.6-2.4) K/uL Rabun # (Auto) (0.0-0.8) K/uL Eos # (Auto) (0.0-0.7) K/uL Baso # (Auto) (0.0-0.1) K/uL Nucleated RBC % /100WBC Nucleated RBCs # K/uL ESR (0-29) mm/hr INR APTT (18.6-31.3) SEC D-Dimer, Quantitative (0.0-0.50) mg/L FEU ABG pH (7.35-7.45) ABG pCO2 (35-45) mmHG ABG pO2 (75-100) mmHG ABG HCO3 (22-26) mEq/L ABG Total CO2 ABG Base Excess (-2.0-2.0) Lactate (0.20-2.00) mmol/L Sodium (136-145) mmol/L Potassium (3.5-5.1) mmol/L Chloride (98-107) mmol/L Carbon Dioxide (21.0-32.0) mmol/L BUN (7.0-18.0) mg/dL Creatinine (0.6-1.0) mg/dL Est Cr Clr Drug Dosing mL/min Estimated GFR (MDRD) ml/min Glucose (74-106) mg/dL POC Glucose 87 (60-110) mg/dL Calcium (8.5-10.1) mg/dL Phosphorus (2.6-4.7) mg/dL Magnesium (1.8-2.4) mg/dL Ferritin (8-252) ng/mL Total Bilirubin (0.2-1.0) mg/dL AST (15-37) IU/L ALT (14-63) IU/L Alkaline Phosphatase (46-116) U/L Lactate Dehydrogenase (81-234) U/L Troponin I (0.000-0.056) ng/mL C-Reactive Protein (0.00-0.90) mg/dL B-Natriuretic Peptide (<100) PG/ML Total Protein (6.4-8.2) g/dL Albumin (3.4-5.0) g/dL Globulin (2.6-4.0) g/dL Albumin/Globulin Ratio (0.9-1.6) Lipase (73-393) U/L Procalcitonin ng/mL Urine Color Urine Appearance Urine pH (5.0-8.0) Ur Specific Sterling (1.001-1.035) Urine Protein (NEGATIVE) mg/dL Urine Glucose (UA) (NEGATIVE) mg/dL Urine Ketones (NEGATIVE) mg/dL Urine Occult Blood (NEGATIVE) Urine Nitrite (NEGATIVE) Urine Bilirubin (NEGATIVE) Urine Urobilinogen (<2.0) EU/dL Ur Leukocyte Esterase (NEGATIVE) Influenza Type A RNA (NEGATIVE) Influenza Type B RNA (NEGATIVE) SARS-CoV-2 RNA (JAYLA) (NEGATIVE) Blood Type Antibody Screen Result Diagrams: 08/14/20 05:52 08/14/20 05:52 Sepsis Event Note - Focused Exam Vital Signs: Vital Signs Temp Temp Pulse Pulse Resp BP BP 08/14/20 08:50 67 103/57 L 08/14/20 08:49 103/57 L 08/14/20 08:13 36.5 C 67 20 103/57 L 08/14/20 03:39 36.3 C 61 18 108/65 08/14/20 01:07 08/14/20 01:05 36.3 C 57 L 18 111/66 08/14/20 00:10 36.3 C 60 18 103/61 08/14/20 00:00 36.3 C 60 18 103/61 08/13/20 23:51 08/13/20 23:40 36.4 C 60 18 103/63 08/13/20 23:25 36.2 C 62 18 97/60 Pulse Ox 08/14/20 08:50 08/14/20 08:49 08/14/20 08:13 94 L 08/14/20 03:39 93 L 08/14/20 01:07 99 08/14/20 01:05 99 08/14/20 00:10 96 08/14/20 00:00 96 08/13/20 23:51 96 08/13/20 23:40 96 08/13/20 23:25 Orders Last 24hrs: Active Orders 24 hr Category Date Time Status Patient Status [ADT] Routine ADT 08/13/20 14:00 Active Acapella [RT Chest Physiotherapy] [RC] ASDIRECTED Care 08/13/20 14:51 Active Accu Check [Blood Glucose Check, Bedside] [RC] TIDMEALS Care 08/13/20 14:47 Active Incentive Spirometry [RT Incentive Spirometry] [RC] Care 08/13/20 14:50 Active Q2HWA Oxygen Therapy [RC] PRN Care 08/13/20 14:48 Active RT Aerosol Therapy [RC] ASDIRECTED Care 08/13/20 14:50 Active RT Post Treatment Assessment [RC] Click to Edit Care 08/13/20 22:25 Active RT Pre-Treatment Assessment [RC] Click to Edit Care 08/13/20 22:25 Active Telemetry Monitoring [Cardiac Monitoring] [RC] Q8H Care 08/13/20 14:22 Active Up ad Alfa [RC] ASDIRECTED Care 08/13/20 14:48 Active VTE/DVT Education [RC] PER UNIT ROUTINE Care 08/13/20 14:48 Active Vital Signs [RC] Q4H Care 08/13/20 14:48 Active ADA Diabetic [[place] [employer] Diet] [DIET Diet 08/13/20 Dinner Active ] CBC WITH AUTO DIFF [HEME] AM Lab 08/15/20 05:11 Ordered CBC WITH AUTO DIFF [HEME] AM Lab 08/16/20 05:11 Ordered COMPREHENSIVE METABOLIC PN,CMP [CHEM] AM Lab 08/15/20 05:11 Ordered COMPREHENSIVE METABOLIC PN,CMP [CHEM] AM Lab 08/16/20 05:11 Ordered CULTURE BLOOD [BC] Stat Lab 08/13/20 11:25 Received CULTURE BLOOD [BC] Stat Lab 08/13/20 11:55 Received FRESH FROZEN PLASMA [BBK] Routine Lab 08/13/20 16:49 Results TYPE AND SCREEN [BBK] Routine Lab 08/13/20 16:49 Results Acetaminophen [TylenoL] Med 08/13/20 14:48 Active 650 mg PO Q4H PRN Albuterol/Ipratropium [Combivent Respimat] Med 08/13/20 22:25 Active See Dose Instructions INH Q4H PRN Dextrose 50% in Water Med 08/13/20 14:47 Active 50 ml IV ASDIRECTED PRN Enoxaparin [Lovenox] Med 08/13/20 18:00 Active 40 mg SUBCUT Q12H Glucagon,Human Recombinant [GlucaGen] Med 08/13/20 14:47 Active 1 mg IM ASDIRECTED PRN Insulin Aspart [NovoLOG] Med 08/13/20 17:00 Active See Protocol SUBCUT TIDAC Metoprolol Succinate [Toprol XL] Med 08/14/20 09:00 Active 50 mg PO DAILY Ondansetron [Zofran ODT] Med 08/13/20 14:48 Active 4 mg PO Q4H PRN Remdesivir 100 mg Med 08/14/20 15:00 Active Sodium Chloride 0.9% [Normal Saline] 100 ml IV Q24H Rosuvastatin [Crestor] Med 08/13/20 21:00 Active 20 mg PO BEDTIME Sodium Chloride 0.9% [Saline Flush] Med 08/13/20 11:23 Active 10 ml FLUSH ASDIRECTED PRN Sodium Chloride 0.9% [Saline Flush] Med 08/13/20 11:23 Active 2.5 ml FLUSH ASDIRECTED PRN buPROPion [Wellbutrin XL] Med 08/14/20 09:00 Active 150 mg PO DAILY dexAMETHasone Med 08/14/20 14:00 Active 6 mg PO DAILY@1400 lisinopriL [Prinivil] Med 08/14/20 09:00 Active 20 mg PO DAILY Blood Culture x2 Reflex Set [OM.PC] Stat Oth 08/13/20 11:24 Ordered Isolation [COMM] Routine Oth 08/13/20 11:26 Active Saline Lock Insert [OM.PC] Stat Oth 08/13/20 11:23 Ordered Transfuse Fresh Frozen Plasma [COMM] Routine Oth 08/13/20 16:26 Ordered Resuscitation Status Routine Resus Stat 08/13/20 14:48 Ordered Medication Orders Acetaminophen (Tylenol) 650 mg PO Q4H PRN PRN Reason: Pain (Mild 1-3)/fever Albuterol/Ipratropium (Combivent Respimat) 0 gm INH Q4H PRN PRN Reason: Dyspnea Bupropion HCl (Wellbutrin Xl) 150 mg PO DAILY [facility] Last Admin: 08/14/20 08:28 Dose: 150 mg Documented by: SHUN Dexamethasone (Dexamethasone) 6 mg PO DAILY@1400 [facility] Stop: 08/22/20 14:01 Dextrose/Water (Dextrose 50% In Water) 50 ml IV ASDIRECTED PRN PRN Reason: Hypoglycemia Enoxaparin Sodium (Lovenox) 40 mg SUBCUT Q12H [facility] Last Admin: 08/14/20 05:56 Dose: 40 mg Documented by: Admin: 08/13/20 17:10 Dose: 40 mg Documented by: NE Glucagon (Glucagen) 1 mg IM ASDIRECTED PRN PRN Reason: Hypoglycemia Remdesivir 100 mg/ Sodium (Chloride) 100 mls @ 100 mls/hr IV Q24H [facility] Stop: 08/17/20 15:59 Insulin Aspart (Novolog) 0 unit SUBCUT TIDAC [facility]; Protocol Last Admin: 08/14/20 06:47 Dose: Not Given Documented by: Admin: 08/13/20 18:08 Dose: Not Given Documented by: NE Lisinopril (Prinivil) 20 mg PO DAILY [facility] Last Admin: 08/14/20 08:49 Dose: Not Given Documented by: SHUN Metoprolol Succinate (Toprol Xl) 50 mg PO DAILY [facility] Last Admin: 08/14/20 08:50 Dose: Not Given Documented by: SHUN Ondansetron HCl (Zofran Odt) 4 mg PO Q4H PRN PRN Reason: nausea, able to take PO Rosuvastatin Calcium (Crestor) 20 mg PO BEDTIME [facility] Last Admin: 08/13/20 20:11 Dose: Not Given Documented by: Admin: 08/13/20 19:48 Dose: 20 mg Documented by: NAY Sodium Chloride (Saline Flush) 10 ml FLUSH ASDIRECTED PRN PRN Reason: Keep Vein Open Last Admin: 08/13/20 11:30 Dose: 10 ml Documented by: ADITI Sodium Chloride (Saline Flush) 2.5 ml FLUSH ASDIRECTED PRN PRN Reason: Keep Vein Open Last Admin: 08/13/20 11:30 Dose: 2.5 ml Documented by: ADITI Assessment/Plan Comment:: I performed a history and physical exam of the patient and discussed management with resident. I have reviewed the residents note and agree with documented findings and plan unless otherwise specified in my note.
[2020-08-13] MEDS ORDERED: 50% Dextrose in Water 50 ML Syringe IV PRN (14:47)
[2020-08-13] MEDS ORDERED: Glucagon,Human Recombinant 1 MG Vial IM PRN (14:47)
[2020-08-13] MEDS ORDERED: Albuterol/Ipratropium 3.0-0.5 MG/3 ML Neb Soln NEB PRN (14:48)
[2020-08-13] MEDS ORDERED: Ondansetron 4 MG Tab.DIS PO PRN (14:48)
[2020-08-13] MEDS ORDERED: REMDESIVIR 200 MG in Sodium Chloride 0.9% 250 ML IV ONE ×2 (14:57→15:30)
[2020-08-13] MEDS: Enoxaparin 40 MG/0.4 ML Syringe SUBCUT SCH (17:10)
[2020-08-13] MEDS: Insulin Aspart 100 Units/ML 3 ML Pen SUBCUT SCH (18:08)
[2020-08-13] MEDS: Rosuvastatin 10 MG Tab PO SCH ×2 (19:48→20:11)
[2020-08-13] MEDS ORDERED: Albuterol/Ipratropium 4 GM Inhalation Spray INH PRN (22:25)
[2020-08-14] MEDS: Enoxaparin 40 MG/0.4 ML Syringe SUBCUT SCH ×2 (05:56→17:34)
[2020-08-14 06:23] LABS: CARBON DIOXIDE,CO2 26.2 mmol/L (21.0-32.0); POTASSIUM,K 4.5 mmol/L (3.5-5.1)
[2020-08-14] MEDS: Insulin Aspart 100 Units/ML 3 ML Pen SUBCUT SCH ×3 (06:47→17:41)
[2020-08-14] MEDS: buPROPion 150 MG Tab.ER PO SCH (08:28)
[2020-08-14] MEDS: Lisinopril 10 MG Tab PO SCH (08:49)
[2020-08-14] MEDS: Metoprolol Succinate 50 MG Tab.ER PO SCH (08:50)
--- NOTE | 2020-08-14 08:53 | PCM.PN ---
<Lamar Bedoya - Last Filed: 08/14/20 10:13> - General Info Date of Service: 08/14/20 Subjective Update: Endorses feeling better and less dehydrated. SOB improving - Review of Systems General: Reports: No Symptoms HEENT: Reports: No Symptoms Pulmonary: Reports: Shortness of Breath, Cough. Denies: Sputum Cardiovascular: Reports: No Symptoms Gastrointestinal: Denies: Abdominal Pain, Diarrhea, Nausea, Vomiting Genitourinary: Reports: No Symptoms Musculoskeletal: Reports: Back Pain Neurological: Denies: No Symptoms - Patient Data Vitals - Most Recent: Last Vital Signs Temp 97.7 F 08/14/20 08:13 Pulse 67 08/14/20 08:50 Resp 20 08/14/20 08:13 BP 103/57 L 08/14/20 08:50 Pulse Ox 94 L 08/14/20 08:13 Weight - Most Recent: 113.942 kg I&O - Last 24 Hours: Intake & Output 08/13/20 08/14/20 08/14/20 22:59 06:59 14:59 Intake Total 1200 Output Total 1200 Balance 0 Lab Results Last 24 Hours: Laboratory Results - last 24 hr 08/13/20 08/13/20 08/13/20 Range/Units 11:23 11:25 11:25 WBC 4.47 (4.0-11.0) K/uL RBC 5.00 (4.30-5.90) M/uL Hgb 13.6 (12.0-16.0) g/dL Hct 42.0 (36.0-46.0) % MCV 84.0 (80.0-98.0) fL MCH 27.2 (27.0-32.0) pg MCHC 32.4 (31.0-37.0) g/dL RDW Std Deviation 43.7 (28.0-62.0) fl RDW Coeff of Joel 14 (11.0-15.0) % Plt Count 232 (150-400) K/uL MPV 10.40 (7.40-12.00) fL Neut % (Auto) 59.6 (48.0-80.0) % Lymph % (Auto) 28.2 (16.0-40.0) % Ness % (Auto) 11.6 (0.0-15.0) % Eos % (Auto) 0.2 (0.0-7.0) % Baso % (Auto) 0.4 (0.0-1.5) % Neut # (Auto) 2.7 (1.4-5.7) K/uL Lymph # (Auto) 1.3 (0.6-2.4) K/uL Ness # (Auto) 0.5 (0.0-0.8) K/uL Eos # (Auto) 0.0 (0.0-0.7) K/uL Baso # (Auto) 0.0 (0.0-0.1) K/uL Nucleated RBC % 0.0 /100WBC Nucleated RBCs # 0 K/uL ESR (0-29) mm/hr INR APTT (18.6-31.3) SEC D-Dimer, Quantitative (0.0-0.50) mg/L FEU ABG pH (7.35-7.45) ABG pCO2 (35-45) mmHG ABG pO2 (75-100) mmHG ABG HCO3 (22-26) mEq/L ABG Total CO2 ABG Base Excess (-2.0-2.0) Lactate 0.8 (0.20-2.00) mmol/L Sodium (136-145) mmol/L Potassium (3.5-5.1) mmol/L Chloride (98-107) mmol/L Carbon Dioxide (21.0-32.0) mmol/L BUN (7.0-18.0) mg/dL Creatinine (0.6-1.0) mg/dL Est Cr Clr Drug Dosing mL/min Estimated GFR (MDRD) ml/min Glucose (74-106) mg/dL POC Glucose (60-110) mg/dL Calcium (8.5-10.1) mg/dL Phosphorus (2.6-4.7) mg/dL Magnesium (1.8-2.4) mg/dL Ferritin (8-252) ng/mL Total Bilirubin (0.2-1.0) mg/dL AST (15-37) IU/L ALT (14-63) IU/L Alkaline Phosphatase (46-116) U/L Lactate Dehydrogenase (81-234) U/L Troponin I (0.000-0.056) ng/mL C-Reactive Protein (0.00-0.90) mg/dL B-Natriuretic Peptide (<100) PG/ML Total Protein (6.4-8.2) g/dL Albumin (3.4-5.0) g/dL Globulin (2.6-4.0) g/dL Albumin/Globulin Ratio (0.9-1.6) Lipase (73-393) U/L Procalcitonin ng/mL Urine Color Urine Appearance Urine pH (5.0-8.0) Ur Specific Seanor (1.001-1.035) Urine Protein (NEGATIVE) mg/dL Urine Glucose (UA) (NEGATIVE) mg/dL Urine Ketones (NEGATIVE) mg/dL Urine Occult Blood (NEGATIVE) Urine Nitrite (NEGATIVE) Urine Bilirubin (NEGATIVE) Urine Urobilinogen (<2.0) EU/dL Ur Leukocyte Esterase (NEGATIVE) Influenza Type A RNA NEGATIVE (NEGATIVE) Influenza Type B RNA NEGATIVE (NEGATIVE) SARS-CoV-2 RNA (JAYLA) POSITIVE H (NEGATIVE) Blood Type Antibody Screen 08/13/20 08/13/20 08/13/20 Range/Units 11:25 11:25 11:25 WBC (4.0-11.0) K/uL RBC (4.30-5.90) M/uL Hgb (12.0-16.0) g/dL Hct (36.0-46.0) % MCV (80.0-98.0) fL MCH (27.0-32.0) pg MCHC (31.0-37.0) g/dL RDW Std Deviation (28.0-62.0) fl RDW Coeff of Joel (11.0-15.0) % Plt Count (150-400) K/uL MPV (7.40-12.00) fL Neut % (Auto) (48.0-80.0) % Lymph % (Auto) (16.0-40.0) % Ness % (Auto) (0.0-15.0) % Eos % (Auto) (0.0-7.0) % Baso % (Auto) (0.0-1.5) % Neut # (Auto) (1.4-5.7) K/uL Lymph # (Auto) (0.6-2.4) K/uL Ness # (Auto) (0.0-0.8) K/uL Eos # (Auto) (0.0-0.7) K/uL Baso # (Auto) (0.0-0.1) K/uL Nucleated RBC % /100WBC Nucleated RBCs # K/uL ESR 45 H (0-29) mm/hr INR APTT (18.6-31.3) SEC D-Dimer, Quantitative (0.0-0.50) mg/L FEU ABG pH (7.35-7.45) ABG pCO2 (35-45) mmHG ABG pO2 (75-100) mmHG ABG HCO3 (22-26) mEq/L ABG Total CO2 ABG Base Excess (-2.0-2.0) Lactate (0.20-2.00) mmol/L Sodium 136 (136-145) mmol/L Potassium 4.2 (3.5-5.1) mmol/L Chloride 100 (98-107) mmol/L Carbon Dioxide 26.8 (21.0-32.0) mmol/L BUN 23 H (7.0-18.0) mg/dL Creatinine 1.9 H (0.6-1.0) mg/dL Est Cr Clr Drug Dosing 31.38 mL/min Estimated GFR (MDRD) 32.9 ml/min Glucose 106 (74-106) mg/dL POC Glucose (60-110) mg/dL Calcium 9.1 (8.5-10.1) mg/dL Phosphorus 2.9 (2.6-4.7) mg/dL Magnesium 2.4 (1.8-2.4) mg/dL Ferritin (8-252) ng/mL Total Bilirubin 0.5 (0.2-1.0) mg/dL AST 40 H (15-37) IU/L ALT 29 (14-63) IU/L Alkaline Phosphatase 54 (46-116) U/L Lactate Dehydrogenase 409 H (81-234) U/L Troponin I < 0.050 (0.000-0.056) ng/mL C-Reactive Protein 5.80 H (0.00-0.90) mg/dL B-Natriuretic Peptide (<100) PG/ML Total Protein 7.8 (6.4-8.2) g/dL Albumin 3.2 L (3.4-5.0) g/dL Globulin 4.6 H (2.6-4.0) g/dL Albumin/Globulin Ratio 0.7 L (0.9-1.6) Lipase 142 (73-393) U/L Procalcitonin 0.08 ng/mL Urine Color Urine Appearance Urine pH (5.0-8.0) Ur Specific Seanor (1.001-1.035) Urine Protein (NEGATIVE) mg/dL Urine Glucose (UA) (NEGATIVE) mg/dL Urine Ketones (NEGATIVE) mg/dL Urine Occult Blood (NEGATIVE) Urine Nitrite (NEGATIVE) Urine Bilirubin (NEGATIVE) Urine Urobilinogen (<2.0) EU/dL Ur Leukocyte Esterase (NEGATIVE) Influenza Type A RNA (NEGATIVE) Influenza Type B RNA (NEGATIVE) SARS-CoV-2 RNA (JAYLA) (NEGATIVE) Blood Type Antibody Screen 08/13/20 08/13/20 08/13/20 Range/Units 11:25 11:25 11:25 WBC (4.0-11.0) K/uL RBC (4.30-5.90) M/uL Hgb (12.0-16.0) g/dL Hct (36.0-46.0) % MCV (80.0-98.0) fL MCH (27.0-32.0) pg MCHC (31.0-37.0) g/dL RDW Std Deviation (28.0-62.0) fl RDW Coeff of Joel (11.0-15.0) % Plt Count (150-400) K/uL MPV (7.40-12.00) fL Neut % (Auto) (48.0-80.0) % Lymph % (Auto) (16.0-40.0) % Ness % (Auto) (0.0-15.0) % Eos % (Auto) (0.0-7.0) % Baso % (Auto) (0.0-1.5) % Neut # (Auto) (1.4-5.7) K/uL Lymph # (Auto) (0.6-2.4) K/uL Ness # (Auto) (0.0-0.8) K/uL Eos # (Auto) (0.0-0.7) K/uL Baso # (Auto) (0.0-0.1) K/uL Nucleated RBC % /100WBC Nucleated RBCs # K/uL ESR (0-29) mm/hr INR 0.94 APTT 27.0 (18.6-31.3) SEC D-Dimer, Quantitative 0.79 H (0.0-0.50) mg/L FEU ABG pH (7.35-7.45) ABG pCO2 (35-45) mmHG ABG pO2 (75-100) mmHG ABG HCO3 (22-26) mEq/L ABG Total CO2 ABG Base Excess (-2.0-2.0) Lactate (0.20-2.00) mmol/L Sodium (136-145) mmol/L Potassium (3.5-5.1) mmol/L Chloride (98-107) mmol/L Carbon Dioxide (21.0-32.0) mmol/L BUN (7.0-18.0) mg/dL Creatinine (0.6-1.0) mg/dL Est Cr Clr Drug Dosing mL/min Estimated GFR (MDRD) ml/min Glucose (74-106) mg/dL POC Glucose (60-110) mg/dL Calcium (8.5-10.1) mg/dL Phosphorus (2.6-4.7) mg/dL Magnesium (1.8-2.4) mg/dL Ferritin 605 H (8-252) ng/mL Total Bilirubin (0.2-1.0) mg/dL AST (15-37) IU/L ALT (14-63) IU/L Alkaline Phosphatase (46-116) U/L Lactate Dehydrogenase (81-234) U/L Troponin I (0.000-0.056) ng/mL C-Reactive Protein (0.00-0.90) mg/dL B-Natriuretic Peptide 6 (<100) PG/ML Total Protein (6.4-8.2) g/dL Albumin (3.4-5.0) g/dL Globulin (2.6-4.0) g/dL Albumin/Globulin Ratio (0.9-1.6) Lipase (73-393) U/L Procalcitonin ng/mL Urine Color Urine Appearance Urine pH (5.0-8.0) Ur Specific Seanor (1.001-1.035) Urine Protein (NEGATIVE) mg/dL Urine Glucose (UA) (NEGATIVE) mg/dL Urine Ketones (NEGATIVE) mg/dL Urine Occult Blood (NEGATIVE) Urine Nitrite (NEGATIVE) Urine Bilirubin (NEGATIVE) Urine Urobilinogen (<2.0) EU/dL Ur Leukocyte Esterase (NEGATIVE) Influenza Type A RNA (NEGATIVE) Influenza Type B RNA (NEGATIVE) SARS-CoV-2 RNA (JAYLA) (NEGATIVE) Blood Type Antibody Screen 08/13/20 08/13/20 08/13/20 Range/Units 12:53 16:00 16:49 WBC (4.0-11.0) K/uL RBC (4.30-5.90) M/uL Hgb (12.0-16.0) g/dL Hct (36.0-46.0) % MCV (80.0-98.0) fL MCH (27.0-32.0) pg MCHC (31.0-37.0) g/dL RDW Std Deviation (28.0-62.0) fl RDW Coeff of Joel (11.0-15.0) % Plt Count (150-400) K/uL MPV (7.40-12.00) fL Neut % (Auto) (48.0-80.0) % Lymph % (Auto) (16.0-40.0) % Ness % (Auto) (0.0-15.0) % Eos % (Auto) (0.0-7.0) % Baso % (Auto) (0.0-1.5) % Neut # (Auto) (1.4-5.7) K/uL Lymph # (Auto) (0.6-2.4) K/uL Ness # (Auto) (0.0-0.8) K/uL Eos # (Auto) (0.0-0.7) K/uL Baso # (Auto) (0.0-0.1) K/uL Nucleated RBC % /100WBC Nucleated RBCs # K/uL ESR (0-29) mm/hr INR APTT (18.6-31.3) SEC D-Dimer, Quantitative (0.0-0.50) mg/L FEU ABG pH 7.420 (7.35-7.45) ABG pCO2 38 (35-45) mmHG ABG pO2 79 (75-100) mmHG ABG HCO3 25 (22-26) mEq/L ABG Total CO2 22.3 ABG Base Excess 0.3 (-2.0-2.0) Lactate (0.20-2.00) mmol/L Sodium (136-145) mmol/L Potassium (3.5-5.1) mmol/L Chloride (98-107) mmol/L Carbon Dioxide (21.0-32.0) mmol/L BUN (7.0-18.0) mg/dL Creatinine (0.6-1.0) mg/dL Est Cr Clr Drug Dosing mL/min Estimated GFR (MDRD) ml/min Glucose (74-106) mg/dL POC Glucose (60-110) mg/dL Calcium (8.5-10.1) mg/dL Phosphorus (2.6-4.7) mg/dL Magnesium (1.8-2.4) mg/dL Ferritin (8-252) ng/mL Total Bilirubin (0.2-1.0) mg/dL AST (15-37) IU/L ALT (14-63) IU/L Alkaline Phosphatase (46-116) U/L Lactate Dehydrogenase (81-234) U/L Troponin I (0.000-0.056) ng/mL C-Reactive Protein (0.00-0.90) mg/dL B-Natriuretic Peptide (<100) PG/ML Total Protein (6.4-8.2) g/dL Albumin (3.4-5.0) g/dL Globulin (2.6-4.0) g/dL Albumin/Globulin Ratio (0.9-1.6) Lipase (73-393) U/L Procalcitonin ng/mL Urine Color YELLOW Urine Appearance CLEAR Urine pH 5.5 (5.0-8.0) Ur Specific Seanor 1.015 (1.001-1.035) Urine Protein NEGATIVE (NEGATIVE) mg/dL Urine Glucose (UA) NEGATIVE (NEGATIVE) mg/dL Urine Ketones NEGATIVE (NEGATIVE) mg/dL Urine Occult Blood NEGATIVE (NEGATIVE) Urine Nitrite NEGATIVE (NEGATIVE) Urine Bilirubin NEGATIVE (NEGATIVE) Urine Urobilinogen 0.2 (<2.0) EU/dL Ur Leukocyte Esterase NEGATIVE (NEGATIVE) Influenza Type A RNA (NEGATIVE) Influenza Type B RNA (NEGATIVE) SARS-CoV-2 RNA (JAYLA) (NEGATIVE) Blood Type O POSITIVE Antibody Screen NEGATIVE 08/13/20 08/14/20 08/14/20 Range/Units 17:47 05:52 05:52 WBC 3.33 L (4.0-11.0) K/uL RBC 4.55 (4.30-5.90) M/uL Hgb 12.2 (12.0-16.0) g/dL Hct 38.6 (36.0-46.0) % MCV 84.8 (80.0-98.0) fL MCH 26.8 L (27.0-32.0) pg MCHC 31.6 (31.0-37.0) g/dL RDW Std Deviation 44.4 (28.0-62.0) fl RDW Coeff of Joel 14 (11.0-15.0) % Plt Count 237 (150-400) K/uL MPV 10.00 (7.40-12.00) fL Neut % (Auto) 50.8 (48.0-80.0) % Lymph % (Auto) 34.5 (16.0-40.0) % Ness % (Auto) 14.1 (0.0-15.0) % Eos % (Auto) 0.3 (0.0-7.0) % Baso % (Auto) 0.3 (0.0-1.5) % Neut # (Auto) 1.7 (1.4-5.7) K/uL Lymph # (Auto) 1.2 (0.6-2.4) K/uL Ness # (Auto) 0.5 (0.0-0.8) K/uL Eos # (Auto) 0.0 (0.0-0.7) K/uL Baso # (Auto) 0.0 (0.0-0.1) K/uL Nucleated RBC % 0.0 /100WBC Nucleated RBCs # 0 K/uL ESR (0-29) mm/hr INR APTT (18.6-31.3) SEC D-Dimer, Quantitative (0.0-0.50) mg/L FEU ABG pH (7.35-7.45) ABG pCO2 (35-45) mmHG ABG pO2 (75-100) mmHG ABG HCO3 (22-26) mEq/L ABG Total CO2 ABG Base Excess (-2.0-2.0) Lactate (0.20-2.00) mmol/L Sodium 140 (136-145) mmol/L Potassium 4.5 (3.5-5.1) mmol/L Chloride 106 (98-107) mmol/L Carbon Dioxide 26.2 (21.0-32.0) mmol/L BUN 25 H (7.0-18.0) mg/dL Creatinine 1.3 H (0.6-1.0) mg/dL Est Cr Clr Drug Dosing 45.87 mL/min Estimated GFR (MDRD) 51.0 ml/min Glucose 94 (74-106) mg/dL POC Glucose 97 (60-110) mg/dL Calcium 8.5 (8.5-10.1) mg/dL Phosphorus (2.6-4.7) mg/dL Magnesium (1.8-2.4) mg/dL Ferritin (8-252) ng/mL Total Bilirubin 0.3 (0.2-1.0) mg/dL AST 29 (15-37) IU/L ALT 24 (14-63) IU/L Alkaline Phosphatase 46 (46-116) U/L Lactate Dehydrogenase (81-234) U/L Troponin I (0.000-0.056) ng/mL C-Reactive Protein (0.00-0.90) mg/dL B-Natriuretic Peptide (<100) PG/ML Total Protein 6.8 (6.4-8.2) g/dL Albumin 2.7 L (3.4-5.0) g/dL Globulin 4.1 H (2.6-4.0) g/dL Albumin/Globulin Ratio 0.7 L (0.9-1.6) Lipase (73-393) U/L Procalcitonin ng/mL Urine Color Urine Appearance Urine pH (5.0-8.0) Ur Specific Seanor (1.001-1.035) Urine Protein (NEGATIVE) mg/dL Urine Glucose (UA) (NEGATIVE) mg/dL Urine Ketones (NEGATIVE) mg/dL Urine Occult Blood (NEGATIVE) Urine Nitrite (NEGATIVE) Urine Bilirubin (NEGATIVE) Urine Urobilinogen (<2.0) EU/dL Ur Leukocyte Esterase (NEGATIVE) Influenza Type A RNA (NEGATIVE) Influenza Type B RNA (NEGATIVE) SARS-CoV-2 RNA (JAYLA) (NEGATIVE) Blood Type Antibody Screen 08/14/20 Range/Units 05:55 WBC (4.0-11.0) K/uL RBC (4.30-5.90) M/uL Hgb (12.0-16.0) g/dL Hct (36.0-46.0) % MCV (80.0-98.0) fL MCH (27.0-32.0) pg MCHC (31.0-37.0) g/dL RDW Std Deviation (28.0-62.0) fl RDW Coeff of Joel (11.0-15.0) % Plt Count (150-400) K/uL MPV (7.40-12.00) fL Neut % (Auto) (48.0-80.0) % Lymph % (Auto) (16.0-40.0) % Ness % (Auto) (0.0-15.0) % Eos % (Auto) (0.0-7.0) % Baso % (Auto) (0.0-1.5) % Neut # (Auto) (1.4-5.7) K/uL Lymph # (Auto) (0.6-2.4) K/uL Ness # (Auto) (0.0-0.8) K/uL Eos # (Auto) (0.0-0.7) K/uL Baso # (Auto) (0.0-0.1) K/uL Nucleated RBC % /100WBC Nucleated RBCs # K/uL ESR (0-29) mm/hr INR APTT (18.6-31.3) SEC D-Dimer, Quantitative (0.0-0.50) mg/L FEU ABG pH (7.35-7.45) ABG pCO2 (35-45) mmHG ABG pO2 (75-100) mmHG ABG HCO3 (22-26) mEq/L ABG Total CO2 ABG Base Excess (-2.0-2.0) Lactate (0.20-2.00) mmol/L Sodium (136-145) mmol/L Potassium (3.5-5.1) mmol/L Chloride (98-107) mmol/L Carbon Dioxide (21.0-32.0) mmol/L BUN (7.0-18.0) mg/dL Creatinine (0.6-1.0) mg/dL Est Cr Clr Drug Dosing mL/min Estimated GFR (MDRD) ml/min Glucose (74-106) mg/dL POC Glucose 87 (60-110) mg/dL Calcium (8.5-10.1) mg/dL Phosphorus (2.6-4.7) mg/dL Magnesium (1.8-2.4) mg/dL Ferritin (8-252) ng/mL Total Bilirubin (0.2-1.0) mg/dL AST (15-37) IU/L ALT (14-63) IU/L Alkaline Phosphatase (46-116) U/L Lactate Dehydrogenase (81-234) U/L Troponin I (0.000-0.056) ng/mL C-Reactive Protein (0.00-0.90) mg/dL B-Natriuretic Peptide (<100) PG/ML Total Protein (6.4-8.2) g/dL Albumin (3.4-5.0) g/dL Globulin (2.6-4.0) g/dL Albumin/Globulin Ratio (0.9-1.6) Lipase (73-393) U/L Procalcitonin ng/mL Urine Color Urine Appearance Urine pH (5.0-8.0) Ur Specific Seanor (1.001-1.035) Urine Protein (NEGATIVE) mg/dL Urine Glucose (UA) (NEGATIVE) mg/dL Urine Ketones (NEGATIVE) mg/dL Urine Occult Blood (NEGATIVE) Urine Nitrite (NEGATIVE) Urine Bilirubin (NEGATIVE) Urine Urobilinogen (<2.0) EU/dL Ur Leukocyte Esterase (NEGATIVE) Influenza Type A RNA (NEGATIVE) Influenza Type B RNA (NEGATIVE) SARS-CoV-2 RNA (JAYLA) (NEGATIVE) Blood Type Antibody Screen Med Orders - Current: Current Medications Acetaminophen (Tylenol) 650 mg PO Q4H PRN PRN Reason: Pain (Mild 1-3)/fever Albuterol/Ipratropium (Combivent Respimat) 0 gm INH Q4H PRN PRN Reason: Dyspnea Bupropion HCl (Wellbutrin Xl) 150 mg PO DAILY [facility] Last Admin: 08/14/20 08:28 Dose: 150 mg Documented by: Dexamethasone (Dexamethasone) 6 mg PO DAILY@1400 [facility] Stop: 08/22/20 14:01 Dextrose/Water (Dextrose 50% In Water) 50 ml IV ASDIRECTED PRN PRN Reason: Hypoglycemia Enoxaparin Sodium (Lovenox) 40 mg SUBCUT Q12H [facility] Last Admin: 08/14/20 05:56 Dose: 40 mg Documented by: Glucagon (Glucagen) 1 mg IM ASDIRECTED PRN PRN Reason: Hypoglycemia Hydrochlorothiazide (Hydrochlorothiazide) 12.5 mg PO DAILY [facility] Last Admin: 08/14/20 08:49 Dose: Not Given Documented by: Remdesivir 100 mg/ Sodium (Chloride) 100 mls @ 100 mls/hr IV Q24H [facility] Stop: 08/17/20 15:59 Insulin Aspart (Novolog) 0 unit SUBCUT TIDAC [facility]; Protocol Last Admin: 08/14/20 06:47 Dose: Not Given Documented by: Lisinopril (Prinivil) 20 mg PO DAILY [facility] Last Admin: 08/14/20 08:49 Dose: Not Given Documented by: Metoprolol Succinate (Toprol Xl) 50 mg PO DAILY [facility] Last Admin: 08/14/20 08:50 Dose: Not Given Documented by: Ondansetron HCl (Zofran Odt) 4 mg PO Q4H PRN PRN Reason: nausea, able to take PO Rosuvastatin Calcium (Crestor) 20 mg PO BEDTIME [facility] Last Admin: 08/13/20 20:11 Dose: Not Given Documented by: Sodium Chloride (Saline Flush) 10 ml FLUSH ASDIRECTED PRN PRN Reason: Keep Vein Open Last Admin: 08/13/20 11:30 Dose: 10 ml Documented by: Sodium Chloride (Saline Flush) 2.5 ml FLUSH ASDIRECTED PRN PRN Reason: Keep Vein Open Last Admin: 08/13/20 11:30 Dose: 2.5 ml Documented by: Discontinued Medications Albuterol/Ipratropium (Duoneb 3.0-0.5 Mg/3 Ml) 3 ml NEB Q4HRRT PRN PRN Reason: Shortness Of Breath/wheezing Dexamethasone (Decadron) 6 mg IVPUSH ONETIME ONE Stop: 08/13/20 13:01 Last Admin: 08/13/20 13:20 Dose: 6 mg Documented by: Sodium Chloride (Normal Saline) 1,000 mls @ 999 mls/hr IV .Bolus ONE Stop: 08/13/20 12:30 Last Admin: 08/13/20 11:31 Dose: 999 mls/hr Documented by: Ceftriaxone Sodium/Dextrose 1 (gm/ Premix) 50 mls @ 100 mls/hr IV ONETIME ONE Stop: 08/13/20 13:29 Last Admin: 08/13/20 13:20 Dose: 100 mls/hr Documented by: Azithromycin 500 mg/ Sodium (Chloride) 250 mls @ 250 mls/hr IV ONETIME [facility]ARDO Stop: 08/13/20 16:00 Last Admin: 08/13/20 14:05 Dose: 250 mls/hr Documented by: Remdesivir 200 mg/ Sodium (Chloride) 250 mls @ 250 mls/hr IV ONETIME ONE Stop: 08/13/20 14:58 Last Admin: 08/13/20 17:11 Dose: Not Given Documented by: Remdesivir 200 mg/ Sodium (Chloride) 250 mls @ 250 mls/hr IV ONETIME ONE Stop: 08/13/20 16:29 Last Admin: 08/13/20 16:55 Dose: 250 mls/hr Documented by: - Exam Quality Assessment: Supplemental Oxygen General: Alert, Oriented, Cooperative, No Acute Distress HEENT: EOMI, Mucous Membr. Moist/[place] Neck: Supple Lungs: Other (shortended I/E phase ; miniumal rhonchi w. deep inspiration ) Cardiovascular: Regular Rate, Regular Rhythm GI/Abdominal Exam: Soft, Non-Tender Extremities: Normal Inspection, No Pedal Edema Neurological: No New Focal Deficit Psy/Mental Status: Alert Sepsis Event Note - Evaluation Sepsis Screening Result: No Definite Risk - Focused Exam Vital Signs: Vital Signs Temp Temp Pulse Pulse Resp BP BP 08/14/20 08:50 67 103/57 L 08/14/20 08:49 103/57 L 08/14/20 08:13 97.7 F 67 20 103/57 L 08/14/20 03:39 97.4 F 61 18 108/65 08/14/20 01:07 08/14/20 01:05 97.3 F 57 L 18 111/66 08/14/20 00:10 97.4 F 60 18 103/61 08/14/20 00:00 97.4 F 60 18 103/61 08/13/20 23:51 08/13/20 23:40 97.5 F 60 18 103/63 08/13/20 23:25 97.1 F 62 18 97/60 Pulse Ox 08/14/20 08:50 08/14/20 08:49 08/14/20 08:13 94 L 08/14/20 03:39 93 L 08/14/20 01:07 99 08/14/20 01:05 99 08/14/20 00:10 96 08/14/20 00:00 96 08/13/20 23:51 96 08/13/20 23:40 96 08/13/20 23:25 - Problem List Review Problem List Initiated/Reviewed/Updated: Yes - My Orders Last 24 Hours: My Active Orders 08/13/20 14:47 Accu Check [Blood Glucose Check, Bedside] [RC] TIDMEALS Dextrose 50% in Water 50 ml IV ASDIRECTED PRN Glucagon,Human Recombinant [GlucaGen] 1 mg IM ASDIRECTED PRN 08/13/20 14:48 Oxygen Therapy [RC] PRN Up ad [place] [RC] ASDIRECTED VTE/DVT Education [RC] PER UNIT ROUTINE Vital Signs [RC] Q4H Acetaminophen [TylenoL] 650 mg PO Q4H PRN Ondansetron [Zofran ODT] 4 mg PO Q4H PRN Resuscitation Status Routine 08/13/20 14:50 Incentive Spirometry [RT Incentive Spirometry] [RC] Q2HWA RT Aerosol Therapy [RC] ASDIRECTED 08/13/20 14:51 Acapella [RT Chest Physiotherapy] [RC] ASDIRECTED 08/13/20 Dinner ADA Diabetic [[place] [employer] Diet] [DIET] 08/13/20 16:26 Transfuse Fresh Frozen Plasma [COMM] Routine 08/13/20 16:49 TYPE AND SCREEN [BBK] Routine 08/13/20 17:00 Insulin Aspart [NovoLOG] See Protocol SUBCUT TIDAC 08/13/20 18:00 Enoxaparin [Lovenox] 40 mg SUBCUT Q12H 08/13/20 21:00 Rosuvastatin [Crestor] 20 mg PO BEDTIME 08/14/20 09:00 Metoprolol Succinate [Toprol XL] 50 mg PO DAILY buPROPion [Wellbutrin XL] 150 mg PO DAILY hydroCHLOROthiazide 12.5 mg PO DAILY lisinopriL [Prinivil] 20 mg PO DAILY 08/14/20 14:00 dexAMETHasone 6 mg PO DAILY@1400 08/14/20 15:00 Remdesivir 100 mg Sodium Chloride 0.9% [Normal Saline] 100 ml IV Q24H 08/15/20 05:11 CBC WITH AUTO DIFF [HEME] AM COMPREHENSIVE METABOLIC PN,CMP [CHEM] AM 08/16/20 05:11 CBC WITH AUTO DIFF [HEME] AM COMPREHENSIVE METABOLIC PN,CMP [CHEM] AM - Plan Plan:: Assessment: 1. Acute hypoxic respiratory failure secondary to viral pneumonia/Covid positive 2. Acute kidney injury 3. Elevated D-dimer secondary to above 4. Past medical history hypertension, hyperlipidemia, type 2 diabetes Plan 1. Hypoxic respiratory failure secondary to Covid: Maintain O2 saturations greater than 92%. Continue convalescent plasma, remdesivir and dexamethasone 6 mg daily x10 days. We will hold off on antibiotics for now unless warranted; procalcitonin ordered results pending. O2 and clinical status improved from admission date. Hydration status improved; will consider a 500 cc bolus later today if needed but pt. is tolerating PO intake. 2. ANGELIA; improving this AM w. Cr of 1.3; continue hydration w. PO and will consider IV rehydration if clinically necessary Elevated D-dimer; in light of ANGELIA plus COVID will consider CTA if patient is clinically not improving; continue with 40 mg twice daily Lovenox. 3. Past medical history; continue home medication except Metformin, start sliding scale insulin; low-dose. <Parris Barajas - Last Filed: 08/16/20 23:54> - General Info Subjective Update: I have seen and evaluated the patient and agree with the residents note unless specified in my note - Patient Data Vitals - Most Recent: Last Vital Signs Temp 36.3 C 08/16/20 07:46 Pulse 56 L 08/16/20 07:46 Resp 16 08/16/20 07:46 BP 133/78 08/16/20 08:22 Pulse Ox 97 08/16/20 07:46 I&O - Last 24 Hours: Intake & Output 08/16/20 08/16/20 08/17/20 14:59 22:59 06:59 Intake Total 590 Output Total 900 Balance -310 Lab Results Last 24 Hours: Laboratory Results - last 24 hr 0108/16/20 08/16/20 Range/Units 05:30 05:30 06:01 WBC 3.86 L (4.0-11.0) K/uL RBC 4.78 (4.30-5.90) M/uL Hgb 12.8 (12.0-16.0) g/dL Hct 40.1 (36.0-46.0) % MCV 83.9 (80.0-98.0) fL MCH 26.8 L (27.0-32.0) pg MCHC 31.9 (31.0-37.0) g/dL RDW Std Deviation 43.1 (28.0-62.0) fl RDW Coeff of Joel 14 (11.0-15.0) % Plt Count 338 (150-400) K/uL MPV 10.40 (7.40-12.00) fL Neut % (Auto) 53.2 (48.0-80.0) % Lymph % (Auto) 33.9 (16.0-40.0) % Ness % (Auto) 12.4 (0.0-15.0) % Eos % (Auto) 0.0 (0.0-7.0) % Baso % (Auto) 0.5 (0.0-1.5) % Neut # (Auto) 2.1 (1.4-5.7) K/uL Lymph # (Auto) 1.3 (0.6-2.4) K/uL Ness # (Auto) 0.5 (0.0-0.8) K/uL Eos # (Auto) 0.0 (0.0-0.7) K/uL Baso # (Auto) 0.0 (0.0-0.1) K/uL Nucleated RBC % 0.0 /100WBC Nucleated RBCs # 0 K/uL Sodium 143 (136-145) mmol/L Potassium 4.5 (3.5-5.1) mmol/L Chloride 107 (98-107) mmol/L Carbon Dioxide 25.7 (21.0-32.0) mmol/L BUN 29 H (7.0-18.0) mg/dL Creatinine 1.2 H (0.6-1.0) mg/dL Est Cr Clr Drug Dosing 49.69 mL/min Estimated GFR (MDRD) 55.9 ml/min Glucose 121 H (74-106) mg/dL POC Glucose 105 (60-110) mg/dL Calcium 9.2 (8.5-10.1) mg/dL Total Bilirubin 0.4 (0.2-1.0) mg/dL AST 18 (15-37) IU/L ALT 20 (14-63) IU/L Alkaline Phosphatase 52 (46-116) U/L Total Protein 6.9 (6.4-8.2) g/dL Albumin 2.8 L (3.4-5.0) g/dL Globulin 4.1 H (2.6-4.0) g/dL Albumin/Globulin Ratio 0.7 L (0.9-1.6) Dax Results Last 24 Hours: Microbiology 08/13/20 11:55 Aerobic Blood Culture - Preliminary Blood - Venous - Lab Draw NO GROWTH AFTER 3 DAYS Anaerobic Blood Culture - Preliminary NO GROWTH AFTER 3 DAYS 08/13/20 11:25 Aerobic Blood Culture - Preliminary Blood - Venous NO GROWTH AFTER 3 DAYS Anaerobic Blood Culture - Preliminary NO GROWTH AFTER 3 DAYS Med Orders - Current: Current Medications Discontinued Medications Acetaminophen (Tylenol) 650 mg PO Q4H PRN PRN Reason: Pain (Mild 1-3)/fever Last Admin: 08/14/20 20:41 Dose: 650 mg Documented by: Albuterol/Ipratropium (Duoneb 3.0-0.5 Mg/3 Ml) 3 ml NEB Q4HRRT PRN PRN Reason: Shortness Of Breath/wheezing Albuterol/Ipratropium (Combivent Respimat) 0 gm INH Q4H PRN PRN Reason: Dyspnea Bupropion HCl (Wellbutrin Xl) 150 mg PO DAILY [facility] Last Admin: 08/16/20 08:24 Dose: 150 mg Documented by: Calcium Carbonate/Glycine (Tums) 500 mg PO Q6HR PRN PRN Reason: Indigestion Last Admin: 08/15/20 21:00 Dose: 500 mg Documented by: Dexamethasone (Decadron) 6 mg IVPUSH ONETIME ONE Stop: 08/13/20 13:01 Last Admin: 08/13/20 13:20 Dose: 6 mg Documented by: Dexamethasone (Dexamethasone) 6 mg PO DAILY@1400 [facility] Stop: 08/22/20 14:01 Last Admin: 08/15/20 14:03 Dose: 6 mg Documented by: Dextrose/Water (Dextrose 50% In Water) 50 ml IV ASDIRECTED PRN PRN Reason: Hypoglycemia Enoxaparin Sodium (Lovenox) 40 mg SUBCUT Q12H [facility] Last Admin: 08/16/20 06:02 Dose: 40 mg Documented by: Glucagon (Glucagen) 1 mg IM ASDIRECTED PRN PRN Reason: Hypoglycemia Hydrochlorothiazide (Hydrochlorothiazide) 12.5 mg PO DAILY [facility] Last Admin: 08/14/20 08:49 Dose: Not Given Documented by: Sodium Chloride (Normal Saline) 1,000 mls @ 999 mls/hr IV .Bolus ONE Stop: 08/13/20 12:30 Last Admin: 08/13/20 11:31 Dose: 999 mls/hr Documented by: Ceftriaxone Sodium/Dextrose 1 (gm/ Premix) 50 mls @ 100 mls/hr IV ONETIME ONE Stop: 08/13/20 13:29 Last Admin: 08/13/20 13:20 Dose: 100 mls/hr Documented by: Azithromycin 500 mg/ Sodium (Chloride) 250 mls @ 250 mls/hr IV ONETIME [facility] Stop: 08/13/20 16:00 Last Admin: 08/13/20 14:05 Dose: 250 mls/hr Documented by: Remdesivir 200 mg/ Sodium (Chloride) 250 mls @ 250 mls/hr IV ONETIME ONE Stop: 08/13/20 14:58 Last Admin: 08/13/20 17:11 Dose: Not Given Documented by: Remdesivir 100 mg/ Sodium (Chloride) 100 mls @ 100 mls/hr IV Q24H [facility] Stop: 08/17/20 15:59 Last Admin: 08/15/20 14:52 Dose: 100 mls/hr Documented by: Remdesivir 200 mg/ Sodium (Chloride) 250 mls @ 250 mls/hr IV ONETIME ONE Stop: 08/13/20 16:29 Last Admin: 08/13/20 16:55 Dose: 250 mls/hr Documented by: Sodium Chloride (Normal Saline) 500 mls @ 999 mls/hr IV NOW [facility] Stop: 08/15/20 11:01 Last Admin: 08/15/20 09:26 Dose: 999 mls/hr Documented by: Sodium Chloride (Normal Saline) 500 mls @ 999 mls/hr IV STAT [facility] Last Admin: 08/16/20 09:04 Dose: 999 mls/hr Documented by: Insulin Aspart (Novolog) 0 unit SUBCUT TIDAC [facility]; Protocol Last Admin: 08/16/20 07:32 Dose: Not Given Documented by: Lisinopril (Prinivil) 20 mg PO DAILY [facility] Last Admin: 08/15/20 08:26 Dose: Not Given Documented by: Lisinopril (Prinivil) 10 mg PO DAILY [facility] Last Admin: 08/16/20 08:22 Dose: 10 mg Documented by: Metoprolol Succinate (Toprol Xl) 50 mg PO DAILY [facility] Last Admin: 08/16/20 08:25 Dose: Not Given Documented by: Ondansetron HCl (Zofran Odt) 4 mg PO Q4H PRN PRN Reason: nausea, able to take PO Rosuvastatin Calcium (Crestor) 20 mg PO BEDTIME [facility] Last Admin: 08/15/20 20:27 Dose: 20 mg Documented by: Sodium Chloride (Saline Flush) 10 ml FLUSH ASDIRECTED PRN PRN Reason: Keep Vein Open Last Admin: 08/13/20 11:30 Dose: 10 ml Documented by: Sodium Chloride (Saline Flush) 2.5 ml FLUSH ASDIRECTED PRN PRN Reason: Keep Vein Open Last Admin: 08/16/20 09:04 Dose: 2.5 ml Documented by:
[2020-08-14] MEDS ORDERED: Hydrochlorothiazide 12.5 MG Cap PO SCH (09:00)
[2020-08-14] MEDS: Acetaminophen 325 MG Tab PO PRN ×2 (13:30→20:41)
[2020-08-14] MEDS: Dexamethasone 4 MG Tab PO SCH (13:31)
[2020-08-14] MEDS: REMDESIVIR 100 MG in Sodium Chloride 0.9% 100 ML IV SCH (15:26)
[2020-08-14] MEDS: Rosuvastatin 10 MG Tab PO SCH (20:41)
[2020-08-15] MEDS: Enoxaparin 40 MG/0.4 ML Syringe SUBCUT SCH ×2 (06:22→17:29)
[2020-08-15 07:30] LABS: BLOOD UREA NITROGEN,BUN 26 mg/dL (7.0-18.0); CARBON DIOXIDE,CO2 26.4 mmol/L (21.0-32.0); CHLORIDE,CL 106 mmol/L (98-107); GLUCOSE RANDOM 111 mg/dL (74-106); POTASSIUM,K 4.6 mmol/L (3.5-5.1); SODIUM,NA 142 mmol/L (136-145)
[2020-08-15] MEDS: Insulin Aspart 100 Units/ML 3 ML Pen SUBCUT SCH ×3 (07:37→17:32)
[2020-08-15] MEDS: Lisinopril 10 MG Tab PO SCH (08:26)
[2020-08-15] MEDS: Metoprolol Succinate 50 MG Tab.ER PO SCH (08:26)
[2020-08-15] MEDS: buPROPion 150 MG Tab.ER PO SCH (08:33)
[2020-08-15] MEDS ORDERED: Sodium Chloride 0.9% 500 ML IV SCH (09:00)
--- NOTE | 2020-08-15 10:40 | PCM.PN ---
<Lamar Bedoya - Last Filed: 08/15/20 10:40> - General Info Date of Service: 08/15/20 Subjective Update: Bedside: pt endorses feeling better compared to admission date; still feels weak and tired. Cough is improving. - Review of Systems General: Reports: Fatigue HEENT: Reports: No Symptoms Pulmonary: Reports: Cough. Denies: Shortness of Breath, Sputum, Wheezing Cardiovascular: Reports: No Symptoms Gastrointestinal: Denies: Abdominal Pain, Constipation, Nausea, Vomiting Genitourinary: Reports: No Symptoms Musculoskeletal: Reports: Back Pain Neurological: Denies: Confusion, Dizziness, Headache - Patient Data Vitals - Most Recent: Last Vital Signs Temp 98.1 F 08/15/20 08:06 Pulse 55 L 08/15/20 08:26 Resp 18 08/15/20 08:06 BP 120/64 08/15/20 08:26 Pulse Ox 95 08/15/20 08:06 Weight - Most Recent: 113.942 kg I&O - Last 24 Hours: Intake & Output 08/14/20 08/15/20 08/15/20 22:59 06:59 14:59 Intake Total 950 820 Output Total 750 1150 Balance 200 -330 Lab Results Last 24 Hours: Laboratory Results - last 24 hr 08/14/20 08/14/20 08/15/20 Range/Units 12:04 17:37 06:21 WBC (4.0-11.0) K/uL RBC (4.30-5.90) M/uL Hgb (12.0-16.0) g/dL Hct (36.0-46.0) % MCV (80.0-98.0) fL MCH (27.0-32.0) pg MCHC (31.0-37.0) g/dL RDW Std Deviation (28.0-62.0) fl RDW Coeff of Joel (11.0-15.0) % Plt Count (150-400) K/uL MPV (7.40-12.00) fL Neut % (Auto) (48.0-80.0) % Lymph % (Auto) (16.0-40.0) % [place] % (Auto) (0.0-15.0) % Eos % (Auto) (0.0-7.0) % Baso % (Auto) (0.0-1.5) % Neut # (Auto) (1.4-5.7) K/uL Lymph # (Auto) (0.6-2.4) K/uL [place]well # (Auto) (0.0-0.8) K/uL Eos # (Auto) (0.0-0.7) K/uL Baso # (Auto) (0.0-0.1) K/uL Nucleated RBC % /100WBC Nucleated RBCs # K/uL Sodium (136-145) mmol/L Potassium (3.5-5.1) mmol/L Chloride (98-107) mmol/L Carbon Dioxide (21.0-32.0) mmol/L BUN (7.0-18.0) mg/dL Creatinine (0.6-1.0) mg/dL Est Cr Clr Drug Dosing mL/min Estimated GFR (MDRD) ml/min Glucose (74-106) mg/dL POC Glucose 113 H 166 H 105 (60-110) mg/dL Calcium (8.5-10.1) mg/dL Total Bilirubin (0.2-1.0) mg/dL AST (15-37) IU/L ALT (14-63) IU/L Alkaline Phosphatase (46-116) U/L Total Protein (6.4-8.2) g/dL Albumin (3.4-5.0) g/dL Globulin (2.6-4.0) g/dL Albumin/Globulin Ratio (0.9-1.6) 08/15/20 08/15/20 Range/Units 06:52 06:52 WBC 2.86 L (4.0-11.0) K/uL RBC 4.76 (4.30-5.90) M/uL Hgb 13.0 (12.0-16.0) g/dL Hct 40.2 (36.0-46.0) % MCV 84.5 (80.0-98.0) fL MCH 27.3 (27.0-32.0) pg MCHC 32.3 (31.0-37.0) g/dL RDW Std Deviation 43.7 (28.0-62.0) fl RDW Coeff of Joel 14 (11.0-15.0) % Plt Count 292 (150-400) K/uL MPV 9.90 (7.40-12.00) fL Neut % (Auto) 47.2 L (48.0-80.0) % Lymph % (Auto) 38.5 (16.0-40.0) % [place] % (Auto) 13.6 (0.0-15.0) % Eos % (Auto) 0.0 (0.0-7.0) % Baso % (Auto) 0.7 (0.0-1.5) % Neut # (Auto) 1.4 (1.4-5.7) K/uL Lymph # (Auto) 1.1 (0.6-2.4) K/uL [place] # (Auto) 0.4 (0.0-0.8) K/uL Eos # (Auto) 0.0 (0.0-0.7) K/uL Baso # (Auto) 0.0 (0.0-0.1) K/uL Nucleated RBC % 0.0 /100WBC Nucleated RBCs # 0 K/uL Sodium 142 (136-145) mmol/L Potassium 4.6 (3.5-5.1) mmol/L Chloride 106 (98-107) mmol/L Carbon Dioxide 26.4 (21.0-32.0) mmol/L BUN 26 H (7.0-18.0) mg/dL Creatinine 1.1 H (0.6-1.0) mg/dL Est Cr Clr Drug Dosing 54.21 mL/min Estimated GFR (MDRD) > 60.0 ml/min Glucose 111 H (74-106) mg/dL POC Glucose (60-110) mg/dL Calcium 9.1 (8.5-10.1) mg/dL Total Bilirubin 0.4 (0.2-1.0) mg/dL AST 21 (15-37) IU/L ALT 22 (14-63) IU/L Alkaline Phosphatase 52 (46-116) U/L Total Protein 7.3 (6.4-8.2) g/dL Albumin 2.9 L (3.4-5.0) g/dL Globulin 4.4 H (2.6-4.0) g/dL Albumin/Globulin Ratio 0.7 L (0.9-1.6) Dax Results Last 24 Hours: Microbiology 08/13/20 11:55 Aerobic Blood Culture - Preliminary Blood - Venous - Lab Draw NO GROWTH AFTER 1 DAY Anaerobic Blood Culture - Preliminary NO GROWTH AFTER 1 DAY 08/13/20 11:25 Aerobic Blood Culture - Preliminary Blood - Venous NO GROWTH AFTER 1 DAY Anaerobic Blood Culture - Preliminary NO GROWTH AFTER 1 DAY Med Orders - Current: Current Medications Acetaminophen (Tylenol) 650 mg PO Q4H PRN PRN Reason: Pain (Mild 1-3)/fever Last Admin: 08/14/20 20:41 Dose: 650 mg Documented by: Albuterol/Ipratropium (Combivent Respimat) 0 gm INH Q4H PRN PRN Reason: Dyspnea Bupropion HCl (Wellbutrin Xl) 150 mg PO DAILY [facility] Last Admin: 08/15/20 08:33 Dose: 150 mg Documented by: Dexamethasone (Dexamethasone) 6 mg PO DAILY@1400 [facility] Stop: 08/22/20 14:01 Last Admin: 08/14/20 13:31 Dose: 6 mg Documented by: Dextrose/Water (Dextrose 50% In Water) 50 ml IV ASDIRECTED PRN PRN Reason: Hypoglycemia Enoxaparin Sodium (Lovenox) 40 mg SUBCUT Q12H [facility] Last Admin: 08/15/20 06:22 Dose: 40 mg Documented by: Glucagon (Glucagen) 1 mg IM ASDIRECTED PRN PRN Reason: Hypoglycemia Remdesivir 100 mg/ Sodium (Chloride) 100 mls @ 100 mls/hr IV Q24H [facility] Stop: 08/17/20 15:59 Last Admin: 08/14/20 15:26 Dose: 100 mls/hr Documented by: Sodium Chloride (Normal Saline) 500 mls @ 999 mls/hr IV NOW [facility] Stop: 08/15/20 11:01 Last Admin: 08/15/20 09:26 Dose: 999 mls/hr Documented by: Insulin Aspart (Novolog) 0 unit SUBCUT TIDAC [facility]; Protocol Last Admin: 08/15/20 07:37 Dose: Not Given Documented by: Lisinopril (Prinivil) 10 mg PO DAILY [facility] Metoprolol Succinate (Toprol Xl) 50 mg PO DAILY [facility] Last Admin: 08/15/20 08:26 Dose: Not Given Documented by: Ondansetron HCl (Zofran Odt) 4 mg PO Q4H PRN PRN Reason: nausea, able to take PO Rosuvastatin Calcium (Crestor) 20 mg PO BEDTIME [facility] Last Admin: 08/14/20 20:41 Dose: 20 mg Documented by: Sodium Chloride (Saline Flush) 10 ml FLUSH ASDIRECTED PRN PRN Reason: Keep Vein Open Last Admin: 08/13/20 11:30 Dose: 10 ml Documented by: Sodium Chloride (Saline Flush) 2.5 ml FLUSH ASDIRECTED PRN PRN Reason: Keep Vein Open Last Admin: 08/13/20 11:30 Dose: 2.5 ml Documented by: Discontinued Medications Albuterol/Ipratropium (Duoneb 3.0-0.5 Mg/3 Ml) 3 ml NEB Q4HRRT PRN PRN Reason: Shortness Of Breath/wheezing Dexamethasone (Decadron) 6 mg IVPUSH ONETIME ONE Stop: 08/13/20 13:01 Last Admin: 08/13/20 13:20 Dose: 6 mg Documented by: Hydrochlorothiazide (Hydrochlorothiazide) 12.5 mg PO DAILY [facility] Last Admin: 08/14/20 08:49 Dose: Not Given Documented by: Sodium Chloride (Normal Saline) 1,000 mls @ 999 mls/hr IV .Bolus ONE Stop: 08/13/20 12:30 Last Admin: 08/13/20 11:31 Dose: 999 mls/hr Documented by: Ceftriaxone Sodium/Dextrose 1 (gm/ Premix) 50 mls @ 100 mls/hr IV ONETIME ONE Stop: 08/13/20 13:29 Last Admin: 08/13/20 13:20 Dose: 100 mls/hr Documented by: Azithromycin 500 mg/ Sodium (Chloride) 250 mls @ 250 mls/hr IV ONETIME [facility] Stop: 08/13/20 16:00 Last Admin: 08/13/20 14:05 Dose: 250 mls/hr Documented by: Remdesivir 200 mg/ Sodium (Chloride) 250 mls @ 250 mls/hr IV ONETIME ONE Stop: 08/13/20 14:58 Last Admin: 08/13/20 17:11 Dose: Not Given Documented by: Remdesivir 200 mg/ Sodium (Chloride) 250 mls @ 250 mls/hr IV ONETIME ONE Stop: 08/13/20 16:29 Last Admin: 08/13/20 16:55 Dose: 250 mls/hr Documented by: Lisinopril (Prinivil) 20 mg PO DAILY [facility] Last Admin: 08/15/20 08:26 Dose: Not Given Documented by: - Exam Quality Assessment: No: Supplemental Oxygen General: Alert, Oriented, Cooperative, No Acute Distress HEENT: EOMI, Mucous Membr. Moist/[place] Neck: Supple Lungs: Other (minimal crackles in bases b.l w. deep inspiration ) Cardiovascular: Regular Rate, Regular Rhythm GI/Abdominal Exam: Soft, Non-Tender Extremities: Normal Inspection Peripheral Pulses: 0: Popliteal (R) Neurological: No New Focal Deficit Psy/Mental Status: Alert, Normal Affect, Normal Mood Sepsis Event Note - Evaluation Sepsis Screening Result: No Definite Risk - Focused Exam Vital Signs: Vital Signs Temp Pulse Pulse Resp BP BP Pulse Ox 08/15/20 08:26 55 L 120/64 08/15/20 08:06 98.1 F 55 L 18 120/64 95 08/15/20 04:00 97.2 F 56 L 18 122/69 91 L 08/15/20 00:00 97.2 F 67 20 103/76 93 L - Problem List Review Problem List Initiated/Reviewed/Updated: Yes - My Orders Last 24 Hours: My Active Orders 08/14/20 14:00 dexAMETHasone 6 mg PO DAILY@1400 08/14/20 15:00 Remdesivir 100 mg Sodium Chloride 0.9% [Normal Saline] 100 ml IV Q24H 08/15/20 09:00 Sodium Chloride 0.9% [Normal Saline] 500 ml IV NOW 08/16/20 05:11 CBC WITH AUTO DIFF [HEME] AM COMPREHENSIVE METABOLIC PN,CMP [CHEM] AM - Plan Plan:: Assessment: 1. Acute hypoxic respiratory failure secondary to viral pneumonia/Covid positive 2. Acute kidney injury 3. Elevated D-dimer secondary to above 4. Past medical history hypertension, hyperlipidemia, type 2 diabetes Plan 1. Hypoxic respiratory failure secondary to Covid: improving Continue remdesivir and dexamethasone 6 mg daily x10 days. We will hold off on antibiotics for now unless warranted; procalcitonin ordered results pending. O2 and clinical status improved from admission date. Hydration status improved; not requiring oxygen at bedside but is still feeling significant fatigue/weakness this AM 2. ANGELIA; improving this AM w. Cr of 1.1; continue hydration w. PO and will consider IV rehydration if clinically necessary Softer BP; discontinue HCTZ and reduce Lisinopril to 10 mg daily; will advise to follow up with PCP for further titration if necessary. 3. Past medical history; continue sliding scale insulin; low-dose. <Parris Barajas - Last Filed: 08/17/20 13:55> - Patient Data Vitals - Most Recent: Last Vital Signs Temp 36.3 C 08/16/20 07:46 Pulse 56 L 08/16/20 07:46 Resp 16 08/16/20 07:46 BP 133/78 08/16/20 08:22 Pulse Ox 97 08/16/20 07:46 Dax Results Last 24 Hours: Microbiology 08/13/20 11:55 Aerobic Blood Culture - Preliminary Blood - Venous - Lab Draw NO GROWTH AFTER 4 DAYS Anaerobic Blood Culture - Preliminary NO GROWTH AFTER 4 DAYS 08/13/20 11:25 Aerobic Blood Culture - Preliminary Blood - Venous NO GROWTH AFTER 4 DAYS Anaerobic Blood Culture - Preliminary NO GROWTH AFTER 4 DAYS Med Orders - Current: Current Medications Discontinued Medications Acetaminophen (Tylenol) 650 mg PO Q4H PRN PRN Reason: Pain (Mild 1-3)/fever Last Admin: 08/14/20 20:41 Dose: 650 mg Documented by: Albuterol/Ipratropium (Duoneb 3.0-0.5 Mg/3 Ml) 3 ml NEB Q4HRRT PRN PRN Reason: Shortness Of Breath/wheezing Albuterol/Ipratropium (Combivent Respimat) 0 gm INH Q4H PRN PRN Reason: Dyspnea Bupropion HCl (Wellbutrin Xl) 150 mg PO DAILY [facility] Last Admin: 08/16/20 08:24 Dose: 150 mg Documented by: Calcium Carbonate/Glycine (Tums) 500 mg PO Q6HR PRN PRN Reason: Indigestion Last Admin: 08/15/20 21:00 Dose: 500 mg Documented by: Dexamethasone (Decadron) 6 mg IVPUSH ONETIME ONE Stop: 08/13/20 13:01 Last Admin: 08/13/20 13:20 Dose: 6 mg Documented by: Dexamethasone (Dexamethasone) 6 mg PO DAILY@1400 [facility] Stop: 08/22/20 14:01 Last Admin: 08/15/20 14:03 Dose: 6 mg Documented by: Dextrose/Water (Dextrose 50% In Water) 50 ml IV ASDIRECTED PRN PRN Reason: Hypoglycemia Enoxaparin Sodium (Lovenox) 40 mg SUBCUT Q12H [facility] Last Admin: 08/16/20 06:02 Dose: 40 mg Documented by: Glucagon (Glucagen) 1 mg IM ASDIRECTED PRN PRN Reason: Hypoglycemia Hydrochlorothiazide (Hydrochlorothiazide) 12.5 mg PO DAILY [facility] Last Admin: 08/14/20 08:49 Dose: Not Given Documented by: Sodium Chloride (Normal Saline) 1,000 mls @ 999 mls/hr IV .Bolus ONE Stop: 08/13/20 12:30 Last Admin: 08/13/20 11:31 Dose: 999 mls/hr Documented by: Ceftriaxone Sodium/Dextrose 1 (gm/ Premix) 50 mls @ 100 mls/hr IV ONETIME ONE Stop: 08/13/20 13:29 Last Admin: 08/13/20 13:20 Dose: 100 mls/hr Documented by: Azithromycin 500 mg/ Sodium (Chloride) 250 mls @ 250 mls/hr IV ONETIME [facility] Stop: 08/13/20 16:00 Last Admin: 08/13/20 14:05 Dose: 250 mls/hr Documented by: Remdesivir 200 mg/ Sodium (Chloride) 250 mls @ 250 mls/hr IV ONETIME ONE Stop: 08/13/20 14:58 Last Admin: 08/13/20 17:11 Dose: Not Given Documented by: Remdesivir 100 mg/ Sodium (Chloride) 100 mls @ 100 mls/hr IV Q24H [facility] Stop: 08/17/20 15:59 Last Admin: 08/15/20 14:52 Dose: 100 mls/hr Documented by: Remdesivir 200 mg/ Sodium (Chloride) 250 mls @ 250 mls/hr IV ONETIME [facility] Stop: 08/13/20 16:29 Last Admin: 08/13/20 16:55 Dose: 250 mls/hr Documented by: Sodium Chloride (Normal Saline) 500 mls @ 999 mls/hr IV NOW [facility] Stop: 08/15/20 11:01 Last Admin: 08/15/20 09:26 Dose: 999 mls/hr Documented by: Sodium Chloride (Normal Saline) 500 mls @ 999 mls/hr IV STAT [facility] Last Admin: 08/16/20 09:04 Dose: 999 mls/hr Documented by: Insulin Aspart (Novolog) 0 unit SUBCUT TIDAC [facility]; Protocol Last Admin: 08/16/20 07:32 Dose: Not Given Documented by: Lisinopril (Prinivil) 20 mg PO DAILY [facility] Last Admin: 08/15/20 08:26 Dose: Not Given Documented by: Lisinopril (Prinivil) 10 mg PO DAILY [facility] Last Admin: 08/16/20 08:22 Dose: 10 mg Documented by: Metoprolol Succinate (Toprol Xl) 50 mg PO DAILY [facility] Last Admin: 08/16/20 08:25 Dose: Not Given Documented by: Ondansetron HCl (Zofran Odt) 4 mg PO Q4H PRN PRN Reason: nausea, able to take PO Rosuvastatin Calcium (Crestor) 20 mg PO BEDTIME [facility] Last Admin: 08/15/20 20:27 Dose: 20 mg Documented by: Sodium Chloride (Saline Flush) 10 ml FLUSH ASDIRECTED PRN PRN Reason: Keep Vein Open Last Admin: 08/13/20 11:30 Dose: 10 ml Documented by: Sodium Chloride (Saline Flush) 2.5 ml FLUSH ASDIRECTED PRN PRN Reason: Keep Vein Open Last Admin: 08/16/20 09:04 Dose: 2.5 ml Documented by: - Plan Plan:: I have seen and evaluated the patient and agree with the residents note unless specified in my note
[2020-08-15] MEDS: Dexamethasone 4 MG Tab PO SCH (14:03)
[2020-08-15] MEDS: REMDESIVIR 100 MG in Sodium Chloride 0.9% 100 ML IV SCH (14:52)
[2020-08-15] MEDS: Rosuvastatin 10 MG Tab PO SCH (20:27)
[2020-08-15] MEDS ORDERED: Calcium Carbonate 500 MG Tab.Chew PO PRN (20:40)
[2020-08-16] MEDS: Enoxaparin 40 MG/0.4 ML Syringe SUBCUT SCH (06:02)
[2020-08-16 06:16] LABS: CARBON DIOXIDE,CO2 25.7 mmol/L (21.0-32.0); POTASSIUM,K 4.5 mmol/L (3.5-5.1)
[2020-08-16] MEDS: Insulin Aspart 100 Units/ML 3 ML Pen SUBCUT SCH (07:32)
[2020-08-16] MEDS ORDERED: Sodium Chloride 0.9% 500 ML IV SCH (07:45)
[2020-08-16 07:46] VITALS: PULSE 56
--- NOTE | 2020-08-16 08:08 | PCM.DCSUM1 ---
Discharge Summary - Hospital Course Free Text/Narrative:: Patient is a 60-year-old female with significant past medical history of type 2 diabetes, hypertension, hyperlipidemia and depression presenting on August 13, 2020 with increasing fatigue, fevers and shortness of breath. Patient was tested positive for Covid in the ED and was subsequently put on 1 L nasal cannula. Chest x-ray significant for no acute infiltrates/effusions CT abdomen pelvis was also ordered secondary to left lower quadrant tenderness. Results suggested mild colonic diverticulosis. Admitted for acute hypoxic respiratory failure requiring 1 L, COVID positive and mild dehydration. Patient overnight however on admission was weaned off of oxygen continued her Combivent treatment. Received 2 doses of remdesivir and was also given 2 doses of convalescent plasma. Patient was off oxygen for 24 hours and is feeling better as far as respiratory status is concerned; however was feeling lethargic and fatigued. Day of discharge patient's vitals were stable. Discussed low heart rate and softer blood pressures in light of her history of hypertension and medications. Discontinued hydrochlorothiazide reduce dose of lisinopril 20 mg daily to 10 mg. New prescription sent to pharmacy. oxygen saturation and overall clinical disposition was favorable; decided to not continue dexamethasone in outpatient setting (hx of DM) . Advised to follow primary care physician within 1 week. Advised to continue social distancing, use of mask and quarantine from work until year to 20 days complete from onset of symptoms; August 27, 2020. Disposition: Home Condition: Stable Follow-up; primary care - Discharge Data Discharge Date: 08/16/20 Discharge Disposition: Home, Self-Care 01 Condition: Good - Referral to Home Health Primary Care Physician: Amie Wallace DO - Patient Instructions Diet: Diabetic Diet Notify Provider of: Fever, Nausea and/or Vomiting - Discharge Plan *PRESCRIPTION DRUG MONITORING PROGRAM REVIEWED*: Not Applicable *COPY OF PRESCRIPTION DRUG MONITORING REPORT IN PATIENT JANE: Not Applicable Prescriptions/Med Rec: lisinopriL [Prinivil] 10 mg PO DAILY 30 Days #30 tablet Home Medications: Home Meds Ferrous Sulfate 325 mg PO DAILY 03/16/18 [History] Vitamin B Complex [B Complex] 1 tab PO DAILY 03/16/18 [History] metFORMIN [Glucophage] 1,000 mg PO BIDMEALS 03/16/18 [History] Exenatide Microspheres [Bydureon Bcise] 2 mg SUBCUT WEEKLY 08/13/20 [History] Metoprolol Succinate 50 mg PO DAILY 08/13/20 [History] Rosuvastatin Calcium 20 mg PO BEDTIME 08/13/20 [History] buPROPion HCL [Bupropion Xl] 150 mg PO DAILY 08/13/20 [History] Acetaminophen [Tylenol] 650 mg PO Q4H PRN tablet 08/16/20 [Rx] Calcium Carbonate [Tums] 500 mg PO Q6HR PRN tab.chew 08/16/20 [Rx] lisinopriL [Prinivil] 10 mg PO DAILY 30 Days #30 tablet 08/16/20 [Rx] Oxygen Therapy Mode: Room Air Patient Handouts: Acute Kidney Injury, Adult, Shortness of Breath, Adult, [id number], COVID-19, Hypoxemia, Lisinopril tablets, Community-Acquired Pneumonia, Adult, [id number], Prevent the Spread of COVID-19 if You Are Sick - [facility] Referrals: Amie Wallace DO [Primary Care Provider] - 09/05/20 9:30 am - Discharge Summary/Plan Comment DC Time >30 min.: No - Patient Data Vitals - Most Recent: Last Vital Signs Temp 97.3 F 08/16/20 07:46 Pulse 56 L 08/16/20 07:46 Resp 16 08/16/20 07:46 BP 103/66 08/16/20 07:46 Pulse Ox 97 08/16/20 07:46 Weight - Most Recent: 113.942 kg I&O - Last 24 hours: Intake & Output 08/15/20 08/16/20 08/16/20 22:59 06:59 14:59 Intake Total 1200 850 Output Total 950 1150 Balance 250 -300 Lab Results - Last 24 hrs: Laboratory Results - last 24 hr 08/15/20 08/15/20 08/16/20 Range/Units 11:53 17:30 05:30 WBC 3.86 L (4.0-11.0) K/uL RBC 4.78 (4.30-5.90) M/uL Hgb 12.8 (12.0-16.0) g/dL Hct 40.1 (36.0-46.0) % MCV 83.9 (80.0-98.0) fL MCH 26.8 L (27.0-32.0) pg MCHC 31.9 (31.0-37.0) g/dL RDW Std Deviation 43.1 (28.0-62.0) fl RDW Coeff of Joel 14 (11.0-15.0) % Plt Count 338 (150-400) K/uL MPV 10.40 (7.40-12.00) fL Neut % (Auto) 53.2 (48.0-80.0) % Lymph % (Auto) 33.9 (16.0-40.0) % Cedar % (Auto) 12.4 (0.0-15.0) % Eos % (Auto) 0.0 (0.0-7.0) % Baso % (Auto) 0.5 (0.0-1.5) % Neut # (Auto) 2.1 (1.4-5.7) K/uL Lymph # (Auto) 1.3 (0.6-2.4) K/uL Cedar # (Auto) 0.5 (0.0-0.8) K/uL Eos # (Auto) 0.0 (0.0-0.7) K/uL Baso # (Auto) 0.0 (0.0-0.1) K/uL Nucleated RBC % 0.0 /100WBC Nucleated RBCs # 0 K/uL Sodium (136-145) mmol/L Potassium (3.5-5.1) mmol/L Chloride (98-107) mmol/L Carbon Dioxide (21.0-32.0) mmol/L BUN (7.0-18.0) mg/dL Creatinine (0.6-1.0) mg/dL Est Cr Clr Drug Dosing mL/min Estimated GFR (MDRD) ml/min Glucose (74-106) mg/dL POC Glucose 99 113 H (60-110) mg/dL Calcium (8.5-10.1) mg/dL Total Bilirubin (0.2-1.0) mg/dL AST (15-37) IU/L ALT (14-63) IU/L Alkaline Phosphatase (46-116) U/L Total Protein (6.4-8.2) g/dL Albumin (3.4-5.0) g/dL Globulin (2.6-4.0) g/dL Albumin/Globulin Ratio (0.9-1.6) 08/16/20 08/16/20 Range/Units 05:30 06:01 WBC (4.0-11.0) K/uL RBC (4.30-5.90) M/uL Hgb (12.0-16.0) g/dL Hct (36.0-46.0) % MCV (80.0-98.0) fL MCH (27.0-32.0) pg MCHC (31.0-37.0) g/dL RDW Std Deviation (28.0-62.0) fl RDW Coeff of Joel (11.0-15.0) % Plt Count (150-400) K/uL MPV (7.40-12.00) fL Neut % (Auto) (48.0-80.0) % Lymph % (Auto) (16.0-40.0) % Cedar % (Auto) (0.0-15.0) % Eos % (Auto) (0.0-7.0) % Baso % (Auto) (0.0-1.5) % Neut # (Auto) (1.4-5.7) K/uL Lymph # (Auto) (0.6-2.4) K/uL Cedar # (Auto) (0.0-0.8) K/uL Eos # (Auto) (0.0-0.7) K/uL Baso # (Auto) (0.0-0.1) K/uL Nucleated RBC % /100WBC Nucleated RBCs # K/uL Sodium 143 (136-145) mmol/L Potassium 4.5 (3.5-5.1) mmol/L Chloride 107 (98-107) mmol/L Carbon Dioxide 25.7 (21.0-32.0) mmol/L BUN 29 H (7.0-18.0) mg/dL Creatinine 1.2 H (0.6-1.0) mg/dL Est Cr Clr Drug Dosing 49.69 mL/min Estimated GFR (MDRD) 55.9 ml/min Glucose 121 H (74-106) mg/dL POC Glucose 105 (60-110) mg/dL Calcium 9.2 (8.5-10.1) mg/dL Total Bilirubin 0.4 (0.2-1.0) mg/dL AST 18 (15-37) IU/L ALT 20 (14-63) IU/L Alkaline Phosphatase 52 (46-116) U/L Total Protein 6.9 (6.4-8.2) g/dL Albumin 2.8 L (3.4-5.0) g/dL Globulin 4.1 H (2.6-4.0) g/dL Albumin/Globulin Ratio 0.7 L (0.9-1.6) [facility] Results - Last 24 hrs: Microbiology 08/13/20 11:55 Aerobic Blood Culture - Preliminary Blood - Venous - Lab Draw NO GROWTH AFTER 2 DAYS Anaerobic Blood Culture - Preliminary NO GROWTH AFTER 2 DAYS 08/13/20 11:25 Aerobic Blood Culture - Preliminary Blood - Venous NO GROWTH AFTER 2 DAYS Anaerobic Blood Culture - Preliminary NO GROWTH AFTER 2 DAYS Med Orders - Current: Current Medications Acetaminophen (Tylenol) 650 mg PO Q4H PRN PRN Reason: Pain (Mild 1-3)/fever Last Admin: 08/14/20 20:41 Dose: 650 mg Documented by: Albuterol/Ipratropium (Combivent Respimat) 0 gm INH Q4H PRN PRN Reason: Dyspnea Bupropion HCl (Wellbutrin Xl) 150 mg PO DAILY [facility] Last Admin: 08/15/20 08:33 Dose: 150 mg Documented by: Calcium Carbonate/Glycine (Tums) 500 mg PO Q6HR PRN PRN Reason: Indigestion Last Admin: 08/15/20 21:00 Dose: 500 mg Documented by: Dexamethasone (Dexamethasone) 6 mg PO DAILY@1400 [facility] Stop: 08/22/20 14:01 Last Admin: 08/15/20 14:03 Dose: 6 mg Documented by: Dextrose/Water (Dextrose 50% In Water) 50 ml IV ASDIRECTED PRN PRN Reason: Hypoglycemia Enoxaparin Sodium (Lovenox) 40 mg SUBCUT Q12H [facility] Last Admin: 08/16/20 06:02 Dose: 40 mg Documented by: Glucagon (Glucagen) 1 mg IM ASDIRECTED PRN PRN Reason: Hypoglycemia Remdesivir 100 mg/ Sodium (Chloride) 100 mls @ 100 mls/hr IV Q24H [facility] Stop: 08/17/20 15:59 Last Admin: 08/15/20 14:52 Dose: 100 mls/hr Documented by: Sodium Chloride (Normal Saline) 500 mls @ 999 mls/hr IV STAT [facility] Insulin Aspart (Novolog) 0 unit SUBCUT TIDAC [facility]; Protocol Last Admin: 08/16/20 07:32 Dose: Not Given Documented by: Lisinopril (Prinivil) 10 mg PO DAILY [facility] Metoprolol Succinate (Toprol Xl) 50 mg PO DAILY [facility] Last Admin: 08/15/20 08:26 Dose: Not Given Documented by: Ondansetron HCl (Zofran Odt) 4 mg PO Q4H PRN PRN Reason: nausea, able to take PO Rosuvastatin Calcium (Crestor) 20 mg PO BEDTIME [facility] Last Admin: 08/15/20 20:27 Dose: 20 mg Documented by: Sodium Chloride (Saline Flush) 10 ml FLUSH ASDIRECTED PRN PRN Reason: Keep Vein Open Last Admin: 08/13/20 11:30 Dose: 10 ml Documented by: Sodium Chloride (Saline Flush) 2.5 ml FLUSH ASDIRECTED PRN PRN Reason: Keep Vein Open Last Admin: 08/13/20 11:30 Dose: 2.5 ml Documented by: Discontinued Medications Albuterol/Ipratropium (Duoneb 3.0-0.5 Mg/3 Ml) 3 ml NEB Q4HRRT PRN PRN Reason: Shortness Of Breath/wheezing Dexamethasone (Decadron) 6 mg IVPUSH ONETIME ONE Stop: 08/13/20 13:01 Last Admin: 08/13/20 13:20 Dose: 6 mg Documented by: Hydrochlorothiazide (Hydrochlorothiazide) 12.5 mg PO DAILY [facility] Last Admin: 08/14/20 08:49 Dose: Not Given Documented by: Sodium Chloride (Normal Saline) 1,000 mls @ 999 mls/hr IV .Bolus ONE Stop: 08/13/20 12:30 Last Admin: 08/13/20 11:31 Dose: 999 mls/hr Documented by: Ceftriaxone Sodium/Dextrose 1 (gm/ Premix) 50 mls @ 100 mls/hr IV ONETIME ONE Stop: 08/13/20 13:29 Last Admin: 08/13/20 13:20 Dose: 100 mls/hr Documented by: Azithromycin 500 mg/ Sodium (Chloride) 250 mls @ 250 mls/hr IV ONETIME [facility] Stop: 08/13/20 16:00 Last Admin: 08/13/20 14:05 Dose: 250 mls/hr Documented by: Remdesivir 200 mg/ Sodium (Chloride) 250 mls @ 250 mls/hr IV ONETIME ONE Stop: 08/13/20 14:58 Last Admin: 08/13/20 17:11 Dose: Not Given Documented by: Remdesivir 200 mg/ Sodium (Chloride) 250 mls @ 250 mls/hr IV ONETIME ONE Stop: 08/13/20 16:29 Last Admin: 08/13/20 16:55 Dose: 250 mls/hr Documented by: Sodium Chloride (Normal Saline) 500 mls @ 999 mls/hr IV NOW [facility] Stop: 08/15/20 11:01 Last Admin: 08/15/20 09:26 Dose: 999 mls/hr Documented by: Lisinopril (Prinivil) 20 mg PO DAILY [facility] Last Admin: 08/15/20 08:26 Dose: Not Given Documented by:
[2020-08-16] MEDS: buPROPion 150 MG Tab.ER PO SCH (08:24)
[2020-08-16] MEDS: Metoprolol Succinate 50 MG Tab.ER PO SCH (08:25)
[2020-08-16 08:26] VITALS: BP 133/78
[2020-08-16] MEDS ORDERED: Lisinopril 10 MG Tab PO SCH (09:00)
[2020-08-16] MEDS: Sodium Chloride 0.9% 2.5 ML Syringe FLUSH PRN (09:04)
== END 2020-08-16 11:40 | disposition home or self-care (01) | DRG 177 ==
LOC: MW.ED 11:14 → MW.MS 14:00 → MW.OB 08-16 10:52 → MW.MS 08-16 10:56
PROVIDERS: ADMIT Student in an Organized Health Care Education/Training Program; ATTEND Student in an Organized Health Care Education/Training Program
PROC: 8E0ZXY6 Isolation (ICD-10-PCS; principal; 2020-08-13)
PROC: XW033E5 Introduction of Remdesivir Anti-infective into Peripheral Vein, Percutaneous Approach, New Technology Group 5 (ICD-10-PCS; 2020-08-13)
PROC: XW13325 Transfusion of Convalescent Plasma (Nonautologous) into Peripheral Vein, Percutaneous Approach, New Technology Group 5 (ICD-10-PCS; 2020-08-13)
DX: U07.1 COVID-19 (principal); J12.82 Pneumonia due to coronavirus disease 2019; J96.01 Acute respiratory failure with hypoxia; N17.9 Acute kidney failure, unspecified; E78.5 Hyperlipidemia, unspecified; E78.00 Pure hypercholesterolemia, unspecified; K21.9 Gastro-esophageal reflux disease without esophagitis; D64.9 Anemia, unspecified; E11.9 Type 2 diabetes mellitus without complications; E66.9 Obesity, unspecified; F41.9 Anxiety disorder, unspecified; K57.90 Diverticulosis of intestine, part unspecified, without perforation or abscess without bleeding; Z88.0 Allergy status to penicillin; Z88.8 Allergy status to other drugs, medicaments and biological substances; Z79.84 Long term (current) use of oral hypoglycemic drugs; Z79.899 Other long term (current) drug therapy; Z68.39 Body mass index [BMI] 39.0-39.9, adult
CPT/HCPCS: 36415; 36430; 36600; 71045; 71045-26; 71250; 71250-26; 74176; 74176-26; 80053; 81003; 82728; 82803; 82962; 83605; 83615; 83690; 83735; 83880; 84100; 84145; 84484; 85025; 85379; 85610; 85652; 85730; 86140; 86850; 86900; 86901; 87040; 93005; 93010; 94667; 96365; 96375; 99285-25; 99291; A9270-GY; J0456; J0696; J1100; J1650; J1815-GY; J7030; J7040; J7050; J8540; P9017; U0002

== ENCOUNTER 2021-12-27 17:59 | Emergency (ER) | payer OTHER ==
[2021-12-27 19:02] VITALS: BP 129/86; PULSE 76
== END 2021-12-27 19:02 | disposition home or self-care (01) ==
LOC: MW.ED 17:59
DX: S50.12XA Contusion of left forearm, initial encounter (principal); E78.00 Pure hypercholesterolemia, unspecified; I10 Essential (primary) hypertension; E11.9 Type 2 diabetes mellitus without complications; E66.9 Obesity, unspecified; Z68.34 Body mass index [BMI] 34.0-34.9, adult; Z79.899 Other long term (current) drug therapy; Z79.84 Long term (current) use of oral hypoglycemic drugs; Z88.0 Allergy status to penicillin; Z88.8 Allergy status to other drugs, medicaments and biological substances; V48.9XXA Unspecified car occupant injured in noncollision transport accident in traffic accident, initial encounter; Y92.410 Unspecified street and highway as the place of occurrence of the external cause
CPT/HCPCS: 73090-26-LT; 73090-LT; 99283; 99284

== ENCOUNTER → 2023-07-28 | Day surgery (SDC) | payer OTHER ==
[~2023-07-28] MED LIST changes: +Sodium Chloride 0.9% 10 ML Syringe FLUSH PRN; +Sodium Chloride 0.9% 2.5 ML Syringe FLUSH PRN; +Sodium Chloride 0.9% 20 ML SDV IV PRN
[2023-07-28 07:47] VITALS: BP 181/76; PULSE 79
== END ==
LOC: MW.SDS 07:00
PROVIDERS: ATTEND Surgery
DX: K21.9 Gastro-esophageal reflux disease without esophagitis (principal); F41.9 Anxiety disorder, unspecified; E11.9 Type 2 diabetes mellitus without complications; I10 Essential (primary) hypertension; E78.00 Pure hypercholesterolemia, unspecified; E66.9 Obesity, unspecified; Z68.44 Body mass index [BMI] 60.0-69.9, adult; Z79.84 Long term (current) use of oral hypoglycemic drugs; Z79.899 Other long term (current) drug therapy; Z88.0 Allergy status to penicillin; Z88.8 Allergy status to other drugs, medicaments and biological substances
CPT/HCPCS: 82947

== ENCOUNTER 2023-09-01 09:55 | Day surgery (SDC) | payer OTHER ==
[~2023-09-01 09:55] MED LIST changes: -Lactated Ringers 1,000 ML IV SCH
[2023-09-01] MEDS: Lactated Ringers 1,000 ML IV SCH (10:31)
[2023-09-01 12:13] VITALS: PULSE 63
[2023-09-01 14:16] VITALS: BP 129/70
== END 2023-09-01 12:40 | disposition home or self-care (01) ==
LOC: MW.SDS 09:55
PROVIDERS: ATTEND Surgery
DX: Z12.11 Encounter for screening for malignant neoplasm of colon (principal); D12.3 Benign neoplasm of transverse colon; K29.50 Unspecified chronic gastritis without bleeding; K51.40 Inflammatory polyps of colon without complications; K57.30 Diverticulosis of large intestine without perforation or abscess without bleeding; I10 Essential (primary) hypertension; E11.9 Type 2 diabetes mellitus without complications; K21.9 Gastro-esophageal reflux disease without esophagitis; E78.00 Pure hypercholesterolemia, unspecified; E66.01 Morbid (severe) obesity due to excess calories; Z68.41 Body mass index [BMI] 40.0-44.9, adult; Z79.82 Long term (current) use of aspirin; Z79.84 Long term (current) use of oral hypoglycemic drugs; Z79.899 Other long term (current) drug therapy; Z88.0 Allergy status to penicillin; Z88.8 Allergy status to other drugs, medicaments and biological substances
CPT/HCPCS: 43239; 45385; J7120; 00813

== ENCOUNTER 2023-10-27 06:47 | Day surgery (SDC) | payer OTHER ==
[2023-10-27] MEDS ORDERED: Bupivacaine 0.5% 30 ML SDV ONE (07:12)
[2023-10-27] MEDS: Lactated Ringers 1,000 ML IV SCH (07:22)
[2023-10-27] MEDS ORDERED: Ropivacaine 0.5% 5 MG/ML 30 ML SDV ONE (07:29)
[2023-10-27] MEDS ORDERED: Famotidine 20 MG/2 ML SDV ONE (07:29)
[2023-10-27] MEDS ORDERED: Lidocaine 1% 5 ML VIAL ONE (07:30)
[2023-10-27] MEDS ORDERED: Ketorolac 30 MG/ML SDV ONE (07:30)
[2023-10-27] MEDS ORDERED: propofoL 50 ML ONE (07:30)
[2023-10-27] MEDS ORDERED: Dexamethasone 4 MG/ML 5 ML MDV ONE (07:30)
[2023-10-27] MEDS ORDERED: Ondansetron 4 MG/2 ML SDV ONE (07:30)
[2023-10-27] MEDS ORDERED: Rocuronium Bromide 50 MG/5 ML Syringe ONE ×2 (07:30→08:26)
[2023-10-27] MEDS ORDERED: dexmedeTOMIDine HCl 200 MCG/2 ML SDV ONE (07:30)
[2023-10-27] MEDS ORDERED: Sugammadex Sodium 200 MG/2 ML VIAL IV ONE (07:30)
[2023-10-27] MEDS: Clindamycin Phosphate in D5W 600 MG in Premix Bag 1 BAG IV ONE (07:31)
[2023-10-27] MEDS ORDERED: Water For Injection, Sterile 20 ML ONE (07:32)
[2023-10-27] MEDS ORDERED: fentaNYL 250 MCG/5 ML SDV ONE (07:38)
[2023-10-27] MEDS ORDERED: Lidocaine 2% 11 ML Jelly Filled Syringe ONE (07:48)
[2023-10-27] MEDS ORDERED: Metoclopramide 10 MG/2 ML SDV IVPUSH PRN (07:52)
[2023-10-27] MEDS ORDERED: Naloxone 0.4 MG/ML SDV IVPUSH PRN (07:52)
[2023-10-27] MEDS ORDERED: Morphine 2 MG/ML SYRINGE IVPUSH PRN (07:52)
[2023-10-27] MEDS ORDERED: Albuterol 0.083% 2.5 MG/3 ML Neb Soln NEB PRN (07:52)
[2023-10-27] MEDS ORDERED: Ondansetron 4 MG/2 ML SDV IVPUSH PRN (07:52)
[2023-10-27] MEDS ORDERED: droPERidol 5 MG/2 ML SDV IVPUSH PRN (07:52)
[2023-10-27] MEDS ORDERED: Propofol 200 MG/20 ML SDV ONE ×2 (08:04→08:48)
[2023-10-27] MEDS ORDERED: fentaNYL 100 MCG/2 ML SDV ONE (08:30)
[2023-10-27] MEDS: fentaNYL 50 MCG/ML SDV IVPUSH PRN (09:39)
[2023-10-27] MEDS: HYDROmorphone 1 MG/ML Syringe IVPUSH PRN (09:53)
[2023-10-27 09:56] VITALS: PULSE 66
[2023-10-27] MEDS: Acetaminophen/oxyCODONE 325-5 MG Tab PO ONE (12:00)
[2023-10-27 13:21] VITALS: BP 131/77
== END 2023-10-27 12:15 | disposition home or self-care (01) ==
LOC: MW.SDS 06:47
PROVIDERS: ATTEND Surgery
DX: K43.0 Incisional hernia with obstruction, without gangrene (principal); I10 Essential (primary) hypertension; E11.9 Type 2 diabetes mellitus without complications; K21.9 Gastro-esophageal reflux disease without esophagitis; E66.01 Morbid (severe) obesity due to excess calories; Z68.41 Body mass index [BMI] 40.0-44.9, adult; Z79.82 Long term (current) use of aspirin; Z79.84 Long term (current) use of oral hypoglycemic drugs; Z79.899 Other long term (current) drug therapy; Z88.0 Allergy status to penicillin
CPT/HCPCS: 49592; 64488; A9270; J0131; J0665; J0736; J1100; J1170; J1885; J2704; J2795; J3010; J3490; J7120; J2405

== ENCOUNTER 2024-07-12 16:19 | Inpatient (IN) | payer OTHER ==
[2024-07-12] MEDS ORDERED: Sodium Chloride 0.9% 2.5 ML Syringe FLUSH PRN (16:49)
[2024-07-12] MEDS ORDERED: Sodium Chloride 0.9% 10 ML Syringe FLUSH PRN (16:49)
[2024-07-12 17:10] LABS: BASOPHILS ABSOLUTE AUTO 0.03 K/uL (0.00-0.20); BASOPHILS PERCENT AUTO 0.5 % (0.0-1.0); HEMOGLOBIN 11.4 g/dL (12.0-16.0); IMMATURE GRAN ABSOLUTE AUTO 0.01 K/uL (0.00-0.05); IMMATURE GRAN PERCENT AUTO 0.2 % (0.0-0.4); LYMPHOCYTES ABSOLUTE AUTO 1.75 K/uL (1.00-4.80); LYMPHOCYTES PERCENT AUTO 30.5 % (24.0-44.0); MEAN CORPUSCULAR HGB CONC 31.7 g/dL (32.0-36.0); MEAN CORPUSCULAR VOLUME 85.3 fL (83.0-99.0); MEAN PLATELET VOLUME 10.8 fL (9.4-12.3); MONOCYTES ABSOLUTE AUTO 0.47 K/uL (0.00-0.80); MONOCYTES PERCENT AUTO 8.2 % (0.0-8.0); NEUTROPHILS ABSOLUTE AUTO 2.67 K/uL (1.80-7.70); NEUTROPHILS PERCENT AUTO 46.6 % (41.0-71.0); PLATELET COUNT,PLT 244 K/uL (150-400); RED BLOOD CELL COUNT 4.22 M/uL (4.10-5.30); WHITE BLOOD CELL COUNT,WBC 5.73 K/uL (3.9-11.3)
[2024-07-12 17:47] LABS: A/G RATIO 1.1 (0.9-1.6); ALBUMIN 3.4 g/dL (3.4-5.0); BILIRUBIN TOTAL 0.5 mg/dL (0.2-1.0); CALCIUM 8.7 mg/dL (8.5-10.1); CARBON DIOXIDE,CO2 29.9 mmol/L (21.0-32.0); CREATININE 1.3 mg/dL (0.6-1.0); EST CRCL DRUG DOSING (CG) 44.19 mL/min; POTASSIUM,K 4.1 mmol/L (3.5-5.1); PROTEIN TOTAL,TP 6.4 g/dL (6.4-8.2)
[2024-07-12 18:15] LABS: APPEARANCE,URINE CLEAR; BILIRUBIN,URINE NEGATIVE (NEGATIVE); COLOR,URINE YELLOW; GLUCOSE,URINE NEGATIVE (NEGATIVE); KETONES,URINE NEGATIVE (NEGATIVE); LEUKOCYTE ESTERASE,URINE NEGATIVE (NEGATIVE); NITRITE,URINE NEGATIVE (NEGATIVE); OCCULT BLOOD,URINE NEGATIVE (NEGATIVE); PROTEIN,URINE NEGATIVE (NEGATIVE); UROBILINOGEN,URINE 0.2 EU/dL (<2.0)
[2024-07-12] MEDS: Sodium Chloride 0.9% 1,000 ML IV STA (18:20)
[2024-07-12 18:29] LABS: HEMATOCRIT 33.2 % (37.0-47.0); HEMOGLOBIN 10.9 g/dL (12.0-16.0)
[2024-07-12] MEDS: Pantoprazole 80 MG in Sodium Chloride 0.9% 10 ML IVPUSH ONE (18:50)
[2024-07-12] MEDS: Iopamidol 755 MG/ML 500 ML Multipack Bottle IVPUSH STA (20:14)
[2024-07-12] MEDS: Sodium Chloride 0.9% 1,000 ML IV ONE (21:48)
[2024-07-12] MEDS ORDERED: Glucagon,Human Recombinant 1 MG Vial IM PRN (22:41)
[2024-07-12] MEDS ORDERED: 50% Dextrose in Water 50 ML Syringe IVPUSH PRN (22:41)
[2024-07-12] MEDS: Insulin Aspart 100 Units/ML 3 ML Pen SUBCUT SCH (23:26)
[2024-07-13 01:13] LABS: BASOPHILS ABSOLUTE AUTO 0.02 K/uL (0.00-0.20); BASOPHILS PERCENT AUTO 0.3 % (0.0-1.0); EOSINOPHILS ABSOLUTE AUTO 0.68 K/uL (0.00-0.45); EOSINOPHILS PERCENT AUTO 11.6 % (0.0-6.0); HEMATOCRIT 27.9 % (37.0-47.0); HEMOGLOBIN 9.1 g/dL (12.0-16.0); IMMATURE GRAN ABSOLUTE AUTO 0.01 K/uL (0.00-0.05); IMMATURE GRAN PERCENT AUTO 0.2 % (0.0-0.4); LYMPHOCYTES ABSOLUTE AUTO 2.02 K/uL (1.00-4.80); LYMPHOCYTES PERCENT AUTO 34.5 % (24.0-44.0); MEAN CORPUSCULAR HEMOGLOBIN 27.8 pg (28.0-32.0); MEAN CORPUSCULAR HGB CONC 32.6 g/dL (32.0-36.0); MEAN CORPUSCULAR VOLUME 85.3 fL (83.0-99.0); MONOCYTES ABSOLUTE AUTO 0.41 K/uL (0.00-0.80); NEUTROPHILS ABSOLUTE AUTO 2.71 K/uL (1.80-7.70); NEUTROPHILS PERCENT AUTO 46.4 % (41.0-71.0); PLATELET COUNT,PLT 207 K/uL (150-400); RED BLOOD CELL COUNT 3.27 M/uL (4.10-5.30); WHITE BLOOD CELL COUNT,WBC 5.85 K/uL (3.9-11.3)
[2024-07-13] MEDS: Insulin Aspart 100 Units/ML 3 ML Pen SUBCUT SCH (05:53)
[2024-07-13 07:03] LABS: BASOPHILS ABSOLUTE AUTO 0.03 K/uL (0.00-0.20); BASOPHILS PERCENT AUTO 0.6 % (0.0-1.0); EOSINOPHILS ABSOLUTE AUTO 0.78 K/uL (0.00-0.45); HEMATOCRIT 25.3 % (37.0-47.0); HEMOGLOBIN 8.3 g/dL (12.0-16.0); IMMATURE GRAN ABSOLUTE AUTO 0.01 K/uL (0.00-0.05); IMMATURE GRAN PERCENT AUTO 0.2 % (0.0-0.4); LYMPHOCYTES ABSOLUTE AUTO 1.89 K/uL (1.00-4.80); LYMPHOCYTES PERCENT AUTO 36.4 % (24.0-44.0); MEAN CORPUSCULAR HEMOGLOBIN 27.9 pg (28.0-32.0); MEAN CORPUSCULAR HGB CONC 32.8 g/dL (32.0-36.0); MEAN CORPUSCULAR VOLUME 85.2 fL (83.0-99.0); MEAN PLATELET VOLUME 10.6 fL (9.4-12.3); MONOCYTES ABSOLUTE AUTO 0.39 K/uL (0.00-0.80); MONOCYTES PERCENT AUTO 7.5 % (0.0-8.0); NEUTROPHILS ABSOLUTE AUTO 2.09 K/uL (1.80-7.70); NEUTROPHILS PERCENT AUTO 40.3 % (41.0-71.0); PLATELET COUNT,PLT 183 K/uL (150-400); RED BLOOD CELL COUNT 2.97 M/uL (4.10-5.30); WHITE BLOOD CELL COUNT,WBC 5.19 K/uL (3.9-11.3)
[2024-07-13 07:24] LABS: A/G RATIO 1.2 (0.9-1.6); ALBUMIN 2.6 g/dL (3.4-5.0); BILIRUBIN TOTAL 0.6 mg/dL (0.2-1.0); CALCIUM 7.9 mg/dL (8.5-10.1); CARBON DIOXIDE,CO2 30.4 mmol/L (21.0-32.0); CREATININE 1.1 mg/dL (0.6-1.0); EST CRCL DRUG DOSING (CG) 52.23 mL/min; PROTEIN TOTAL,TP 4.8 g/dL (6.4-8.2)
[2024-07-13 07:40] LABS: POTASSIUM,K 4.2 mmol/L (3.5-5.1)
[2024-07-13] MEDS: Pantoprazole 40 MG in Sodium Chloride 0.9% 10 ML IVPUSH SCH (09:38)
[2024-07-13 10:36] VITALS: BP 105/69; PULSE 79
== END 2024-07-13 10:55 | DRG 379 ==
LOC: MW.ED 16:19 → MW.MS 21:40
PROVIDERS: ADMIT Internal Medicine; ATTEND Internal Medicine
PROC: 30233N1 Transfusion of Nonautologous Red Blood Cells into Peripheral Vein, Percutaneous Approach (ICD-10-PCS; principal; 2024-07-13)
DX: K62.5 Hemorrhage of anus and rectum (principal); K57.91 Diverticulosis of intestine, part unspecified, without perforation or abscess with bleeding; I10 Essential (primary) hypertension; K21.9 Gastro-esophageal reflux disease without esophagitis; E11.9 Type 2 diabetes mellitus without complications; D64.9 Anemia, unspecified; E78.00 Pure hypercholesterolemia, unspecified; M19.90 Unspecified osteoarthritis, unspecified site; F41.9 Anxiety disorder, unspecified; E66.9 Obesity, unspecified; I95.9 Hypotension, unspecified; Z88.8 Allergy status to other drugs, medicaments and biological substances; Z88.0 Allergy status to penicillin; Z79.84 Long term (current) use of oral hypoglycemic drugs; Z79.82 Long term (current) use of aspirin; Z79.51 Long term (current) use of inhaled steroids; Z79.899 Other long term (current) drug therapy; Z86.0100 Personal history of colon polyps, unspecified; Z68.39 Body mass index [BMI] 39.0-39.9, adult; Z90.49 Acquired absence of other specified parts of digestive tract; Z98.49 Cataract extraction status, unspecified eye
CPT/HCPCS: 36415; 36430; 74177; 74177-26; 80053; 81003; 82947; 83690; 85014; 85018; 85025; 86850; 86900; 86901; 86920; 96361; 96374; 99284; 99285-25; J1815-GY; J2470; J3490; J7030; P9016; Q9967